=== PATIENT | female | born 1970 | race Hispanic/Latino ===

== ENCOUNTER 2022-03-25 01:16 | Day surgery (SDC) | payer OTHER, SELFPAY ==
[2022-03-09 13:04] VITALS: BMI 24.2
[2022-03-25 10:15] VITALS: BP 117/61; PULSE 80; RESP 18; TEMP 36.6; O2SAT 98
[2022-03-25] MEDS: LACTATED RINGERS 1,000 ML 150 ML IV CONT (10:29)
--- NOTE | 2022-03-25 11:22 | WPDANESEPPF ---
Anes - Initial Pre Proc Eval Procedure: Operation Date: 03/25/22 11:15 Proposed Procedures p Esophagogastroduodenoscopy & Screening Colonoscopy - Magdy Cast MD Date/Time: 03/25/22 11:22 Surgeon: Magdy Cast MD Pre Op Diagnosis: gerd and bloating: neoplasm screening Patient Data Age: 51 Gender: F Height: 1.65 m Weight: 71 kg Last Vital Signs Temp 36.6 C 03/25/22 10:15 Pulse 80 03/25/22 10:15 Resp 18 03/25/22 10:15 BP 117/61 03/25/22 10:15 Pulse Ox 98 03/25/22 10:15 O2 Del Method Room Air 03/25/22 10:15 Allergies Allergy/AdvReac Type Severity Reaction Status Date / Time No Known Allergies Allergy Verified 03/25/22 10:14 Home Medications Medication Instructions Recorded Confirmed Type famotidine 40 mg tablet 40 mg PO DAILY 01/27/22 03/09/22 History omeprazole 40 mg capsule,delayed 40 mg PO DAILY 01/27/22 03/09/22 History release Patient hx anesthesia problems: none Family hx anesthesia problems: none Results Review: All pre-operative results and documents have been reviewed as part of the pre-operative evaluation. [facility] Past Medical History Medical History (Updated 01/27/22 @ 10:48 by KARRI Ghotra) Overweight (BMI 25.0-29.9) Family History Family History (Updated 01/27/22 @ 09:49 by Olivia Raza MA) Mother Acute leukemia Diabetes mellitus Hypertension Thyroid condition Social History Social History (Updated 03/25/22 @ 11:26 by Mike Mora DO) Smoking packs per day: 0.5 Smoking cigarettes per day: 10.0 Years smoked: 25 Smoking pack-years: 12.50 Smoking status: Current every day smoker Tobacco type: cigarettes Second hand tobacco smoke exposure: No Alcohol intake: current Drinks per week: 7 Alcohol use details: 1 drink/day Living arrangements: alone Spiritual care concerns: No Anes - Eval Final PreProcedure Day of Procedure 03/25/22 11:22 Results Review: All pre-operative results and documents have been reviewed as part of the pre-operative evaluation. Informed Consent: The patient's anesthetic plan and its attendant risks and benefits were discussed with the patient/family/POA. Questions were solicited and answers provided to the satisfaction of the patient/family/POA.
--- NOTE | 2022-03-25 11:30 | PM.HPGS ---
History of Present Illness History of Present Illness Consent: Risks, benefits, and alternatives have been discussed and questions answered. Patient agrees to proceed with procedure. Chief complaint: gerd and bloating: neoplasm screening Narrative: Cara Boss is a 51 year old female with epigastric pain and bloating after eating, also sensation that food is staying in stomach for too long. Had egd about 10 years ago, never had GES. Colonoscopy 2011. Using protonix for 2-3 months with some relief. She is from [place]. Review of Systems Constitutional: Constitutional: Denies headache(s) and Denies weakness Eyes: Eyes: Denies blurry vision ENT: Reports Normal hearing present, Denies headache(s) and Denies neck pain Cardiovascular: Cardiovascular: Denies chest pain and Denies dyspnea Respiratory: Respiratory: Denies dyspnea Gastrointestinal: Gastrointestinal: Reports no additional gastrointestinal complaints Genitourinary: Genitourinary: Denies dysuria Musculoskeletal: Musculoskeletal: Denies neck pain Integumentary/Breasts: Skin/Breast: Denies dry skin Neurologic: Reports Normal hearing present, Denies headache(s) and Denies weakness Psychiatric: Psychiatric: Denies anxiety Endocrine: Endocrine: Denies change in body appearance Hematologic/Lymphatic: Hematologic/Lymphatic: Denies easy bleeding Allergic/Immunologic: Allergic/Immunologic: Denies urticaria PMFSH Past Medical History Medical History (Updated 03/25/22 @ 11:31 by Magdy Cast MD) Bloating Colon cancer screening Epigastric pain Overweight (BMI 25.0-29.9) Family History Family History (Updated 01/27/22 @ 09:49 by Olivia Raza MA) Mother Acute leukemia Diabetes mellitus Hypertension Thyroid condition Social History Social History (Updated 03/25/22 @ 11:26 by Mike Mora DO) Smoking packs per day: 0.5 Smoking cigarettes per day: 10.0 Years smoked: 25 Smoking pack-years: 12.50 Smoking status: Current every day smoker Tobacco type: cigarettes Second hand tobacco smoke exposure: No Alcohol intake: current Drinks per week: 7 Alcohol use details: 1 drink/day Living arrangements: alone Spiritual care concerns: No Meds Home Medications and Allergies Home Medications Medication Instructions Recorded Confirmed Type famotidine 40 mg tablet 40 mg PO DAILY 01/27/22 03/09/22 History omeprazole 40 mg capsule,delayed 40 mg PO DAILY 01/27/22 03/09/22 History release Allergies Allergy/AdvReac Type Severity Reaction Status Date / Time No Known Allergies Allergy Verified 03/25/22 10:14 Vital Signs Vital Signs - 24 hr 03/25/22 10:15 Temperature 97.9 F Pulse Rate 80 Respiratory Rate 18 Blood Pressure 117/61 Pulse Oximetry 98 Oxygen Delivery Room Air Exam Const: General: comfortable and no acute distress HENMT: General nose exam: Normal nares present Eyes: General: appearance normal, both eyes and all related structures Neck: Neck: no JVD Resp: Auscultation: clear to auscultation bilaterally Cardio: Rate: regular rate Rhythm: regular rhythm GI: Inspection: non-distended GI Palp: Yes Soft to palpation Skin: General skin exam: normal color Neuro: General: gait normal Speech: normal speech Extrem: General: normal to inspection Psych: Mental Status: mental status grossly normal Assessment and Plan Assessment and plan (1) Bloating: Code(s): R14.0 - Abdominal distension (gaseous) Status: Acute Assessment and Plan: egd with bx, assess if pud, celiac if negative then will get gastric emptying study already on ppi (2) Epigastric pain: Code(s): R10.13 - Epigastric pain Status: Acute (3) Colon cancer screening: Code(s): Z12.11 - Encounter for screening for malignant neoplasm of colon Status: Acute Assessment and Plan: colonoscopy
[2022-03-25 11:57] VITALS: BP 111/82; PULSE 82; RESP 22; O2SAT 98
[2022-03-25 12:07] VITALS: BP 103/55; PULSE 75; RESP 13; O2SAT 98
[2022-03-25 12:17] VITALS: BP 116/71; PULSE 64; RESP 20; O2SAT 100
== END 2022-03-25 12:40 | disposition home or self-care (01) ==
PROVIDERS: PCP Physician Assistant; Visit Provider Internal Medicine Gastroenterology
PROC: 0DJ08ZZ Inspection of Upper Intestinal Tract, Via Natural or Artificial Opening Endoscopic (ICD-10-PCS; CPT 43235; principal; 2022-03-25 11:15)
DX: Z12.11 Encounter for screening for malignant neoplasm of colon (principal); K57.30 Diverticulosis of large intestine without perforation or abscess without bleeding; K29.50 Unspecified chronic gastritis without bleeding; B96.81 Helicobacter pylori [H. pylori] as the cause of diseases classified elsewhere; K21.9 Gastro-esophageal reflux disease without esophagitis; F17.210 Nicotine dependence, cigarettes, uncomplicated
CPT/HCPCS: 45378; 43239; 88305; 88342; J2001; J2704; J7120

== ENCOUNTER 2022-04-07 07:47 | Outpatient (CLI) | payer OTHER, SELFPAY ==
--- NOTE | ~2022-04-07 | NM_ITS ---
EXAM: NM gastric emptying study DATE: 04/07/2022 13:47 CDT INDICATION: Gastric fullness TECHNIQUE: A gastric emptying study was performed using the methodology of Ortiz GARCIA, et al. J Nucl Med 2007; 48:568-572. The patient was given a meal consisting of 2 scrambled eggs labeled with 1 mCi Tc-99m sulfur colloid, 2 slices of toast, two packages of jam, and approximately 120 mL of water. Si multaneous anterior and posterior 1-min images of the abdomen were obtained with the patient supine a t multiple time points over a total period of 4 hours. The geometric mean of anterior and posterior v iews was determined, and the percentage retention was calculated for each time point. COMPARISON: None. FINDINGS: Gastric retention of the radiotracer-labeled meal was 16%, 1%, and 2% at the 1-hour, 2-chito r, and 4-hour time points, respectively. With this technique, apparent rapid gastric emptying is sugg ested by <30% gastric retention at 1 hour. Delayed gastric emptying is defined by gastric retention o f >90% at 1 hour, >60% retention at 2 hours, or >10% retention at 4 hours. IMPRESSION: 1. Rapid gastric emptying. Reviewed, dictated and finalized at location A. IMPRESSION: 1. Rapid gastric emptying.
== END 2022-04-07 07:48 | disposition home or self-care (01) ==
PROVIDERS: PCP Physician Assistant; Visit Provider Internal Medicine Gastroenterology
DX: R10.13 Epigastric pain (principal); R14.0 Abdominal distension (gaseous); K31.84 Gastroparesis
CPT/HCPCS: 78264; A9541

== ENCOUNTER 2022-09-03 13:03 | Outpatient (CLI) | payer OTHER, SELFPAY ==
--- NOTE | 2022-09-03 | ECHO_ITS ---
Patient Info Name: Cara Boss Age: 52 years : 1970 Gender: Female Ht: 65 in Wt: 160 lbs BSA: 1.84 m2 HR: 78 bpm BP: 128 / 81 mmHg Heart Rhythm: Sinus Rhythm Technical Quality: Fair Exam Date: 09/03/2022 1:28 PM Exam Location: [facility] Patient Status: Outpatient Admit Date: 09/03/2022 Staff Ordering Physician: Demar, Delta SHER Worm Packer: Jennifer Williamson RDCS Attending Provider: Demar, Delta SHER Exam Type: CA echo doppler color flow Study Info Indications R07.9 - Chest pain, unspecified Complete two-dimensional, color flow and Doppler transthoracic echocardiogram is performed. Summary 1. Complete two-dimensional, color flow and Doppler transthoracic echocardiogram is performed. 2. Left ventricular systolic function is normal, estimated at 65-70%. 3. The left ventricular diastolic function is normal. 4. Right ventricular systolic function is normal. 5. No significant valvular disease. Left Ventricle Left ventricular chamber dimension is normal. Left ventricular systolic function is normal, estimated at 65-70%. There is no increased left ventricular wall thickness. The left ventricular diastolic function is normal. Right Ventricle Right ventricular chamber dimension is normal. Right ventricular systolic function is normal. Left Atria Left atrial chamber dimension is normal. Right Atria Right atrial chamber dimension is normal. Atrial Septum Intact interatrial septum visualized by color flow imaging. Aortic Valve The aortic valve is not well visualized. There is no aortic valve stenosis. There is no aortic valve regurgitation. Pulmonic Valve The pulmonic valve is not well visualized. Mitral Valve The mitral valve has normal leaflets. There is no mitral valve stenosis. There is no mitral valve regurgitation. Tricuspid Valve The tricuspid valve leaflets are normal. There is no significant tricuspid valve stenosis. There is no tricuspid valve regurgitation. Pericardium/Pleural There is no pericardial effusion. Inferior Vena Cava Normal inferior vena cava with >50% collapse upon inspiration consistent with normal right atrial pressure. Aorta The aortic root size at the sinus of Valsalva is normal. Left Ventricular Outflow Tract Name Value Normal LVOT 2D LVOT Diameter 1.9 cm LVOT Doppler LVOT Peak Gradient 5 mmHg LVOT Mean Gradient 3 mmHg LVOT VTI 24 cm LVOT VTI/AV VTI Ratio 0.9 LVOT Stroke Volume 67 ml LVOT CO 4.4 l/min LVOT CI 2.4 l/min/m2 Pulmonic Valve Name Value Normal RVOT Doppler RVOT Peak Gradient 2 mmHg PV Doppler ---------
== END 2022-09-03 13:04 | disposition home or self-care (01) ==
LOC: ANHCARD 13:04
PROVIDERS: PCP Physician Assistant; Visit Provider Nurse Practitioner Family
DX: R07.9 Chest pain, unspecified (principal)
CPT/HCPCS: 93306

== ENCOUNTER → 2022-11-04 11:56 | Outpatient (CLI) | payer OTHER, SELFPAY ==
--- NOTE | ~2022-11-04 | MR_ITS ---
EXAMINATION: MR lumbar spine wo con DATE: 11/04/2022 12:09 INDICATION: Lumbar spondylosis without myelopathy or radiculopathy. Low back pain. TECHNIQUE: Magnetic resonance imaging (MRI) of the lumbar spine was performed without intravenous con trast. Sequences included sagittal T2-weighted FSE, sagittal T2-weighted FS FSE, sagittal T1-weighted FSE, and axial T2-weighted FSE. COMPARISON: None FINDINGS: Bone alignment is normal. There are Schmorl's nodes from T11-T12 through L3-L4. Interverteb ral disc heights are normal. The distal spinal cord signal intensity is normal. The conus medullaris is at L1. The following disc levels are specifically discussed: L1-L2: The disc does not extend beyond the endplate margin. There is mild bilateral facet joint osteo arthritis. There is no neural foraminal stenosis. There is no central canal stenosis. L2-L3: The disc does not extend beyond the endplate margin. There is mild bilateral facet joint osteo arthritis. There is no neural foraminal stenosis. There is no central canal stenosis. L3-L4: The disc does not extend beyond the endplate margin. There is mild bilateral facet joint osteo arthritis. There is no neural foraminal stenosis. There is no central canal stenosis. L4-L5: The disc does not extend beyond the endplate margin. There is mild right and moderate left fac et joint osteoarthritis. There is no neural foraminal stenosis. There is no central canal stenosis. L5-S1: The disc does not extend beyond the endplate margin. There is severe bilateral facet joint ost eoarthritis. There is mild left neural foraminal stenosis. There is no central canal stenosis. IMPRESSION: 1. Mild lumbar spondylosis. Reviewed, dictated and finalized at location A. TH OFFICER IMPRESSION: 1. Mild lumbar spondylosis.
== END ==
PROVIDERS: PCP Nurse Practitioner Adult Health; Visit Provider Nurse Practitioner Adult Health
DX: M47.816 Spondylosis without myelopathy or radiculopathy, lumbar region (principal)
CPT/HCPCS: 72148

== ENCOUNTER 2023-02-15 11:21 | Emergency (ER) | payer OTHER, SELFPAY ==
[2023-02-15 11:31] VITALS: BP 126/75; PULSE 88; RESP 16; TEMP 36.7; O2SAT 97
--- NOTE | 2023-02-15 11:31 | ECG_ITS ---
Measurements Intervals [place] Rate: 85 P: 48 CO: 124 QRS: 79 QRSD: 81 T: 69 QT: 362 QTc: 431 Interpretive Statements SINUS RHYTHM NORMAL ECG COMPARED TO ECG 02/15/2023 11:37:14 NO SIGNIFICANT CHANGES Electronically Signed On 02-15-2023 13:20:48 CDT by Gael Almanzar D.O.
--- NOTE | 2023-02-15 11:33 | ED.GENADULT ---
HPI - General Adult General Chief complaint: Headache Stated complaint: headaches; numbness in left face/arm;vision change Time Seen by Provider: 02/15/23 11:42 Source: patient Mode of arrival: ambulatory Limitations: no limitations History of Present Illness HPI narrative: 52-year-old female presents with concern for posterior headache 05/13, dizziness, intermittent chest pain, blurry vision, numbness in her left face and left arm. She reports symptoms started on Wednesday and have progressively worsened. She denies any syncope, near syncope. She denies weakness in any extremity. She denies difficulty speaking, swallowing. She reports she has been taking ibuprofen without relief. She denies any recent illness. She reports history of a neck injury 4 years ago that she has been being treated for. MD complaint: Headache Related Data Home Medications Medication Instructions Recorded Confirmed No Home Medications 12/11/22 02/15/23 Allergies Allergy/AdvReac Type Severity Reaction Status Date / Time No Known Allergies Allergy Verified 02/15/23 11:25 Review of Systems Review of Systems: CONSTITUTIONAL: Denies malaise, chills, or fever. Reports sweats EYES: Reports blurry vision, watery eyes ENT: Denies rhinorrhea, congestion, sinus pain, otalgia or sore throat. CARDIOVASCULAR: Reports chest pain. Denies palpitations or edema. RESPIRATORY: Denies cough or dyspnea. GASTROINTESTINAL: Denies abdominal pain, vomiting, diarrhea. Reports nausea. GENITOURINARY: Denies dysuria or hematuria. SKIN: Denies rash or itching. MUSCULOSKELETAL: Denies back pain, joint pain, or myalgia. NEUROLOGIC: Denies numbness, weakness. Reports dizziness and headache. All systems reviewed & are unremarkable except as noted in HPI and below PMFSH Past Medical History Medical History (Updated 02/15/23 @ 12:02 by Alicia Thompson NP) Bloating Cervical spondylosis Chronic pain Colon cancer screening Epigastric pain Lumbar spondylosis Overweight (BMI 25.0-29.9) Family History Family History Mother Acute leukemia Diabetes mellitus Hypertension Thyroid condition Social History Social History Smoking packs per day: 0.5 Smoking cigarettes per day: 10.0 Years smoked: 25 Smoking pack-years: 12.50 Smoking status: Current every day smoker Tobacco type: cigarettes Second hand tobacco smoke exposure: No Alcohol intake: current Drinks per week: 7 Alcohol use details: 1 drink/day Living arrangements: alone Spiritual care concerns: No Comments At time of signature, agree with nursing past medical, surgical, social and family history. There is no relevant family history pertinent to the presenting complaint Exam Narrative: GENERAL: Well-appearing, well-nourished, and in no acute distress. HEAD: Normocephalic, atraumatic. EYES: PERRLA, sclera clear, and EOMI. No nystagmus. ENT: Nares clear, turbinates pink, no rhinorrhea or epistaxis. Mucous membranes moist. NECK: Supple. No lymphadenopathy. CHEST: No respiratory distress. Clear to auscultation. No bony deformities, no asymmetry. Speaks in full sentences. HEART: Regular rate and rhythm. No murmur heard. Normal peripheral pulses. EXTREMITIES: Grossly normal range of motion. No edema. Grossly normal strength and sensation. SKIN: Warm, dry, no visible rash. NEURO: Alert and oriented x3. No focal deficits. Cranial nerves II through XII grossly intact PSYCH: Normal mood and affect Course Course Emergency Course: Patient is aware of, understands and agrees to be transferred to the emergency room. Patient agrees to proceed directly to the emergency department. Portions of this record may have been created with voice recognition software Level of Care: Express Care Visit Vital Signs Vital signs: Vital Signs Temperature 98.1 F 05/1
== END 2023-02-15 11:53 | disposition short-term general hospital (02) ==
PROVIDERS: Emergency Provider Nurse Practitioner; PCP Family Medicine
DX: R42 Dizziness and giddiness (principal); F17.210 Nicotine dependence, cigarettes, uncomplicated
CPT/HCPCS: 93005; 99213; G0463

== ENCOUNTER 2023-02-15 12:37 | Observation (INO) | payer OTHER, SELFPAY ==
[2023-02-15] VITALS (13 sets, daily range): BP systolic 130–167; BP diastolic 55–102; PULSE 68–94; RESP 11–22; TEMP 35.7–36.3; O2SAT 95–100
--- NOTE | ~2023-02-15 | XR_ITS ---
EXAMINATION: XR chest 2V 02/15/2023 13:13 INDICATION: Chest pain and dizziness PROCEDURE: 2 view chest COMPARISON: 05/08/2016 FINDINGS: The lungs are clear. The cardiomediastinal silhouette is within normal limits. There are no pleural effusions. There is no pneumothorax suspected. IMPRESSION: 1: NO ACUTE CARDIOPULMONARY DISEASE. 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
--- NOTE | ~2023-02-15 | CT_ITS ---
EXAMINATION: CTA BRAIN/CAROTID DATE: 02/15/2023 15:17 INDICATION: Dizziness, headache and left facial and arm numbness. TECHNIQUE: Computed tomographic angiography (CTA) of the head and neck was performed with 100 mL Omni paque-350 intravenous contrast. Multiplanar reconstructions and maximum intensity projection 3D-recon structions of the carotid arteries and of the intracranial arteries were created by the technologist on a separate workstation. Precontrast CT of the head was also obtained. Automated exposure control and iterative reconstruction technique were employed.The dose-length product was 1620.43 mGy-cm. Imme diately following contrast administration the patient experienced a contrast reaction with prominent of shortness of breath. I went to see the patient who appeared anxious and mildly tachypneic. No evid ent hives, apparent angioedema in the oropharynx or wheezing on auscultation. The patient was placed on the nonrebreather oxygen mask and was saturating 100%. Patient denied itching but when asked dated described a sensation of some throat tightness. The ED physician was notified and the patient was re turned to the emergency department where under the care of Dr. Chavez she was administered 50 mg Be nadryl, 1 mg epinephrine and 125 mg Solu-Medrol IV. COMPARISON: None. FINDINGS: Carotid arteries: Thoracic aorta is normal in caliber with no dissection. There is 0% stenosis of the right carotid bul b relative to normal distal artery lumen diameter (NASCET criteria). There is 0% stenosis of the left carotid bulb relative to normal distal artery lumen diameter. Multinodular goiter with dominant 4 cm mixed solid and cystic right thyroid mass with some associated coarse partial rim calcification. Lik bal developmental anterior fusion at C5-C6 along with fusion across the right-sided C5-C6 facet joint s. The left side of the C5 facet joints remains unfused with the right side fused to the C6 spinous p rocess. Visualized upper lungs are clear. Calcified mediastinal lymph nodes consistent with old granu lomatous disease. Head: No acute intracranial hemorrhage, acute infarction or abnormal extra axial fluid collection. Ventricl es are normal and symmetric. No mass/mass effect. No abnormally enhancing brain lesions. The orbits, paranasal sinuses and mastoid air cells are normal. Intracranial arteries There is no hemodynamically significant stenosis in the vertebral, basilar and internal carotid arter ies. Vertebral arteries are codominant. There are no aneurysms identified. Both A1 and P1 segments a re patent. There is a patent anterior communicating artery. Cerebral arterial arborization appears sy mmetric. IMPRESSION: 1. 0% stenosis of the right and left carotid bulbs relative to normal distal artery lumen diameter (N ASCET criteria). 2. Normal cerebral CT angiogram with no aneurysm, thrombosis or hemodynamically significant stenosis. 3. Normal brain. No acute intracranial process or abnormally enhancing brain lesions. 4. Multinodular goiter with 4 cm right thyroid mass. Recommend thyroid ultrasound for risk stratifica tion. 5. Moderate severity contrast allergy which was treated with Benadryl, epinephrine and Solu-Medrol IV . Patient should be advised to avoid intravenous iodine contrast administration as there is a signifi cant risk for a recurrent severe contrast allergy even following premedication. Reviewed, dictated and finalized at location A. IMPRESSION: 1. 0% stenosis of the right and left carotid bulbs relative to normal distal ar shabnam lumen diameter (NASCET criteria). 2. Normal cerebral CT angiogram with no aneurysm, thrombosis or hemodynamically significant stenosis. 3. Normal brain. No acute intracranial process or abnormally enhancing brain le sions. 4. Multinod
--- NOTE | ~2023-02-15 | MR_ITS ---
EXAMINATION: MR brain/brain stem wo/w con DATE: 02/16/2023 08:44 INDICATION: Left hemiparesis. TECHNIQUE: Magnetic resonance imaging (MRI) of the brain and brainstem was performed without and with 14 mL MultiHance intravenous contrast. COMPARISON: Head CT 02/15/2023 FINDINGS: There are scattered areas of nonspecific increased T2-weighted signal intensity in the cere bral white matter, which is within normal limits for the patient's age. There is no intracranial hemo rrhage, acute infarction, or abnormal intracranial mass lesion. The ventricles are normal in size. Th ere is mild mucosal thickening in the ethmoid sinuses. The mastoid air cells are normal. The orbits a re normal. IMPRESSION: 1. Normal aging brain. Reviewed, dictated and finalized at location A. IMPRESSION: 1. Normal aging brain.
--- NOTE | ~2023-02-15 | US_ITS ---
EXAMINATION: US thyroid DATE: 02/16/2023 09:03 INDICATION: Right thyroid nodule. TECHNIQUE: Multiple ultrasound images of the thyroid were obtained. COMPARISON: Neck CTA 02/15/2023, chest CT 06/01/2015 FINDINGS: The right thyroid lobe measures 7.8 x 2.7 x 2.4 cm. The left thyroid lobe measures 3.0 x 1.2 x 0.9 c m. In the right thyroid lobe, there is a 4.1 cm predominantly solid, hypoechoic, wider than tall nod ule with lobulated margin and peripheral calcifications (TI-RADS TR5). IMPRESSION: 1. Right thyroid nodule. Ultrasound-guided fine-needle aspiration is recommended. Reviewed, dictated and finalized at location A. IMPRESSION: 1. Right thyroid nodule. Ultrasound-guided fine-needle aspiration is recommende d.
--- NOTE | 2023-02-15 12:39 | ECG_ITS ---
Measurements Intervals [place] Rate: 79 P: 60 [place]: 139 QRS: 79 QRSD: 80 T: 68 QT: 361 QTc: 416 Interpretive Statements SINUS RHYTHM WITH SINUS ARRHYTHMIA BASELINE ARTIFACT- I, III, AVR, AVL NORMAL ECG NO PREVIOUS ECG AVAILABLE FOR COMPARISON Electronically Signed On 02-15-2023 12:48:50 CDT by Gael Almanzar D.O.
[2023-02-15 13:07] LABS: Basophils Absolute Auto 0.1 K/mm3 (0.0-0.1); Eosinophils Absolute Auto 0.2 K/mm3 (0-0.3); Eosinophils Percent Auto 2.3 % (0-4.4); Hematocrit 47.5 % (37.0-47.0); Hemoglobin 15.9 g/dL (12.0-15.0); Immature Granulocyte Absolute 0.04 K/mm3 (0.00-0.031); Immature Granulocyte Percent A 0.4 % (0-0.5); Lymphocytes Absolute Auto 3.49 K/mm3 (0.9-3.2); Mean Corpuscular HGB Conc 33.5 g/dl (32-36); Mean Corpuscular Hemoglobin 31.9 pg (26-34); Mean Corpuscular Volume 95.2 fl (80-100); Mean Platelet Volume 9.1 fl (7.4-10.4); Monocytes Absolute Auto 0.6 K/mm3 (0.1-0.6); Monocytes Percent Auto 7.2 % (2.6-8.5); Neutrophils Absolute Auto 4.5 K/mm3 (1.3-6.7); Neutrophils Percent Auto 50.1 % (45.5-73.1); Platelet Count Result 317 k/mm3 (150-375); Red Blood Count 4.99 M/mm3 (4.2-5.4); Red Cell Distribution Width 12.9 % (11.5-14.5); White Blood Count 8.9 K/mm3 (4.5-10.0)
[2023-02-15 13:14] LABS: Alanine Aminotransferase 49 U/L (6-35); Albumin Level 4.7 g/dL (3.5-5.1); Alkaline Phosphatase 92 U/L (38-126); Anion Gap 6 mmol/L (8-16); Aspartate Amino Transferase 40 U/L (14-36); Bilirubin,Total 0.6 mg/dL (0.2-1.3); Blood Urea Nitrogen 9 mg/dL (7-17); Carbon Dioxide 26 mmol/L (22-30); Chloride 106 mmol/L (98-107); Estimated CRCL calculation 75 ml/min; Estimated Glomerular Filt Rate > 60; Glucose 95 mg/dL (65-110); Lipase 81 U/L (23-300); Potassium 3.8 mmol/L (3.4-5.0); Sodium 138 mmol/L (137-145)
[2023-02-15 13:19] LABS: INR 0.9; Prothrombin Time 12.9 Seconds (11.1-14.7)
[2023-02-15 13:21] LABS: Partial Thromboplastin Time 29.8 SECONDS (22.3-36.8)
[2023-02-15 13:26] LABS: Troponin I < 0.012 ng/mL (0.000-0.034)
[2023-02-15] MEDS: ASPIRIN 81 MG CHEWABLE TABLET 324 MG PO (14:21)
--- NOTE | 2023-02-15 14:22 | ED.GENADULT ---
HPI - General Adult General Chief complaint: Chest Pain Stated complaint: dizziness/chest pain, left arm numbness Time Seen by Provider: 02/15/23 13:49 History of Present Illness HPI narrative: 52-year-old female presented to the emergency department for evaluation of left facial left arm and left leg numbness and weakness. Patient states symptoms started approximately 1 week ago. Patient denies any prior history of [place] or CVA. Patient states she has no underlying past medical issues. Patient denies any associated chest pain or shortness of breath. Patient reports that the symptoms have been persistent for approximately 1 week. Patient denies any acute worsening of the symptoms over the course of the week. Related Data Home Medications Medication Instructions Recorded Confirmed No Home Medications 12/11/22 02/15/23 Allergies Allergy/AdvReac Type Severity Reaction Status Date / Time iohexol Allergy Dyspnea / Verified 02/15/23 16:29 [From contrast - CT, X-RAY] SOB Review of Systems Review of Systems: All systems reviewed & are unremarkable except as noted in HPI and below PMFSH Past Medical History Medical History (Updated 02/15/23 @ 19:08 by Thien Chavez MD) Bloating Cervical spondylosis Chronic pain Colon cancer screening Epigastric pain Lumbar spondylosis Overweight (BMI 25.0-29.9) Family History Family History Mother Acute leukemia Diabetes mellitus Hypertension Thyroid condition Social History Social History Smoking packs per day: 0.5 Smoking cigarettes per day: 10.0 Years smoked: 25 Smoking pack-years: 12.50 Smoking status: Current every day smoker Tobacco type: cigarettes Second hand tobacco smoke exposure: No Alcohol intake: current Drinks per week: 4 Alcohol use details: 1 drink/day Substance use: current Substance use type: marijuana Lack of Transportation: No Lack of Food: Never True Current Housing: I Have Housing Concerned About Future Housing: No Difficulty Paying Gas/Electric Bills: No Difficulty Paying for Meds: No Currently Unemployed: No Education: High School Diploma/GED Difficulty w/ Childcare or Family Care: No Living arrangements: alone Spiritual care concerns: No Exam Narrative: APPEARANCE: Well appearing, no pain, no distress, well-nourished. HEAD: normocephalic, atraumatic. EYES: PERRLA/EOMI, conjunctivae clear. NOSE: Normal no drainage EARS:TMS clear with good light reflex. THROAT: Pharynx clear, no exudate. NECK: Supple. No adenopathy, no masses. RESPIRATORY: Airway patent, respirations nonlabored. Clear to auscultation bilaterally, no rales, rhonchi, wheezing. CARDIOVASCULAR: Regular rate and rhythm without murmurs rubs or gallops. ABDOMINAL: Soft, nontender, nondistended, normal bowel sounds MUSCULOSKELETAL: Moves all extremities. Strength/ROM intact, No edema, No calf tenderness. NEURO: Alert. Cranial nerves II through XII intact. No ataxia or discoordination, mild weakness of the left upper and left lower extremity with strength 4 out of 5. SKIN: Warm, dry. Normal Color Course Course Emergency Course: 52-year-old female presented the ED for evaluation of left facial numbness, left arm and left leg weakness. Head CT and CTA were negative for acute findings. Due to patient having some weakness Case was discussed with neurology and patient will be admitted for an MRI for further work-up. Patient and family were updated on the results of the imaging and plan for admission and further work-up. All questions and concerns were addressed and patient was stable at time of admission. Vital Signs Vital signs: Vital Signs Temperature 97.4 F L 02/15/23 12:42 Pulse Rate 91 02/15/23 12:42 Respiratory Rate 20 02/15/23 12:42 Blood Pressure 140/70 02/15/23 12:42 Pulse Oximetry 98 05
--- NOTE | 2023-02-15 15:15 | PC.NURSE ---
While pt was in CT, pt had a reaction to the IV contrast. a rapid response was called. RR team states the pt got short of breath after receiving contrast. Pt was brought back to ED room and Dr. Chavez assessed pt. Pt states her face feels itching and she feels SOB. Pt was given 125mg of solumedrol and 50 mg of benadryl. No edema in throat noted and no difficulty swallowing.
[2023-02-15] MEDS: diphenhydrAMINE HCl INJ 50 MG/ML VIAL (15:19)
[2023-02-15] MEDS: methylPREDNISolone SOD SUCC 125 MG VIAL (15:19)
[2023-02-15 16:26] LABS: Troponin I < 0.012 ng/mL (0.000-0.034)
[2023-02-15 19:09] LABS: Troponin I < 0.012 ng/mL (0.000-0.034)
[2023-02-16] VITALS: PULSE 73
--- NOTE | 2023-02-16 | ECHO_ITS ---
Patient Info Name: Cara Boss Age: 52 years : 1970 Gender: Female Ht: 65 in Wt: 155 lbs BSA: 1.81 m2 HR: 78 bpm BP: 106 / 57 mmHg Heart Rhythm: Sinus Rhythm Technical Quality: Good Exam Date: 02/16/2023 2:34 PM Exam Location: [facility] Card Pulmonary Patient Status: Inpatient Admit Date: 02/15/2023 Staff Ordering Physician: [facility] Insurance Coordinator: Jennifer Williamson RDCS Attending Provider: Romel Garsia MD Referring Physician: Jn JONES; Exam Type: CA echo limited w bubble study Study Info Indications - NEURO CHANGES Limited two-dimensional transthoracic echocardiogram is performed with agitated saline. Contrast/Agitated Saline Contrast/Ag. Saline: Agitated Saline Amount: 20.00 ml Existing IV Access: Yes IV Access Condition: patent with no signs of infiltration Summary 1. Intact interatrial septum visualized by color flow and agitated saline imaging. Left Ventricle Left ventricular systolic function is normal, estimated at 65-70%. Left ventricular septal wall motion is grossly normal, however endocardial definition is limited. Right Ventricle Right ventricular chamber dimension is normal. Right ventricular systolic function is normal. Left Atria Left atrial chamber dimension is normal. Right Atria Right atrial chamber dimension is normal. Atrial Septum Intact interatrial septum visualized by color flow and agitated saline imaging. Report Signatures
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
[2023-02-16 03:14] LABS: Hematocrit 47.8 % (37.0-47.0); Mean Corpuscular HGB Conc 33.5 g/dl (32-36); Mean Corpuscular Hemoglobin 31.9 pg (26-34); Mean Corpuscular Volume 95.2 fl (80-100); Mean Platelet Volume 9.3 fl (7.4-10.4); Platelet Count Result 316 k/mm3 (150-375); Red Blood Count 5.02 M/mm3 (4.2-5.4); Red Cell Distribution Width 12.7 % (11.5-14.5); White Blood Count 9.8 K/mm3 (4.5-10.0)
[2023-02-16 03:30] LABS: Cholesterol 209 mg/dL (0-200); HDL Direct 49 mg/dL; Triglycerides 89 mg/dL (<150)
[2023-02-16 03:31] LABS: Alanine Aminotransferase 44 U/L (6-35); Albumin Level 4.2 g/dL (3.5-5.1); Alkaline Phosphatase 71 U/L (38-126); Anion Gap 10 mmol/L (8-16); Aspartate Amino Transferase 35 U/L (14-36); Bilirubin,Total 0.6 mg/dL (0.2-1.3); Blood Urea Nitrogen 12 mg/dL (7-17); Calcium 9.2 mg/dL (8.4-10.2); Carbon Dioxide 21 mmol/L (22-30); Chloride 104 mmol/L (98-107); Estimated CRCL calculation 86 ml/min; Estimated Glomerular Filt Rate > 60; Glucose 187 mg/dL (65-110); Potassium 3.8 mmol/L (3.4-5.0); Sodium 135 mmol/L (137-145)
[2023-02-16 03:40] LABS: LDL Cholesterol Direct 153 mg/dL
[2023-02-16 04:00] VITALS: PULSE 74
[2023-02-16 04:38] LABS: Folic Acid 8.1 ng/mL (2.76->20)
[2023-02-16 05:28] LABS: Thyroid Stimulating Hormone Reflex 0.856 uIU/mL (0.465-4.68)
[2023-02-16 05:56] VITALS: BP 106/57; PULSE 69; RESP 18; TEMP 35.8; O2SAT 96
[2023-02-16] MEDS: THIAMINE HCL 200 MG/2 ML VIAL 100 MG IV PUSH (05:59)
[2023-02-16 08:00] VITALS: PULSE 69; RESP 18; O2SAT 96
[2023-02-16] MEDS: ATORVASTATIN 40 MG TABLET PO (09:50)
[2023-02-16] MEDS: ASPIRIN 81 MG CHEWABLE TABLET PO (09:50)
[2023-02-16] MEDS: THIAMINE HCL 100 MG TABLET PO (09:50)
[2023-02-16] MEDS: NICOTINE (*PBKC) 14 MG PATCH 1 PATCH TRANSDERM (09:51)
--- NOTE | 2023-02-16 11:17 | WPDNEURCNPN ---
Assessment and Plan Assessment and plan (1) TIA (transient ischemic attack): Code(s): G45.9 - Transient cerebral ischemic attack, unspecified Status: Acute Plan 1. TIA by history with negative CT scan CTA and negative MRI of the brain 2. Continue the aspirin 81 mg daily with all the pros and cons for the other diagnosis as such. Consult date: 02/16/23 HPI: Cara Boss is a 52 year old female admitted to the hospital through the emergency room for the complaints of dizziness along with the left upper extremity numbness and left lower extremity numbness. Patient reported the symptoms started about 1 week ago she gave no history of recent or remote trauma or stroke and also give no history of any underlying medications intake. Patient has not been taking any home medications and her past history consists of cervical spondylosis and lumbar spondylosis along with the chronic pain including the epigastric pain. She has a history of currently everyday smoking with smoking pack years 12.5 and at least taking 4 drinks per week of alcohol. Initial exam in the emergency room was grossly nonfocal with normal vital signs, normal CBC, normal BMP and normal troponins. Chest x-ray was negative CTA of the brain revealed no stenosis or aneurysm but incidental finding of multinodular goiter with 4cm right thyroid mass she was also documented to have the moderate contrast allergy. She had the MRI of the brain on 02/16 which is normal as mentioned before CTA was negative. As per the review of the medical record she has had an echocardiogram in September of last year with ejection fraction of 65 to 70% Review of Systems Review of Systems: All systems reviewed & are unremarkable except as noted in HPI and below PMFSH Past Medical History Medical History (Updated 02/16/23 @ 11:28 by Lan Botello MD) Cervical spondylosis Chronic pain Heavy alcohol use Helicobacter pylori gastritis (03/2022) Lumbar spondylosis Overweight (BMI 25.0-29.9) Tobacco use disorder, continuous Surgical History Surgical History (Updated 02/16/23 @ 08:00 by Arpita Romero DO) H/O hysterectomy for benign disease (~2007) Uterine fibroids History of esophagogastroduodenoscopy (EGD) (03/2022) Biopsies demonstrating chronic gastritis with H pylori Normal colonoscopy (03/2022) Family History Family History Mother Acute leukemia Diabetes mellitus Hypertension Thyroid condition Social History Social History (Updated 02/16/23 @ 01:45 by Arpita Romero DO) Social History: She lives at home with her of 33 years and there 19 year old. They have a total of 4 children with you oldest being 28 years old. She drinks 4 beers a day and has done so for many years. She smokes half a pack of cigarettes per day and started smoking at 14 years old. She uses marijuana gummies to help with her chronic back pain. Code status: Full code Surrogate decision maker: Smoking packs per day: 0.5 Smoking cigarettes per day: 10.0 Years smoked: 38 Smoking pack-years: 19.00 Smoking status: Current every day smoker Tobacco type: cigarettes Second hand tobacco smoke exposure: No Alcohol intake: current Drinks per week: 4 Alcohol use details: 1 drink/day Substance use: current Substance use type: marijuana Lack of Transportation: No Lack of Food: Never True Current Housing: I Have Housing Concerned About Future Housing: No Difficulty Paying Gas/Electric Bills: No Difficulty Paying for Meds: No Currently Unemployed: No Education: High School Diploma/GED Difficulty w/ Childcare or Family Care: No Living arrangements: alone Spiritual care concerns: No Meds Home Medications and Allergies Home Medications Medication Instructions Recorded Confirmed Type No Home Medications 12/11/22 02/15/23 History Allergies Allergy/AdvReac Type Se
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
[2023-02-16] MEDS: ACETAMINOPHEN 325 MG TABLET 650 MG PO (12:11)
[2023-02-16 14:00] VITALS: BP 108/51; PULSE 89; RESP 16; TEMP 36.1; O2SAT 98
[2023-02-16] MEDS: KETOROLAC 30 MG/ML VIAL (*BKC) IV PUSH (17:00)
== END 2023-02-16 17:47 | disposition home or self-care (01) ==
LOC: ANHED 15:10 → ANH3MEDSUR 19:08
PROVIDERS: Admitting Provider Internal Medicine; Emergency Provider Emergency Medicine; PCP Family Medicine; Visit Provider Family Medicine
DX: I63.9 Cerebral infarction, unspecified (principal); G81.94 Hemiplegia, unspecified affecting left nondominant side; R29.703 NIHSS score 3; R20.0 Anesthesia of skin; R53.1 Weakness; M47.812 Spondylosis without myelopathy or radiculopathy, cervical region; G89.29 Other chronic pain; M47.816 Spondylosis without myelopathy or radiculopathy, lumbar region; R51.9 Headache, unspecified; E66.3 Overweight; D75.1 Secondary polycythemia; E04.2 Nontoxic multinodular goiter; R74.01 Elevation of levels of liver transaminase levels; T50.8X5A Adverse effect of diagnostic agents, initial encounter; Z68.25 Body mass index [BMI] 25.0-25.9, adult; F17.210 Nicotine dependence, cigarettes, uncomplicated; F10.90 Alcohol use, unspecified, uncomplicated; F12.90 Cannabis use, unspecified, uncomplicated
CPT/HCPCS: 36415; 70496; 70498; 70553; 71046; 76536; 80053; 80061; 82607; 82746; 83690; 84443; 84484; 85025; 85027; 85610; 85730; 93005; 93308; 96374; 96375; 99213; 99285; A9270; A9577; G0378; G0463; J0171; J1200; J1885; J2930; J3411; Q9967

== ENCOUNTER → 2023-05-14 12:41 | Outpatient (CLI) | payer OTHER, SELFPAY ==
--- NOTE | ~2023-05-14 | MR_ITS ---
EXAMINATION: MR cervical spine wo con DATE: 05/14/2023 13:13 INDICATION: Cervical radiculopathy. TECHNIQUE: Magnetic resonance imaging (MRI) of the cervical spine was performed without intravenous c ontrast. COMPARISON: None FINDINGS: Bone alignment is normal. Vertebral body heights are normal. There is mildly decreased disc height at C6-C7. There is a developmental interbody fusion at C5-C6. The spinal cord signal intensit y is normal. The following disc levels are specifically discussed: C2-C3: The disc does not extend beyond the endplate margin. There is no uncovertebral joint osteoarth ritis. There is no facet joint osteoarthritis. There is no neural foraminal stenosis. There is no jose luis tral canal stenosis. C3-C4: There is a central protrusion. There is mild right uncovertebral joint osteoarthritis. There i s mild left facet joint osteoarthritis. There is mild right neural foraminal stenosis. There is mild central canal stenosis. C4-C5: The disc is bulging. There is mild bilateral uncovertebral joint osteoarthritis. There is mild left facet joint osteoarthritis. There is mild right neural foraminal stenosis. There is mild centra l canal stenosis. C5-C6: The disc does not extend beyond the endplate margin. There is no uncovertebral joint hypertrop hy. There is no facet joint hypertrophy. There is no neural foraminal stenosis. There is no central c anal stenosis. C6-C7: The disc is bulging. There is mild bilateral uncovertebral joint osteoarthritis. There is mild bilateral facet joint osteoarthritis. There is no neural foraminal stenosis. There is mild central c anal stenosis. C7-T1: The disc does not extend beyond the endplate margin. There is no uncovertebral joint osteoarth ritis. There is severe bilateral facet joint osteoarthritis. There is mild bilateral neural foraminal stenosis. There is no central canal stenosis. IMPRESSION: 1. Mild cervical spondylosis. Reviewed, dictated and finalized at location A.
== END ==
PROVIDERS: PCP Nurse Practitioner Family; Visit Provider Pain Medicine Pain Medicine
DX: M54.12 Radiculopathy, cervical region (principal); M43.02 Spondylolysis, cervical region
CPT/HCPCS: 72141

== ENCOUNTER 2023-06-08 12:33 | Outpatient (CLI) | payer OTHER, SELFPAY ==
--- NOTE | ~2023-06-08 | US_ITS ---
EXAMINATION: US FNA w image guidance DATE: 06/08/2023 13:37 INDICATION: Right thyroid mass TECHNIQUE: A time-out was performed to verify the patient's name, date of , and procedure to be performed . The procedure and its benefits and risks were discussed with the patient. Risks specifically discus sed included bleeding and infection. The patient understood the risks and agreed to proceed. The neck was prepped and draped in the usual sterile manner. 3 mL 1% lidocaine was used for local anesthesia . 6 passes were made with a 25G needle into the lesion. Appropriate needle location was documented with continuous sonographic guidance. A sterile bandage was applied. There were no immediate compli cations. FINDINGS: Grayscale ultrasound images demonstrate biopsy needles advanced into a 2.7 cm heterogeneous mass in t he right thyroid with partial rim calcification. IMPRESSION: 1. Successful ultrasound-guided fine needle aspiration of a 2.7 cm right thyroid mass. Reviewed, dictated and finalized at location A. IMPRESSION: 1. Successful ultrasound-guided fine needle aspiration of a 2.7 cm right thyro id mass.
== END 2023-06-08 12:34 | disposition home or self-care (01) ==
PROVIDERS: PCP Nurse Practitioner Family; Visit Provider Nurse Practitioner Family
DX: E04.2 Nontoxic multinodular goiter (principal)
CPT/HCPCS: 10005; 88173; 88305

== ENCOUNTER 2023-06-17 17:56 | Emergency (ER) | payer OTHER, SELFPAY ==
--- NOTE | ~2023-06-17 | XR_ITS ---
EXAMINATION: XR chest 2V DATE: 06/17/2023 18:25 INDICATION: Cough and shortness of breath TECHNIQUE: PA and lateral views of the chest are obtained. COMPARISON: 02/15/2023 FINDINGS: The lungs are free of acute opacities. No pleural effusion or pneumothorax. The cardiomedia stinal silhouette is normal. There is moderate thoracic spondylosis. IMPRESSION: 1. No acute cardiopulmonary abnormality. Reviewed, dictated and finalized at location F.
[2023-06-17 17:58] VITALS: BP 131/96; PULSE 87; RESP 20; TEMP 36.6; O2SAT 98
[2023-06-17 22:23] VITALS: BP 137/74; PULSE 95; RESP 18; O2SAT 95
[2023-06-17 22:39] VITALS: BP 144/80; PULSE 73; RESP 23; TEMP 36.5; O2SAT 96
[2023-06-17] MEDS: BENZONATATE 100 MG CAPSULE 200 MG PO (23:04)
[2023-06-17] MEDS: IPRATROPIUM BR 0.02% INH SOLN 0.5 MG/2.5 ML VIAL INHALATION (23:07)
[2023-06-17] MEDS: ALBUTEROL SULFATE NEB 2.5 MG/3 ML INH INHALATION (23:07)
--- NOTE | 2023-06-17 23:08 | PC.NURSE ---
pt care and report given to JF Knight. all questions answered.
[2023-06-17 23:11] VITALS: PULSE 57; RESP 18
--- NOTE | 2023-06-17 23:13 | ED.GENADULT ---
HPI - General Adult General Chief complaint: Shortness of Breath/Dyspnea Stated complaint: diff breathing Time Seen by Provider: 06/17/23 22:51 History of Present Illness HPI narrative: Patient is a 52-year-old female who presents the emergency department with chief complaint of bronchitis. Patient reports she was seen in the clinic over the weekend and diagnosed with bronchitis given a prescription for Phenergan Medrol Dosepak and a course of azithromycin. The patient reports she is continue to have a cough and reports her symptoms have not improved. Patient states that she has a sharp type discomfort in her chest whenever she coughs or takes a deep breath patient states that there is no heaviness or tightness in her chest patient reports that she has had no fever. Related Data Allergies Allergy/AdvReac Type Severity Reaction Status Date / Time Iodinated Contrast Media Allergy Dyspnea / Verified 06/17/23 23:06 SOB iohexol Allergy Dyspnea / Verified 02/15/23 16:29 [From contrast - CT, X-RAY] SOB Review of Systems Review of Systems: A 10 system review of systems was completed on the patient and is negative except for what is stated in the HPI. Nursing and ancillary documentation was reviewed. [facility], [facility] Past Medical History Medical History Cervical spondylosis Chronic pain Heavy alcohol use Helicobacter pylori gastritis (03/2022) Lumbar spondylosis Overweight (BMI 25.0-29.9) Tobacco use disorder, continuous Surgical History Surgical History H/O hysterectomy for benign disease (~2007) Uterine fibroids History of esophagogastroduodenoscopy (EGD) (03/2022) Biopsies demonstrating chronic gastritis with H pylori Normal colonoscopy (03/2022) Family History Family History Mother Acute leukemia Diabetes mellitus Hypertension Thyroid condition Social History Social History Social History: She lives at home with her of 33 years and there 19 year old. They have a total of 4 children with you oldest being 28 years old. She drinks 4 beers a day and has done so for many years. She smokes half a pack of cigarettes per day and started smoking at 14 years old. She uses marijuana gummies to help with her chronic back pain. Code status: Full code Surrogate decision maker: Smoking packs per day: 0.5 Smoking cigarettes per day: 10.0 Years smoked: 38 Smoking pack-years: 19.00 Smoking status: Current every day smoker Tobacco type: cigarettes Second hand tobacco smoke exposure: No Alcohol intake: current Drinks per week: 4 Alcohol use details: 1 drink/day Substance use: current Substance use type: marijuana Lack of Transportation: No Lack of Food: Never True Current Housing: I Have Housing Concerned About Future Housing: No Difficulty Paying Gas/Electric Bills: No Difficulty Paying for Meds: No Currently Unemployed: No Education: High School Diploma/GED Difficulty w/ Childcare or Family Care: No Living arrangements: alone Spiritual care concerns: No Exam Narrative: GENERAL: Well-appearing, well-nourished, and in no acute distress. HEAD: Normocephalic, atraumatic. EYES: PERRLA and EOMI. ENT: Nares clear, no rhinorrhea or epistaxis. Mucous membranes moist. NECK: Supple. CHEST: Clear to auscultation. No respiratory distress. HEART: Regular rate and rhythm. No murmur heard. Normal peripheral pulses. ABDOMEN: Soft, nontender, nondistended, normal active bowel sounds. EXTREMITIES: Normal range of motion. No edema. SKIN: Warm, dry, no rash. NEURO: No focal deficits. Alert and oriented x3. PSYCH: Normal mood and affect. Course Vital Signs Vital signs: Vital Signs Temperature 36
[2023-06-17 23:18] VITALS: PULSE 69; RESP 18
[2023-06-17 23:29] LABS: Influenza A QL RT-PCR Negative (Negative); Influenza B QL RT-PCR Negative (Negative); SARS-CoV-2 RNA PCR Negative (Negative)
[2023-06-18 00:21] VITALS: BP 120/77; PULSE 78; RESP 18; O2SAT 94
== END 2023-06-18 00:22 | disposition home or self-care (01) ==
PROVIDERS: Physician Assistant; Emergency Provider Emergency Medicine; PCP Nurse Practitioner Family
DX: J20.8 Acute bronchitis due to other specified organisms (principal); Z20.822 Contact with and (suspected) exposure to COVID-19; E66.3 Overweight; Z68.23 Body mass index [BMI] 23.0-23.9, adult; F17.210 Nicotine dependence, cigarettes, uncomplicated; Z90.710 Acquired absence of both cervix and uterus; Z79.82 Long term (current) use of aspirin
CPT/HCPCS: 71046; 87636; 94640; 99283; A9270

== ENCOUNTER 2023-09-03 14:02 | Outpatient (CLI) | payer OTHER, SELFPAY ==
--- NOTE | ~2023-09-03 | XR_ITS ---
XR knee LT min 4V 09/03/2023 14:46 Indication: Knee pain Procedure: 4 views left knee Comparison: No prior studies for comparison. Findings: There is anatomic alignment. No fracture or traumatic malalignment. No significant joint ef fusion. No foreign bodies. Impression: 1: No significant bone or joint abnormality. 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
--- NOTE | ~2023-09-03 | XR_ITS ---
XR knee RT min 4V 09/03/2023 14:46 Indication: Right knee pain Procedure: 4 views right knee Comparison: 02/26/2014 Findings: No fracture, subluxation or dislocation. No significant joint effusion. No foreign bodies. There is anatomic alignment. Impression: 1: No significant bone or joint abnormality. 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
== END 2023-09-03 14:03 | disposition home or self-care (01) ==
PROVIDERS: PCP Nurse Practitioner Family; Visit Provider Nurse Practitioner Family
DX: M25.561 Pain in right knee (principal)
CPT/HCPCS: 73564

== ENCOUNTER 2024-02-04 10:21 | Emergency (ER) | payer SELFPAY ==
[2024-02-04 10:31] VITALS: BP 117/64; PULSE 102; RESP 16; TEMP 37.4; O2SAT 99
--- NOTE | 2024-02-04 10:40 | ED.URI ---
HPI - URI/Sore Throat General Chief Complaint: Upper Respiratory Infection Stated Complaint: cough,throat hurts,right ear pain Time Seen by Provider: 02/04/24 10:33 Source: patient and RN notes reviewed Mode of arrival: ambulatory Limitations: no limitations History of Present Illness HPI Narrative: Patient presents today with a 4 day history of cough, sore throat, right ear pain, with fever up to 100.3. She also reports some mild shortness of breath. Currently rates her pain 10/10 and has tried Robitussin, TheraFlu, and ibuprofen with some mild relief. History of asthma Related Data Home Medications Medication Instructions Recorded Confirmed No Home Medications 02/04/24 02/04/24 Allergies Allergy/AdvReac Type Severity Reaction Status Date / Time Iodinated Contrast Media Allergy Dyspnea / Verified 02/04/24 10:33 SOB iohexol Allergy Dyspnea / Verified 02/04/24 10:33 [From contrast - CT, X-RAY] SOB Review of Systems Review of Systems: CONSTITUTIONAL: Denies body aches, chills, or sweats.+ fever EYES: Denies visual changes, redness, or discharge. ENT: Denies rhinorrhea, congestion. + sore throat, right ear pain CARDIOVASCULAR: Denies chest pain, palpitations, or edema. RESPIRATORY: + cough, shortness of breath GASTROINTESTINAL: Denies abdominal pain, nausea, vomiting, or diarrhea. GENITOURINARY: Denies dysuria or hematuria. SKIN: Denies rash, itching, or wounds. MUSCULOSKELETAL: Denies back pain, joint pain, or myalgia. NEUROLOGIC: Denies headache, numbness, tingling, or weakness. PSYCH: Denies depression or anxiety. [facility] Past Medical History Medical History Cervical spondylosis Chronic pain Heavy alcohol use Helicobacter pylori gastritis (03/2022) Lumbar spondylosis Overweight (BMI 25.0-29.9) Tobacco use disorder, continuous Surgical History Surgical History H/O hysterectomy for benign disease (~2007) Uterine fibroids History of esophagogastroduodenoscopy (EGD) (03/2022) Biopsies demonstrating chronic gastritis with H pylori Normal colonoscopy (03/2022) Family History Family History Mother Acute leukemia Diabetes mellitus Hypertension Thyroid condition Social History Social History Social History: She lives at home with her of 33 years and there 19 year old. They have a total of 4 children with you oldest being 28 years old. She drinks 4 beers a day and has done so for many years. She smokes half a pack of cigarettes per day and started smoking at 14 years old. She uses marijuana gummies to help with her chronic back pain. Code status: Full code Surrogate decision maker: Smoking packs per day: 0.5 Smoking cigarettes per day: 10.0 Years smoked: 38 Smoking pack-years: 19.00 Smoking status: Current every day smoker Tobacco type: cigarettes Second hand tobacco smoke exposure: No Alcohol intake: current Drinks per week: 4 Alcohol use details: 1 drink/day Substance use: current Substance use type: marijuana Lack of Transportation: No Lack of Food: Never True Current Housing: I Have Housing Concerned About Future Housing: No Difficulty Paying Gas/Electric Bills: No Difficulty Paying for Meds: No Currently Unemployed: No Education: High School Diploma/GED Difficulty w/ Childcare or Family Care: No Living arrangements: alone Spiritual care concerns: No Comments At time of signature, I have reviewed and agree with nursing past medical, surgical, social and family history unless otherwise noted. Please see nursing chart for further information. There is no relevant family history pertinent to the presenting complaint Exam Narrative: GENERAL: Well-appearing, w
== END 2024-02-04 11:27 | disposition home or self-care (01) ==
PROVIDERS: Emergency Provider Nurse Practitioner
DX: J06.9 Acute upper respiratory infection, unspecified (principal); Z20.822 Contact with and (suspected) exposure to COVID-19; F17.210 Nicotine dependence, cigarettes, uncomplicated; F12.90 Cannabis use, unspecified, uncomplicated
CPT/HCPCS: 87081; 87426; 87804; 87880; 99213; G0463

== ENCOUNTER 2024-11-01 14:29 | Outpatient (CLI) | payer OTHER, SELFPAY ==
--- NOTE | ~2024-11-01 | MM_ITS ---
EXAMINATION: MM screening toby BI w merline HISTORY: Screening TECHNIQUE: Craniocaudal and mediolateral oblique 3-D tomosynthesis images were obtained and synthetic 2-D images were generated. CAD analysis was submitted and interpreted. COMPARISON: 03/05/2009 BREAST PARENCHYMAL COMPOSITION: There are scattered areas of fibroglandular density. FINDINGS: There is no evidence of suspicious mass, calcification, or architectural distortion to sugg est malignancy in either breast. There has been no suspicious interval change. IMPRESSION: 1. No mammographic evidence of malignancy. 2. Recommend routine screening mammography in one year. BI-RADS Category 1: Negative Reviewed, dictated and finalized at location A. R ACCOUNT MANAGER
--- NOTE | ~2024-11-01 | US_ITS ---
EXAM: ABDOMEN ULTRASOUND HISTORY: RUQ pain COMPARISON: None FINDINGS: LIVER: The liver is increased in echogenicity suggesting fatty infiltration. The contour of the liver is smooth GALLBLADDER: A single 3 mm focus of increased echogenicity is identified along the dependent wall of the gallbladder. No vascularity evaluation was interrogated on the submitted images. No gallbladder wall thickening or pericholecystic fluid. BILE DUCTS: Common bile duct measures 4.7mm. PANCREAS: Limited evaluation of the pancreas secondary to overlying bowel gas IMPRESSION: Single 3 mm focus of increased echogenicity along the dependent wall of the gallbladder without vascu larity evaluation on the submitted images. This may represent a single stone versus a gallbladder nando yp. Short-term follow-up is recommended. Reviewed, dictated and finalized at location A. IALTY FINISHING UTILITY PERSON IMPRESSION: Single 3 mm focus of increased echogenicity along the dependent wall of the gal lbladder without vascularity evaluation on the submitted images. This may repre sent a single stone versus a gallbladder polyp. Short-term follow-up is recommended.
--- OUTSIDE RECORDS SUMMARY | 2024-11-01 15:19 | XMS_ITS | Data Portability ---
Author Organization [place] [facility], Main Office Address [address] [place] [address] Assessment No assessment recorded. Plan of Treatment Reminders Order Date Submit Date Provider Last Modified By Organization Details Last Modified Time Details Appointments New Patient 2024 03:15P Shaun Ashton MD Not available Not available Not available Any 15 2024 03:30P NAHUM Pitt Not available Not available Not available Lab TSH, serum or plasma 2024 025 [facility], [address] , [place], [address], 10/11/2024 21:57:39 HbA1c (hemoglob in A1c), blood 2024 025 [facility], [address] , [place], [address], 10/11/2024 21:57:40 CMP, serum or plasma 2024 025 [facility], [address], [place], [address], 10/11/2024 21:57:37 lipid panel, serum 2024 025 [facility], [address] , [place], [address], 10/11/2024 21:57:36 CBC w/ auto diff 2024 025 [facility], [address] , [place], [address], 10/11/2024 21:57:38 Referral otolaryng ologist referral - FNA inconclus el. 4.1 cm TIRADS 5 nodule on right thyroid lobe. Please call patient to schedule an appointme nt. Thank you. 2024 025 [email or web address] Nolan Ashton MD, [address] [facility] [address], [place], [address], 10/31/2024 08:31:57 Procedures None recorded. Surgeries None recorded. Imaging XR, knee 2022 023 [facility], [address] [place] [address] [place] [address], [address], 09/03/2023 16:51:19 MAMMO, screening , digital, bilateral - Please call pt to schedule 2024 025 [facility], [facility] [address] [facility], [place], [address], 10/16/2024 12:45:24 [place], hank er - Please call pt to schedule 2024 025 [facility], [address] [place] [address], [address], 10/16/2024 12:45:24 Medication Orders nicotine 21 mg/24 hr daily transderm al patch [address] [facility], [facility] [place], [address], 10/06/2024 15:51:21 bupropion HCl 150 mg tablet,12 hr sustained -release( smoking deterrent ) [address] [facility], [facility] [place], [address], 10/06/2024 15:50:44 benzonata te 200 mg capsule [address] [facility], [facility] [place], [address], 10/06/2024 15:50:39 bupropion HCl 150 mg tablet,12 hr sustained -release( smoking deterrent ) [address], [address] [place] [address], [address], 10/06/2024 15:50:44 ibuprofen 800 mg tablet 2022 023 [facility] [address], [address] [place] [address], [address], 08/20/2023 17:23:26 prednison e 20 mg tablet [address], [address] [place] [address], [address], 10/06/2024 15:51:55 Medrol (Zak) 4 mg tablets in a dose pack [address], [address] [place] [address], [address], 10/17/2024 16:26:23 azithromy madeline 250 mg tablet [address], [address] [place] [address], [address], 10/17/2024 16:26:19 Airsupra 90 mcg-80 mcg/actua tion HFA aerosol inhaler 2024 025 [facility] [address], [address] [place] [address], [address], 10/06/2024 16:17:26 omeprazol e 40 mg capsule,d elayed release 2024 025 [facility] [address], [address] [place] [address], [address], 10/06/2024 16:17:27 metformin ER 500 mg tablet,ex tended release 24 hr 2024 025 [facility], [address] [facility], [place], [address], 10/17/2024 16:40:33 Patient TargetsNo targets recorded. Patient Instructions Encounter Date Encounter Id Patient Instructions Last Modified By Organization Details Last Modified Time 10/17/2024 [id number] type 2 diabetes: care instructions suhailmaria r Not available 10/17/2024 16:40:26 Reason for Referral [employer] Referral fo r Mass of thyroid gland FNA inconclusive. 4.1 cm TIRADS 5 nodule on right thyroid lobe. Please call patient to schedule an appointment. Thank you. Referring Physician: Sunni Mgcinnis, Family Medicine, Encounter Date: 10/06/2024 Results Created Date Observation Date Name Description Value Unit Range Abnormal Flag Note LastModifiedBy Organization Detail LastModifiedTime 10/11/1910/11/2024 LIPID PANEL , STAND ANN MARIE cholesterol, total 210 mg/dL <200 high Not Available [facility] [place] [address] [address] [place], [address], 10/11/2024 21:57:36 10/11/19 25 10/11/2024 LIPID PANEL , STAND ANN MARIE HDL cholesterol 63 mg/dL > or = 50 normal Not Available [facility] [address] [address] [place], [address], 10/11/2024 21:57:36 10/11/19 25 10/11/2024 LIPID PANEL , STAND ANN MARIE triglyceride s 116 mg/dL <150 normal Not Available [facility] [address] [address] [place], [address], 10/11/2024 21:57:36 10/11/19 25 10/11/2024 LIPID PANEL , STAND ANN MARIE LDL-choleste rol 125 mg/dL _(yannick c) high Refer ence range : <100 Yvonne able range <100 mg/dL for prima ry preve ntion ; <70 mg/dL for patie nts with CHD or diabe tic patie nts with > or = 2 CHD risk facto rs. LDL-C is now calcu lated using the Bridget n-Hop kins calcu juanopal n, which is a valid ated novel fritz hou than the Fried sona equat ion in the estim ation of LDL-C . Bridget reid SS et al. VIOLETA. 2013; 310(1 9): 2061- 2068 (http ://ed ucati on.Qu estNortal AS. com/f aq/FA Q164) Not Available [address], [address], 10/11/2024 21:57:36 10/11/19 25 10/11/2024 LIPID PANEL , STAND ANN MARIE chol/HDLC ratio 3.3 (calc ) <5.0 normal Not Available [address], [address], 10/11/2024 21:57:36 10/11/19 25 10/11/2024 LIPID PANEL , STAND ANN MARIE non HDL cholesterol 147 mg/dL _(yannick c) <130 high For patie nts with diabe isaías plus 1 major ASCVD risk facto r, treat ing to a non-H DL-C goal of <100 mg/dL (LDL- C of <70 mg/dL ) is consi aly colon optio n. Not Available [address], [address], 10/11/2024 21:57:36 10/11/19 25 10/11/2024 COMPR EHENS EL METAB OLIC PANEL glucose 91 mg/dL 65-139 normal Non-f astin g refer ence inter gilda Not Available [address], [address], 10/11/2024 21:57:37 10/11/19 25 10/11/2024 COMPR EHENS EL METAB OLIC PANEL urea nitrogen (BUN) 19 mg/dL 7-25 normal Not Available [facility] [address], [address], 10/11/2024 21:57:37 10/11/19 25 10/11/2024 COMPR EHENS EL METAB OLIC PANEL creatinine 0.85 mg/dL 0.50-1 .03 normal Not Available [place] [address] [address] [place], [address], 10/11/2024 21:57:37 10/11/19 25 10/11/2024 COMPR EHENS EL METAB OLIC PANEL eGFR 82 mL/mi n/1.7 3m2 > or = 60 normal Not Available [address], [address], 10/11/2024 21:57:37 10/11/19 25 10/11/2024 COMPR EHENS EL METAB OLIC PANEL BUN/creatini ne ratio SEE NOTE: (calc ) 6-22 Not Repor amador: BUN and Creat inine are withi n refer ence range . Not Available [address], [address], 10/11/2024 21:57:37 10/11/19 25 10/11/2024 COMPR EHENS EL METAB OLIC PANEL sodium 141 mmol/ L 135-14 6 normal Not Available [address], [address], 10/11/2024 21:57:37 10/11/19 25 10/11/2024 COMPR EHENS EL METAB OLIC PANEL potassium 4.3 mmol/ L 3.5-5. 3 normal Not Available [address], [address], 10/11/2024 21:57:37 10/11/19 25 10/11/2024 COMPR EHENS EL METAB OLIC PANEL chloride 102 mmol/ L 98-110 normal Not Available [address], [address], 10/11/2024 21:57:37 10/11/19 25 10/11/2024 COMPR EHENS EL METAB OLIC PANEL carbon dioxide 31 mmol/ L 20-32 normal Not Available [address], [address], 10/11/2024 21:57:37 10/11/19 25 10/11/2024 COMPR EHENS EL METAB OLIC PANEL calcium 9.7 mg/dL 8.6-10 .4 normal Not Available [address], [address], 10/11/2024 21:57:37 10/11/19 25 10/11/2024 COMPR EHENS EL METAB OLIC PANEL protein, total 6.9 g/dL 6.1-8. 1 normal Not Available [address], [address], 10/11/2024 21:57:37 10/11/19 25 10/11/2024 COMPR EHENS EL METAB OLIC PANEL albumin 4.4 g/dL 3.6-5. 1 normal Not Available [address], [address], 10/11/2024 21:57:37 10/11/19 25 10/11/2024 COMPR EHENS EL METAB OLIC PANEL globulin 2.5 g/dL_ (calc ) 1.9-3. 7 normal Not Available [address], [address], 10/11/2024 21:57:37 10/11/19 25 10/11/2024 COMPR EHENS EL METAB OLIC PANEL albumin/glob ulin ratio 1.8 (calc ) 1.0-2. 5 normal Not Available [address], [address], 10/11/2024 21:57:37 10/11/19 25 10/11/2024 COMPR EHENS EL METAB OLIC PANEL bilirubin, total 0.4 mg/dL 0.2-1. 2 normal Not Available [address], [address], 10/11/2024 21:57:37 10/11/19 25 10/11/2024 COMPR EHENS EL METAB OLIC PANEL alkaline phosphatase 64 U/L 37-153 normal Not Available [facility] N[facility]ini [address], [address], 10/11/2024 21:57:37 10/11/19 25 10/11/2024 COMPR EHENS EL METAB OLIC PANEL AST 13 U/L 10-35 normal Not Available [address], [address], 10/11/2024 21:57:37 10/11/19 25 10/11/2024 COMPR EHENS EL METAB OLIC PANEL ALT 17 U/L 6-29 normal Not Available [address], [address], 10/11/2024 21:57:37 10/11/19 25 10/11/2024 CBC (INCL UDES DIFF/ PLT) white blood cell count 17.8 thous and/u L 3.8-10 .8 high Not Available [facility] [address], [address], 10/11/2024 21:57:38 10/11/19 25 10/11/2024 CBC (INCL UDES DIFF/ PLT) red blood cell count 5.02 orlin on/uL 3.80-5 .10 normal Not Available [address], [address], 10/11/2024 21:57:38 10/11/19 25 10/11/2024 CBC (INCL UDES DIFF/ PLT) hemoglobin 15.9 g/dL 11.7-1 5.5 high Not Available [facility] [address], [address], 10/11/2024 21:57:38 10/11/19 25 10/11/2024 CBC (INCL UDES DIFF/ PLT) hematocrit 48.6 % 35.0-4 5.0 high Not Available [address], [address], 10/11/2024 21:57:38 10/11/19 25 10/11/2024 CBC (INCL UDES DIFF/ PLT) MCV 96.8 fL 80.0-1 00.0 normal Not Available [facility] [address], [address], 10/11/2024 21:57:38 10/11/19 25 10/11/2024 CBC (INCL UDES DIFF/ PLT) MCH 31.7 pg 27.0-3 3.0 normal Not Available [facility] [address], [address], 10/11/2024 21:57:38 10/11/19 25 10/11/2024 CBC (INCL UDES DIFF/ PLT) MCHC 32.7 g/dL 32.0-3 6.0 normal For adult s, a sligh t decre ase in the calcu lated MCHC value (in the range of 30 to 32 g/dL) is most likel y not clini glenys signi fican t; teresa er, it shoul d be inter prete d with cauti on in [facility] n with other red cell pauline eters and the patie nt's clini yannick condi tion. Not Available [facility] [address], [address], 10/11/2024 21:57:38 10/11/19 25 10/11/2024 CBC (INCL UDES DIFF/ PLT) RDW 12.8 % 11.0-1 5.0 normal Not Available [facility] [address], [address], 10/11/2024 21:57:38 10/11/19 25 10/11/2024 CBC (INCL UDES DIFF/ PLT) platelet count 397 thous and/u L 140-40 0 normal Not Available [address], [address], 10/11/2024 21:57:38 10/11/19 25 10/11/2024 CBC (INCL UDES DIFF/ PLT) MPV 9.6 fL 7.5-12 .5 normal Not Available [address], [address], 10/11/2024 21:57:38 10/11/19 25 10/11/2024 CBC (INCL UDES DIFF/ PLT) absolute neutrophils 222[address] cells /uL 1500-7 800 high Not Available [address], [address], 10/11/2024 21:57:38 10/11/19 25 10/11/2024 CBC (INCL UDES DIFF/ PLT) absolute lymphocytes 3026 cells /uL 850-39 00 normal Not Available [address], [address], 10/11/2024 21:57:38 10/11/19 25 10/11/2024 CBC (INCL UDES DIFF/ PLT) absolute monocytes 1068 cells /uL 200-95 0 high Not Available [facility] [address], [address], 10/11/2024 21:57:38 10/11/19 25 10/11/2024 CBC (INCL UDES DIFF/ PLT) absolute eosinophils 0 cells /uL 15-500 low Not Available [facility] [address], [address], 10/11/2024 21:57:38 10/11/19 25 10/11/2024 CBC (INCL UDES DIFF/ PLT) absolute basophils 0 cells /uL 0-200 normal Not Available [facility] [address], [address], 10/11/2024 21:57:38 10/11/19 25 10/11/2024 CBC (INCL UDES DIFF/ PLT) neutrophils 77 % normal Not Available [address], [address], 10/11/2024 21:57:38 10/11/19 25 10/11/2024 CBC (INCL UDES DIFF/ PLT) lymphocytes 17 % normal Not Available [facility] [address], [address], 10/11/2024 21:57:38 10/11/19 25 10/11/2024 CBC (INCL UDES DIFF/ PLT) monocytes 6 % normal Not Available [address], [address], 10/11/2024 21:57:38 10/11/19 25 10/11/2024 CBC (INCL UDES DIFF/ PLT) eosinophils 0 % normal Not Available [facility] [address], [address], 10/11/2024 21:57:38 10/11/19 25 10/11/2024 CBC (INCL UDES DIFF/ PLT) basophils 0 % normal Not Available [address], [address], 10/11/2024 21:57:38 10/11/19 25 10/11/2024 CBC (INCL UDES DIFF/ PLT) comment(s) The smear has been manua lly revie wed and the manua l diffe renti al has been repor amador. Revie w of the perip heral smear revea ls adequ ate numbe rs of plate lets. Not Available [address], [address], 10/11/2024 21:57:38 10/11/19 25 10/11/2024 TSH W/REF HARSHAD TO FT4 TSH w/reflex to FT4 1.13 mIU/L normal Refer ence Range > or = 20 Years 0.40- 4.50 Pregn monie Range s First trime ster 0.26- 2.66 Secon d trime ster 0.55- 2.73 Third trime ster 0.43- 2.91 Not Available [facility] [address] [place], [address], 10/11/2024 21:57:39 10/11/19 25 10/11/2024 HEMOG LOBIN A1C hemoglobin A1C 6.5 %_of_ total _HGB <5.7 high For someo ne witho ut known diabe isaías, a hemog lobin A1c value of 6.5% or great er indic ates that they may have diabe isaías and this shoul d be confi rmed with a follo w-up test. For someo ne with known diabe isaías, a value <7% indic ates that their diabe isaías is well contr olled and a value great er than or equal to 7% indic ates subop timal contr ol. A1c targe ts shoul d be indiv idual ized based on durat ion of diabe isaías, age, comor bid condi tions , and other consi derat ions. Curre ntly, no conse nsus exist s yun patton use of hemog lobin A1c for diagn osis of diabe isaías for child selene. Not Available [facility] [address] [address], [place], [address], 10/11/2024 21:57:40 05/14/20 23 05/14/2023 MRI, cervi yannick spine , w/o contr ast No observ ation record ed. [email or web address] [facility] [address], [place], [address], 05/17/2023 11:19:17 06/09/20 23 06/08/2023 fine needl e aspir ation , ultra sound guide d, thyro id (PROC ) No observ ation record ed. [facility] [address], [place], [address], 10/06/2024 16:17:01 06/17/20 23 06/17/2023 XR, chest No observ ation record ed. [email or web address] [address], [place], [address], 06/18/2023 10:25:44 09/03/20 23 09/03/2023 XR, knee No observ ation record ed. [place] [id number] [facility] [address], [place], [address], 09/15/2023 15:23:23 09/03/20 23 09/03/2023 XR, knee No observ ation record ed. [email or web address] [address], [place], [address], 09/15/2023 15:23:24 Result Notes None recorded. Problems Name Problem SNOMED Code Status Onset Date Resolution Date Notes Provider Name and Address Organization Details Recorded Time Osteoarth ritis of knee 344124893 Active Not Available [facility] 3 09:18:16 Current tear of medial cartilage AND/OR meniscus of knee Active NAHUM Cabrera [address], [place], [address] , [facility] 5 16:07:56 Pain in limb 85909782 Completed 10/06/2024 NAHUM Cabrera [address], [address], [place], [address] , [facility] 5 16:08:25 Cigarette smoker 19298968 Active 2022 NAHUM Burk [address], [place], [address] , [facility] 3 08:36:06 Transient cerebral ischemia 063323419 Active 2022 NAHUM Burk [address], [place], [address] , [facility] 3 08:39:57 Mass of thyroid gland 675445193 Active 2022 NAHUM Burk [address], [place], [address] , [facility] 3 08:44:58 Thyroid nodule 902667917 Active 2022 NAHUM Burk [address], [place], [address] , [facility] 3 08:45:29 Bronchiti s 62808399 Active 2022 NAHUM Mackey-C [address], [place], [address] , [facility] 3 14:41:15 Nicotine dependenc e 70628471 Active 2022 NAHUM Mackey-C [address], [place], [address] , [facility] 3 14:42:30 Pain of bilateral knee joints 33524526065 4104 Completed 202210/06/2024 NAHUM Cabrera [address], [place], [address] , [facility] 5 16:08:29 Right upper quadrant pain 382607776 Active [address], [place], [address] , [facility] 5 16:12:04 Asthma 928507431 Active [address], [place], [address] , [facility] 5 16:12:53 Morbid obesity 401251025 Active [address], [place], [address] , [facility] 5 16:16:27 Overweigh t 454973271 Active 2024 Sunni Mcginnis, NAHUM [address], [place], [address] , [facility] [employer] [facility] 16:16:32 Type 2 diabetes mellitus 51162599 Active 2024 Sunni IzzyPAIGE velascoP [address], [place], [address] , [employer] [facility] 16:31:52 Notes:Some problems listed i n Document: #[id number] could not be added to this patient's chart. Please review this document and add these problems to the patient's chart manually as needed. Problem Notes None recorded. Procedures Surgical History None recorded. Imaging Results Imaging Date Name Status LastModified by Organiz ation Details LastModified Time 05/14/2023 MRI, cervical spine, w/o contrast completed [address], [place], [address], 05/17/2023 11:19:17 06/08/2023 fine needle aspiration, ultrasound guided, thyroid (PROC) [email or web address] [address], [address], 10/06/2024 16:17:01 06/17/2023 XR, chest completed [address], [address], 06/18/2023 10:25:44 09/03/2023 XR, knee completed [address] [place] [address], [address], 09/15/2023 15:23:23 09/03/2023 XR, knee completed [address] [place] [address], [address], 09/15/2023 15:23:24 Procedure Notes None recorded. Medical Equipment None Reported. Allergies Allergen ID Allergen Name Allergen Category Reaction Reaction Severity Criticality Documentation Date Start Date Code Code System Note Provider Name and Address Organization Details Recorded Time 22834 iohexol medicatio n Not available Not available Not available 02/26/2023 5956 RxNorm Caroline Martinez RN [facility], [place] - [facility] [email or web address] [facility] 15:49:44 Medications Name Sig Start Date Stop Date Status Note LastModified by Organization Details LastModified Time atorvastati n 40 mg tablet Take 1 tablet every day by oral route for 90 days. 10/06 completed Not Available Not Available Not Available prednisone 10 mg tablet TAKE 4 TABLETS BY MOUT IN THE MORNING ON DAYS 1 THRU 3, THEN TAKE 3 TABLETS IN THE MORNING ON DAYS 4 AND 5, THEN TAKE 2 TABLETS IN THE MORNING ON DAY 6, THEN TAKE 1 TABLET IN THE MORNING ON DAY 7 (DO NOT TAKE WITH N-SAID) 10/06 completed Not Available Not Available Not Available nicotine 14 mg/24 hr daily transdermal patch APPLY 1 PATCH TOPICALLY ONCE DAILY 10/06 completed Not Available Not Available Not Available albuterol sulfate 2.5 mg/3 mL (0.083 %) solution for nebulizatio n active Not Available Not Available Not Available azithromyci n 250 mg tablet TAKE 2 TABLETS (500 MG) BY ORAL ROUTE ONCE DAILY FOR 1 DAY THEN 1 TABLET (250 MG) BY ORAL ROUTE ONCE DAILY FOR 4 DAYS 10/17 completed Not Available Not Available Not Available miconazole nitrate 2 % topical cream APPLY TO THE AFFECTED AREA(S) BY TOPICAL ROUTE 2 TIMES PER DAY IN THEMORNIN G AND EVENING 10/06 completed Not Available Not Available Not Available ibuprofen 800 mg tablet TAKE 1 TABLET BY MOUTH THREE TIMES DAILY NEEDED active Not Available Not Available No t Available fluconazole 150 mg tablet Take 1 tablet by oral route for 1 day. 02/26 completed Not Available Not Available Not Available benzonatate 200 mg capsule TAKE 1 CAPSULE BY MOUTH THREE TIMES DAILY NEEDED 10/06 completed Not Available Not Available Not Available hydrocodone 5 mg-acetamin ophen 325 mg tablet TK 1 TO 2 TS PO Q 6 H PRN 11/14 completed Not Available Not Available Not Available famotidine 40 mg tablet Take 1 tablet every day by oral route in the evening. 10/06 completed Not Available Not Available Not Available prednisone 20 mg tablet TAKE 1 TABLET BY MOUTH ONCE DAILY FOR 10 DAYS 10/06 completed Not Available Not Available Not Available simethicone 125 mg capsule Take 1-2 capsules daily as needed for bloating 10/06 completed Not Available Not Available Not Available omeprazole 40 mg capsule,del ayed release Take 1 capsule every day by oral route in the morning for 30 days. active Not Available Not Available No t Available aspirin 81 mg tablet,loan yed release TAKE 1 TABLET BY MOUTH ONCE DAILY 10/06 completed Not Available Not Available Not Available tramadol 50 mg tablet TK 1-2 TS PO Q 6 H PRN FOR PAIN 11/14 completed Not Available Not Available Not Available prednisolon e acetate 1 % eye drops,suspe nsion 10/06 completed Not Available Not Available Not Available pantoprazol e 40 mg tablet,loan yed release TAKE 1 TABLET BY MOUTH ONCE DAILY FOR 90 DAYS 10/06 completed Not Available Not Available Not Available oseltamivir 75 mg capsule TAKE 1 CAPSULE BY MOUTH TWICE DAILY 10/06 completed Not Available Not Available Not Available neomycin-po lymyxin-dex ameth 3.5 mg/mL-10,00 0 unit/mL-0.1 % eye drops active Not Available Not Available Not Available nicotine 21 mg/24 hr daily transdermal patch APPLY 1 PATCH TOPICALLY ONCE DAILY 10/06 completed Not Available Not Available Not Available diclofenac sodium 75 mg tablet,loan yed release TK 1 T PO BID WF. 10/06 completed Not Available Not Available Not Available methylpredn isolone 4 mg tablets in a dose pack Take as directed 10/17 completed Not Available Not Available Not Available albuterol sulfate HFA 90 mcg/actuati on aerosol inhaler INHALE 2 PUFFS BY MOUTH EVERY 4 HOURS 10/06 completed Not Available Not Available Not Available metformin ER 500 mg tablet,exte nded release 24 hr TAKE 1 TABLET BY MOUTH ONCE DAILY DIRECTED FOR 30 DAYS active Not Available Not Available No t Available sodium fluoride 1.1 % dental gel APPLY TO TEETH AFTER REGULAR BRUSHING, THEN SPIT 10/06 completed Not Available Not Available Not Available escitalopra m 10 mg tablet Take 1 tablet every day by oral route for 30 days. 10/06 completed Not Available Not Available Not Available moxifloxaci n 0.5 % eye drops active Not Available Not Available Not Available nitrofurant oin monohydrate /macrocryst als 100 mg capsule TAKE 1 CAPSULE BY MOUTH EVERY 12 HOURS FOR 10 DAYS 11/14 completed Not Available Not Available Not Available Pylera 140 mg-125 mg-125 mg capsule TAKE 3 CAPSULES BY MOUTH 4 TIMES DAILY DIRECTED FOR 14 DAYS 10/06 completed Not Available Not Available Not Available estradiol-n orethindron e acet 0.5 mg-0.1 mg tablet TAKE 1 TABLET BY MOUTH ONCE DAILY 10/06 completed Not Available Not Available Not Available bupropion HCl 150 mg tablet,12 hr sustained-r elease(smok ing deterrent) TAKE 1 TABLET BY MOUTH TWICE DAILY 10/06 completed Not Available Not Available Not Available ID NOW COVID-19 Test Kit TEST DIRECTED TODAY 10/06 completed Not Available Not Available Not Available Airsupra 90 mcg-80 mcg/actuati on HFA aerosol inhaler Inhale 2 inhalatio ns twice a day by inhalatio n route as needed for 30 days. active Not Available Not Available No t Available Vitals Date Recorded Body height Body mass index (BMI) Body weight Body temperature Heart rate Oxygen saturation Oxygen saturation in Arterial blood by Pulse oximetry Systolic blood pressure Diastolic blood pressure Provider Name and Address Organization Details Last Updated DateTime 3 165.1 cm 26.3 kg/m2 39941.5 9 g 98.1 [degF] 86 /min 96 % 96 % 140 mm[Hg] 85 mm[Hg] Simi Pratt MA [facility] [employer] 3 14:29:43 Date Recorded Body height Body mass index (BMI) Body weight Body temperature Heart rate Oxygen saturation Oxygen saturation in Arterial blood by Pulse oximetry Systolic blood pressure Diastolic blood pressure Provider Name and Address Organization Details Last Updated DateTime 3 165.1 cm 26.1 kg/m2 80093 g 97.4 [degF] 99 /min 96 % 96 % 114 mm[Hg] 70 mm[Hg] Zoë Weber CMA [employer] [facility] [employer] 3 14:36:49 Date Recorded Body height Body mass index (BMI) Body weight Body temperature Heart rate Oxygen saturation Oxygen saturation in Arterial blood by Pulse oximetry Systolic blood pressure Diastolic blood pressure Provider Name and Address Organization Details Last Updated DateTime 3 165.1 cm 25.8 kg/m2 55517.8 2 g 97.7 [degF] 88 /min 96 % 96 % 114 mm[Hg] 72 mm[Hg] Tracy velarde CMA [facility] [employer] [facility] 3 17:02:42 Date Recorded Body weight Body mass index (BMI) Body height Body temperature Heart rate Respiratory rate Oxygen saturation Oxygen saturation in Arterial blood by Pulse oximetry Systolic blood pressure Diastolic blood pressure Provider Name and Address Organization Details Last Updated DateTime 5 37292.2 9 g 26.5 kg/m2 165.1 cm 97.2 [degF] 85 /min 20 /min 98 % 98 % 134 mm[Hg] 70 mm[Hg] Caroline Martinez RN [facility] [email or web address] [facility] 5 15:55:10 Date Recorded Body height Body mass index (BMI) Body weight Body temperature Heart rate Respiratory rate Oxygen saturation Oxygen saturation in Arterial blood by Pulse oximetry Systolic blood pressure Diastolic blood pressure Provider Name and Address Organization Details Last Updated DateTime 5 165.1 cm 26.8 kg/m2 27302.1 2 g 97.3 [degF] 82 /min 20 /min 97 % 97 % 140 mm[Hg] 82 mm[Hg] Caroline Martinez RN [facility] [email or web address] [facility] 5 16:26:09 Social History Question Answer Notes LastModified by Organizat ion Details LastModified Time Tobacco Smoking Status Current Every Day Smoker Not Available [employer] 12/02/2022 09:13:19 Do You Have An Advance Directive? No Information not available 10/06/2024 What Is Your Level Of Alcohol Consumption? Occasional [id number] Information not available 12/02/2022 If You Are , What Was Your Level Of Alcohol Consumption Prior To ? None [id number] Information not available 12/02/2022 What Is Your Level Of Caffeine Consumption? Occasional [id number] Information not available 12/02/2022 In The 14 Days Before Symptom Onset, Have You Had Close Contact With A Laboratory-confi rmed COVID-19 While That Case Was Ill? No [id number] Information not available 12/02/2022 In The 14 Days Before Symptom Onset, Have You Had Close Contact With A Person Who Is Under Investigation For COVID-19 While That Person Was Ill? No MIGRATION.[id number] Information not available 12/02/2022 Are You Currently Employed? Yes Information not available 10/06/2024 What Type Of Diet Are You Following? REGULAR MIGRATION.11262 90739 Information not available 12/02/2022 What Is Your Occupation? [employer] Information not available 10/06/2024 Have There Been Any Changes To Your Family Or Social Situation? No Information not available 10/06/2024 Do You Use Insect Repellent Routinely? No Information not available 10/06/2024 [facility] Information not available 10/06/2024 Do You Have A Medical Power Of Learning Disabilities Resource Teacher? No Information not available 10/06/2024 How Many Children Do You Have? 4 Information not available 10/06/2024 What Is Your Current Pack Years? 10-19packyears MIGRATION.[id number] Information not available 12/02/2022 Have You Ever Been Counseled For Unhealthy Alcohol Use? No MIGRATION.25518 34667 Information not available 12/02/2022 Do You Have Any Pets? Yes Information not available 10/06/2024 What Is Your Relationship Status? Single Information not available 10/06/2024 Do You Use Your Seat Belt Or Car Seat Routinely? Yes Information not available 10/06/2024 Do You Have Smoke And Carbon Monoxide Detectors In Your Home? Yes Information not available 10/06/2024 At What Age Did You Start Smoking Tobacco? 12 Information not available 10/06/2024 Are You Passively Exposed To Smoke? Yes Information not available 10/06/2024 Are There Any Smokers In Your House? Yes Information not available 10/06/2024 How Much Tobacco Do You Smoke? 0.5 PPD Information not available 10/06/2024 Do You Participate In Social Media? No Information not available 10/06/2024 Do You Feel Stressed (tense, Restless, Nervous, Or Anxious, Or Unable To Sleep At Night)? [id number] Information not available 02/26/2023 Do You Use Any Illicit Or Recreational Drugs? No MIGRATION.35652 [id number] Information not available 12/02/2022 Do You Use Sunscreen Routinely? No Information not available 10/06/2024 Has Tobacco Cessation Counseling Been Provided? No MIGRATION.05989 97904 Information not available 12/02/2022 How Many Years Have You Smoked Tobacco? 42 Information not available 10/06/2024 Have You Recently Traveled Abroad? No MIGRATION.38793 09300 Information not available 12/02/2022 Do You Have Any Dietary Restrictions? No MIGRATION.42705 01779 Information not available 12/02/2022 Do You Or Have You Ever Used Any Other Forms Of Tobacco Or Nicotine? No MIGRATION.78082 24268 Information not available 12/02/2022 Sex: Unknown Functional Status Question Answer Note LastModified by [employer] ion Details LastModified Time What is your exercise level? Moderate [id number] Information not available 12/02/2022 Mental Status None recorded. Family History Relationship Description Onset Age of this Age Resolved Age Notes LastModified by Organization Details LastModified Time Mother Leukemia [id number] Not available 12/02/2022 09:13:53 Mother Diabetes mellitus [id number] Not available 12/02/2022 09:13:53 Son Neoplasm of brain [id number] Not available 12/02/2022 09:13:53 Medical History Condition Response HEARTBURN / REFLUX Y Gynecological History Statement/Question Response Abnormal Pap N Date of Last Colonoscopy Most Recent Bone Density Dislike of Light during Menstrual Headac he N Menses Monthly N Date of Last Pap Smear Current Control Method Hysterectom y Most Recent Mammogram Breast Problems no Obstetrics History GPAL:G 0 P 0 0 0 0 Immunizations Vaccine Type Date Status Note Provider Meet shannon and Address Organization Details Recorded Time Influenza, split virus, quadrivalent, PF 08/20/2023 completed NAHUM Mackey-Natalie [address] [facility], [facility] [address], [place], [address], [facility] 08/20/2023 18:02:23 Tdap 09/18/2022 completed Not Available [facility] 12/02/2022 09:26:20 Influenza, split virus, quadrivalent, PF 09/18/2022 completed Not Available [facility] 09:26:20 Past Encounters Encounter ID Performer Location Encounter Start Date Encounter Closed Date Diagnosis/Indication Diagnosis SNOMED-CT Code Diagnosis ICD10 Code Diagnosis Note [id number] [facility] [place] [address] [place] [address] 11/14/2021 00:00:00 11/14/2021 15:43:37 [id number] [facility] [place] [address] [facility] [address] [place] [address] 12/19/2021 00:00:00 12/19/2021 16:49:56 [id number] [facility] [place] [address] [facility] [address] [place] [address] 02/26/2022 00:00:00 02/26/2022 16:13:41 [id number] [facility] [place] [address] [employer] [address] [employer] [address] [place] [address] 08/07/2022 00:00:00 08/07/2022 17:58:55 [id number] [facility] [place] [address] [facility] [address] [place] [address] 09/18/2022 00:00:00 09/18/2022 18:17:18 [id number] NAHUM Burk [facility] [place] [address] [facility] [address] [place] [address] 02/26/2023 08:10:15 02/26/2023 09:13:56 Cigarette smoker 11014391 F17.210 Encouraged smoking cessation. Smoking cessation counseling and techniques reviewed at length with pt. Literature reviewed. Avoid triggers, support groups. Discussed cessation options (counselin g, medication s, e-cigarett es, patches, alternativ e therapies) . New rx for nicotine 14mg patch daily. Transient cerebral ischemia 768739845 G45.[address] scan/MRI (02/16/23)- No visible drooping or weakness of left side on examinatio n today.Enco uraged pt to actively work on smoking cessation d/t increased riskContin ue daily ASA 81mg and Atorvastat in 40mg daily Thyroid nodule 009696636 E04.1 New finding on inpatient imagingRec ommendatio n is for FNA. Order generated [id number] NAHUM Burk [facility] [address] [place] [address] 03/26/2023 14:19:23 03/26/2023 16:23:18 Transient cerebral ischemia 956231623 G45.9 No recurrence of sx since last visit.Inpa tient CT scan/MRI (02/16/23)- indicates normal aging brainNo visible drooping or weakness of left side on examinatio n today.Enco uraged pt to actively work on smoking cessation d/t increased riskContin ue daily ASA 81mg and Atorvastat in 40mg dailyWill continue to monitor closely Cigarette smoker 7498903 7 F17.210 No improvemen t with 14mg nicotine patchesEnc ouraged smoking cessation. Smoking cessation counseling and techniques reviewed at length with pt. Literature reviewed. Avoid triggers, support groups. Discussed cessation options (counselin g, medication s, e-cigarett es, patches, alternativ e therapies) . New rx for nicotine 14mg patch daily. Thyroid nodule 074638957 E04.1 New finding on inpatient thyroid u/s (02/16/23)R ecommendat ion is for FNA. Order generated last visit. Pt did not receive call to schedule, will have staff f/u and resubmit. [id number] ELVIRA Mackey [facility] [address] [place] [address] 06/25/2023 14:32:10 06/25/2023 14:54:12 Bronchitis 91073144 J40 Was in [facility] for this issues-giv en benzonatat e and inhaler and was d/ccurrent ly a smoker-edu cated and given new medication will refill benzonatat eStill has plenty of the inhaler at home, Nicotine dependence 5629 4008 F17.200 currently smoke 1/2ppdhas tried using the patches without resolution continues use of fake cigarette as distractor Would like to try another optionwill start buproprion [id number] ELVIRA Mackey [facility] Primary Care [facility] [address] [facility] [address] [place] [address] 08/20/2023 16:55:38 08/23/2023 14:44:09 Nicotine dependence 78591011 F17.200 -currenlty smoking 4 cigs/day-c ontinues use of fake cigarette as needed-carmen l give 3 months of refills Pain of bi lateral knee joints 7199897325 46275 M25.561 -pt notes pain to luis armando knees, worse on the right knee, rated at 10/10 currently- notes hx of injury to right knee, none to left knee-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-RO M and strength are affected, no numbness/t ingling-di scussed use of supportive brace prn, ice therapy for swelling-w ill get xray of luis armando knees-disc ussed use of injection in the future-scr ipt ibuprofen and prednisone given-f/u in 1 month Administra tion of influenza vaccine 71092740 Z23 [id number] NAHUM Cabrera [address] [address] 10/06/2024 15:39:54 10/06/2024 16:47:43 Adult health examination 306740290 Z00.00 Health maintenanc e reviewedDi scussed diet and exercisePa tient questions answered Mass of thyroid gland 23 1627625 E04.9 Right uppe r quadrant pain 546407487 R10.11 Bronchitis 42840437 J40 Asthma 818660184 J45.90 9 Screening mammography 24 095450 Z12.31 Overweight 729072427 E66 .3 [id number] NAHUM Cabrera [address] [address] 10/17/2024 16:12:57 10/18/2024 10:40:14 Type 2 diabetes mellitus 45216827 E11.9 Newly diagnosed, A1C 6.5 10/11/24In terested in [id number] recheck in 3 month Mass of thyroid gland 23 8598931 E04.9 Patient advised to FU with ENT Health Concerns Section Related Observation LastModified by Organization Detai ls LastModified Time None Recorded Concern Status LastModified by Organization Details LastModified Time None Recorded Advance Directives Directive N: Payers Encounter Date Sequence Insurance Name Policy Number Policy Street Covered Member ID Street Member ID Guarantor Name 03/26/2023 1 [facility] [id number] Cara M Boss [id number] Cara M Boss 06/25/2023 1 [facility] [id number] Cara M Boss [id number] Cara M Boss 08/20/2023 1 [facility] [id number] Cara M Boss [id number] Cara M Boss 10/06/2024 1 [facility] [id number] Cara M Boss [id number] Cara M Boss 10/17/2024 1 [facility] [id number] Cara M Boss [id number] Cara M Boss Notes Date Note Type Note Provider Name and Address Organization Details Recorded Time 03/26/2023 text/html 03/26/23: 1. Pt i n office for 4 week f/u appt. Pt states she is still only smoking about 10 cigarettes/day. Feels like the patches didn't work well at all.2. Pt states she never got a call to schedule the thyroid biopsy.3. Pt states she still occasionally gets a numb feeling on the left side of her face, but nothing in her hand. No dizziness. 02/26/23: 1. Pt in office for hospital f/u appt. Pt states she went to ER about a week and a half ago with dizziness, weakness/numbness of left side. Pt states she was having the sx for about a week before she went to hospital. Pt states they did a CT scan and MRI and told her nothing was wrong, but maybe sx were d/t previous accident/neck injury. Pt states she is still having some numbness/tingling on the left side of her face.2. Pt states she is smoking around 10 cigarettes/day, sometimes more, sometimes less. Pt states she has been trying to quit on her own, but hasn't been able to. Would like patches to work on cessation. Delta Benz, NAHUM [address], [place], [address], [employer] [facility] [facility] 03/26/2023 14:49:17 06/25/2023 text/html Pt is here to f/ u on bronchitis Rocky Martínez IMPROVEMENT RN-C [address], [place], [address], [employer] 06/25/2023 15:17:28 08/20/2023 text/html Pt is here for 2 week f/u Rocky Martínez NAHUM-C [address], [place], [address], [employer] [facility] [employer] 08/20/2023 18:02:28 10/06/2024 text/html Cara Boss is a 54 year old female patient here today to establish care, annual wellness, and some concerns. He has concerns today with a cough x 3 weeks, she is having some pleuritic pain. She has been taking robitussin, Mucinex DM, and albuterol with minimal relief.She has been feeling dizzy for the last 2 weeks, believes associated with cough and SOB. She has concerns RUQ pain and bloating after eating, and esophageal reflux. This has been going on x3 months. It is getting worse. She has a 4.1 cm TIRAD 5 nodule on the right thyroid lobe, had a FNA on She has bilateral meniscus tear, does not want interventions Flu shot: 4COVID vaccines: declinesTdap: 09/2022,Mammogram: orderedWWE: managed by Dr. Endy Coyle, olonoscopy: 2022, okay per pt NAHUM Cabrera [address], [place], [address], [employer] [facility] [employer] 10/06/2024 16:45:59 10/17/2024 text/html Cara Boss is a 54 year old female patient here today to FU on labs. A1C was 6.5, would like to manage with diet and exercise at this time WBC elevated, was sick at the time of lab She has concerns RUQ pain and bloating after eating, and esophageal reflux. This has been going on x3 months. It is getting worse. She has an US scheduled for 11/01/24 She has a 4.1 cm TIRAD 5 nodule on the right thyroid lobe, had a FNA on She has bilateral meniscus tear, does not want interventions Flu shot: 4COVID vaccines: declinesTdap: 09/2022,Mammogram: orderedWWE: managed by Dr. Endy Coyle, olonoscopy: 2022, okay per pt Sunni Mcginnis, IMPROVEMENT RN [address] [facility], [place], [address], [facility] 10/17/2024 16:40:50 OBGyn Episode No OBEpisode recorded.
--- OUTSIDE RECORDS SUMMARY | 2024-11-01 15:19 | XMS_ITS | Clinical Summary ---
Author Organization [facility] Address [address] [place] [address]. [place], [place] [address] [place] [address] Care Team Providers Care Pressure Testing Technician Name Role Phone Unavailable Primary Care Provider Unavailabl e Social History Tobacco Use Types Packs/Day Years Used Date Smoking Tobacco: Never Assessed Comments Unknown Sex and Gender Information Value Date Recorded Sex Assigned at Not on file Legal Sex Female 4:13 PM CDT Gender Identity Not on file Sexual Orientation Not on file Last Filed Vital Signs Vital Sign Reading Time Taken Comments Blood Pressure - - Pulse - - Temperature - - Respiratory Rate - - Oxygen Saturation - - Inhaled Oxygen Concentration - - Weight 61.2 kg (135 lb) 08/07/2016 7:55 AM CDT Height 165.1 cm (5' 5 ) 08/07/2016 7:55 AM CDT Body Mass Index 22.47 08/07/2016 7:55 AM CDT Plan of Treatment Health Maintenance Due Date Last Done Comments Cervical Cancer Screening Pa p Smear (Age 30 to 64) Every 3 Years 1972 Colorectal Cancer Screening Colonoscopy (10 Years) 1972 Annual Physical 1975 Hepatitis C 1990 DTaP, Tdap and Td Vaccines ( 1 - Tdap) 1991 Hepatitis B Vaccines (1 of 3 - 19+ 3-dose series) 1991 Cervical Cancer Screening Pa p with HPV Testing (Age 30 to 64) Every 5 Years 2002 Cervical Cancer Screening with HPV 2002 Mammogram Screening 2012 Zoster Vaccines (1 of 2) 2022 COVID-19 Vaccine (2023-2 5 season) 2024 Influenza Adult (#1) 2024 Meningococcal B Vaccine Aged Out No l onger eligible based on patient's age to complete this topic Meningococcal Vaccine Aged Out No mame zoltan eligible based on patient's age to complete this topic Pneumococcal Vaccine: Pediat rics (0 to 5 Years) and At-Risk Patients (6 to 64 Years) Aged Out No longer eligible b ased on patient's age to complete this topic RSV Immunizations Under 20 Months Aged Out No longer eligible based on patient's age to complete this topic
--- OUTSIDE RECORDS SUMMARY | 2024-11-01 15:19 | XMS_ITS | Data Portability ---
Author Organization FUNMI JOSEMalu Ritchie Address [address] [place] [address] Care Team Providers Care Vocational Director Name Role Phone MASON COLON Business Applications Manager Assessment Encounter Date Assessment Date Assessment LastModified by Organization Details LastModified Time 12/18/2019 12/18/2019 JUSTIN Joyce Not available 12/18/2019 16:17:53 Plan of Treatment Reminders Order Date Submit Date Provider Last Modified By Organization Details Last Modified Time Details Appointments None recorded. Lab None recorded. Referral None recorded. Procedures None recorded. Surgeries None recorded. Imaging XR, chest 2018 019 [facility] ([facility] Call Scheduling), [address] [facility], [place], [address], 9 23:50:57 US, abdomen, complete 2020 021 [email or web address] Not available 2 15:07:57 Medication Orders amoxicilli n 875 mg tablet 2018 019 [email or web address] [facility], [address] [place], [address], 9 14:22:06 Ventolin HFA 90 mcg/actuat ion aerosol inhaler 2018 019 [email or web address] [facility], [address] [place], [address], 0 15:14:22 amoxicilli n 500 mg-potassi um clavulanat e 125 mg tablet 2018 019 [facility], [address] [place], [address], 0 15:14:07 albuterol sulfate 2.5 mg/3 mL (0.083 %) solution for nebulizati on 2018 019 [facility], [address] [place] [address], [address], 9 14:40:16 promethazi ne 6.25 mg-codeine 10 mg/5 mL syrup 2018 [facility], [facility] [place] [place], [address], 0 15:14:18 albuterol sulfate 2.5 mg/3 mL (0.083 %) solution for nebulizati on 2018 [facility] [address], [address] [place] [address], [id number], 9 14:46:27 Ventolin HFA 90 mcg/actuat ion aerosol inhaler 2018 019 [facility] 361, [address] [place] [address], [address], 0 15:14:22 permethrin 5 % topical cream 2019 [facility], [address] [place] [address], [id number], 0 16:13:14 triamcinol one acetonide 0.1 % topical cream 2019 [facility], [address] [place] [address], [id number], 0 15:43:54 nystatin 100,000 unit/gram topical cream 2019 [facility], [address] [place] [address], [id number], 0 15:43:53 Chantix Starting Month Box 0.5 mg (11)-1 mg (42) tablets in dose pack 2020 [facility], [address] [place], [address], 1 17:49:57 albuterol sulfate 2.5 mg/3 mL (0.083 %) solution for nebulizati on 2020 [facility], [address] [place], [address], 1 17:50:01 albuterol sulfate HFA 90 mcg/actuat ion aerosol inhaler 2020 [facility], [address] [place], [address], 1 17:49:51 Patient TargetsNo targets recorded. Patient Instructions Encounter Date Encounter Id Patient Instructions Last Modified By Organization Details Last Modified Time 08/18/2019 [id number] Dejar el tabaco: Instrucciones de cuidado - [Quitting Tobacco: Care Instructions] [facility] Not available 08/18/2019 14:40:16 12/18/2019 [id number] scabies: care instructions Not available 12/18/2019 16:12:43 04/23/2021 [id number] Quitting Tobacco : Care Instructions [facility] Not available 04/23/2021 17:49:43 aprenda sobre la epoc y c? ? ?MO prevenir infecciones pulmonares - [learning about COPD and how to prevent lung infections] [facility] Not available 04/23/2021 17:49:43 enfermedad pulmonar obstructiva cr? ? ?osiris (epoc): instrucciones de cuidado - [chronic obstructive pulmonary disease (COPD): care instructions] [facility] Not available 04/23/2021 17:49:43 Reason for Referral None Reported. Results Created Date Observation Date Name Description Value Unit Range Abnormal Flag Note LastModifiedBy Organization Detail LastModifiedTime 11/11/19 19 11/11/2018 XR, chest No observ ation record ed. [email or web address] [address] [place], [address], 02/09/2019 10:53:22 08/19/20 19 08/19/2019 XR, chest , 2 view No observ ation record ed. [email or web address] (Imaging) [address] [place], [address], 08/21/2019 16:09:52 08/19/20 19 08/19/2019 CT, abdom en + pelvi s, w/ contr ast No observ ation record ed. [address] (Imaging) [address] [place], [address], 08/21/2019 16:10:10 Result Notes None recorded. Problems Name Problem SNOMED Code Status Onset Date Resolution Date Notes Provider Name and Address Organization Details Recorded Time Gastroesophag eal reflux disease 544999515 Active 2017 Gerri Fernandez PA-C Attn: Accounting ,[address] [place], [address] , [facility] 8 15:10:04 Allergic disposition 384728132 Active 2017 Gerri Fernandez PA-C Attn: Accounting ,[address] [place], [address] , [facility] 8 09:48:53 Vitamin D deficiency 56421048 Active 2017 Gerri Fernandez PA-C Attn: Accounting ,[address] [place], [address] , [facility] 8 09:49:18 Influenza 2567605 Active Gerri Fernandez PA-C Attn: Accounting ,[address] [place], [address] , [facility] - [facility] 6 16:22:00 Upper respiratory infection 12771381 Active Gerri Fernandez PA-C Attn: Accounting ,[address] [facility], [place], [place], [address] [place] [address] , [place] - [facility] 6 16:22:00 Eruption 163796960 Active Gerri Fernandez PA-C Attn: Accounting ,[address] [facility], [place], [place], [address] [place] [address] , [place] [facility] 6 16:22:00 Tobacco dependence syndrome 65686984 Active Gerri Fernandez PA-C Attn: Accounting ,[address] [facility], [place], [place], [address] [place] [address] , [place] [facility] 6 17:48:06 Knee pain Active Gerri Fernandez PA-C Attn: Accounting ,[address] [facility], [place], [place], [address] [place] [address] , [facility] 6 17:48:06 Fatigue 27942563 Active Gerri Fernandez PA-C Attn: Accounting ,[address] [facility], [place], [place], [address] [place] [address] , [facility] 6 17:48:06 Insomnia 342957125 Active Gerri Fernandez PA-C Attn: Accounting ,[address] [facility], [place], [place], [address] [place] [address] , [place] [facility] 6 17:48:06 Raynaud's phenomenon 660000303 Active Gerri Fernandez PA-C Attn: Accounting ,[address] [facility], [place], [place], [address] [place] [address] , [place] [facility] 17:48:06 Problem Notes None recorded. Procedures Surgical History Date Name Laterality Status Provider Name and Address Organization Details Recorded Time 2 Hysterectomy completed Krystin King [place] - [place] 09/24/2014 16:09:14 Imaging Results Imaging Date Name Status LastModified by Armand hearn Details LastModified Time 11/11/2018 XR, chest completed [facility] (Imaging) [address] [place], [address], 02/09/2019 10:53:22 08/19/2019 XR, chest, [address] (Imaging) [address] [place], [address], 08/21/2019 16:09:52 08/19/2019 CT, abdomen + pelvis, w/ contrast completed [address] (Imaging) [address] [place], [address], 08/21/2019 16:10:10 Procedure Notes None recorded. Medical Equipment None Reported. Allergies No known drug allergies Medications Name Sig Start Date Stop Date Status Note LastModified by Organization Details LastModified Time carisoprodo l 350 mg tablet TAKE 1 TABLET BY MOUTH THREE TIMES DAILY NEEDED active Not Available Not Available No t Available albuterol sulfate 2.5 mg/3 mL (0.083 %) solution for nebulizatio n USE 1 VIAL IN NEBULIZER TWICE DAILY DIRECTED active Not Available Not Available No t Available cetirizine 10 mg tablet Take 1 tablet every day by oral route. 08/18 completed Not Available Not Available Not Available permethrin 5 % topical cream APPLY (THOROUGH LY MASSAGE INTO SKIN FROM HEAD TO SOLES OF FEET) BY TOPICAL ROUTE ONCE LEAVE ON FOR 8-14 HR, THEN REMOVE BY THOROUGH WASHING 2019 active Not Available Not Available Not Avai lable promethazin e 6.25 mg-codeine 10 mg/5 mL syrup Take 5 mL every 6 hours by oral route as needed for 5 days. 12/17 completed Not Available Not Available Not Available Tamiflu 75 mg capsule Take 1 capsule every 12 hours by oral route as directed. 07/06 completed Not Available Not Available Not Available omeprazole 40 mg capsule,del ayed release Take 1 capsule every day by oral route. 12/17 completed Not Available Not Available Not Available triamcinolo ne acetonide 0.1 % topical cream APPLY A THIN LAYER TO THE AFFECTED AREA(S) BY TOPICAL ROUTE 2 TIMES PER DAY 2019 active Not Available Not Available Not Avai lable amoxicillin 875 mg tablet Take 1 tablet every 12 hours by oral route for 7 days. 08/18 completed Not Available Not Available Not Available nystatin 100,000 unit/gram topical cream APPLY TO THE AFFECTED AREA(S) BY TOPICAL ROUTE 2 TIMES PER DAY 2019 active Not Available Not Available Not Michael labmonica ranitidine 150 mg tablet Take 1 tablet twice a day by oral route. 10/21 completed Not Available Not Available Not Available ibuprofen 400 mg tablet Take 1 tablet every 4 hours by oral route. 07/06 completed Not Available Not Available Not Available diclofenac sodium 75 mg tablet,loan yed release 07/06 completed Not Available Not Available Not Available ergocalcife rol (vitamin D2) 1,250 mcg (50,000 unit) capsule Take 1 capsule every week by oral route. 08/18 completed Not Available Not Available Not Available selenium sulfide 2.5 % shampoo APPLY TO THE AFFECTED AREA(S) BY TOPICAL ROUTE TWICE WEEKLY 07/06 completed Not Available Not Available Not Available albuterol sulfate HFA 90 mcg/actuati on aerosol inhaler INHALE 2 PUFFS BY MOUTH EVERY 4 HOURS NEEDED active Not Available Not Available No t Available amoxicillin 500 mg-potassiu m clavulanate 125 mg tablet Take 1 tablet every 12 hours by oral route after meals for 7 days. 12/17 completed Not Available Not Available Not Available Chantix Starting Month Box 0.5 mg (11)-1 mg (42) tablets in dose pack Take 1 startr pk every day by oral route as directed for 30 days. 2020 active Not Available Not Available Not Michael labmonica ID NOW COVID-19 Test Kit TEST DIRECTED active Not Available Not Available No t Available Vitals Date Recorded Body height Provider Name an d Address Organization Details Last Updated DateTime 11/11/2018 165.1 cm Ericka Garsia [place] [facility] 11/11/19 19 16:57:00 Date Recorded Body mass index (BMI) Body weight Provider Name and Address Organization Details Last Updated DateTime 11/11/2018 23.6 kg/m2 87697.55 g Ericka Garsia [place] [facility] 11/11/2018 17:02:27 Date Recorded Oxygen saturation Oxygen saturation in Arterial blood by Pulse oximetry Provider Name and Address Organization Details Last Updated DateTime 11/11/2018 97 % 97 % Ericka AdyEFE [facility] 11/11/2018 17:02:34 Date Recorded Heart rate Provider Name an d Address Organization Details Last Updated DateTime 11/11/2018 70 /min Ericka Garsia [facility] 11/11/19 17:02:38 Date Recorded Body temperature Provider Name a nd Address Organization Details Last Updated DateTime 11/11/2018 98.4 [degF] Ericka Garsia [facility] 019 17:02:45 Date Recorded Body height Provider Name an d Address Organization Details Last Updated DateTime 08/18/2019 165.1 cm Nolan Holley [facility] 2018 14:14:06 Date Recorded Body mass index (BMI) Body weight Provider Name and Address Organization Details Last Updated DateTime 08/18/2019 24.3 kg/m2 65115.77 g Nolan Holley [facility] 08/18/2019 14:23:59 Date Recorded Body temperature Provider Name a nd Address Organization Details Last Updated DateTime 08/18/2019 97.4 [degF] Nolan Holley [facility] 08/18/2019 14:26:52 Date Recorded Oxygen saturation Oxygen saturation in Arterial blood by Pulse oximetry Provider Name and Address Organization Details Last Updated DateTime 08/18/2019 94 % 94 % Nolan Holley [facility] 08/18/2019 14:27:13 Date Recorded Heart rate Provider Name an d Address Organization Details Last Updated DateTime 08/18/2019 92 /min Nolan Holley [facility] 2018 14:27:15 Date Recorded Body height Provider Name an d Address Organization Details Last Updated DateTime 12/18/2019 165.1 cm Norma Sanchez [facility] 2019 15:32:50 Date Recorded Body mass index (BMI) Body weight Provider Name and Address Organization Details Last Updated DateTime 12/18/2019 25.1 kg/m2 91530.45 g Norma Sanchez [facility] 12/18/2019 15:32:57 Date Recorded Heart rate Provider Name an d Address Organization Details Last Updated DateTime 12/18/2019 95 /min Norma Sanchez EFE [facility] 2019 15:33:16 Date Recorded Body temperature Provider Name a nd Address Organization Details Last Updated DateTime 12/18/2019 98.1 [degF] Norma Sanchez [facility] 12/18/2019 15:33:23 Date Recorded Oxygen saturation Oxygen saturation in Arterial blood by Pulse oximetry Provider Name and Address Organization Details Last Updated DateTime 12/18/2019 98 % 98 % Norma Sanchez [facility] 12/18/2019 15:33:30 Date Recorded Body height Provider Name an d Address Organization Details Last Updated DateTime 04/23/2021 160.02 cm Nolan Holley [facility] 2020 17:25:18 Date Recorded Body mass index (BMI) Body weight Provider Name and Address Organization Details Last Updated DateTime 04/23/2021 26.2 kg/m2 62085.95 g Nolan Holley [facility] 04/23/2021 17:25:24 Date Recorded Body temperature Provider Name a nd Address Organization Details Last Updated DateTime 04/23/2021 98.2 [degF] Nolan Holley [facility] 04/23/2021 17:27:11 Date Recorded Oxygen saturation Oxygen saturation in Arterial blood by Pulse oximetry Provider Name and Address Organization Details Last Updated DateTime 04/23/2021 98 % 98 % Nolan Holley [facility] 04/23/2021 17:27:24 Date Recorded Heart rate Provider Name an d Address Organization Details Last Updated DateTime 04/23/2021 66 /min Nolan Holley [facility] 2020 17:27:26 Date Recorded Systolic blood pressure Diastolic blood pressure Provider Name and Address Organization Details Last Updated DateTime 11/11/2018 116 mm[Hg] 60 mm[Hg] Ericka Garsia [facility] 11/11/2018 17:02:21 Date Recorded Systolic blood pressure Diastolic blood pressure Provider Name and Address Organization Details Last Updated DateTime 08/18/2019 112 mm[Hg] 70 mm[Hg] Nolan Holley [facility] 08/18/2019 14:29:06 Date Recorded Systolic blood pressure Diastolic blood pressure Provider Name and Address Organization Details Last Updated DateTime 12/18/2019 102 mm[Hg] 70 mm[Hg] Norma Sanchez [place] - [facility] 12/18/2019 15:33:09 Date Recorded Systolic blood pressure Diastolic blood pressure Provider Name and Address Organization Details Last Updated DateTime 04/23/2021 114 mm[Hg] 70 mm[Hg] Nolan EFE Holley [facility] 04/23/2021 17:29:27 Social History Question Answer Notes LastModified by Organizat ion Details LastModified Time Tobacco Smoking Status Current Every Day [facility]oker Not [facility] 08/06/2020 03:39:31 Do You Have An Advance Directive? No [id number] Information not available 08/06/2020 What Is Your Level Of Alcohol Consumption? Occasional [id number] Information not available 08/06/2020 What Is Your Level Of Caffeine Consumption? Moderate [id number] Information not available 08/06/2020 How Much Tobacco Do You Chew? None [id number] Information not available 08/06/2020 Are You Currently Employed? Yes [id number] Information not available 08/06/2020 What Type Of Diet Are You Following? 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 No [id number] Information not available 08/06/2020 Hard Of Hearing Or Deaf In One Or Both Ears? No [email or web address] Information not available 09/24/2014 Legally Blind In One Or Both Eyes? No [email or web address] Information not available 09/24/2014 Live Alone Or With Others? With Others Children eewig Information not available 07/06/2016 Marital Status Single Informati on not available 09/24/2014 What Was The Date Of Your Most Recent Tobacco Screening? 11/11/2018 [id number] Information not available 08/06/2020 How Many Children Do You Have? 4 [id number] Information not available 08/06/2020 Performs Monthly Self-breast Exam? Yes [email or web address] Information not available 09/24/2014 Seat Belts Used Routinely Yes [email or web address] Information not available 09/24/2014 Smoke Alarm In Home Yes [email or web address] Information not available 09/24/2014 At What Age Did You Start Smoking Tobacco? 21 [id number] Information not available 08/06/2020 How Much Tobacco Do You Smoke? 2 PPW [id number] Information not available 08/06/2020 General Stress Level Medium Information not available 09/24/2014 Do You Use Sunscreen Routinely? No [id number] Information not available 08/06/2020 Sex: Unknown Functional Status Question Answer Note LastModified by Organization D etails LastModified Time What is your exercise level? Moderate [id number] Information not available 08/06/2020 Mental Status None recorded. Family History Relationship Description Onset Age of this Age Resolved Age Notes LastModified by Organization Details LastModified Time Mother Leukemia 70 [email or web address] Not available 1 15:07:17 Son Neoplasm of brain 15 chemo and radiat ion - curren tly cancer free eewig Not available 07/06/2016 15:07:17 Medical History No medical history recorded. Gynecological History Statement/Question Response Menses Monthly N Current Control Method Hysterectom y Age at First Child 24 Obstetrics History GPAL:G 0 P 0 0 0 0 Immunizations Vaccine Type Date Status Note Provider Nam e and Address Organization Details Recorded Time COVID-19 vaccine, vector-nr, rS-Ad26, PF, 0.5 mL 1 completed [place], [place] - [facility] 03/27/2021 12:47:20 Influenza, split virus, quadrivalent, preservative 6 completed Not Available [facility] 10/21/2019 02:42:00 Influenza, split virus, quadrivalent, preservative 7 completed Not Available [facility] 10/21/2019 02:34:51 Past Encounters Encounter ID Performer Location Encounter Start Date Encounter Closed Date Diagnosis/Indication Diagnosis SNOMED-CT Code Diagnosis ICD10 Code Diagnosis Note [id number] Krystin Malik [facility] [address] [place] [address] 09/24/2014 15:55:35 09/28/2014 12:33:02 Influenza 5775906 Upper resp iratory infection 62295413 Eruption [id number] THALIA Cervantes (Adult Med) [address] [place] [id number] 07/06/2016 14:28:41 07/06/2016 17:48:43 Adult health examination 720775557 Z00.01 45YO females here to establish care. Patient's only complaints are bilateral knee pain Active or passive immunization 107310429 Z23 Tobacco de pendence syndrome 18839933 F17.290 Advised to quit smoking Smoking 1/2ppd x 27 years Knee pain 91230079 M25.5 69 bilateral knee pain - will begin with xrays and then refer to ortho - patient requesting knee injections Fatigue 14254116 R53.83 Advised to drink plenty of water good sleep hygiene Insomnia 357548620 G47.0 0 Discussed good sleep hygiene of going to bed and waking up at the same time Advised no screen time within 2 hours of going to bed Advised to try melatonin OTC Raynaud's phenomenon 266 252408 I73.00 Has pictures on her phone - picture shown is whitened finger tips of digits 1-3 on right hand from PIP to finger tips [id number] THALIA Cervantes (Adult Med) [address] [place] [phone] 09/29/2017 14:49:51 09/29/2017 17:37:40 Gastroesophageal reflux disease without esophagitis 544356427 K21.9 Advised to stay away from spicy and greasy foodsAdvis ed to stay away from fatty foodsDo not eat within 2 hours of going to bedStay sitting up after mealsNo smoking Tobacco de pendence syndrome 82139592 F17.290 Advised to quit smoking Smoking 1/2ppd x 27 years Depressive disorder 6268 9007 F32.9 Active or passive immunization 216411894 Z23 Acute lety rgic reaction 621890163 T78.40XA Right after patient was given flu vaccine in left deltoid, she developed a localized swelling around injection point; no erythema, slight warmthPati ent denies SOB/CP We had patient sit in room for a 10 minutes to ensure no further sx's - swelling seemed to go downPatien t is going to purchase benadryl OTC Advised if she develops SOB/CP to go directly to the ER States that she has never had a reaction to any injections in the past [id number] THALIA Cervantes (Adult Med) [address] [place] [id number] 10/21/2017 13:52:13 10/21/2017 15:33:26 Tobacco dependence syndrome 89630837 F17.290 Advised to quit smoking Smoking 1/2ppd x 27 years Gastroesop hageal reflux disease 188524552 K21.9 Advised to stay away from spicy and greasy foodsAdvis ed to stay away from fatty foodsDo not eat within 2 hours of going to bedStay sitting up after mealsNo smokingPat ient to complete [facility] applicatio n today Adult heal th examination 084620057 Z00.01 45YO females here to establish care. Patient's only complaints are bilateral knee pain Fatigue 66460348 R53.83 Advised to drink plenty of water good sleep hygiene Screening for disorder 909648560 Z13.9 [id number] THALIA Cervantes (Adult Med) [address] [place] [address] 01/12/2018 08:48:05 01/12/2018 10:26:34 Has a sore throat 836551470 J02.9 Strep negative Allergic disposition 609 293950 Z91.09 Due to the patient having a sore throat x 2mo, sinus congestion , and with no associated symptoms related to GERD. Her GERD is well controlled at this time with omeprazole . It is suspected the patient is suffering from allergies and irritation of her throat during work because she is around dry ice and chemicals and she feels like the air is very dry there. Will start cetirizine 10mg PO QD, instructed to use humidifier s in her home when sleeping. She is encouraged to return to the clinic if symptoms worsen. Advised to quit smoking Tobacco de pendence syndrome 96321326 F17.290 Advised to quit smoking Smoking 1/4ppd down from 1/2ppd Vitamin D deficiency 347 77676 E55.9 Never picked up medication - will send to [facility] at this time to initiate weekly Gastroesop hageal reflux disease 914003628 K21.9 Advised to stay away from spicy and greasy foodsAdvis ed to stay away from fatty foodsDo not eat within 2 hours of going to bedStay sitting up after mealsNo smoking Has a GI apponitmen t in 2 months in March but doesn't know if she'll go because the omeprazole is working well [id number] JULIA Peoples NP [facility] (Adult Med) [address] [place] [id number] 11/11/2018 16:12:29 11/14/2018 09:02:14 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 She can breathe better, less wheezing by auscultati on after nebulizer treatment at this office. Nicotine dependence 5629 4008 F17.200 Advised patient to quit smoking for the good health and financial reasons. Chemical-i nduced asthma 25802451 J68.3 [id number] SERA CASILLAS [facility] (Adult Med) [address] [place] [phone] 12/18/2019 15:12:26 12/19/2019 08:51:53 Pruritic rash 94431580 L28.2 Itchy, painful rash with vesicles x 3 months.Pt has tried OTC antifungal without relief. Has worked as a [employer] r for 1 month.Husb and has same rash.- Unsure etiology at this time, suspect scabies.- Will treat as scabies; provided pt with permethrin 5% topical cream for pt and to use at home, directions discussed. - Also discussed care instructio ns for scabies, including cleaning all linens and surfaces. Pt advised to put anything that cannot be cleaned in a trash bag for 72 hours before using again.- If no improvemen t with this tx, pt to call office. [id number] Karina Flores MD [facility] (Adult Med) [address] [place] [phone] 02/05/2020 15:35:22 02/07/2020 11:00:06 Pruritic disorder [id number] L29.9 [id number] Karina Flores MD [facility] (Adult Med) [address] [place] [phone] 04/23/2021 17:05:21 04/28/2021 13:21:59 Chronic obstructive pulmonary disease [id number] J44.9 Smoker [id number] F17.200 Advised her to quit smoking, also wants to try chantix. Bloating symptom [id number] R14.0 Will do US at [facility]. Acute exac erbation of chronic obstructive pulmonary disease [id number] J44.1 Discussed with patient , she understood and agreed. She can breathe better, less wheezing by auscultati on after nebulizer treatment at this office. Health Concerns Section Related Observation LastModified by Organization Detai ls LastModified Time None Recorded Concern Status LastModified by Organization Details LastModified Time None Recorded Advance Directives Directive N: Payers Encounter Date Sequence Insurance Name Policy Number Policy Street Covered Member ID Street Member ID Guarantor Name 08/18/2019 1 *SELF PAY* No ra Boss 08/18/2019 1 [facility] [id number] Cara M Boss [id number] Cara Boss 12/18/2019 1 [facility] [id number] Cara M Boss [id number] Cara Boss 02/05/2020 1 [facility] [id number] Cara M Boss [id number] Cara Boss 04/23/2021 1 *SELF PAY* No ra Boss Notes Date Note Type Note Provider Name and Address Organization Details Recorded Time 11/11/2018 text/html Patient presente d today for cough, chest tightness, pain in back when she cough . 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 patient was seen in january of last year 2017 for the same symptoms JULIA Peoples NP Attn: [address] [place], [address], [place] [facility] 11/11/2018 17:18:13 08/18/2019 text/html Chest congestion and cough foe about one week, a cigarettes smoker, NKDA. Karina Flores MD Attn: [address] [place], [address], [facility] 08/18/2019 14:51:49 12/18/2019 text/html 49 y/o female presents for an itchy, painful rash which has persisted for 3 months. She describes it as red bumps, some fluid-filled. Pt reports it started on her feet and has moved up her legs to her groin and arms. Her has the same rash. 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 She has tried an OTC antifungal cream without relief. Denies fever, chills, nausea, vomiting, headaches, chest pain, SOB, abdominal pain, diarrhea, constipation, or dysuria. SERA CASILLAS Attn: [address] [place], [address], [facility] 12/18/2019 17:13:54 02/05/2020 text/html Skin rashes , permethrin not working, NKDA, will try antifungal cream and steroid cream as well, she agreed. Karina Flores MD Attn: [address] [place], [address], [facility] 02/05/2020 17:05:25 04/23/2021 text/html Office visit, right knee is much better after operation, wants refill inhalers, and chantix to help her to quit smoking. NKDA. also stomach bloated from time to time, no diarrhea or constipation no fever, no weight loss, no N/V. no health insurance. Karina Flores MD Attn: [address] [place], [address], [facility] 04/23/2021 17:49:48 OBGyn Episode No OBEpisode recorded.
== END 2024-11-01 14:30 | disposition home or self-care (01) ==
LOC: CHSIMG 14:30
DX: R10.11 Right upper quadrant pain (principal); Z12.31 Encounter for screening mammogram for malignant neoplasm of breast
CPT/HCPCS: 76705; 77063; 77067

== ENCOUNTER 2024-11-13 10:25 | Outpatient (CLI) | payer OTHER, SELFPAY ==
--- NOTE | ~2024-11-13 | US_ITS ---
EXAMINATION: US thyroid DATE: 11/13/2024 11:27 INDICATION: Thyroid nodule. TECHNIQUE: Multiple ultrasound images of the thyroid were obtained. COMPARISON: Ultrasound 02/16/2023 FINDINGS: The right thyroid lobe measures 6.1 x 2.4 x 1.8 cm. The left thyroid lobe measures 3.5 x 1.3 x 0.9 c m. In the left thyroid lobe, there is a 1.1 cm cystic nodule (TI-RADS TR1). In the left thyroid lobe , there is a 0.8 cm solid, hypoechoic, wider than tall nodule with smooth margin without echogenic fo ci (TR4). In the left thyroid lobe, there is an 18 mm solid, hypoechoic, wider than tall nodule with ill-defined margin and macrocalcifications (TR4). In the right thyroid lobe, there is a 4.1 cm solid, hypoechoic, wider than tall nodule with peripheral calcifications (TR4), stable from 02/16/23. Biopsy on 06/08/23 was nondiagnostic. IMPRESSION: 1. Multinodular goiter. Ultrasound-guided fine-needle aspiration of 2 nodules is recommended. Reviewed, dictated and finalized at location A. ICAL ENGINEERING TECHNICIAN IMPRESSION: 1. Multinodular goiter. Ultrasound-guided fine-needle aspiration of 2 nodules i s recommended.
--- OUTSIDE RECORDS SUMMARY | 2024-11-13 11:18 | XMS_ITS | Clinical Summary ---
Author Organization [facility] Address [address] [place] [id number] Care Team Providers Care Rn Discharge Name Role Phone Unavailable Primary Care Provider [...] Vaccines (1 of 2) 2022 COVID-19 Vaccine ( - 2023-2 5 season) 2024 Influenza Adult (#1) 2024 [...]
--- OUTSIDE RECORDS SUMMARY | 2024-11-13 11:19 | XMS_ITS | Data Portability ---
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 Lab None recorded. Referral None recorded. Procedures None recorded. Surgeries None recorded. Imaging XR, chest 2018 019 [facility] (One Call Scheduling), [address] [facility], [place], [address], 9 23:50:57 US, abdomen, complete 2020 021 [email or web address] Not available 2 15:07:57 Medication Orders amoxicilli n 875 mg tablet 2018 019 [email or web address] [facility], [address] [place], [address], 9 14:22:06 Ventolin HFA 90 mcg/actuat ion aerosol inhaler 2018 019 [email or web address] [facility], [address] [place], [address], 0 15:14:22 amoxicilli n 500 mg-potassi um clavulanat e 125 mg tablet 2018 019 [facility], [address] [place], [address], 0 15:14:07 albuterol sulfate 2.5 mg/3 mL (0.083 %) solution for nebulizati on 2018 019 [facility], [address] [place] [address], [address], 9 14:40:16 promethazi ne 6.25 mg-codeine 10 mg/5 mL syrup 2018 [facility], [facility] [place] [place], [address], 0 15:14:18 albuterol sulfate 2.5 mg/3 mL (0.083 %) solution for nebulizati on 2018 [facility] [address], [address] [place] [address], [address], 9 14:46:27 Ventolin HFA 90 mcg/actuat ion aerosol inhaler 2018 019 [facility] [address], [address] [place] [address], [address], 0 15:14:22 permethrin 5 % topical cream 2019 [facility], [address] [place] [address], [id number], 0 16:13:14 triamcinol one acetonide 0.1 % topical cream 2019 [facility], [address] [place] [address], [id number], 0 15:43:54 nystatin 100,000 unit/gram topical cream 2019 [facility], [address] [place] [address], [id number], 0 15:43:53 Chantix Starting Month Box 0.5 mg (11)-1 mg (42) tablets in dose pack 2020 [facility], [address] [place], [address], 1 17:49:57 albuterol sulfate 2.5 mg/3 mL (0.083 %) solution for nebulizati on 2020 [facility], [address] [place], [address], 1 17:50:01 albuterol sulfate HFA 90 mcg/actuat ion aerosol inhaler 2020 [facility], [address] [place], [address], 1 17:49:51 Patient TargetsNo targets recorded. Patient Instructions Encounter Date Encounter Id Patient Instructions Last Modified By Organization Details Last Modified Time 08/18/2019 [id number] Dejar el tabaco: Instrucciones de cuidado - [Quitting Tobacco: Care Instructions] [facility] Not available 08/18/2019 14:40:16 12/18/2019 [id number] scabies: care instructions Not available 12/18/2019 16:12:43 04/23/2021 [id number] Quitting Tobacco : Care Instructions [facility] Not available 04/23/2021 17:49:43 aprenda sobre la epoc y c [place] prevenir infecciones pulmonares - [learning about COPD and how to prevent lung infections] [facility] Not available 04/23/2021 17:49:43 enfermedad pulmonar obstructiva cr osiris (epoc): instrucciones de cuidado - [chronic obstructive pulmonary disease (COPD): care instructions] [facility] Not available 04/23/2021 17:49:43 Reason for Referral None Reported. Results Created Date Observation Date Name Description Value Unit Range Abnormal Flag Note LastModifiedBy Organization Detail LastModifiedTime 11/11/19 19 11/11/2018 XR, chest No observ ation record ed. [facility] (Imaging) [address] [place], [address], 02/09/2019 10:53:22 08/19/20 19 08/19/2019 XR, chest , 2 view No observ ation record ed. [address] (Imaging) [address] [place], [address], 08/21/2019 16:09:52 08/19/20 19 08/19/2019 CT, abdom en + pelvi s, w/ contr ast No observ ation record ed. [address] (Imaging) [address] [place], [address], 08/21/2019 16:10:10 Result Notes None recorded. Problems Name Problem SNOMED Code Status Onset Date Resolution Date Notes Provider Name and Address Organization Details Recorded Time Gastroesophag eal reflux disease 273441977 Active 2017 Gerri Fernandez PA-C Attn: Accounting ,[address] [place], [address] , [facility] 8 15:10:04 Allergic disposition 415817539 Active 2017 Gerri Fernandez PA-C Attn: Accounting ,[address] [place], [address] , [place] [facility] 8 09:48:53 Vitamin D deficiency 84708568 Active 2017 Gerri Fernandez PA-C Attn: Accounting ,[address] [place], [address] , [place] [facility] 8 09:49:18 Influenza 9119461 Active Gerri Fernandez PA-C Attn: Accounting ,[address] [place], [address] , [place] [facility] 6 16:22:00 Upper respiratory infection 42433743 Active Gerri Fernandez PA-C Attn: Accounting ,[address] [facility], [place], [place], [address] [place] [address] , [facility] 6 16:22:00 Eruption 303142617 Active Gerri Fernandez PA-C Attn: Accounting ,[address] [facility], [place], [place], [address] [place] [address] , [place] [facility] 6 16:22:00 Tobacco dependence syndrome 16829582 Active Gerri Fernandez PA-C Attn: Accounting ,[address] [facility], [place], [address] [place] [address] , [facility] 6 17:48:06 Knee pain Active Gerri Fernandez PA-C Attn: Accounting ,[address] [facility], [place], [address] [place] [address] , [facility] 6 17:48:06 Fatigue 79688223 Active Gerri Fernandez PA-C Attn: Accounting ,[address] [facility], [place], [address] [place] [address] , [facility] 6 17:48:06 Insomnia 825453333 Active Gerri Fernandez PA-C Attn: Accounting ,[address] [facility], [place], [address] [place] [address] , [facility] 6 17:48:06 Raynaud's phenomenon 589730435 Active Gerri Fernandez PA-C Attn: Accounting ,[address] [facility], [place], [address] [place] [address] , [facility] 6 17:48:06 Problem Notes None recorded. Procedures Surgical History Date Name Laterality Status Provider Name and Address Organization Details Recorded Time 2 Hysterectomy completed Krystin Malik [place] [facility] 09/24/2014 16:09:14 Imaging Results Imaging Date Name Status LastModified by Organiz [facility] Details LastModified Time 11/11/2018 XR, chest completed [facility] (Imaging) [address] [place], [address], 02/09/2019 10:53:22 08/19/2019 XR, chest, [address] (Imaging) [address] [place], [address], 08/21/2019 16:09:52 08/19/2019 CT, abdomen + pelvis, w/ contrast completed [address] (Imaging) [address] [place], [address], 08/21/2019 16:10:10 Procedure Notes None recorded. Medical [...] Not Available Not Available Not Avai lable ranitidine 150 mg tablet Take 1 tablet [...] active Not Available Not Available Not Michael briceno ID NOW COVID-19 Test Kit TEST DIRECTED active Not Available Not Available No t Available Vitals Date Recorded Body height Body mass index (BMI) Body weight Oxygen saturation Oxygen saturation in Arterial blood by Pulse oximetry Heart rate Body temperature Systolic blood pressure Diastolic blood pressure Provider Name and Address Organization Details Last Updated DateTime 9 165.1 cm 23.6 kg/m2 49313.5 5 g 97 % 97 % 70 /min 98.4 [degF] 116 mm[Hg] 60 mm[Hg] Ericka Garsia [place] [facility] 9 17:02:21 Date Recorded Body height Body mass index (BMI) Body weight Body temperature Oxygen saturation Oxygen saturation in Arterial blood by Pulse oximetry Heart rate Systolic blood pressure Diastolic blood pressure Provider Name and Address Organization Details Last Updated DateTime 9 165.1 cm 24.3 kg/m2 29192.7 7 g 97.4 [degF] 94 % 94 % 92 /min 112 mm[Hg] 70 mm[Hg] Nolan Holley [place] [facility] 9 14:29:06 Date Recorded Body height Body mass index (BMI) Body weight Heart rate Body temperature Oxygen saturation Oxygen saturation in Arterial blood by Pulse oximetry Systolic blood pressure Diastolic blood pressure Provider Name and Address Organization Details Last Updated DateTime 0 165.1 cm 25.1 kg/m2 12975.4 5 g 95 /min 98.1 [degF] 98 % 98 % 102 mm[Hg] 70 mm[Hg] Norma Sanchez [place] [facility] 0 15:33:09 Date Recorded Body height Body mass index (BMI) Body weight Body temperature Oxygen saturation Oxygen saturation in Arterial blood by Pulse oximetry Heart rate Systolic blood pressure Diastolic blood pressure Provider Name and Address Organization Details Last Updated DateTime 1 160.02 cm 26.2 kg/m2 38262.9 5 g 98.2 [degF] 98 % 98 % 66 /min 114 mm[Hg] 70 mm[Hg] Nolan Holley [place] [facility] 1 17:29:27 Social History Question Answer Notes LastModified by Organizat ion Details LastModified Time Tobacco Smoking Status Current Every Day Smoker Not Available [facility] 08/06/2020 03:39:31 Do You Have An Advance Directive? No [id number] Information not available 08/06/2020 What Is Your Level Of Alcohol Consumption? Occasional [id number] Information not available 08/06/2020 What Is Your Level Of Caffeine Consumption? Moderate [id number] Information not available 08/06/2020 How Much Tobacco Do You Chew? None [id number] Information not available 08/06/2020 Are You Currently Employed? Yes [id number] Information not available 08/06/2020 What Type Of Diet Are You Following? REGULAR [id number] Information not available 08/06/2020 Education Less Than 8th Grade Information not available 09/24/2014 What Is Your Occupation? [employer] [id number] Information not available 08/06/2020 Are There Any Guns Present In Your Home? No [id number] Information not available 08/06/2020 Hard Of Hearing Or Deaf In One Or Both Ears? No [email or web address] Information not available 09/24/2014 Legally Blind In One Or Both Eyes? No [email or web address] Information not available 09/24/2014 Live Alone Or With Others? With Others Children eewig Information not available 07/06/2016 Marital Status Single [email or web address] Informati on not available 09/24/2014 What Was The Date Of Your Most Recent Tobacco Screening? 11/11/2018 [id number] Information not available 08/06/2020 How Many Children Do You Have? 4 [id number] Information not available 08/06/2020 Performs Monthly Self-breast Exam? Yes [email or web address] Information not available 09/24/2014 Seat Belts Used Routinely Yes [email or web address] Information not available 09/24/2014 Smoke Alarm In Home Yes [email or web address] Information not available 09/24/2014 At What Age Did You Start Smoking Tobacco? 21 [id number] Information not available 08/06/2020 How Much Tobacco Do You Smoke? 2 PPW [id number] Information not available 08/06/2020 General Stress Level Medium [email or web address] Information not available 09/24/2014 Do You Use Sunscreen Routinely? No [id number] Information not available 08/06/2020 Sex: Unknown Functional Status Question Answer Note LastModified by Organization D etails LastModified Time What is your exercise level? Moderate [id number] Information not available 08/06/2020 Mental Status None [...] vector-nr, rS-Ad26, PF, 0.5 mL 1 completed [facility] 03/27/2021 12:47:20 Influenza, split virus, quadrivalent, preservative 6 completed Not Available [facility] 10/21/2019 02:42:00 Influenza, split virus, quadrivalent, preservative 7 completed Not Available [facility] 10/21/2019 02:34:51 Past Encounters Encounter ID Performer Location Encounter Start Date Encounter Closed Date Diagnosis/Indication Diagnosis SNOMED-CT Code Diagnosis ICD10 Code Diagnosis Note [id number] [facility] [address] [place] [address] 09/24/2014 15:55:35 09/28/2014 12:33:02 Influenza 8952848 Upper resp iratory infection 16295387 Eruption [id number] THALIA Cervantes (Adult Med) [address] [place] [address] 07/06/2016 14:28:41 07/06/2016 17:48:43 Adult health examination 979464001 Z00.01 45YO females here to establish care. Patient's only complaints are bilateral knee pain Active or passive immunization 479228773 Z23 Tobacco de pendence syndrome 20344675 F17.290 Advised to quit smoking Smoking 1/2ppd x 27 years Knee pain 26241082 M25.5 69 bilateral knee pain - will begin with xrays and then refer to ortho - patient requesting knee injections Fatigue 73459486 R53.83 Advised to drink plenty of water good sleep hygiene Insomnia 309548835 G47.0 0 Discussed good sleep hygiene of going to bed and waking up at the same time Advised no screen time within 2 hours of going to bed Advised to try melatonin OTC Raynaud's phenomenon 266 463380 I73.00 Has pictures on her phone - picture shown is whitened finger tips of digits 1-3 on right hand from PIP to finger tips [id number] THALIA Cervantes (Adult Med) [address] [place] [address] 09/29/2017 14:49:51 09/29/2017 17:37:40 Gastroesophageal reflux disease without esophagitis 915741435 K21.9 Advised to stay away from spicy and greasy foodsAdvis ed to stay away from fatty foodsDo not eat within 2 hours of going to bedStay sitting up after mealsNo smoking Tobacco de pendence syndrome 38519887 F17.290 Advised to quit smoking Smoking 1/2ppd x 27 years Depressive disorder 3548 9007 F32.9 Active or passive immunization 868381080 Z23 Acute lety rgic reaction 302707003 T78.40XA Right after patient was given flu [...] reaction to any injections in the past [id number] THALIA Cervantes (Adult Med) [address] [place] [address] 10/21/2017 13:52:13 10/21/2017 15:33:26 Tobacco dependence syndrome 98935572 F17.290 Advised to quit smoking Smoking 1/2ppd x 27 years Gastroesop hageal reflux disease 197675882 K21.9 Advised to stay away from spicy and greasy foodsAdvis ed to stay away from fatty foodsDo not eat within 2 hours of going to bedStay sitting up after mealsNo smokingPat ient to complete [facility] care applicatio n today Adult heal th examination 339878217 Z00.01 45YO females here to establish care. Patient's only complaints are bilateral knee pain Fatigue 67903183 R53.83 Advised to drink plenty of water good sleep hygiene Screening for disorder 731040433 Z13.9 [id number] THALIA Cervantes (Adult Med) [address] [place] [address] 01/12/2018 08:48:05 01/12/2018 10:26:34 Has a sore throat 039836175 J02.9 Strep negative Allergic disposition 609 990987 Z91.09 Due to the patient having a [...] to quit smoking Tobacco de pendence syndrome 99349117 F17.290 Advised to quit smoking Smoking 1/4ppd down from 1/2ppd Vitamin D deficiency 347 72674 E55.9 Never picked up medication - will send to [facility] at this time to initiate weekly Gastroesop hageal reflux disease 166609531 K21.9 Advised to stay away from spicy and greasy foodsAdvis ed to stay away from fatty foodsDo not eat within 2 hours of going to bedStay sitting up after mealsNo smoking Has a GI apponitmen t in 2 months in March but doesn't know if she'll go because the omeprazole is working well [id number] CHRISTOS Peoples (Adult Med) [address] [place] [phone] 11/11/2018 16:12:29 11/14/2018 09:02:14 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 She can breathe better, less wheezing by auscultati on after nebulizer treatment at this office. Nicotine dependence 5629 4008 F17.200 Advised patient to quit smoking for the good health and financial reasons. Chemical-i nduced asthma 46043638 J68.3 [id number] [facility] (Adult Med) [address] [place] [phone] 12/18/2019 15:12:26 12/19/2019 08:51:53 Pruritic rash 46182778 L28.2 Itchy, painful rash with vesicles x 3 months.Pt has tried OTC antifungal without relief. 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 [id number] Karina Flores MD [facility] (Adult Med) [address] [place] [phone] 02/05/2020 15:35:22 02/07/2020 11:00:06 Pruritic disorder 437377401 L29.9 [id number] Karina Flores MD [facility] (Adult Med) [address] [place] [id number] 04/23/2021 17:05:21 04/28/2021 13:21:59 Chronic obstructive pulmonary disease 92509193 J44.9 Smoker 77003085 F17.200 Advised her to quit smoking, also wants to try chantix. Bloating symptom 5664627 00 R14.0 Will do US at the [facility]. Acute exac erbation of chronic obstructive pulmonary disease 092742585 J44.1 Discussed with patient , she understood and agreed. She can breathe better, less wheezing by auscultati on after nebulizer treatment at this office. Health Concerns Section Related Observation LastModified by Organization Stephonai talon LastModified Time None Recorded Concern Status LastModified by Organization Details LastModified Time None Recorded Advance Directives Directive N: Payers Encounter Date Sequence Insurance Name Policy Number Policy Street Covered Member ID Street Member ID Guarantor Name 08/18/2019 1 *SELF PAY* Jovanna Boss 08/18/2019 1 [facility] [id number] Cara Remyla [id number] Cara Boss 12/18/2019 1 [facility] [id number] Cara Dunn Boss [id number] Cara Boss 02/05/2020 1 [facility] [id number] Cara Dunn Boss [id number] Cara Boss 04/23/2021 1 *SELF PAY* No [...] symptoms JULIA Peoples NP Attn: Accounting[address] [place], [address], [facility] 11/11/2018 17:18:13 08/18/2019 text/html Chest congestion and cough foe about one week, a cigarettes smoker, NKDA. Karina Flores MD Attn: Accounting[address] [place], [address], [facility] 08/18/2019 14:51:49 12/18/2019 text/html 49 [...] or dysuria. SERA CASILLAS Attn: Accounting[address] [place], [address], [facility] 12/18/2019 17:13:54 02/05/2020 text/html Skin rashes , permethrin not working, NKDA, will try antifungal cream and steroid cream as well, she agreed. Karina Flores MD Attn: Accounting[address] [facility], [place], [address], [facility] 02/05/2020 17:05:25 04/23/2021 text/html Office visit, right knee is much better after operation, wants refill inhalers, and chantix to help her to quit smoking. NKDA. also stomach bloated from time to time, no diarrhea or constipation no fever, no weight loss, no N/V. no health insurance. Karina Flores MD Attn: Accounting[address] [facility], [place], [address], [facility] 04/23/2021 17:49:48 OBGyn Episode No OBEpisode recorded.
--- OUTSIDE RECORDS SUMMARY | 2024-11-13 11:19 | XMS_ITS | Data Portability ---
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 Plan of Treatment Reminders Order Date Submit Date Provider Last Modified By Organization Details Last Modified Time Details Appointments Any 15 2024 03:30P NAHUM Pitt Not available Not available Not available Lab TSH, serum or plasma 2024 025 [facility], [address] , [place], [address], 10/11/2024 21:57:39 HbA1c (hemoglob in A1c), blood 2024 025 [facility], [address], [place], [address], 10/11/2024 21:57:40 CMP, serum or plasma 2024 025 [facility], [address], [place], [address], 10/11/2024 21:57:37 lipid panel, serum 2024 025 [facility], [address] , [place], [address], 10/11/2024 21:57:36 CBC w/ auto diff 2024 025 [facility], [address] , [place], [address], 10/11/2024 21:57:38 Referral otolaryng ologist referral - FNA inconclus el. 4.1 cm TIRADS 5 nodule on right thyroid lobe. Please call patient to schedule an appointme nt. Thank you. 2024 025 [email or web address] Nolan Ashton MD, [address] [address], [place], [address], 11/07/2024 08:38:18 Procedures None recorded. Surgeries None recorded. Imaging XR, knee 2022 023 [facility], [address] [place] [address] [place] [address], [address], 09/03/2023 16:51:19 MAMMO, screening , digital, bilateral - Please call pt to schedule 2024 025 [facility], [address] [place] [address] Route [facility], [place], [address], 11/02/2024 09:40:07 US, gallbladd er - Please call pt to schedule 2024 025 [facility], [address] [place] [address] Route [facility], [place], [address], 11/02/2024 09:07:07 US, neck, soft tissue 2024 025 [facility], [address] [place] [address] Route [facility], [place], [address], 11/10/2024 04:16:28 Medication Orders bupropion HCl 150 mg tablet,12 hr sustained -release( smoking deterrent ) [address] [facility], [address] [place], [address], 10/06/2024 15:50:44 benzonata te 200 mg capsule [address] [facility], [address] [place], [address], 10/06/2024 15:50:39 bupropion HCl 150 mg tablet,12 hr sustained -release( smoking deterrent ) 2022 023 [place] [address], [address] [place] [address], [address], 10/06/2024 15:50:44 ibuprofen 800 mg tablet 2022 023 [place] [address], [address] [place] [address], [address], 08/20/2023 17:23:26 prednison e 20 mg tablet 2022 023 [place] [address], [address] [place] [address], [address], 10/06/2024 15:51:55 Medrol (Zak) 4 mg tablets in a dose pack 2024 025 [place] [address], [address] [place] [address], [address], 10/17/2024 16:26:23 azithromy madeline 250 mg tablet 2024 025 [place] [address], [address] [place] [address], [address], 10/17/2024 16:26:19 Airsupra 90 mcg-80 mcg/actua tion HFA aerosol inhaler 2024 025 [place] [address], [address] [place] [address], [address], 10/06/2024 16:17:26 omeprazol e 40 mg capsule,d elayed release 2024 025 [place] [address], [address] [place] [address], [address], 10/06/2024 16:17:27 metformin ER 500 mg tablet,ex tended release 24 hr 2024 025 [facility], [address] [facility], [place], [address], 10/17/2024 16:40:33 Patient TargetsNo targets recorded. Patient Instructions Encounter Date Encounter Id Patient Instructions Last Modified By Organization Details Last Modified Time 10/17/2024 [id number] type 2 diabetes: care instructions [email or web address] Not available 10/17/2024 16:40:26 11/02/2024 [id number] so we will start from scratch and get an ultrasound for needle aspiration. 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 4.1 cm TIRADS 5 nodule on right thyroid lobe. Please call patient to schedule an appointment. Thank you. Referring Physician: Trace Bell, Family Medicine, Encounter Date: 10/06/2024 Results Created Date Observation Date Name Description Value Unit Range Abnormal Flag Note LastModifiedBy Organization Detail LastModifiedTime 10/11/1910/11/2024 LIPID PANEL , STAND ANN MARIE cholesterol, total 210 mg/dL <200 high Not Available [facility] [place] [address] [place], [address], 10/11/2024 21:57:36 10/11/1910/11/2024 LIPID PANEL , STAND ANN MARIE HDL cholesterol 63 mg/dL > or = 50 normal Not Available [facility] [address] [place], [address], 10/11/2024 21:57:36 10/11/1910/11/2024 LIPID PANEL , STAND ANN MARIE triglyceride s 116 mg/dL <150 normal Not Available [facility] [address] [place], [address], 10/11/2024 21:57:36 10/11/1910/11/2024 LIPID PANEL , STAND ANN MARIE LDL-choleste rol 125 mg/dL _(yannick c) high Refer ence range : <100 Yvonne able range <100 mg/dL for prima ry preve ntion ; <70 mg/dL for patie nts with CHD or diabe tic patie nts with > or = 2 CHD risk facto rs. LDL-C is now calcu lated using the Bridget -[facility] kins vamshi pimentel n, which is a valid ated novel metho d provi ding gilles r accur acy than the Fried sona equat ion in the estim ation of LDL-C . Bridget reid SS et al. VIOLETA. 2013; 310(1 9): 2061- 2068 (http ://ed ucati on.Qu estDi Advice Wallet. com/f aq/FA Q164) Not Available [employer] [place] [address] [place], [address], 10/11/2024 21:57:36 10/11/19 25 10/11/2024 LIPID PANEL , STAND ANN MARIE chol/HDLC ratio 3.3 (calc ) <5.0 normal Not Available [place] [address] [facility] [place], [address], 10/11/2024 21:57:36 10/11/19 25 10/11/2024 LIPID PANEL , STAND ANN MARIE non HDL cholesterol 147 mg/dL _(yannick c) <130 high For patie nts with diabe isaías plus 1 major ASCVD risk facto r, treat ing to a non-H DL-C goal of <100 mg/dL (LDL- C of <70 mg/dL ) is consi shukrid a ayana ez colon optio n. Not Available [employer] [facility] [place] [address] [place], [address], 10/11/2024 21:57:36 10/11/19 25 10/11/2024 COMPR EHENS EL METAB OLIC PANEL glucose 91 mg/dL 65-139 normal Non-f astin g refer ence inter gilda Not Available [facility] [place] [address] [place], [address], 10/11/2024 21:57:37 10/11/19 25 10/11/2024 COMPR EHENS EL METAB OLIC PANEL urea nitrogen (BUN) 19 mg/dL 7-25 normal Not Available [address], [address], 10/11/2024 21:57:37 10/11/19 25 10/11/2024 COMPR EHENS EL METAB OLIC PANEL creatinine 0.85 mg/dL 0.50-1 .03 normal Not Available [address], [address], 10/11/2024 21:57:37 10/11/19 25 10/11/2024 COMPR EHENS EL METAB OLIC PANEL eGFR 82 mL/mi n/1.7 3m2 > or = 60 normal Not Available [address], [address], 10/11/2024 21:57:37 10/11/19 25 10/11/2024 COMPR EHENS EL METAB OLIC PANEL BUN/creatini ne ratio SEE NOTE: (calc ) 6-22 Not Repor amador: BUN and Creat inine are withi n refer ence range . Not Available [address], [address], 10/11/2024 21:57:37 10/11/19 25 10/11/2024 COMPR EHENS EL METAB OLIC PANEL sodium 141 mmol/ L 135-14 6 normal Not Available [address], [address], 10/11/2024 21:57:37 10/11/19 25 10/11/2024 COMPR EHENS EL METAB OLIC PANEL potassium 4.3 mmol/ L 3.5-5. 3 normal Not Available [address], [address], 10/11/2024 21:57:37 10/11/19 25 10/11/2024 COMPR EHENS EL METAB OLIC PANEL chloride 102 mmol/ L 98-110 normal Not Available [address] [place], [address], 10/11/2024 21:57:37 10/11/19 25 10/11/2024 COMPR EHENS EL METAB OLIC PANEL carbon dioxide 31 mmol/ L 20-32 normal Not Available [address], [address], 10/11/2024 21:57:37 10/11/19 25 10/11/2024 COMPR EHENS EL METAB OLIC PANEL calcium 9.7 mg/dL 8.6-10 .4 normal Not Available [address], [address], 10/11/2024 21:57:37 10/11/19 25 10/11/2024 COMPR EHENS EL METAB OLIC PANEL protein, total 6.9 g/dL 6.1-8. 1 normal Not Available [address], [address], 10/11/2024 21:57:37 10/11/19 25 10/11/2024 COMPR EHENS EL METAB OLIC PANEL albumin 4.4 g/dL 3.6-5. 1 normal Not Available [address], [address], 10/11/2024 21:57:37 10/11/19 25 10/11/2024 COMPR EHENS EL METAB OLIC PANEL globulin 2.5 g/dL_ (calc ) 1.9-3. 7 normal Not Available [address], [address], 10/11/2024 21:57:37 10/11/19 25 10/11/2024 COMPR EHENS EL METAB OLIC PANEL albumin/glob ulin ratio 1.8 (calc ) 1.0-2. 5 normal Not Available [address], [address], 10/11/2024 21:57:37 10/11/19 25 10/11/2024 COMPR EHENS EL METAB OLIC PANEL bilirubin, total 0.4 mg/dL 0.2-1. 2 normal Not Available [address], [address], 10/11/2024 21:57:37 10/11/19 25 10/11/2024 COMPR EHENS EL METAB OLIC PANEL alkaline phosphatase 64 U/L 37-153 normal Not Available [facility] [employer] [address], [address], 10/11/2024 21:57:37 10/11/19 25 10/11/2024 COMPR EHENS EL METAB OLIC PANEL AST 13 U/L 10-35 normal Not Available [address], [address], 10/11/2024 21:57:37 10/11/19 25 10/11/2024 COMPR EHENS EL METAB OLIC PANEL ALT 17 U/L 6-29 normal Not Available [address], [address], 10/11/2024 21:57:37 10/11/19 25 10/11/2024 CBC (INCL UDES DIFF/ PLT) white blood cell count 17.8 thous and/u L 3.8-10 .8 high Not Available [address], [address], 10/11/2024 21:57:38 10/11/19 25 10/11/2024 CBC (INCL UDES DIFF/ PLT) red blood cell count 5.02 orlin on/uL 3.80-5 .10 normal Not Available [address], [address], 10/11/2024 21:57:38 10/11/19 25 10/11/2024 CBC (INCL UDES DIFF/ PLT) hemoglobin 15.9 g/dL 11.7-1 5.5 high Not Available [address], [address], 10/11/2024 21:57:38 10/11/19 25 10/11/2024 CBC (INCL UDES DIFF/ PLT) hematocrit 48.6 % 35.0-4 5.0 high Not Available [address], [address], 10/11/2024 21:57:38 10/11/19 25 10/11/2024 CBC (INCL UDES DIFF/ PLT) MCV 96.8 fL 80.0-1 00.0 normal Not Available [address], [address], 10/11/2024 21:57:38 10/11/19 25 10/11/2024 CBC (INCL UDES DIFF/ PLT) MCH 31.7 pg 27.0-3 3.0 normal Not Available [address], [address], 10/11/2024 21:57:38 10/11/19 25 10/11/2024 CBC (INCL UDES DIFF/ PLT) MCHC 32.7 g/dL 32.0-3 6.0 normal For adult s, a sligh t decre ase in the calcu lated MCHC value (in the range of 30 to 32 g/dL) is most likel y not clini glenys signi aadrsh t; teresa er, it shoul d be inter prete d with cauti on in corre latio n with other red cell pauline eters and the patie nt's clini yannick condi tion. Not Available [employer] [address], [address], 10/11/2024 21:57:38 10/11/19 25 10/11/2024 CBC (INCL UDES DIFF/ PLT) RDW 12.8 % 11.0-1 5.0 normal Not Available [facility] [employer] [address], [address], 10/11/2024 21:57:38 10/11/19 25 10/11/2024 CBC (INCL UDES DIFF/ PLT) platelet count 397 thous and/u L 140-40 0 normal Not Available [address], [address], 10/11/2024 21:57:38 10/11/19 25 10/11/2024 CBC (INCL UDES DIFF/ PLT) MPV 9.6 fL 7.5-12 .5 normal Not Available [facility] [address], [address], 10/11/2024 21:57:38 10/11/19 25 10/11/2024 CBC (INCL UDES DIFF/ PLT) absolute neutrophils 37551 cells /uL 1500-7 800 high Not Available [address], [address], 10/11/2024 21:57:38 10/11/19 25 10/11/2024 CBC (INCL UDES DIFF/ PLT) absolute lymphocytes 3026 cells /uL 850-39 00 normal Not Available [address], [address], 10/11/2024 21:57:38 10/11/19 25 10/11/2024 CBC (INCL UDES DIFF/ PLT) absolute monocytes 1068 cells /uL 200-95 0 high Not Available [address], [address], 10/11/2024 21:57:38 10/11/19 25 10/11/2024 CBC (INCL UDES DIFF/ PLT) absolute eosinophils 0 cells /uL 15-500 low Not Available [address], [address], 10/11/2024 21:57:38 10/11/19 25 10/11/2024 CBC (INCL UDES DIFF/ PLT) absolute basophils 0 cells /uL 0-200 normal Not Available [address], [address], 10/11/2024 21:57:38 10/11/19 25 10/11/2024 CBC (INCL UDES DIFF/ PLT) neutrophils 77 % normal Not Available [address], [address], 10/11/2024 21:57:38 10/11/19 25 10/11/2024 CBC (INCL UDES DIFF/ PLT) lymphocytes 17 % normal Not Available [address], [address], 10/11/2024 21:57:38 10/11/19 25 10/11/2024 CBC (INCL UDES DIFF/ PLT) monocytes 6 % normal Not Available [address], [address], 10/11/2024 21:57:38 10/11/19 25 10/11/2024 CBC (INCL UDES DIFF/ PLT) eosinophils 0 % normal Not Available [address], [address], 10/11/2024 21:57:38 10/11/19 25 10/11/2024 CBC (INCL UDES DIFF/ PLT) basophils 0 % normal Not Available [address], [address], 10/11/2024 21:57:38 10/11/19 25 10/11/2024 CBC (INCL UDES DIFF/ PLT) comment(s) The smear has been manutima smith wed and the manua l diffe francesca al has been repor amador. Revluis w of the perip heral smear revea ls adequ ate numbe rs of plate lets. Not Available [address], [address], 10/11/2024 21:57:38 10/11/19 25 10/11/2024 TSH W/REF HARSHAD TO FT4 TSH w/reflex to FT4 1.13 mIU/L normal Refer ence Range > or = 20 Years 0.40- 4.50 Pregn monie Range s First trime ster 0.26- 2.66 Secon d trime ster 0.55- 2.73 Third trime ster 0.43- 2.91 Not Available [facility] [address] [place], [address], 10/11/2024 21:57:39 10/11/19 25 10/11/2024 HEMOG LOBIN [...] diabe isaías for child selene. Not Available [facility] [address] [address] , [place], [address], 10/11/2024 21:57:40 06/09/20 23 06/08/2023 fine needl e aspir ation , ultra sound guide d, thyro id (PROC ) No observ ation record ed. [facility] [address] [place] [address], [address], 10/06/2024 16:17:01 06/17/20 23 06/17/2023 XR, chest No observ ation record ed. [facility] [address] [facility] [address] [address], [place], [address], 06/18/2023 10:25:44 09/03/20 23 09/03/2023 XR, knee No observ ation record ed. [email or web address] [facility] [address] [facility] [address], [place], [address], 09/15/2023 15:23:23 09/03/20 23 09/03/2023 XR, knee No observ ation record ed. [email or web address] [facility] [address] [facility] [address] [address], [place], [address], 09/15/2023 15:23:24 11/02/19 25 11/01/2024 MAMMO , scree ed, digit al, bilat eral No observ ation record ed. [address] [place], [address], 11/03/2024 09:23:11 11/02/19 25 11/01/2024 , escobar gilliland No observ ation record ed. [address] [place], [address], 11/03/2024 09:23:12 Result Notes None recorded. Problems Name Problem SNOMED Code Status Onset Date Resolution Date Notes Provider Name and Address Organization Details Recorded Time Osteoarth ritis of knee 587852317 Active Not Available [facility] 3 09:18:16 Current tear of medial cartilage AND/OR meniscus of knee Active NAHUM Cabrera [address], [place], [address] , [place] [employer] 5 16:07:56 Pain in limb 95558369 Completed 10/06/2024 NAHUM Cabrera [address], [place], [address] , [employer] 5 16:08:25 Cigarette smoker 95003564 Active 2022 NAHUM Burk [address], [place], [address] , [place] - [employer] [facility] 3 08:36:06 Transient cerebral ischemia 448822552 Active 2022 NAHUM Burk [address], [place], [address] , [place] [facility] 3 08:39:57 Mass of thyroid gland 297362065 Active 2022 NAHUM Burk [address], [place], [address] , [employer] [place] [employer] [facility] [employer] 3 08:44:58 Thyroid nodule 052175273 Active 2022 NAHUM Burk [address], [place], [address] , [employer] [place] [employer] [facility] 3 08:45:29 Bronchiti s 19479166 Active 2022 ELVIRA Mackey [address], [place], [address] , [employer] [facility] 3 14:41:15 Nicotine dependenc e 40548124 Active 2022 ELVIRA Mackey [address], [place], [address] , [employer] [place] [employer] [facility] 3 14:42:30 Pain of bilateral knee joints 14588774229 4104 Completed 202210/06/2024 NAHUM Cabrera [address], [place], [address] , [employer] [facility] 5 16:08:29 Right upper quadrant pain 505313012 Active 2024 NAHUM Cabrera [address], [place], [address] , [place] [facility] 5 16:12:04 Asthma 460533585 Active 2024 NAHUM Cabrera [address], [place], [address] , [place] [facility] 16:12:53 Morbid obesity 214681760 Active 2024 NAHUM Cabrera [address], [place], [address] , [place] [facility] 16:16:27 Overweigh t 326841152 Active 2024 NAHUM Cabrera [address], [place], [address] , [place] [facility] 16:16:32 Type 2 diabetes mellitus 27461616 Active 2024 NAHUM Cabrera [address], [place], [address] , [place] [facility] 16:31:52 Cholelith iasis without obstructi on 84513073 Active 2024 NAHUM Cabrera [address], [place], [address] , [place] [facility] 09:20:57 Notes:Some problems listed i n Document: #[id number] could not be added to this patient's chart. Please review this document and add these problems to the patient's chart manually as needed. Problem Notes None recorded. Procedures Surgical History None recorded. Imaging Results Imaging Date Name Status LastModified by [facility] Details LastModified Time 06/08/2023 fine needle aspiration, ultrasound guided, thyroid (PROC) completed [address] [place] [address], [address], 10/06/2024 16:17:01 06/17/2023 XR, chest completed [address], [address], 06/18/2023 10:25:44 09/03/2023 XR, knee completed [email or web address] [address] [place], [address], 09/15/2023 15:23:23 09/03/2023 XR, knee completed [email or web address] [place] [address] [facility] [address], [place], [address], 09/15/2023 15:23:24 11/01/2024 MAMMO, screening, digital, bilateral completed [facility] [address] [place], [address], 11/03/2024 09:23:11 11/01/2024 US, gallbladder completed [facility] [address] [place], [address], 11/03/2024 09:23:12 Procedure Notes None recorded. Medical Equipment None Reported. Allergies Allergen ID Allergen Name Allergen Category Reaction Reaction Severity Criticality Documentation Date Start Date Code Code System Note Provider Name and Address Organization Details Recorded Time 74823 iohexol medicatio n Not available Not available Not available 02/26/2023 5956 RxNorm Caroline Martinez RN [facility], [place] - [facility] [employer] 15:49:44 Medications Name Sig Start Date Stop [...] MOUTH ONCE DAILY DIRECTED FOR 30 DAYS 2024 active Not Available Not Available Not Avai lable sodium fluoride 1.1 % dental gel APPLY [...] Updated DateTime 3 165.1 cm 26.1 kg/m2 50416 g 97.4 [degF] 99 /min 96 % 96 % 114 mm[Hg] 70 mm[Hg] Zoë Weber [facility] 3 14:36:49 Date Recorded Body height Body mass index (BMI) Body weight Body temperature Heart rate Oxygen saturation Oxygen saturation in Arterial blood by Pulse oximetry Systolic blood pressure Diastolic blood pressure Provider Name and Address Organization Details Last Updated DateTime 3 165.1 cm 25.8 kg/m2 61716.8 2 g 97.7 [degF] 88 /min 96 % 96 % 114 mm[Hg] 72 mm[Hg] Tracy velarde [facility] 3 17:02:42 Date Recorded Body weight Body mass index (BMI) Body height Body temperature Heart rate Respiratory rate Oxygen saturation Oxygen saturation in Arterial blood by Pulse oximetry Pain severity - 0-10 verbal numeric rating [Score] - Reported Systolic blood pressure Diastolic blood pressure Provider Name and Address Organization Details Last Updated DateTime 5 82508.2 9 g 26.5 kg/m2 165.1 cm 97.2 [degF] 85 /min 20 /min 98 % 98 % 8 134 mm[Hg] 70 mm[Hg] Caroline Martinez RN [facility] 5 15:55:10 Date Recorded Body height Body mass index (BMI) Body weight Body temperature Heart rate Respiratory rate Oxygen saturation Oxygen saturation in Arterial blood by Pulse oximetry Pain severity - 0-10 verbal numeric rating [Score] - Reported Systolic blood pressure Diastolic blood pressure Provider Name and Address Organization Details Last Updated DateTime 5 165.1 cm 26.8 kg/m2 28607.1 2 g 97.3 [degF] 82 /min 20 /min 97 % 97 % 0 140 mm[Hg] 82 mm[Hg] Caroline Martinez RN [facility] 5 16:26:09 Date Recorded Body height Body mass index (BMI) Body weight Body temperature Provider Name and Address Organization Details Last Updated DateTime 11/02/2024 165.1 cm 26.9 kg/m2 48839.25 g 98.1 [degF] Gracie Goodrich RN [place] [facility] [employer] [facility] 11/02/2024 16:24:15 Social History Question Answer Notes LastModified by Organizat ion Details LastModified Time Tobacco Smoking Status Current Every Day Smoker Not Available [facility] 12/02/2022 09:13:19 Do You Have An Advance Directive? No Information not available 10/06/2024 What Is Your Level Of Alcohol Consumption? Occasional [id number] Information not available 12/02/2022 If You Are , What Was Your Level Of Alcohol Consumption Prior To ? None [id number] Information not available 12/02/2022 What Is Your Level Of Caffeine Consumption? Occasional [id number] [id number] Information not available 12/02/2022 In The 14 Days Before Symptom Onset, Have You Had Close Contact With A Laboratory-confi rmed COVID-19 While That Case Was Ill? No [id number].[id number] Information not available 12/02/2022 In The 14 Days Before Symptom Onset, Have You Had Close Contact With A Person Who Is Under Investigation For COVID-19 While That Person Was Ill? No [id number] Information not available 12/02/2022 Are You Currently Employed? Yes Information not available 10/06/2024 What Type Of Diet Are You Following? REGULAR MIGRATION.[id number] [id number] Information not available 12/02/2022 What Is Your Occupation? [employer] Information not available 10/06/2024 Have There Been Any Changes To Your Family Or Social Situation? No Information not available 10/06/2024 Do You Use Insect Repellent Routinely? No Information not available 10/06/2024 Where Do You Live? SingleLevelHouse Information not available 10/06/2024 Do You Have A Medical Power Of Line Supply? No Information not available 10/06/2024 How Many Children Do You Have? 4 Information not available 10/06/2024 What Is Your Current Pack Years? 10-19packyears [id number].[id number] Information not available 12/02/2022 Have You Ever Been Counseled For Unhealthy Alcohol Use? No MIGRATION.[id number] Information not available 12/02/2022 Do You Have [...] available 10/06/2024 Do You Participate In Social Informed Trades? No Information not available 10/06/2024 Do You Feel Stressed (tense, Restless, Nervous, Or Anxious, Or Unable To Sleep At Night)? [id number] Information not available 02/26/2023 Do You Use Any Illicit Or Recreational Drugs? No MIGRATION.50206 [id number] Information not available 12/02/2022 Do You Use Sunscreen Routinely? No Information not available 10/06/2024 Has Tobacco Cessation Counseling Been Provided? No MIGRATION.22426 [id number] Information not available 12/02/2022 How Many Years Have You Smoked Tobacco? 42 Information not available 10/06/2024 Have You Recently Traveled Abroad? No [id number] Information not available 12/02/2022 Do You Have Any Dietary Restrictions? No [id number] Information not available 12/02/2022 Do You Or Have You Ever Used Any Other Forms Of Tobacco Or Nicotine? No [id number] Information not available 12/02/2022 Sex: Unknown Functional Status Question Answer Note LastModified by Organizat ion Details LastModified Time What is your exercise level? Moderate [id number] Information not available 12/02/2022 Mental Status None recorded. Family History Relationship Description Onset Age of this Age Resolved Age Notes LastModified by Organization Details LastModified Time Mother Leukemia [id number] Not availa ble 11/02/2024 16:16:12 Mother Diabetes mellitus [id number] Not available 12/02/2022 09:13:53 Son Neoplasm of brain [email or web address] Not available 10/06 16:16:12 Notes:THYROID PROBLEM: MOTHE R Medical History Condition Response DIABETES, TYPE Y HEARTBURN / REFLUX Y Gynecological History Statement/Question [...] e and Address Organization Details Recorded Time Influenza, split virus, quadrivalent, PF 08/20/2023 completed NAHUM Mackey-Natalie [address] [facility] [address], [place], [address], [facility] [employer] 08/20/2023 18:02:23 Tdap 09/18/2022 completed Not Available [facility] 12/02/2022 09:26:20 Influenza, split virus, quadrivalent, PF 09/18/2022 completed Not Available [facility] 09:26:20 Past Encounters Encounter ID Performer Location Encounter Start Date Encounter Closed Date Diagnosis/Indication Diagnosis SNOMED-CT Code Diagnosis ICD10 Code Diagnosis Note [id number] [facility] [address] [place] [address] 11/14/2021 00:00:00 11/14/2021 15:43:37 [id number] [facility] [address] [place] [address] 12/19/2021 00:00:00 12/19/2021 16:49:56 [id number] [facility] [address] [facility] [address] [place] [address] 02/26/2022 00:00:00 02/26/2022 16:13:41 [id number] [facility] leah [address] [facility] [address] [place] [address] 08/07/2022 00:00:00 08/07/2022 17:58:55 [id number] [facility] Nerissa coles [address] [facility] [address] [place] [address] 09/18/2022 00:00:00 09/18/2022 18:17:18 [id number] NAHUM [facility] sharyn [address] [facility] [address] [place] [address] 02/26/2023 08:10:15 02/26/2023 09:13:56 Cigarette smoker 01143066 F17.210 Encouraged smoking cessation. Smoking cessation counseling and techniques reviewed at length with pt. Literature reviewed. Avoid triggers, support groups. Discussed cessation options (counselin g, medication s, e-cigarett es, patches, alternativ e therapies) . New rx for nicotine 14mg patch daily. Transient cerebral ischemia 372961299 G45.[address] scan/MRI (02/16/23)- No visible drooping or weakness of left side on examinatio n today.Enco uraged pt to actively work on smoking cessation d/t increased riskContin ue daily ASA 81mg and Atorvastat in 40mg daily Thyroid nodule 312003811 E04.1 New finding on inpatient imagingRec ommendatio n is for FNA. Order generated [id number] NAHUM [facility] [place] [facility] [address] [facility] [address] [place] [address] 03/26/2023 14:19:23 03/26/2023 16:23:18 Transient cerebral ischemia 008095304 G45.9 No recurrence of sx since last visit.Inpa tient CT scan/MRI (02/16/23)- indicates normal aging brainNo visible drooping or weakness of left side on examinatio n today.Enco uraged pt to actively work on smoking cessation d/t increased riskContin ue daily ASA 81mg and Atorvastat in 40mg dailyWill continue to monitor closely Cigarette smoker 5074963 7 F17.210 No improvemen t with 14mg nicotine patchesEnc ouraged smoking cessation. Smoking cessation counseling and techniques reviewed at length with pt. Literature reviewed. Avoid triggers, support groups. Discussed cessation options (counselin g, medication s, e-cigarett es, patches, alternativ e therapies) . New rx for nicotine 14mg patch daily. Thyroid nodule 632102673 E04.1 New finding on inpatient thyroid u/s (02/16/23)R ecommendat ion is for FNA. Order generated last visit. Pt did not receive call to schedule, will have staff f/u and resubmit. [id number] ELVIRA Mackey [facility] [address] [place] [address] 06/25/2023 14:32:10 06/25/2023 14:54:12 Bronchitis 75626750 J40 Was in [place] ER for this issues-giv en benzonatat e and inhaler and was d/ccurrent ly a smoker-edu cated and given new medication will refill benzonatat eStill has plenty of the inhaler at home, Nicotine dependence 5629 4008 F17.200 currently smoke 1/2ppdhas tried using the patches without resolution continues use of fake cigarette as distractor Would like to try another optionwill start buproprion [id number] ELVIRA Mackey [facility] [address] [place] [address] 08/20/2023 16:55:38 08/23/2023 14:44:09 Nicotine dependence 39390095 F17.200 -currenlty smoking 4 cigs/day-c ontinues use of fake cigarette as needed-carmen l give 3 months of refills Pain of bi lateral knee joints 6050582793 67956 M25.561 -pt notes pain to luis armando [...] 1 month Administra tion of influenza vaccine 22746783 Z23 [id number] NAHUM Cabrera [address] [address] 10/06/2024 15:39:54 10/06/2024 16:47:43 Adult health examination 903112981 Z00.00 Health maintenanc e reviewedDi scussed diet and exercisePa tient questions answered Mass of thyroid gland 23 0009008 E04.9 Right uppe r quadrant pain 571980481 R10.11 Bronchitis 21665089 J40 Asthma 993727501 J45.90 9 Screening mammography 24 961486 Z12.31 Overweight 039692508 E66 .3 [id number] NAHUM Cabrera [address] [address] 10/17/2024 16:12:57 10/18/2024 10:40:14 Type 2 diabetes mellitus 83291855 E11.9 Newly diagnosed, A1C 6.5 10/11/24In terested in [id number] recheck in 3 month Mass of thyroid gland 23 4181866 E04.9 Patient advised to FU with ENT [id number] Nolan Ashton MD [facility] ENT Benjie Card [address] [place] [address] 11/02/2024 16:15:59 11/03/2024 07:33:16 Thyroid nodule 029394235 E04.1 Health Concerns Section Related Observation LastModified by Organization Detai ls LastModified Time None Recorded Concern Status LastModified by Organization Details LastModified Time None Recorded Advance Directives Directive N: Payers Encounter Date Sequence Insurance Name Policy Number Policy Street Covered Member ID Street Member ID Guarantor Name 06/25/2023 1 [facility] [id number] Cara Boss [id number] Cara Boss 08/20/2023 1 [facility] [id number] Cara Boss [id number] Cara Boss 10/06/2024 1 [facility] [id number] Cara Boss [id number] Cara Boss 10/17/2024 1 [facility] [id number] Cara Boss [id number] Cara Boss 11/02/2024 1 [facility] [id number] Cara Boss [id number] Cara Boss Notes Date Note Type Note Provider Name and Address Organization Details Recorded Time 06/25/2023 text/html Pt is here to f/ u on bronchitis Rocky NAHUM Martínez-Natalie [address], [place], [address], [employer] 06/25/2023 15:17:28 08/20/2023 text/html Pt is here for 2 week f/u PAIGE MackeyP-C [address], [place], [address], [employer] 08/20/2023 18:02:28 10/06/2024 text/html Cara Boss is [...] 2022, okay per pt NAHUM Cabrera [address], [place], [address], [employer] 10/06/2024 16:45:59 10/17/2024 text/html Cara Boss is [...] tear, does not want interventions Flu shot: OVID vaccines: declinesTdap: 09/2022,Mammogram: orderedWWE: managed by Dr. Endy Coyle, olonoscopy: 2022, okay per pt Trace Bell, NAHUM [address], [place], [address], [employer] 10/17/2024 16:40:50 11/02/2024 text/html This patient had a needle biopsy in 2022 which was insufficient for diagnosis. She had a a new ultrasound in February of 2023 and this revealed a 4.1 cm TI-RADS 5 nodule.. Evidently this has never been adequately settled. Nolan Ashton MD [address], [place], [address], [employer] 11/02/2024 16:34:26 OBGyn Episode No OBEpisode recorded.
--- NOTE | 2024-11-13 11:21 | ECG_ITS ---
Test Date: 2024-11-13 11:33:32 Measurements Intervals [place] Rate: 87 P: 69 AR: 138 QRS: 74 QRSD: 79 T: 69 QT: 358 QTc: 432 Interpretive Statements SINUS RHYTHM BASELINE ARTIFACT- V4-V6 NORMAL ECG No previous ECG available for comparison Electronically Signed On 11-13-2024 12:01:10 MALARIOLOGIST by Gael Almanzar D.O.
[2024-11-13 12:04] LABS: Alanine Aminotransferase 29 U/L (6-35); Albumin Level 4.3 g/dL (3.5-5.1); Alkaline Phosphatase 85 U/L (38-126); Amylase 67 U/L (30-110); Aspartate Amino Transferase 26 U/L (14-36); Bilirubin,Total 0.5 mg/dL (0.2-1.3); Lipase 94 U/L (23-300)
[2024-11-13 12:15] LABS: Anion Gap 9 mmol/L (4-12); Blood Urea Nitrogen 15 mg/dL (7-17); Calcium 9.5 mg/dL (8.4-10.2); Carbon Dioxide 26 mmol/L (22-30); Chloride 105 mmol/L (98-107); Estimated Glomerular Filt Rate > 60; Glucose 118 mg/dL (65-110); Sodium 140 mmol/L (137-145)
== END 2024-11-13 10:26 | disposition home or self-care (01) ==
PROVIDERS: Anesthesiology; Surgery; Visit Provider Otolaryngology
DX: K80.20 Calculus of gallbladder without cholecystitis without obstruction (principal); E04.2 Nontoxic multinodular goiter; E11.9 Type 2 diabetes mellitus without complications; F17.210 Nicotine dependence, cigarettes, uncomplicated; Z01.818 Encounter for other preprocedural examination
CPT/HCPCS: 36415; 76536; 80048; 80076; 82150; 83690; 93005

== ENCOUNTER 2024-11-20 00:19 | Day surgery (SDC) | payer OTHER, SELFPAY ==
[2024-11-10 15:51] VITALS: BMI 27.0
--- NOTE | 2024-11-10 15:53 | PC.NURSE ---
Report to the Outpatient Waiting Room, entrance under the green pavilion located off [facility], at time _1000_ on date _[id number]_. Planned Procedure Time: _1200_.? Time changes happen often and if your time is changed the preop area will call you the afternoon before. - You and your visitor will be asked to self-screen and do not enter if you have any COVID symptoms. Please call surgeon if you need to reschedule. - A mask is optional within the hospital at this time. Patients may have clear liquids (water, carbonated beverages, clear teas, apple juice) until 3 hours prior to surgery with a maximum of 20 ounces. - No food from midnight until time of surgery and no smoking, or chewing tobacco (or any form of nicotine). No chewing gum, candy or mints. Take only the following medications with a SIP of water on the morning of surgery: __None DO NOT STOP ANY OF YOUR OTHER PRESCRIPTION MEDICATIONS PRIOR TO SURGERY EXCEPT THE FOLLOWING Hold all vitamins and supplements for 3 days per anesthesiologist. Medications to discontinue per physician ____None____ Please no make-up, nail cambodian, hairspray, perfume, deodorant, or body powder the day of surgery.? No jewelry (including any body piercings) or valuables the day of surgery, leave them at home.? Please take a shower or bath the night before, or the morning of, surgery with an antibacterial soap.? Wear comfortable, loose fitting clothing.? - Jewelry must be removed prior to entering the operating room.? Rings and piercings that are not removed may be cut off. - The hospital will not accept responsibility for valuables.? - Please leave all valuables, including medications, at home the day of surgery. If you are going home after surgery, a licensed wheelchair van driver must drive you home.? - NO public transportation without another adult if you receive anesthesia. - We recommend that an adult stay with you for 24 hours following discharge. - We also recommend that you do not drive, make important decision, drink alcoholic beverages, or take any drugs that were not prescribed by your health care provider for at least 24 hours after your discharge time. Follow any additional instructions given to you from your surgeon. Telephone instructions given to __Nora__and asked if any additional questions and then verbalized understanding. Patient advised to call surgeon office or pre surgery nurse liaison [phone] if any additional questions
[2024-11-20] VITALS (9 sets, daily range): BP systolic 92–135; BP diastolic 46–87; PULSE 62–83; RESP 12–16; TEMP 36.4–37; O2SAT 91–99
--- OUTSIDE RECORDS SUMMARY | 2024-11-20 00:22 | XMS_ITS | Clinical Summary ---
Author Organization [facility] Address [address] [place] [address] Care Team Providers Care Automotive Sales Professional Name Role Phone Unavailable Primary Care Provider [...]
--- OUTSIDE RECORDS SUMMARY | 2024-11-20 00:22 | XMS_ITS | Data Portability ---
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 Plan of Treatment Reminders Order Date Submit Date Provider Last Modified By Organization Details Last Modified Time Details Appointments Any 15 2024 03:30P NAHUM Pitt Not available Not available Not available Lab TSH, serum or plasma 2024 025 [facility], [address] , [place], [address], 10/11/2024 21:57:39 HbA1c (hemoglob in A1c), blood 2024 025 [facility], [address], [place], [address], 10/11/2024 21:57:40 CMP, serum or plasma 2024 025 [facility], [address], [place], [address], 10/11/2024 21:57:37 lipid panel, serum 2024 025 [facility], [address] , [place], [address], 10/11/2024 21:57:36 CBC w/ auto diff 2024 025 [facility], [address] , [place], [address], 10/11/2024 21:57:38 Referral otolaryng ologist referral - FNA inconclus el. 4.1 cm TIRADS 5 nodule on right thyroid lobe. Please call patient to schedule an appointme nt. Thank you. 2024 025 [email or web address] Nolan Ashton MD, [address] [facility] [address], [place], [address], 11/07/2024 08:38:18 Procedures None recorded. Surgeries None recorded. Imaging US, neck, soft tissue 2024 025 [facility], [address] [place] [address], [address], 11/10/2024 04:16:28 MAMMO, screening , digital, bilateral - Please call pt to schedule 2024 025 [facility], [address] [place] [address], [address], 11/02/2024 09:40:07 US, gallbladd er - Please call pt to schedule 2024 025 [facility], [address] [place] [address], [address], 11/02/2024 09:07:07 XR, knee 2022 023 [facility], [address] [place] [address], [address], 09/03/2023 16:51:19 Medication Orders metformin ER 500 mg tablet,ex tended release 24 hr 2024 025 [facility], [address] [place], [address], 10/17/2024 16:40:33 Medrol (Zak) 4 mg tablets in a dose pack 2024 025 [facility], [address] [facility], [place], [address], 10/17/2024 16:26:23 azithromy madeline 250 mg tablet [address], [address] [place] [address], [address], 10/17/2024 16:26:19 Airsupra 90 mcg-80 mcg/actua tion HFA aerosol inhaler 2024 025 [facility] 361, [address] [place] [address], [address], 10/06/2024 16:17:26 omeprazol e 40 mg capsule,d elayed release 2024 025 [facility] [address], [address] [place] [address], [address], 10/06/2024 16:17:27 bupropion HCl 150 mg tablet,12 hr sustained -release( smoking deterrent ) 2022 023 [place] [address], [address] [place] [address], [address], 10/06/2024 15:50:44 ibuprofen 800 mg tablet 2022 023 [facility] [address], [address] [place] [address], [address], 08/20/2023 17:23:26 prednison e 20 mg tablet [address], [address] [place] [address], [address], 10/06/2024 15:51:55 bupropion HCl 150 mg tablet,12 hr sustained -release( smoking deterrent ) 2022 023 [place] [address], [address] [place] [address], [address], 10/06/2024 15:50:44 benzonata te 200 mg capsule 2022 023 [place] [address] [facility] 015, [address] [facility], [place], [address], 10/06/2024 15:50:39 Patient TargetsNo targets recorded. Patient Instructions Encounter Date Encounter Id Patient Instructions Last Modified By Organization Details Last Modified Time 10/17/2024 [id number] type 2 diabetes: care instructions [email or web address] Not available 10/17/2024 16:40:26 11/02/2024 [id number] so we will start from scratch and get an ultrasound for needle aspiration. [email or web address] Not available 11/02/2024 16:33:55 Reason for Referral Soaker Meat Referral fo r Mass of thyroid gland [...] total 210 mg/dL <200 high Not Available [facility] [place] [address] [place], [address], 10/11/2024 21:57:36 10/11/1910/11/2024 LIPID PANEL , STAND ANN MARIE HDL cholesterol 63 mg/dL > or = 50 normal Not Available [facility] [address] [place], [address], 10/11/2024 21:57:36 10/11/1910/11/2024 LIPID PANEL , STAND ANN MARIE triglyceride s 116 mg/dL <150 normal Not Available [facility] [address] [place], [address], 10/11/2024 21:57:36 10/11/1910/11/2024 LIPID PANEL , STAND ANN MARIE LDL-choleste rol 125 mg/dL _(yannick c) high Refer ence range : <100 Yvonne able range <100 mg/dL for prima ry preve ntion ; <70 mg/dL for patie nts with CHD or diabe tic patie nts with > or = 2 CHD risk facto rs. LDL-C is now calcu lated using the [facility] kins vamshi pimentel n, which is a valid ated novel metho d provi ding gilles r accur acy than the Fried sona equat ion in the estim ation of LDL-C . Bridget reid SS et al. VIOLETA. 2013; 310(1 9): 2061- 2068 (http ://ed ucati on.Qu estDi ApnaPaisa. com/f aq/FA Q164) Not Available [facility] [place] [address] [place], [address], 10/11/2024 21:57:36 10/11/19 25 10/11/2024 LIPID PANEL , STAND ANN MARIE chol/HDLC ratio 3.3 (calc ) <5.0 normal Not Available [place] [address] [facility] [place], [address], 10/11/2024 21:57:36 10/11/19 25 10/11/2024 LIPID PANEL , STAND ANN MARIE non HDL cholesterol 147 mg/dL _(yannick c) <130 high For patie nts with diabe isaías plus 1 major ASCVD risk facto r, treat ing to a non-H DL-C goal of <100 mg/dL (LDL- C of <70 mg/dL ) is consi shukrid a ayana ez colon optio n. Not Available [facility] [place] [address] [place], [address], 10/11/2024 21:57:36 10/11/19 25 10/11/2024 COMPR EHENS EL METAB OLIC PANEL glucose 91 mg/dL 65-139 normal Non-f astin g refer ence inter gilda Not Available [facility] [place] [address] [place], [address], 10/11/2024 21:57:37 10/11/19 25 10/11/2024 COMPR EHENS EL METAB OLIC PANEL urea nitrogen (BUN) 19 mg/dL 7-25 normal Not Available [address], [address], 10/11/2024 21:57:37 10/11/19 25 10/11/2024 COMPR EHENS EL METAB OLIC PANEL creatinine 0.85 mg/dL 0.50-1 .03 normal Not Available [address], [address], 10/11/2024 21:57:37 10/11/19 25 10/11/2024 COMPR EHENS EL METAB OLIC PANEL eGFR 82 mL/mi n/1.7 3m2 > or = 60 normal Not Available [address], [address], 10/11/2024 21:57:37 10/11/19 25 10/11/2024 COMPR EHENS EL METAB OLIC PANEL BUN/creatini ne ratio SEE NOTE: (calc ) 6-22 Not Repor amador: BUN and Creat inine are withi n refer ence range . Not Available [address], [address], 10/11/2024 21:57:37 10/11/19 25 10/11/2024 COMPR EHENS EL METAB OLIC PANEL sodium 141 mmol/ L 135-14 6 normal Not Available [address], [address], 10/11/2024 21:57:37 10/11/19 25 10/11/2024 COMPR EHENS EL METAB OLIC PANEL potassium 4.3 mmol/ L 3.5-5. 3 normal Not Available [address], [address], 10/11/2024 21:57:37 10/11/19 25 10/11/2024 COMPR EHENS EL METAB OLIC PANEL chloride 102 mmol/ L 98-110 normal Not Available [address] [place], [address], 10/11/2024 21:57:37 10/11/19 25 10/11/2024 COMPR EHENS EL METAB OLIC PANEL carbon dioxide 31 mmol/ L 20-32 normal Not Available [address], [address], 10/11/2024 21:57:37 10/11/19 25 10/11/2024 COMPR EHENS EL METAB OLIC PANEL calcium 9.7 mg/dL 8.6-10 .4 normal Not Available [address], [address], 10/11/2024 21:57:37 10/11/19 25 10/11/2024 COMPR EHENS EL METAB OLIC PANEL protein, total 6.9 g/dL 6.1-8. 1 normal Not Available [address], [address], 10/11/2024 21:57:37 10/11/19 25 10/11/2024 COMPR EHENS EL METAB OLIC PANEL albumin 4.4 g/dL 3.6-5. 1 normal Not Available [address], [address], 10/11/2024 21:57:37 10/11/19 25 10/11/2024 COMPR EHENS EL METAB OLIC PANEL globulin 2.5 g/dL_ (calc ) 1.9-3. 7 normal Not Available [address], [address], 10/11/2024 21:57:37 10/11/19 25 10/11/2024 COMPR EHENS EL METAB OLIC PANEL albumin/glob ulin ratio 1.8 (calc ) 1.0-2. 5 normal Not Available [address], [address], 10/11/2024 21:57:37 10/11/19 25 10/11/2024 COMPR EHENS EL METAB OLIC PANEL bilirubin, total 0.4 mg/dL 0.2-1. 2 normal Not Available [address], [address], 10/11/2024 21:57:37 10/11/19 25 10/11/2024 COMPR EHENS EL METAB OLIC PANEL alkaline phosphatase 64 U/L 37-153 normal Not Available [facility] [place] [employer] [address], [address], 10/11/2024 21:57:37 10/11/19 25 10/11/2024 COMPR EHENS EL METAB OLIC PANEL AST 13 U/L 10-35 normal Not Available [address], [address], 10/11/2024 21:57:37 10/11/19 25 10/11/2024 COMPR EHENS EL METAB OLIC PANEL ALT 17 U/L 6-29 normal Not Available [address], [address], 10/11/2024 21:57:37 10/11/19 25 10/11/2024 CBC (INCL UDES DIFF/ PLT) white blood cell count 17.8 thous and/u L 3.8-10 .8 high Not Available [address], [address], 10/11/2024 21:57:38 10/11/19 25 10/11/2024 CBC (INCL UDES DIFF/ PLT) red blood cell count 5.02 orlin on/uL 3.80-5 .10 normal Not Available [address], [address], 10/11/2024 21:57:38 10/11/19 25 10/11/2024 CBC (INCL UDES DIFF/ PLT) hemoglobin 15.9 g/dL 11.7-1 5.5 high Not Available [address], [address], 10/11/2024 21:57:38 10/11/19 25 10/11/2024 CBC (INCL UDES DIFF/ PLT) hematocrit 48.6 % 35.0-4 5.0 high Not Available [address], [address], 10/11/2024 21:57:38 10/11/19 25 10/11/2024 CBC (INCL UDES DIFF/ PLT) MCV 96.8 fL 80.0-1 00.0 normal Not Available [address], [address], 10/11/2024 21:57:38 10/11/19 25 10/11/2024 CBC (INCL UDES DIFF/ PLT) MCH 31.7 pg 27.0-3 3.0 normal Not Available [address], [address], 10/11/2024 21:57:38 10/11/19 25 10/11/2024 CBC (INCL UDES DIFF/ PLT) MCHC 32.7 g/dL 32.0-3 6.0 normal For adult s, a sligh t decre ase in the calcu lated MCHC value (in the range of 30 to 32 g/dL) is most likel y not clini glenys signi adarsh t; teresa er, it shoul d be inter prete d with cauti on in corre latio n with other red cell pauline eters and the patie nt's clini yannick condi tion. Not Available [facility] [address], [address], 10/11/2024 21:57:38 10/11/19 25 10/11/2024 CBC (INCL UDES DIFF/ PLT) RDW 12.8 % 11.0-1 5.0 normal Not Available [facility] [address], [address], 10/11/2024 21:57:38 10/11/19 25 10/11/2024 CBC (INCL UDES DIFF/ PLT) platelet count 397 thous and/u L 140-40 0 normal Not Available [address], [address], 10/11/2024 21:57:38 10/11/19 25 10/11/2024 CBC (INCL UDES DIFF/ PLT) MPV 9.6 fL 7.5-12 .5 normal Not Available [facility] [address], [address], 10/11/2024 21:57:38 10/11/19 25 10/11/2024 CBC (INCL UDES DIFF/ PLT) absolute neutrophils 46899 cells /uL 1500-7 800 high Not Available [address], [address], 10/11/2024 21:57:38 10/11/19 25 10/11/2024 CBC (INCL UDES DIFF/ PLT) absolute lymphocytes 3026 cells /uL 850-39 00 normal Not Available [address], [address], 10/11/2024 21:57:38 10/11/19 25 10/11/2024 CBC (INCL UDES DIFF/ PLT) absolute monocytes 1068 cells /uL 200-95 0 high Not Available [address], [address], 10/11/2024 21:57:38 10/11/19 25 10/11/2024 CBC (INCL UDES DIFF/ PLT) absolute eosinophils 0 cells /uL 15-500 low Not Available [address], [address], 10/11/2024 21:57:38 10/11/19 25 10/11/2024 CBC (INCL UDES DIFF/ PLT) absolute basophils 0 cells /uL 0-200 normal Not Available [address], [address], 10/11/2024 21:57:38 10/11/19 25 10/11/2024 CBC (INCL UDES DIFF/ PLT) neutrophils 77 % normal Not Available [address], [address], 10/11/2024 21:57:38 10/11/19 25 10/11/2024 CBC (INCL UDES DIFF/ PLT) lymphocytes 17 % normal Not Available [address], [address], 10/11/2024 21:57:38 10/11/19 25 10/11/2024 CBC (INCL UDES DIFF/ PLT) monocytes 6 % normal Not Available [address], [address], 10/11/2024 21:57:38 10/11/19 25 10/11/2024 CBC (INCL UDES DIFF/ PLT) eosinophils 0 % normal Not Available [address], [address], 10/11/2024 21:57:38 10/11/19 25 10/11/2024 CBC (INCL UDES DIFF/ PLT) basophils 0 % normal Not Available [address], [address], 10/11/2024 21:57:38 10/11/19 25 10/11/2024 CBC (INCL UDES DIFF/ PLT) comment(s) The smear has been manutima smith wed and the manua l diffe francesca al has been repor amador. Revluis w of the perip heral smear revea ls adequ ate numbe rs of plate lets. Not Available [address], [address], 10/11/2024 21:57:38 10/11/19 25 10/11/2024 TSH W/REF HARSHAD TO FT4 TSH w/reflex to FT4 1.13 mIU/L normal Refer ence Range > or = 20 Years 0.40- 4.50 Pregn monie Range s First trime ster 0.26- 2.66 Secon d trime ster 0.55- 2.73 Third trime ster 0.43- 2.91 Not Available [facility] [address] [place], [address], 10/11/2024 21:57:39 10/11/19 25 10/11/2024 HEMOG LOBIN [...] diabe isaías for child selene. Not Available [facility] [address] [address] , [place], [address], 10/11/2024 21:57:40 06/09/20 23 06/08/2023 fine needl e aspir ation , ultra sound guide d, thyro id (PROC ) No observ ation record ed. [facility] [address] [place] [address], [address], 10/06/2024 16:17:01 06/17/20 23 06/17/2023 XR, chest No observ ation record ed. [address], [place], [address], 06/18/2023 10:25:44 09/03/20 23 09/03/2023 XR, knee No observ ation record ed. [email or web address] [address], [place], [address], 09/15/2023 15:23:23 09/03/20 23 09/03/2023 XR, knee No observ ation record ed. [email or web address] [address], [place], [address], 09/15/2023 15:23:24 11/02/19 25 11/01/2024 MAMMO , scree ed, digit al, bilat eral No observ ation record ed. [address] [place], [address], 11/03/2024 09:23:11 11/02/19 25 11/01/2024 US, gallb ladde r No observ ation record ed. [address] [place], [address], 11/03/2024 09:23:12 11/13/19 25 11/13/2024 US, thyro id No observ ation record ed. [email or web address] [place] [address], [place], [address], 11/13/2024 14:10:05 Result Notes None recorded. Problems Name Problem SNOMED Code Status Onset Date Resolution Date Notes Provider Name and Address Organization Details Recorded Time Osteoarth ritis of knee 910517560 Active Not Available [employer] 3 09:18:16 Current tear of medial cartilage AND/OR meniscus of knee Active NAHUM Cabrera [address] [facility], [facility] [address], [place], [address] , [place] [facility] [employer] 5 16:07:56 Pain in limb 68858357 Completed 10/06/2024 NAHUM Cabrera [address], [place], [address] , [place] [facility] 5 16:08:25 Cigarette smoker 52826523 Active 2022 NAHUM Burk [address], [place], [address] , [place] [facility] 3 08:36:06 Transient cerebral ischemia 471177766 Active 2022 NAHUM Burk [address], [place], [address] , [place] [facility] 3 08:39:57 Mass of thyroid gland 658530184 Active 2022 NAHUM Bukr [address], [place], [address] , [place] [facility] 3 08:44:58 Thyroid nodule 115804472 Active 2022 NAHUM Burk [address], [place], [address] , [place] [facility] 3 08:45:29 Bronchiti s 11615204 Active 2022 ELVIRA Mackey [address], [place], [address] , [place] [facility] 3 14:41:15 Nicotine dependenc e 30437945 Active 2022 ELVIRA Mackey [address], [place], [address] , [place] [facility] 3 14:42:30 Pain of bilateral knee joints 48616057514 4104 Completed 202210/06/2024 NAHUM Cabrera [address], [place], [address] , [place] [facility] 5 16:08:29 Right upper quadrant pain 162109591 Active 2024 NAHUM Cabrera [address], [place], [address] , [facility] [employer] [facility] 16:12:04 Asthma 252639600 Active 2024 NAHUM Cabrera [address], [place], [address] , [facility] [place] [employer] [facility] 16:12:53 Morbid obesity 958159018 Active 2024 NAHUM Cabrera [address], [place], [address] , [employer] [facility] 16:16:27 Overweigh t 656209173 Active 2024 NAHUM Cabrera [address], [place], [address] , [employer] [facility] 16:16:32 Type 2 diabetes mellitus 92950969 Active 2024 NAHUM Cabrera [address], [place], [address] , [employer] [facility] [employer] [facility] 16:31:52 Cholelith iasis without obstructi on 32340178 Active 2024 NAHUM Cabrera [address], [place], [address] , [employer] [facility] [employer] [facility] 09:20:57 Notes:Some problems listed i n Document: #[id number] could not be added to this patient's chart. Please review this document and add these problems to the patient's chart manually as needed. Problem Notes None recorded. Procedures Surgical History None recorded. Imaging Results Imaging Date Name Status LastModified by Organiz ation Details LastModified Time 06/08/2023 fine needle aspiration, ultrasound guided, thyroid (PROC) completed [address] [place] [address], [address], 10/06/2024 16:17:01 06/17/2023 XR, chest completed [address], [address], 06/18/2023 10:25:44 09/03/2023 XR, knee completed [address], [address], 09/15/2023 15:23:23 09/03/2023 XR, knee completed [address] [address], [place], [address], 09/15/2023 15:23:24 11/01/2024 MAMMO, screening, digital, bilateral completed [address], [address], 11/03/2024 09:23:11 11/01/2024 US, gallbladder completed [address], [address], 11/03/2024 09:23:12 11/13/2024 US, thyroid completed [address], [address], 11/13/2024 14:10:05 Procedure Notes None recorded. Medical Equipment None Reported. Allergies Allergen ID Allergen Name Allergen Category Reaction Reaction Severity Criticality Documentation Date Start Date Code Code System Note Provider Name and Address Organization Details Recorded Time 91055 iohexol medicatio n Not available Not available Not available 02/26/2023 5956 RxNorm Caroline Martinez RN [facility], [place] - [facility] [employer] [facility] 15:49:44 Medications Name Sig Start Date Stop [...] completed Not Available Not Available Not Available Trulicity 0.75 mg/0.5 mL subcutaneou s pen injector INJECT 1 SYRINGE SUBCUTANE OUSLY ONCE A WEEK active Not Available Not Available No t Available bupropion HCl 150 mg tablet,12 hr [...] Updated DateTime 3 165.1 cm 26.1 kg/m2 01609 g 97.4 [degF] 99 /min 96 % 96 % 114 mm[Hg] 70 mm[Hg] Zoë Weber [facility] [employer] [facility] [employer] [facility] 3 14:36:49 Date Recorded Body height Body mass index (BMI) Body weight Body temperature Heart rate Oxygen saturation Oxygen saturation in Arterial blood by Pulse oximetry Systolic blood pressure Diastolic blood pressure Provider Name and Address Organization Details Last Updated DateTime 3 165.1 cm 25.8 kg/m2 46914.8 2 g 97.7 [degF] 88 /min 96 % 96 % 114 mm[Hg] 72 mm[Hg] Tracy velarde [facility] [employer] [facility] [employer] [facility] 3 17:02:42 Date Recorded Body weight Body mass index (BMI) Body height Body temperature Heart rate Respiratory rate Oxygen saturation Oxygen saturation in Arterial blood by Pulse oximetry Pain severity - 0-10 verbal numeric rating [Score] - Reported Systolic blood pressure Diastolic blood pressure Provider Name and Address Organization Details Last Updated DateTime 5 14716.2 9 g 26.5 kg/m2 165.1 cm 97.2 [degF] 85 /min 20 /min 98 % 98 % 8 134 mm[Hg] 70 mm[Hg] Caroline Martinez RN [facility] [employer] [facility] 5 15:55:10 Date Recorded Body height Body mass index (BMI) Body weight Body temperature Heart rate Respiratory rate Oxygen saturation Oxygen saturation in Arterial blood by Pulse oximetry Pain severity - 0-10 verbal numeric rating [Score] - Reported Systolic blood pressure Diastolic blood pressure Provider Name and Address Organization Details Last Updated DateTime 165.1 cm 26.8 kg/m2 90275.1 2 g 97.3 [degF] 82 /min 20 /min 97 % 97 % 0 140 mm[Hg] 82 mm[Hg] Caroline Martinez RN [facility] [employer] 16:26:09 Date Recorded Body height Body mass index (BMI) Body weight Body temperature Provider Name and Address Organization Details Last Updated DateTime 11/02/2024 165.1 cm 26.9 kg/m2 80175.25 g 98.1 [degF] Gracie Goodrich RN [facility] [employer] 11/02/2024 16:24:15 Social History Question Answer Notes LastModified by Organizat ion Details LastModified Time Tobacco Smoking Status Current Every Day Smoker Not Available [facility] 12/02/2022 09:13:19 Do You Have An Advance Directive? No Information not available 10/06/2024 What Is Your Level Of Alcohol Consumption? Occasional [id number] Information not available 12/02/2022 If You Are , What Was Your Level Of Alcohol Consumption Prior To ? None [id number] Information not available 12/02/2022 What Is Your Level Of Caffeine Consumption? Occasional [id number].[id number] Information not available 12/02/2022 In The 14 Days Before Symptom Onset, Have You Had Close Contact With A Laboratory-confi rmed COVID-19 While That Case Was Ill? No [id number] Information not available 12/02/2022 In The 14 Days Before Symptom Onset, Have You Had Close Contact With A Person Who Is Under Investigation For COVID-19 While That Person Was Ill? No MIGRATION.54132 [id number] Information not available 12/02/2022 Are You Currently Employed? Yes Information not available 10/06/2024 What Type Of Diet Are You Following? REGULAR [id number].68915 [id number] Information not available 12/02/2022 What Is Your Occupation? [employer] Information not available 10/06/2024 Have There Been Any Changes To Your Family Or Social Situation? No Information not available 10/06/2024 Do You Use Insect Repellent Routinely? No Information not available 10/06/2024 Where Do You Live? SingleLevelHouse Information not available 10/06/2024 Do You Have A Medical Power Of Accreditation Manager? No Information not available 10/06/2024 How Many Children Do You Have? 4 Information not available 10/06/2024 What Is Your Current Pack Years? 10-19packyears MIGRATION.50077 [id number] Information not available 12/02/2022 Have You Ever Been Counseled For Unhealthy Alcohol Use? No MIGRATION.34632 [id number] Information not available 12/02/2022 Do You Have [...] Anxious, Or Unable To Sleep At Night)? [id number] Information not available 02/26/2023 Do You Use Any Illicit Or Recreational Drugs? No MIGRATION.11072 [id number] Information not available 12/02/2022 Do You Use Sunscreen Routinely? No Information not available 10/06/2024 Has Tobacco Cessation Counseling Been Provided? No MIGRATION.13934 11491 Information not available 12/02/2022 How Many Years Have You Smoked Tobacco? 42 Information not available 10/06/2024 Have You Recently Traveled Abroad? No MIGRATION.51774 52320 Information not available 12/02/2022 Do You Have Any Dietary Restrictions? No MIGRATION.88805 [id number] Information not available 12/02/2022 Do You Or Have You Ever Used Any Other Forms Of Tobacco Or Nicotine? No MIGRATION.31918 [id number] Information not available 12/02/2022 Sex: Unknown Functional Status Question Answer Note LastModified by Organizat ion Details LastModified Time What is your exercise level? Moderate [id number] Information not available 12/02/2022 Mental Status None recorded. Family History Relationship Description Onset Age of this Age Resolved Age Notes LastModified by Organization Details LastModified Time Mother Leukemia [email or web address] Not availa ble 11/02/2024 16:16:12 Mother Diabetes mellitus [id number] Not available 12/02/2022 09:13:53 Son Neoplasm of brain Not available 10/06 16:16:12 Notes:THYROID PROBLEM: MOTHE [...] Influenza, split virus, quadrivalent, PF 08/20/2023 completed ELVIRA Mackey [address] [facility] [address], [place], [address], [facility] [employer] 08/20/2023 18:02:23 Tdap 09/18/2022 completed Not Available [facility] 12/02/2022 09:26:20 Influenza, split virus, quadrivalent, PF 09/18/2022 completed Not Available [facility] 09:26:20 Past Encounters Encounter ID Performer Location Encounter Start Date Encounter Closed Date Diagnosis/Indication Diagnosis SNOMED-CT Code Diagnosis ICD10 Code Diagnosis Note [id number] [facility] Primary Care [address] [place] [address] 11/14/2021 00:00:00 11/14/2021 15:43:37 [id number] [facility] Primary [facility] Nerissa colese [address] [facility] [address] [place] [address] 12/19/2021 00:00:00 12/19/2021 16:49:56 [id number] [facility] Collinsvi sharyne [address] [facility] [address] [place] [address] 02/26/2022 00:00:00 02/26/2022 16:13:41 [id number] [facility] Primary [facility] Aydenvi sharyne [address] [facility] [address] [place], [place] [address] 08/07/2022 00:00:00 08/07/2022 17:58:55 [id number] [facility] Primary Care Nerissa colese [address] [place] [address] [address] [place] [address] 09/18/2022 00:00:00 09/18/2022 18:17:18 [id number] NAHUM Burk [facility] Primary Care [place] [address] [facility] [address] [place] [address] 02/26/2023 08:10:15 02/26/2023 09:13:56 Cigarette smoker 63970592 F17.210 Encouraged smoking cessation. Smoking cessation counseling and techniques reviewed at length with pt. Literature reviewed. Avoid triggers, support groups. Discussed cessation options (counselin g, medication s, e-cigarett es, patches, alternativ e therapies) . New rx for nicotine 14mg patch daily. Transient cerebral ischemia 521403940 G45.[address] scan/MRI (02/16/23)- No visible drooping or weakness of left side on examinatio n today.Enco uraged pt to actively work on smoking cessation d/t increased riskContin ue daily ASA 81mg and Atorvastat in 40mg daily Thyroid nodule 184008960 E04.1 New finding on inpatient imagingRec ommendatio n is for FNA. Order generated [id number] NAHUM Burk [facility] Primary Care [address] [place] [address] 03/26/2023 14:19:23 03/26/2023 16:23:18 Transient cerebral ischemia 597567148 G45.9 No recurrence of sx since last visit.Inpa tient CT scan/MRI (02/16/23)- indicates normal aging brainNo visible drooping or weakness of left side on examinatio n today.Enco uraged pt to actively work on smoking cessation d/t increased riskContin ue daily ASA 81mg and Atorvastat in 40mg dailyWill continue to monitor closely Cigarette smoker 7890037 7 F17.210 No improvemen t with 14mg nicotine patchesEnc ouraged smoking cessation. Smoking cessation counseling and techniques reviewed at length with pt. Literature reviewed. Avoid triggers, support groups. Discussed cessation options (counselin g, medication s, e-cigarett es, patches, alternativ e therapies) . New rx for nicotine 14mg patch daily. Thyroid nodule 159792366 E04.1 New finding on inpatient thyroid u/s (02/16/23)R ecommendat ion is for FNA. Order generated last visit. Pt did not receive call to schedule, will have staff f/u and resubmit. [id number] ELVIRA Mackey [facility] Primary Care [address] [place] [address] 06/25/2023 14:32:10 06/25/2023 14:54:12 Bronchitis 03836810 J40 Was in [place] [facility] for this issues-giv en benzonatat e and inhaler and was d/ccurrent ly a smoker-edu cated and given new medication will refill benzonatat eStill has plenty of the inhaler at home, Nicotine dependence 5629 4008 F17.200 currently smoke 1/2ppdhas tried using the patches without resolution continues use of fake cigarette as distractor Would like to try another optionwill start buproprion [id number] ELVIRA Mackey [facility] Primary Care [address] [place] [address] 08/20/2023 16:55:38 08/23/2023 14:44:09 Nicotine dependence 62558557 F17.200 -currenlty smoking 4 cigs/day-c ontinues use of fake cigarette as needed-carmen l give 3 months of refills Pain of bi lateral knee joints [id number] 08460 M25.561 -pt notes pain to luis armando [...] 1 month Administra tion of influenza vaccine 19310044 Z23 [id number] NAHUM Cabrera [address] [address] 10/06/2024 15:39:54 10/06/2024 16:47:43 Adult health examination 582809302 Z00.00 Health maintenanc e reviewedDi scussed diet and exercisePa tient questions answered Mass of thyroid gland 23 6622959 E04.9 Right uppe r quadrant pain 804062947 R10.11 Bronchitis 34276991 J40 Asthma 545489215 J45.90 9 Screening mammography 24 997563 Z12.31 Overweight 877837818 E66 .3 [id number] NAHUM Cabrera [address] [address] 10/17/2024 16:12:57 10/18/2024 10:40:14 Type 2 diabetes mellitus 01684098 E11.9 Newly diagnosed, A1C 6.5 10/11/24In terested in [id number] recheck in 3 month Mass of thyroid gland 23 9371764 E04.9 Patient advised to FU with ENT [id number] Nolan Ashton MD [facility] Makenna Card [address] [place] [address] 11/02/2024 16:15:59 11/03/2024 07:33:16 Thyroid nodule 561376772 E04.1 Health Concerns Section Related Observation LastModified by Organization Detai ls LastModified Time None Recorded Concern Status LastModified by Organization Details LastModified Time None Recorded Advance Directives Directive N: Payers Encounter Date Sequence Insurance Name Policy Number Policy Street Covered Member ID Street Member ID Guarantor Name 06/25/2023 1 [facility] [id number] Cara M Boss [id number] Cara M Boss 08/20/2023 1 [facility] [id number] Cara M Boss [id number] Cara M Boss 10/06/2024 1 [facility] [id number] Cara M Boss [id number] Cara M Boss 10/17/2024 1 [facility] [id number] Cara M Boss [id number] Cara M Boss 11/02/2024 1 [facility] [id number] Cara M Boss [id number] Cara M Boss Notes Date Note Type Note Provider Name and Address Organization Details Recorded Time 06/25/2023 text/html Pt is here to f/ u on bronchitis Rocky Cobmsmichel [employer] [address] [facility] [place] [address], [place], [address], Pay with a Tweet 06/25/2023 15:17:28 08/20/2023 text/html Pt is here for 2 week f/u Rocky Combsmichel [employer] [address] [facility] [place] [address], [place], [address], Pay with a Tweet 08/20/2023 18:02:28 10/06/2024 text/html Cara Boss is [...] 2022, okay per pt NAHUM Cabrera [address], [place], [address], evly 10/06/2024 16:45:59 10/17/2024 text/html Cara Boss is [...] 2022, okay per pt NAHUM Cabrera [address], [place], [address], Pay with a Tweet 10/17/2024 16:40:50 11/02/2024 text/html This patient had a needle biopsy in 2022 which was insufficient for diagnosis. She had a a new ultrasound in February of 2023 and this revealed a 4.1 cm TI-RADS 5 nodule.. Evidently this has never been adequately settled. Nolan Ashton MD [address], [place], [address], evly 11/02/2024 16:34:26 OBGyn Episode No OBEpisode recorded.
--- OUTSIDE RECORDS SUMMARY | 2024-11-20 00:23 | XMS_ITS | Continuity of Care Document ---
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 Therapeutic Activities Neuromuscular Re-Ed Therapeutic Exercise Manual Therapy Theratube/band Therapeutic Activities Neuromuscular Re-Ed Therapeutic Exercise Manual Therapy Therapeutic Activities Neuromuscular Re-Ed Therapeutic Exercise Manual Therapy Therapeutic Activities Neuromuscular Re-Ed Manual Therapy Therapeutic Exercise Therapeutic Activities Neuromuscular Re-Ed Therapeutic Exercise Manual Therapy PT Evaluation Moderate Complexity Therapeutic Activities Neuromuscular Re-Ed Therapeutic Exercise Manual Therapy 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 Therapeutic Activities Therapeutic Exercise Neuromuscular Re-Ed Manual Therapy Therapeutic Exercise Therapeutic Activities Neuromuscular Re-Ed Manual Therapy Hot or Cold Pack Therapeutic Exercise Therapeutic Activities Neuromuscular Re-Ed Manual Therapy Hot or Cold Pack Therapeutic Exercise Therapeutic Activities Neuromuscular Re-Ed Manual Therapy Therapeutic Exercise Therapeutic Activities Neuromuscular Re-Ed Manual Therapy Therapeutic Exercise Therapeutic Activities Neuromuscular Re-Ed Manual Therapy Hot or Cold Pack 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 Therapeutic Exercise Therapeutic Activities Manual Therapy Neuromuscular Re-Ed Hot or Cold Pack Therapeutic Exercise Neuromuscular Re-Ed Hot or Cold Pack Manual Therapy Therapeutic Exercise Therapeutic Activities Neuromuscular Re-Ed Manual Therapy Hot or Cold Pack Therapeutic Exercise Therapeutic Activities Neuromuscular Re-Ed Manual Therapy Progress Note Therapeutic Exercise Therapeutic Activities Neuromuscular Re-Ed Manual Therapy Hot or Cold Pack Therapeutic Exercise Therapeutic Activities Neuromuscular Re-Ed Manual Therapy Hot or Cold Pack Therapeutic Exercise Therapeutic Activities Neuromuscular Re-Ed Manual Therapy Hot or Cold Pack Therapeutic Exercise Therapeutic Activities Neuromuscular Re-Ed Manual Therapy Hot or Cold Pack PT Evaluation Low Complexity Therapeutic Exercise Therapeutic Activities Neuromuscular Re-Ed Manual Therapy Hot or Cold Pack Advance Directives Directive Yes / No Effective Date File Name No Information Encounters Encounter Description Practice Location Reason(s) For Visit Diagnoses Date Provider Providers Copied on Encounter [facility], [address] [facility] [address], [place], [place], [id number], [place] tel:[phone] [facility] No Information 9 June Gracie. . Referring Provider: [address], [place], [address]. tel:[phone] [facility], [address] [place] [address] [address], [place], [place], [address], [place] tel:[phone] [facility] No Information 9 June Gracie. . Referring Provider: [address], [place], [address]. tel:[phone], [place], [place], [address], [place] tel:[phone] [facility] No Information 9 June Gracie. . Referring Provider: [address], [place], [address]. tel:[phone] [facility] [address], [place], [place], [address], [place] tel:[phone] [facility] No Information 9 June Gracie. . Referring Provider: [address], [place], [address]. tel:[phone] [facility] [address], [place], [place], [address], [place] tel:[phone] [facility] No Information 9 June Gracie. . Referring Provider: [address], [place], [address]. tel:[phone] [facility], [place], [place], [address], [place] tel:[phone] [facility] No Information 9 June Gracie. . Referring Provider: [address]ith[address], [place], [address]. tel:[phone] [facility] [address], [place], [place], [address], [place] tel:[phone] [facility] No Information 9 Martin Tristan. . Referring Provider: Vik Waller, [address] [facility] [address], [place], [address]. tel:[phone] [facility] [address], [place], [place], [address], [place] tel:[phone] [facility] No Information 9 Martin Tristan. . Referring Provider: Vik Waller, [address] [facility] [address], [place], [address]. tel:[phone] [facility] [address] [facility] [address], [place], [place], [address], [place] tel:[phone] [facility] No Information 9 Martin Tristan. . Referring Provider: Vik Waller [address] [facility] [address], [place], [address]. tel:[phone] [facility], [place], [place], [address], [place] tel:[phone] [facility] No Information 9 Martin Tristan. . Referring Provider: Vik Waller [address] [facility] [address], [place], [address]. tel:[phone] [facility] [address], [place], [place], [address], [place] tel:[phone] [facility] No Information 9 Slade Bowman. . Referring Provider: Vik Waller [address] [facility] [address], [place], [address]. tel:[phone] [facility], [place], [place], [address], [place] tel:[phone] [facility] [place] No Information 9 Martin Hudson. . Referring Provider: Vik Waller [address] [facility] [address], [place], [address]. tel:[phone] [facility] [address], [place], [place], [address], tel:[phone] [facility] No Information 9 Martin Hudson. . Referring Provider: Vik Waller [address] [facility] [address], [place], [address]. tel:[phone] [facility] [address] [address], [place], [place], [address], tel:[phone] [facility] [facility] [place] No Information 9 Slade Bowman. . Referring Provider: Eunice [address] [facility] [address], [place], [address]. tel:[phone] [facility] [address] [facility] [address], [place], [place], [address], [place] tel:[phone] [facility] Radiculopathy, lumbar regionStrain of muscle, fascia and tendon at neck level, initStrain of muscle, fascia and tendon of lower back, initParesthesia of skinCivilian activity done for income or pay 9 Slade Bowman. . Referring Provider: Vik Waller [address] [facility] [address], [place], [address]. tel:[phone] [facility] [facility] [address], [place], [place], [address], [place] tel:[phone] [facility] [place] Radiculopathy, lumbar regionStrain of muscle, fascia and tendon at neck level, initStrain of muscle, fascia and tendon of lower back, initParesthesia of skinCivilian activity done for income or pay 9 Iman Blevins. . Referring Provider: Eunice [address] [facility] [address], [place], [address]. tel:[phone] [facility] [address], [place], [place], [address], [place] tel:[phone] [facility] Radiculopathy, lumbar regionStrain of muscle, fascia and tendon at neck level, initStrain of muscle, fascia and tendon of lower back, initParesthesia of skinCivilian activity done for income or pay 0 3 9 Martin Hudson. . Referring Provider: Vik Waller, [address] [facility] [address], [place], [address]. tel:[phone] [facility] [address] [address], [place], [place], [address], [place] tel:[phone] [facility] Radiculopathy, lumbar regionStrain of muscle, fascia and tendon at neck level, initStrain of muscle, fascia and tendon of lower back, initParesthesia of skinCivilian activity done for income or pay 0 2 9 Martin Hudson. . Referring Provider: Vik Waller, [address] [facility] [address], [place], [address]. tel:[phone] [facility] [address], [place], [place], [address], [place] tel:[phone] [facility] Radiculopathy, lumbar regionStrain of muscle, fascia and tendon at neck level, initStrain of muscle, fascia and tendon of lower back, initParesthesia of skinCivilian activity done for income or pay 9 Martin Hudson. . Referring Provider: Vik Waller, [address] [facility] [address], [place], [address]. tel:[phone] [facility] [facility] [address], [place], [place], [address], [place] tel:[phone] [facility] Radiculopathy, lumbar regionStrain of muscle, fascia and tendon at neck level, initStrain of muscle, fascia and tendon of lower back, initParesthesia of skinCivilian activity done for income or pay 9 Martin Hudson. . Referring Provider: Vik Waller [address] [facility] [address], [place], [address]. tel:[phone] [facility], [address] [facility] [address], [place], [place], [address], [place] tel:[phone] [facility] Radiculopathy, lumbar regionStrain of muscle, fascia and tendon at neck level, initStrain of muscle, fascia and tendon of lower back, initParesthesia of skinCivilian activity done for income or pay 9 Martin Cano . Referring Provider: Vik Waller [address] [facility] [address], [place], [address]. tel:[phone] Family History Family Member Type Diagnosis Age At Onset No Information Payers Payer name Insurance type Covered democrat ID Authoriza tion(s) No Information Social History Type Description Quantity Date Captured Comments Sex Female Smoking Status No Information Chief Complaint And Reason For Visit No Information Reason For Referral Reason For Referral No Information Plan Of Treatment Date Type Action Status Referral Ordered: PCP timeframe: 1 week. (related to Overweight) ordered History Of Present Illness Encounter Date Complaint History Of Prese nt Illness No Information Functional Status Date Functional Assessmen t No Information Instructions Date Instruction Additional Infor mation No Information Assessments Type Assessment Date No Information Patient Care Teams Name Effective Dates (start - stop) Status Members No Information
--- OUTSIDE RECORDS SUMMARY | 2024-11-20 00:23 | XMS_ITS | Data Portability ---
Author Organization FUN[facility] JOSEMalu Ritchie Address [address] [place] [address] Care Team Providers Care Cut Off Machine Operator Name Role Phone MASON COLON Occupational Therapy Instructor Assessment Encounter Date Assessment Date Assessment LastModified by Organization Details LastModified Time 12/18/2019 12/18/2019 JUSTIN Joyce Not available 12/18/2019 16:17:53 Plan of Treatment Reminders Order Date Submit Date Provider Last Modified By Organization Details Last Modified Time Details Appointments None recorded. Lab None recorded. Referral None recorded. Procedures None recorded. Surgeries None recorded. Imaging US, abdomen, complete 2020 021 [email or web address] Not available 15:07:57 XR, chest 2018 019 [facility] ([facility]), [address] [place], [address], 9 23:50:57 Medication Orders Chantix Starting Month Box 0.5 mg (11)-1 mg (42) tablets in dose pack 2020 021 [facility], [address] [place], [address], 1 17:49:57 albuterol sulfate 2.5 mg/3 mL (0.083 %) solution for nebulizati on 2020 021 [facility], [address] [place], [address], 1 17:50:01 albuterol sulfate HFA 90 mcg/actuat ion aerosol inhaler 2020 021 [facility], [address] [place] [address], [address], 1 17:49:51 triamcinol one acetonide 0.1 % topical cream 2019 020 [facility], [address] [place] [address], [id number], 0 15:43:54 nystatin 100,000 unit/gram topical cream 2019 020 [facility], [address] [place] [address], [id number], 0 15:43:53 permethrin 5 % topical cream 2019 020 [facility], [address] [place] [address], [id number], 0 16:13:14 amoxicilli n 500 mg-potassi um clavulanat e 125 mg tablet 2018 019 [facility], [address] [place] [address], [id number], 0 15:14:07 albuterol sulfate 2.5 mg/3 mL (0.083 %) solution for nebulizati on 2018 019 [facility], [address] [place] [address], [id number], 9 14:40:16 promethazi ne 6.25 mg-codeine 10 mg/5 mL syrup 2018 019 [facility], [address] [place] [address], [address], 0 15:14:18 albuterol sulfate 2.5 mg/3 mL (0.083 %) solution for nebulizati on 2018 019 [facility], [address] [place], [address], 9 14:46:27 Ventolin HFA 90 mcg/actuat ion aerosol inhaler 2018 019 [facility], [address] [place], [address], 0 15:14:22 amoxicilli n 875 mg tablet 2018 019 [email or web address], [address] [place], [address], 9 14:22:06 Ventolin HFA 90 mcg/actuat ion aerosol inhaler 2018 019 [facility], [address] [place], [address], 0 15:14:22 Patient TargetsNo targets recorded. Patient Instructions Encounter Date Encounter Id Patient Instructions Last Modified By Organization Details Last Modified Time 08/18/2019 [id number] Dejar el tabaco: Instrucciones de cuidado - [Quitting Tobacco: Care Instructions] [facility] Not available 08/18/2019 14:40:16 12/18/2019 [id number] scabies: care instructions Not available 12/18/2019 16:12:43 04/23/2021 [id number] Quitting Tobacco : Care Instructions [facility] Not available 04/23/2021 17:49:43 aprenda sobre la epoc y c MO prevenir infecciones pulmonares - [learning about COPD and how to prevent lung infections] [facility] Not available 04/23/2021 17:49:43 enfermedad pulmonar obstructiva cr osiris (epoc): instrucciones de cuidado - [chronic obstructive pulmonary disease (COPD): care instructions] [facility] Not available 04/23/2021 17:49:43 Reason for Referral None Reported. Results Created Date Observation Date Name Description Value Unit Range Abnormal Flag Note LastModifiedBy Organization Detail LastModifiedTime 11/11/19 19 11/11/2018 XR, chest No observ ation record ed. [facility] (Imaging) [address] [place], [address], 02/09/2019 10:53:22 08/19/20 19 08/19/2019 XR, chest , 2 view No observ ation record ed. [address] (Imaging) [address] [place], [address], 08/21/2019 16:09:52 08/19/20 19 08/19/2019 CT, abdom en + pelvi s, w/ contr ast No observ ation record ed. [address] (Imaging) [address] [place], [address], 08/21/2019 16:10:10 Result Notes None recorded. Problems Name Problem SNOMED Code Status Onset Date Resolution Date Notes Provider Name and Address Organization Details Recorded Time Gastroesophag eal reflux disease 181141795 Active 2017 Gerri Fernandez PA-C Attn: Accounting ,[address] [place], [address] , [facility] 8 15:10:04 Allergic disposition 147120260 Active 2017 Gerri Fernandez PA-C Attn: Accounting ,[address] [place], [address] , [place] [facility] 8 09:48:53 Vitamin D deficiency 45089916 Active 2017 Gerri Fernandez PA-C Attn: Accounting ,[address] [place], [address] , [place] [facility] 8 09:49:18 Influenza 5996635 Active Gerri Fernandez PA-C Attn: Accounting ,[address] [place], [address] , [place] - [facility] 6 16:22:00 Upper respiratory infection 93008336 Active Gerri Fernandez PA-C Attn: Accounting ,[address] [facility], [employer], [place], [address] [place] [address] , [facility] 6 16:22:00 Eruption 132035555 Active Gerri Fernandez PA-C Attn: Accounting ,[address] [facility], [employer], [place], [address] [place] [address] , [place] - [facility] 6 16:22:00 Tobacco dependence syndrome 25885884 Active Gerri Fernandez PA-C Attn: Accounting ,[address] [facility], [employer], [place], [address] [place] [address] , [facility] 6 17:48:06 Knee pain Active Gerri Fernandez PA-C Attn: Accounting ,[address] [facility], [employer], [place], [address] [place] [address] , [facility] 6 17:48:06 Fatigue 26695908 Active Gerri Fernandez PA-C Attn: Accounting ,[address] [facility], [employer], [place], [address] [place] [address] , [facility] 6 17:48:06 Insomnia 476200343 Active Gerri Fernandez PA-C Attn: Accounting ,[address] [facility], [employer], [place], [address] [place] [address] , [facility] - [facility] 6 17:48:06 Raynaud's phenomenon 263826408 Active Gerri Fernandez PA-C Attn: Accounting ,[address] [facility], [employer], [place], [address] [place] [address] , [facility] 6 17:48:06 Problem Notes None recorded. Procedures Surgical History Date Name Laterality Status Provider Name and Address Organization Details Recorded Time 2 Hysterectomy completed Krystin Malik ND - [facility] 09/24/2014 16:09:14 Imaging Results Imaging Date Name Status LastModified by Organiz [facility] Details LastModified Time 11/11/2018 XR, chest completed [facility] (Imaging) [address] [place], [address], 02/09/2019 10:53:22 08/19/2019 XR, chest, [address] (Imaging) [address] [place], [address], 08/21/2019 16:09:52 08/19/2019 CT, abdomen + pelvis, w/ contrast completed [address] (Imaging) [address] [place], [address], 08/21/2019 16:10:10 Procedure Notes None recorded. Medical [...] Updated DateTime 9 165.1 cm 23.6 kg/m2 81646.5 5 g 97 % 97 % 70 [...] Updated DateTime 9 165.1 cm 24.3 kg/m2 64714.7 7 g 97.4 [degF] 94 % 94 % 92 /min 112 mm[Hg] 70 mm[Hg] Nolan Holley MA [place] - [facility] 9 14:29:06 Date Recorded Body height Body mass index (BMI) Body weight Heart rate Body temperature Oxygen saturation Oxygen saturation in Arterial blood by Pulse oximetry Systolic blood pressure Diastolic blood pressure Provider Name and Address Organization Details Last Updated DateTime 0 165.1 cm 25.1 kg/m2 18764.4 5 g 95 /min 98.1 [degF] 98 % 98 % 102 mm[Hg] 70 mm[Hg] Norma Sanchez MA [place] - [facility] 0 15:33:09 Date Recorded Body height Body mass index (BMI) Body weight Body temperature Oxygen saturation Oxygen saturation in Arterial blood by Pulse oximetry Heart rate Systolic blood pressure Diastolic blood pressure Provider Name and Address Organization Details Last Updated DateTime 1 160.02 cm 26.2 kg/m2 74691.9 5 g 98.2 [degF] 98 % 98 % 66 /min 114 mm[Hg] 70 mm[Hg] Nolan Holley MA [place] - [facility] 1 17:29:27 Social History Question Answer Notes LastModified by Organizat ion Details LastModified Time Tobacco Smoking Status Current Every Day Smoker Not Available [facility] 08/06/2020 03:39:31 Do You Have An Advance Directive? No [id number] Information not available 08/06/2020 What Is Your Level Of Alcohol Consumption? Occasional [id number] Information not available 08/06/2020 What Is Your Level Of Caffeine Consumption? Moderate [id number] Information not available 08/06/2020 How Much Tobacco Do You Chew? None [id number] Information not available 08/06/2020 Are You Currently Employed? Yes [id number] Information not available 08/06/2020 What Type Of Diet Are You Following? REGULAR [id number] Information not available 08/06/2020 Education Less Than 8th Grade Information not available 09/24/2014 What Is Your Occupation? [employer] [id number] Information not available 08/06/2020 Are There Any Guns Present In Your Home? No [id number] Information not available 08/06/2020 Hard Of Hearing Or Deaf In One Or Both Ears? No [email or web address] Information not available 09/24/2014 Legally Blind In One Or Both Eyes? No [email or web address] Information not available 09/24/2014 Live Alone Or With Others? With Others Children eewig Information not available 07/06/2016 Marital Status Single [email or web address] Informati on not available 09/24/2014 What Was The Date Of Your Most Recent Tobacco Screening? 11/11/2018 [id number] Information not available 08/06/2020 How Many Children Do You Have? 4 [id number] Information not available 08/06/2020 Performs Monthly Self-breast Exam? Yes [email or web address] Information not available 09/24/2014 Seat Belts Used Routinely Yes [email or web address] Information not available 09/24/2014 Smoke Alarm In Home Yes [email or web address] Information not available 09/24/2014 At What Age Did You Start Smoking Tobacco? 21 [id number] Information not available 08/06/2020 How Much Tobacco Do You Smoke? 2 PPW [id number] Information not available 08/06/2020 General Stress Level Medium [email or web address] Information not available 09/24/2014 Do You Use Sunscreen Routinely? No [id number] Information not available 08/06/2020 Sex: Unknown Functional Status Question Answer Note LastModified by Organization D etails LastModified Time What is your exercise level? Moderate [id number] Information not available 08/06/2020 Mental Status None [...] vector-nr, rS-Ad26, PF, 0.5 mL 1 completed [facility] 03/27/2021 12:47:20 Influenza, split virus, quadrivalent, preservative 6 completed Not Available [facility] 10/21/2019 02:42:00 Influenza, split virus, quadrivalent, preservative 7 completed Not Available [facility] 10/21/2019 02:34:51 Past Encounters Encounter ID Performer Location Encounter Start Date Encounter Closed Date Diagnosis/Indication Diagnosis SNOMED-CT Code Diagnosis ICD10 Code Diagnosis Note [id number] [facility] [address] [place] [address] 09/24/2014 15:55:35 09/28/2014 12:33:02 Influenza 0265260 Upper resp iratory infection 40426187 Eruption [id number] THALIA Cervantes (Adult Med) [address] [place] [id number] 07/06/2016 14:28:41 07/06/2016 17:48:43 Adult health examination 038718175 Z00.01 45YO females here to establish care. Patient's only complaints are bilateral knee pain Active or passive immunization 152458164 Z23 Tobacco de pendence syndrome 94467050 F17.290 Advised to quit smoking Smoking 1/2ppd x 27 years Knee pain 43389975 M25.5 69 bilateral knee pain - will begin with xrays and then refer to ortho - patient requesting knee injections Fatigue 25741778 R53.83 Advised to drink plenty of water good sleep hygiene Insomnia 191675400 G47.0 0 Discussed good sleep hygiene of going to bed and waking up at the same time Advised no screen time within 2 hours of going to bed Advised to try melatonin OTC Raynaud's phenomenon 266 895579 I73.00 Has pictures on her phone - picture shown is whitened finger tips of digits 1-3 on right hand from PIP to finger tips [id number] THALIA Cervantes (Adult Med) [address] [place] [id number] 09/29/2017 14:49:51 09/29/2017 17:37:40 Gastroesophageal reflux disease without esophagitis 595642117 K21.9 Advised to stay away from spicy and greasy foodsAdvis ed to stay away from fatty foodsDo not eat within 2 hours of going to bedStay sitting up after mealsNo smoking Tobacco de pendence syndrome 52385167 F17.290 Advised to quit smoking Smoking 1/2ppd x 27 years Depressive disorder 3548 9007 F32.9 Active or passive immunization 053649618 Z23 Acute lety rgic reaction 395253038 T78.40XA Right after patient was given flu [...] reaction to any injections in the past [id number] THALIA Cervantes (Adult Med) [address] [place] [address] 10/21/2017 13:52:13 10/21/2017 15:33:26 Tobacco dependence syndrome 69035322 F17.290 Advised to quit smoking Smoking 1/2ppd x 27 years Gastroesop hageal reflux disease 557327017 K21.9 Advised to stay away from spicy and greasy foodsAdvis ed to stay away from fatty foodsDo not eat within 2 hours of going to bedStay sitting up after mealsNo smokingPat ient to complete [facility] care applicatio n today Adult heal th examination 936808950 Z00.01 45YO females here to establish care. Patient's only complaints are bilateral knee pain Fatigue 93466954 R53.83 Advised to drink plenty of water good sleep hygiene Screening for disorder 096795943 Z13.9 [id number] THALIA Cervantes (Adult Med) [address] [place] [address] 01/12/2018 08:48:05 01/12/2018 10:26:34 Has a sore throat 569582449 J02.9 Strep negative Allergic disposition 609 119130 Z91.09 Due to the patient having a [...] to quit smoking Tobacco de pendence syndrome 37966088 F17.290 Advised to quit smoking Smoking 1/4ppd down from 1/2ppd Vitamin D deficiency 347 69699 E55.9 Never picked up medication - will send to [facility] at this time to initiate weekly Gastroesop hageal reflux disease 404180360 K21.9 Advised to stay away from spicy and greasy foodsAdvis ed to stay away from fatty foodsDo not eat within 2 hours of going to bedStay sitting up after mealsNo smoking Has a GI apponitmen t in 2 months in March but doesn't know if she'll go because the omeprazole is working well [id number] CHRISTOS Peoples (Adult Med) [address] [place] [address] 11/11/2018 16:12:29 11/14/2018 09:02:14 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 She can breathe better, less wheezing by auscultati on after nebulizer treatment at this office. Nicotine dependence 5629 4008 F17.200 Advised patient to quit smoking for the good health and financial reasons. Chemical-i nduced asthma 71405589 J68.3 [id number] [facility] (Adult Med) [address] [place] [phone] 12/18/2019 15:12:26 12/19/2019 08:51:53 Pruritic rash 76403658 L28.2 Itchy, painful rash with vesicles x 3 months.Pt has tried OTC antifungal without relief. Has worked as a [employer] r for 1 month.Husb and has same [...] with this tx, pt to call office. [id number] Karina Flores MD [facility] (Adult Med) [address] [place] [phone] 02/05/2020 15:35:22 02/07/2020 11:00:06 Pruritic disorder 400424352 L29.9 [id number] Karina Flores MD [facility] (Adult Med) [address] [place] [phone] 04/23/2021 17:05:21 04/28/2021 13:21:59 Chronic obstructive pulmonary disease 39204161 J44.9 Smoker 96466510 F17.200 Advised her to quit smoking, also wants to try chantix. Bloating symptom 5066251 00 R14.0 Will do US at [facility]. Acute exac erbation of chronic obstructive pulmonary disease 245816723 J44.1 Discussed with patient , she understood [...] 1 *SELF PAY* Jovanna Boss 08/18/2019 1 [facility] [id number] Cara Remyla [id number] Cara Boss 12/18/2019 1 [facility] [id number] Cara Dunn Boss [id number] Cara Boss 02/05/2020 1 [facility] [id number] Cara Dunn Boss [id number] Cara Boss 04/23/2021 1 *SELF PAY* No [...] symptoms JULIA Peoples NP Attn: Accounting,[address] [place], [address], [facility] 11/11/2018 17:18:13 08/18/2019 text/html Chest congestion and cough foe about one week, a cigarettes smoker, NKDA. Karina Flores MD Attn: Accounting[address] [place], [address], [facility] 08/18/2019 14:51:49 [...] or dysuria. SERA CASILLAS Attn: Accounting,[address] [place], [address], [facility] 12/18/2019 17:13:54 02/05/2020 text/html Skin rashes , permethrin not working, NKDA, will try antifungal cream and steroid cream as well, she agreed. Karina Flores MD Attn: Accounting[address] [facility], [place], [address], [facility] 02/05/2020 17:05:25 04/23/2021 text/html Office visit, right knee is much better after operation, wants refill inhalers, and chantix to help her to quit smoking. NKDA. also stomach bloated from time to time, no diarrhea or constipation no fever, no weight loss, no N/V. no health insurance. Karina Flores MD Attn: Accounting,[address] [facility], [place], [address], [facility] 04/23/2021 17:49:48 OBGyn Episode No OBEpisode recorded.
[2024-11-20 10:35] LABS: Glucose Point of Care 103 mg/dl (65-105)
[2024-11-20] MEDS: KETOROLAC 15 MG/ML VIAL (*BKC) IV PUSH (10:50)
[2024-11-20] MEDS: ACETAMINOPHEN 500 MG TABLET 1000 MG PO (10:50)
--- NOTE | 2024-11-20 11:13 | P.PNAN_ITS ---
Anes - Initial Pre Proc Eval Procedure: Operation Date: 11/20/24 12:00 Proposed Procedures p Laparoscopic Cholecystectomy, Possible Open - Kilo Yo MD Date/Time: 11/20/24 11:13 Surgeon: Kilo Yo MD Pre Op Diagnosis: Biliary Colic Secondary to Gallstones Patient Data Age: 54 Gender: F Height: 1.65 m Weight: 73.1 kg Last Vital Signs Temp 36.4 C 11/20/24 10:00 Pulse 80 11/20/24 10:00 Resp 16 11/20/24 10:00 BP 135/68 11/20/24 10:00 Pulse Ox 99 11/20/24 10:00 O2 Del Method Room Air 11/20/24 10:00 Allergies Allergy/AdvReac Type Severity Reaction Status Date / Time Iodinated Contrast Media Allergy Dyspnea / Verified 11/20/24 10:05 SOB iohexol (From contrast - CT, Allergy Dyspnea / Verified 11/20/24 10:05 X-RAY) SOB Home Medications ?Medication ?Instructions ?Recorded ?Confirmed ?Type aspirin 81 mg tablet,delayed 81 mg PO DAILY 11/10/24 11/20/24 History release (Adult Low Dose Aspirin) metformin 500 mg tablet,extended 500 mg PO DAILY 11/10/24 11/20/24 History release 24 hr omeprazole 40 mg capsule,delayed 40 mg PO DAILY 11/10/24 11/20/24 History release Laboratory Tests 11/20/24 10:22 POC Capillary Glucose 103 mg/dl (65-105) Patient hx anesthesia problems: none Family hx anesthesia problems: none Results Review: All pre-operative results and documents have been reviewed as part of the pre- operative evaluation. [facility] Past Medical History Medical History (Updated 11/09/24 @ 16:31 by Gerri Drake) Asthma Anxiety Helicobacter pylori gastritis (03/2022) Heavy alcohol use Tobacco use disorder, continuous Chronic pain Lumbar spondylosis Cervical spondylosis Overweight (BMI 25.0-29.9) Surgical History Surgical History (Updated 11/09/24 @ 15:16 by Gerri Drake) History of esophagogastroduodenoscopy (EGD) (03/2022) Biopsies demonstrating chronic gastritis with H pylori Normal colonoscopy (03/2022) H/O hysterectomy for benign disease (~2007) laparoscopic with vaginal partial hysterectomy for uterine fibroids Family History Family History Mother Acute leukemia Diabetes mellitus Hypertension Thyroid condition Social History Social History (Updated 11/09/24 @ 14:41 by Damon Mitchell MA) Social History: She lives at home with her of 33 years and there 19 year old. They have a total of 4 children with you oldest being 28 years old. She drinks 4 beers a day and has done so for many years. She smokes half a pack of cigarettes per day and started smoking at 14 years old. She uses marijuana gummies to help with her chronic back pain. Code status: Full code Surrogate decision maker: Smoking packs per day: 0.5 Smoking cigarettes per day: 10.0 Years smoked: 38 Smoking pack-years: 19.00 Smoking status: Current every day smoker Tobacco type: cigarettes Second hand tobacco smoke exposure: No Alcohol intake: current Drinks per week: 4 Alcohol use details: 1 drink/day Substance use: current Substance use type: marijuana Do You Feel Safe in your Home?: Yes Lack of Transportation: No Lack of Food: Never True Current Housing: I Have Housing Concerned About Future Housing: No Difficulty Paying Gas/Electric Bills: No Difficulty Paying for Meds: No Currently Unemployed: No Education: High School Diploma/GED Difficulty w/ Childcare or Family Care: No Living arrangements: alone Spiritual care concerns: No Anes - Eval Final PreProcedure Day of Procedure 11/20/24 11:13 Patient weight: overweight Heart: regular rate and rhythm Lungs: clear to auscultation Airway: Mallampati scale class II Neurological: alert and oriented Last oral intake: >/= 8 hours ASA classification: III Emergent: no Anesthetic plan: proceed Anesthesia type and monitoring: general GIVS and standard monitoring Results Review: All pre-operative results and documents have been reviewed as part of the pre- operative evaluation. Informed Consent: The patient's anesthetic plan and its attendant risks and benefits were discussed with the patient/family/POA. Questions were solicited and answers provided to the satisfaction of the patient/family/POA.
[2024-11-20] MEDS: LACTATED RINGERS 1,000 ML 30 ML IV CONT ×2 (11:19→13:31)
--- NOTE | 2024-11-20 11:52 | WPDHPUPDATE1 ---
History and Physical Update Update Date/Time: 11/20/24 11:52 History and Physical has been reviewed, including an updated exam of the patient. There are NO changes in the patient's condition. Risks, benefits, and alternatives have been discussed and questions answered. Patient agrees to proceed with procedure.
[2024-11-20] MEDS: ceFAZolin 2 GM/D5W 50 ML 2 GM/50 ML BAG IVPB (12:03)
[2024-11-20] MEDS: BUPivacaine HCL 0.5% 10 ML AMP 30 ML INFILTRATE (12:21)
[2024-11-20] MEDS: LIDO 1%/EPINEPHRINE 1:100,000 20 ML VIAL 30 ML INFILTRATE (12:22)
--- NOTE | 2024-11-20 13:36 | P.OP_ITS ---
Procedure Note - Detailed Date of Procedure 11/20/24 Pre-op Diagnosis Biliary Colic Secondary to Gallstones/Polyp Post-op Diagnosis Same Procedure Performed Laparoscopic cholecystectomy Surgeon Kilo Yo MD Customer Service Representative Teacher JAN Germain Anesthesia General Indications Patient is a 54-year-old female who presented to the emergency room with complaints of right upper quadrant epigastric abdominal pain which radiated to her back. Pain was associated with eating. She was discharged from emergency room after workup with abdominal ultrasound which showed possible small gallstone versus small polyp. She has continued to have symptoms mainly based upon what she is eating. She presents now for elective laparoscopic cholecystectomy Findings The gallbladder was mildly dilated. There was no inflammation either chronically or acutely to the gallbladder. No adhesions of the omentum, duodenum, stomach to the gallbladder. Description of Procedure After informed consent was obtained patient brought to the operating room she was placed supine position and general endotracheal anesthesia was administered. The abdomen is then prepped draped usual sterile fashion. Time-out was then performed correctly identifying the patient as well as procedure to be performed. She was given perioperative IV antibiotics. I entered the abdomen left upper quadrant utilizing a 5mm Optiview port. Once inside the abdomen insufflated to adequate pneumoperitoneum of 15mmHg of CO2. There were no adhesions around the umbilicus so then I placed a 5mm trocar port in the periumbilical position. The laparoscopic then switched to the periumbilical trocar port looking to the upper portions of the abdomen the gallbladder was visualized. The gallbladder was relatively normal in appearance without evidence of acute or chronic inflammation. There were no adhesions of the duodenum, omentum, or stomach to the gallbladder. Additional laparoscopic trocar ports to include a 10mm epigastric trocar port and 2 right lateral subcostal 5mm trocar ports were then placed under direct visualization. The gallbladder was held at the dome with a grasper and lifted over the right half liver towards the right shoulder. A 2nd grasper used to hold the gallbladder at the infundibulum. I then stripped down the visceral peritoneum off of the infundibular gallbladder to identify the cystic duct. Cystic duct was then dissected out circumferentially. Cystic artery was identified and dissected out circumferentially as well. Posterior wall the gallbladder at the infundibulum dissected free liver into the critical view was obtained. At this point I then placed 2 clips proximally the cystic duct and 2 clips distally high on infundibular gallbladder. Cystic duct was then divided with Endo Chari. In a similar fashion cystic artery was clipped and divided as well. Gallbladder was then resected off the liver utilized electrocautery. No gall bladder stones or bile was spilled. The gallbladder was then placed into an Endo-Catch bag and brought out through the epigastric port site. Gallbladder and contents were sent to pathology for examination. I then irrigated out the right upper q uadrant abdomen gallbladder fossa with sterile saline solution. Hemostasis was good. There is no evidence of bile leak. I then aspirated the fluid from the right upper quadrant the abdomen from the pelvis. I then removed all the trocar ports under direct visualization all port sites appeared hemostatic. Then allowed the abdomen decompress. The 10mm epigastric trocar port fascial defect was then closed utilizing 0 Vicryl suture at the fascial level. The skin edges in all the port sites were then approximated utilizing a running subcuticular 4 Monocryl suture. The incisions were then cleaned the skin glue was applied. The patient tolerated the procedure well no complications. All sponges, needles, and instrument counts were correct at the end procedure. EBL was _25__cc. The patient was awakened and taken to recovery in stable and satisfactory condition. Implants None Estimated Blood Loss 25 Drains No Packing No Pathology Yes (Gallbladder and contents to pathology) Complications No immediate complications Condition Stable Disposition PACU [facility] Billing Surgery - Charge Forward: Surgery Billing
[2024-11-20 13:46] LABS: Glucose Point of Care 162 mg/dl (65-105)
[2024-11-20] MEDS: fentaNYL CITRATE INJ (*CRX) 100 MCG/2 ML VIAL 25 MCG IV PUSH ×8 (13:48→14:19)
[2024-11-20] MEDS: oxyCODONE HCL (*CRX) 5 MG TAB IR PO (15:06)
== END 2024-11-20 15:48 | disposition home or self-care (01) ==
PROVIDERS: Visit Provider Surgery
PROC: 0FT44ZZ Resection of Gallbladder, Percutaneous Endoscopic Approach (ICD-10-PCS; CPT 47562; principal; 2024-11-20 12:00)
DX: K80.50 Calculus of bile duct without cholangitis or cholecystitis without obstruction (principal); J45.909 Unspecified asthma, uncomplicated; F41.9 Anxiety disorder, unspecified; G89.29 Other chronic pain; M43.06 Spondylolysis, lumbar region; M43.02 Spondylolysis, cervical region; F17.210 Nicotine dependence, cigarettes, uncomplicated; F12.90 Cannabis use, unspecified, uncomplicated; Z79.82 Long term (current) use of aspirin; Z79.84 Long term (current) use of oral hypoglycemic drugs; Z98.890 Other specified postprocedural states; Z80.6 Family history of leukemia
CPT/HCPCS: 47562; 82948; 88304; A9270; J0690; J1100; J1885; J2003; J2004; J2250; J2405; J2704; J3010; J7030; J7120

== ENCOUNTER 2024-11-22 13:43 | Inpatient (IN) | payer OTHER, SELFPAY ==
--- NOTE | ~2024-11-22 | CT_ITS ---
EXAMINATION: CT abdomen pelvis wo con DATE: 11/22/2024 15:53 INDICATION: Abdominal pain. TECHNIQUE: Computed tomography (CT) of the abdomen and pelvis was performed without intravenous contr ast. Automated exposure control and iterative reconstruction technique were employed. The dose-length product was 738.42 mGy-cm. COMPARISON: CT abdomen and pelvis 02/20/2013 FINDINGS: The visualized portions of the lung bases demonstrate minimal atelectasis. No pleural effus ion. The heart size is normal. No pericardial effusion. The liver is normal. There are changes of cho lecystectomy. There is gas in the peritoneum and body wall, consistent with recent surgery. The splee n, pancreas, adrenal glands, and kidneys are normal. There is a small volume of ascites. There is div erticulosis of the colon without evidence of diverticulitis. There are no dilated loops of bowel. The appendix is normal. There are no pathologically enlarged lymph nodes. There is mild thoracic and lum bar spondylosis. IMPRESSION: 1. Small volume of ascites. Reviewed, dictated and finalized at location A. TRONICS TECHNOLOGY INSTRUCTOR IMPRESSION: 1. Small volume of ascites.
--- NOTE | ~2024-11-22 | NM_ITS ---
EXAMINATION: NM hepatobiliary wo pharm DATE: 11/23/2024 10:43 INDICATION: Elevated liver enzymes postoperative scopic cholecystectomy COMPARISON: None. TECHNIQUE: 4.6 mCi Tc-99m mebrofenin (Choletec) was administered intravenously. Scintigraphic images of the abdomen were obtained for one hour. At the 1 hour time point, the patient drank 8 oz Ensure, and imaging was continued for 60 minutes. Gallbladder ejection fraction was calculated by the technol ogist. FINDINGS: There is normal clearance of radiotracer from the blood pool. There is homogeneous tracer u ptake by the liver. Activity progresses to common bile duct by 15 minutes with activity seen within the small bowel by 20 minutes. No evident bile leak. IMPRESSION: 1. Normal postcholecystectomy hepatobiliary scan with no biliary obstruction or bile leak. Reviewed, dictated and finalized at location A. SITTER IMPRESSION: 1. Normal postcholecystectomy hepatobiliary scan with no biliary obstruction o r bile leak.
--- OUTSIDE RECORDS SUMMARY | 2024-11-22 13:45 | XMS_ITS | Clinical Summary ---
Author Organization [facility] Address [address] [place] [address] Care Team Providers Care Kapok Machine Operator Name Role Phone Unavailable Primary Care Provider [...]
--- OUTSIDE RECORDS SUMMARY | 2024-11-22 13:46 | XMS_ITS | Data Portability ---
Author Organization [facility] Address [address] [place] [address] Care Team Providers Care Technical Service Rep Name Role Phone MASON COLON [employer] Worker [phone] Assessment Encounter Date Assessment Date Assessment LastModified [...] Not available 15:07:57 XR, chest 2018 019 [facility] ([facility] Scheduling), [address] [place], [address], 9 23:50:57 Medication Orders Chantix Starting Month Box 0.5 mg (11)-1 mg (42) tablets in dose pack 2020 021 [facility], [address] [place], [address], 1 17:49:57 albuterol sulfate 2.5 mg/3 mL (0.083 %) solution for nebulizati on 2020 021 [facility], [address] [place], [address], 1 17:50:01 albuterol sulfate HFA 90 mcg/actuat ion aerosol inhaler 2020 021 [facility], [address] [place] [address], [id number], 1 17:49:51 triamcinol one acetonide 0.1 % topical cream 2019 020 [facility], [address] [place] [address], [id number], 0 15:43:54 nystatin 100,000 unit/gram topical cream 2019 020 [facility], [address] [place] [address], [id number], 0 15:43:53 permethrin 5 % topical cream 2019 020 [facility], [address] [place] [address], [id number], 0 16:13:14 amoxicilli n 500 mg-potassi um clavulanat e 125 mg tablet 2018 019 [facility], [address] [place] [address], [address], 0 15:14:07 albuterol sulfate 2.5 mg/3 mL (0.083 %) solution for nebulizati on 2018 019 [facility], [address] [place] [address], [address], 9 14:40:16 promethazi ne 6.25 mg-codeine 10 mg/5 mL syrup 2018 019 [facility], [address] [place] [address], [address], 0 15:14:18 albuterol sulfate 2.5 mg/3 mL (0.083 %) solution for nebulizati on 2018 019 [facility], [address] [place], [address], 9 14:46:27 Ventolin HFA 90 mcg/actuat ion aerosol inhaler 2018 019 [facility], [address] [place], [address], 0 15:14:22 amoxicilli n 875 mg tablet 2018 019 [email or web address], [address] [place], [address], 9 14:22:06 Ventolin HFA 90 mcg/actuat ion aerosol inhaler 2018 019 [facility], [address] [place], [address], 0 15:14:22 Patient TargetsNo targets recorded. Patient Instructions Encounter Date Encounter Id Patient Instructions Last Modified By Organization Details Last Modified Time 08/18/2019 [id number] Dejar el tabaco: Instrucciones de cuidado - [Quitting Tobacco: Care Instructions] [facility] [place] Not available 08/18/2019 14:40:16 12/18/2019 [id number] scabies: care instructions Not available 12/18/2019 16:12:43 04/23/2021 [id number] Quitting Tobacco : Care Instructions [facility] [place] Not available 04/23/2021 17:49:43 aprenda sobre la epoc y c MO prevenir infecciones pulmonares - [learning about COPD and how to prevent lung infections] [facility] [place] Not available 04/23/2021 17:49:43 enfermedad pulmonar obstructiva cr osiris (epoc): instrucciones de cuidado - [chronic obstructive pulmonary disease (COPD): care instructions] [facility] Not available 04/23/2021 17:49:43 Reason for Referral None Reported. Results Created Date Observation Date Name Description Value Unit Range Abnormal Flag Note LastModifiedBy Organization Detail LastModifiedTime 11/11/19 19 11/11/2018 XR, chest No observ ation record ed. [facility] (Imaging) [address] [place], [address], 02/09/2019 10:53:22 08/19/20 19 08/19/2019 XR, chest , 2 view No observ ation record ed. [address] (Imaging) [address] [place], [address], 08/21/2019 16:09:52 08/19/20 19 08/19/2019 CT, abdom en + pelvi s, w/ contr ast No observ ation record ed. [address] (Imaging) [address] [place], [address], 08/21/2019 16:10:10 Result Notes None recorded. Problems Name Problem SNOMED Code Status Onset Date Resolution Date Notes Provider Name and Address Organization Details Recorded Time Gastroesophag eal reflux disease 019135365 Active 2017 Gerri Fernandez PA-C Attn: Accounting ,[address] [place], [address] , [facility] 8 15:10:04 Allergic disposition 137362341 Active 2017 Gerri Fernandez PA-C Attn: Accounting ,[address] [place], [address] , [place] [facility] 8 09:48:53 Vitamin D deficiency 32813344 Active 2017 Gerri Fernandez PA-C Attn: Accounting ,[address] [place], [address] , [place] [facility] 8 09:49:18 Influenza 4149711 Active Gerri Fernandez PA-C Attn: Accounting ,[address] [place], [address] , [place] [facility] 6 16:22:00 Upper respiratory infection 71385031 Active Gerri Fernandez PA-C Attn: Accounting ,[address] [facility], [place], [place], [address] [place] [address] , [facility] 6 16:22:00 Eruption 781195218 Active Gerri Fernandez PA-C Attn: Accounting ,[address] [facility], [place], [place], [address] [place] [address] , [place] [facility] 6 16:22:00 Tobacco dependence syndrome 50508092 Active Gerri Fernandez PA-C Attn: Accounting ,[address] [facility], [place], [place], [address] [place] [address] , [facility] 6 17:48:06 Knee pain Active Gerri Fernandez PA-C Attn: Accounting ,[address] [facility], [place], [place], [address] [place] [address] , [facility] 6 17:48:06 Fatigue 34755326 Active Gerri Fernandez PA-C Attn: Accounting ,[address] [facility], [place], [place], [address] [place] [address] , [facility] 6 17:48:06 Insomnia 956908414 Active Gerri Fernandez PA-C Attn: Accounting ,[address] [facility], [place], [place], [address] [place] [address] , [facility] 6 17:48:06 Raynaud's phenomenon 331002256 Active Gerri Fernandez PA-C Attn: Accounting ,[address] [facility], [place], [place], [address] [place] [address] , [facility] 6 17:48:06 Problem Notes None recorded. Procedures Surgical History Date Name Laterality Status Provider Name and Address Organization Details Recorded Time 2 Hysterectomy completed Krystin Malik [place] - [facility] 09/24/2014 16:09:14 Imaging Results Imaging Date Name Status LastModified by Organiz [facility] Details LastModified Time 11/11/2018 XR, chest completed [facility] (Imaging) [address] [place], [address], 02/09/2019 10:53:22 08/19/2019 XR, chest, [address] (Imaging) [address] [place], [address], 08/21/2019 16:09:52 08/19/2019 CT, abdomen + pelvis, w/ contrast completed [address] (Imaging) [address] [place], [address], 08/21/2019 16:10:10 Procedure Notes None recorded. Medical [...] Updated DateTime 9 165.1 cm 23.6 kg/m2 35139.5 5 g 97 % 97 % 70 [...] Updated DateTime 9 165.1 cm 24.3 kg/m2 90104.7 7 g 97.4 [degF] 94 % 94 % 92 /min 112 mm[Hg] 70 mm[Hg] Nolan Holley [place] - [facility] 9 14:29:06 Date Recorded Body height Body mass index (BMI) Body weight Heart rate Body temperature Oxygen saturation Oxygen saturation in Arterial blood by Pulse oximetry Systolic blood pressure Diastolic blood pressure Provider Name and Address Organization Details Last Updated DateTime 0 165.1 cm 25.1 kg/m2 83317.4 5 g 95 /min 98.1 [degF] 98 % 98 % 102 mm[Hg] 70 mm[Hg] Norma Sanchez [place] - [facility] 0 15:33:09 Date Recorded Body height Body mass index (BMI) Body weight Body temperature Oxygen saturation Oxygen saturation in Arterial blood by Pulse oximetry Heart rate Systolic blood pressure Diastolic blood pressure Provider Name and Address Organization Details Last Updated DateTime 1 160.02 cm 26.2 kg/m2 31470.9 5 g 98.2 [degF] 98 % 98 % 66 /min 114 mm[Hg] 70 mm[Hg] Nolan Holley [place] - [facility] 1 17:29:27 Social History Question Answer Notes LastModified by Organizat ion Details LastModified Time Tobacco Smoking Status Current Every Day Smoker Not Available [facility] 08/06/2020 03:39:31 Do You Have An Advance Directive? No [id number] Information not available 08/06/2020 What Is Your Level Of Alcohol Consumption? Occasional [id number] Information not available 08/06/2020 What Is Your Level Of Caffeine Consumption? Moderate [id number] Information not available 08/06/2020 How Much Tobacco Do You Chew? None [id number] Information not available 08/06/2020 Are You Currently Employed? Yes [id number] Information not available 08/06/2020 What Type Of Diet Are You Following? REGULAR [id number] Information not available 08/06/2020 Education Less Than 8th Grade [email or web address] Information not available 09/24/2014 What Is Your Occupation? [employer] [id number] Information not available 08/06/2020 Are There Any Guns Present In Your Home? No [id number] Information not available 08/06/2020 Hard Of Hearing Or Deaf In One Or Both Ears? No [email or web address] Information not available 09/24/2014 Legally Blind In One Or Both Eyes? No [email or web address] Information not available 09/24/2014 Live Alone Or With Others? With Others Children eewig Information not available 07/06/2016 Marital Status Single [email or web address] Informati on not available 09/24/2014 What Was The Date Of Your Most Recent Tobacco Screening? 11/11/2018 [id number] Information not available 08/06/2020 How Many Children Do You Have? 4 [id number] Information not available 08/06/2020 Performs Monthly Self-breast Exam? Yes [email or web address] Information not available 09/24/2014 Seat Belts Used Routinely Yes [email or web address] Information not available 09/24/2014 Smoke Alarm In Home Yes [email or web address] Information not available 09/24/2014 At What Age Did You Start Smoking Tobacco? 21 [id number] Information not available 08/06/2020 How Much Tobacco Do You Smoke? 2 PPW [id number] Information not available 08/06/2020 General Stress Level Medium [email or web address] Information not available 09/24/2014 Do You Use Sunscreen Routinely? No [id number] Information not available 08/06/2020 Sex: Unknown Functional Status Question Answer Note LastModified by Organization D etails LastModified Time What is your exercise level? Moderate [id number] Information not available 08/06/2020 Mental Status None [...] vector-nr, rS-Ad26, PF, 0.5 mL 1 completed [facility] 03/27/2021 12:47:20 Influenza, split virus, quadrivalent, preservative 6 completed Not Available [facility] 10/21/2019 02:42:00 Influenza, split virus, quadrivalent, preservative 7 completed Not Available Count includes the [facility] 10/21/2019 02:34:51 Past Encounters Encounter ID Performer Location Encounter Start Date Encounter Closed Date Diagnosis/Indication Diagnosis SNOMED-CT Code Diagnosis ICD10 Code Diagnosis Note [id number] [facility] [address] [place] [address] 09/24/2014 15:55:35 09/28/2014 12:33:02 Influenza 4056808 Upper resp iratory infection 03698818 Eruption [id number] THALIA Cervantes (Adult Med) [address] [place] [address] 07/06/2016 14:28:41 07/06/2016 17:48:43 Adult health examination 609572715 Z00.01 45YO females here to establish care. Patient's only complaints are bilateral knee pain Active or passive immunization 058792167 Z23 Tobacco de pendence syndrome 58162793 F17.290 Advised to quit smoking Smoking 1/2ppd x 27 years Knee pain 42415147 M25.5 69 bilateral knee pain - will begin with xrays and then refer to ortho - patient requesting knee injections Fatigue 46988373 R53.83 Advised to drink plenty of water good sleep hygiene Insomnia 205061067 G47.0 0 Discussed good sleep hygiene of going to bed and waking up at the same time Advised no screen time within 2 hours of going to bed Advised to try melatonin OTC Raynaud's phenomenon 266 507023 I73.00 Has pictures on her phone - picture shown is whitened finger tips of digits 1-3 on right hand from PIP to finger tips [id number] THALIA Cervantes (Adult Med) [address] [place] [address] 09/29/2017 14:49:51 09/29/2017 17:37:40 Gastroesophageal reflux disease without esophagitis 283620376 K21.9 Advised to stay away from spicy and greasy foodsAdvis ed to stay away from fatty foodsDo not eat within 2 hours of going to bedStay sitting up after mealsNo smoking Tobacco de pendence syndrome 77559862 F17.290 Advised to quit smoking Smoking 1/2ppd x 27 years Depressive disorder 3548 9007 F32.9 Active or passive immunization 386635255 Z23 Acute lety rgic reaction 866430237 T78.40XA Right after patient was given flu [...] reaction to any injections in the past [id number] THALIA Cervantes (Adult Med) [address] [place] [address] 10/21/2017 13:52:13 10/21/2017 15:33:26 Tobacco dependence syndrome 57651371 F17.290 Advised to quit smoking Smoking 1/2ppd x 27 years Gastroesop hageal reflux disease 823089259 K21.9 Advised to stay away from spicy and greasy foodsAdvis ed to stay away from fatty foodsDo not eat within 2 hours of going to bedStay sitting up after mealsNo smokingPat ient to complete [facility] applicatio n today Adult heal th examination 625785944 Z00.01 45YO females here to establish care. Patient's only complaints are bilateral knee pain Fatigue 08547895 R53.83 Advised to drink plenty of water good sleep hygiene Screening for disorder 723221277 Z13.9 [id number] THALIA Cervantes (Adult Med) [address] [place] [address] 01/12/2018 08:48:05 01/12/2018 10:26:34 Has a sore throat 971139253 J02.9 Strep negative Allergic disposition 609 701206 Z91.09 Due to the patient having a [...] to quit smoking Tobacco de pendence syndrome 97128649 F17.290 Advised to quit smoking Smoking 1/4ppd down from 1/2ppd Vitamin D deficiency 347 86041 E55.9 Never picked up medication - will send to [facility] at this time to initiate weekly Gastroesop hageal reflux disease 373145336 K21.9 Advised to stay away from spicy and greasy foodsAdvis ed to stay away from fatty foodsDo not eat within 2 hours of going to bedStay sitting up after mealsNo smoking Has a GI apponitmen t in 2 months in March but doesn't know if she'll go because the omeprazole is working well [id number] CHRISTOS Peoples (Adult Med) [address] [place] [address] 11/11/2018 16:12:29 11/14/2018 09:02:14 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 She can breathe better, less wheezing by auscultati on after nebulizer treatment at this office. Nicotine dependence 5629 4008 F17.200 Advised patient to quit smoking for the good health and financial reasons. Chemical-i nduced asthma 21517657 J68.3 [id number] [facility] (Adult Med) [address] [place] [address] 12/18/2019 15:12:26 12/19/2019 08:51:53 Pruritic rash 26187192 L28.2 Itchy, painful rash with vesicles x 3 months.Pt has tried OTC antifungal without relief. 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 [id number] Karina Flores MD [facility] (Adult Med) [address] [place] [phone] 02/05/2020 15:35:22 02/07/2020 11:00:06 Pruritic disorder 999832964 L29.9 [id number] Karina Flores MD [facility] (Adult Med) [address] [place] [address] 04/23/2021 17:05:21 04/28/2021 13:21:59 Chronic obstructive pulmonary disease 56256020 J44.9 Smoker 83315742 F17.200 Advised her to quit smoking, also wants to try chantix. Bloating symptom 8649847 00 R14.0 Will do US at [facility] [place], operated by [facility]. Acute exac erbation of chronic obstructive pulmonary disease 013154134 J44.1 Discussed with patient , she understood [...] 1 *SELF PAY* Jovanna Boss 08/18/2019 1 [facility] [id number] Cara Remyla [id number] Cara Boss 12/18/2019 1 [facility] [id number] Cara Dunn Boss [id number] Cara Boss 02/05/2020 1 [facility] [id number] Cara Dunn Boss [id number] Cara Boss 04/23/2021 1 *SELF PAY* No [...] symptoms JULIA Peoples NP Attn: Accounting,[address] [place], [address], [facility] 11/11/2018 17:18:13 08/18/2019 text/html Chest congestion and cough foe about one week, a cigarettes smoker, NKDA. Karina Flores MD Attn: Accounting,[address] [place], [address], [facility] 08/18/2019 14:51:49 12/18/2019 [...] or dysuria. SERA CASILLAS Attn: Accounting,[address] [place], [address], [facility] 12/18/2019 17:13:54 02/05/2020 text/html Skin rashes , permethrin not working, NKDA, will try antifungal cream and steroid cream as well, she agreed. Karina Flores MD Attn: Accounting,[address] [facility], [place], [address], [facility] 02/05/2020 17:05:25 04/23/2021 text/html Office visit, right knee is much better after operation, wants refill inhalers, and chantix to help her to quit smoking. NKDA. also stomach bloated from time to time, no diarrhea or constipation no fever, no weight loss, no N/V. no health insurance. Karina Flores MD Attn: Accounting,[address] [facility], [place], [address], [facility] 04/23/2021 17:49:48 OBGyn Episode No OBEpisode recorded.
--- OUTSIDE RECORDS SUMMARY | 2024-11-22 13:46 | XMS_ITS | Data Portability ---
Author Organization [facility], Main Office Address [address] [place] [address] Care Team Providers Care Retail Support Manager Name Role Phone TRACE BELL Primary Care Provider [phone] Assessment No assessment recorded. Plan of Treatment Reminders Order Date Submit Date Provider Last Modified By Organization Details Last Modified Time Details Appointments Any 15 2024 03:30P NAHUM Pitt Not available Not available Not available Lab TSH, serum or plasma 2024 025 [facility], [address] , [place], [address], 10/11/2024 21:57:39 HbA1c (hemoglob in A1c), blood 2024 025 [facility], [address], [place], [address], 10/11/2024 21:57:40 CMP, serum or plasma 2024 025 [email or web address], [address], [place], [address], 10/11/2024 21:57:37 lipid panel, serum 2024 025 [facility], [address] , [place], [address], 10/11/2024 21:57:36 CBC w/ auto diff 2024 025 [facility], [address] , [place], [address], 10/11/2024 21:57:38 Referral otolaryng ologist referral - FNA inconclus el. 4.1 cm TIRADS 5 nodule on right thyroid lobe. Please call patient to schedule an appointme nt. Thank you. 2024 025 [email or web address] Nolan Ashton MD, [address] [facility] [address], [place], [address], 11/07/2024 08:38:18 Procedures None recorded. Surgeries None recorded. Imaging US, neck, soft tissue 2024 025 [facility], [address] [place] [address], [address], 11/10/2024 04:16:28 MAMMO, screening , digital, bilateral - Please call pt to schedule 2024 025 [facility], [address] [place] [address], [address], 11/02/2024 09:40:07 US, gallbladd er - Please call pt to schedule 2024 025 [facility], [address] [place] [address], [address], 11/02/2024 09:07:07 XR, knee 2022 023 [facility], [address] [place] [address], [address], 09/03/2023 16:51:19 Medication Orders metformin ER 500 mg tablet,ex tended release 24 hr 2024 025 [facility], [address] [place], [address], 10/17/2024 16:40:33 Medrol (Zak) 4 mg tablets in a dose pack 2024 025 [facility], [address] [facility], [place], [address], 10/17/2024 16:26:23 azithromy madeline 250 mg tablet [address], [address] [place] [address], [address], 10/17/2024 16:26:19 Airsupra 90 mcg-80 mcg/actua tion HFA aerosol inhaler 2024 025 [facility] [address], [address] [place] [address], [address], 10/06/2024 16:17:26 omeprazol e 40 mg capsule,d elayed release 2024 025 [facility] [address], [address] [place] [address], [address], 10/06/2024 16:17:27 bupropion HCl 150 mg tablet,12 hr sustained -release( smoking deterrent ) 2022 023 [place] [address], [address] [place] [address], [address], 10/06/2024 15:50:44 ibuprofen 800 mg tablet 2022 023 [facility] [address], [address] [place] [address], [address], 08/20/2023 17:23:26 prednison e 20 mg tablet [address], [address] [place] [address], [address], 10/06/2024 15:51:55 bupropion HCl 150 mg tablet,12 hr sustained -release( smoking deterrent ) 2022 023 [place] [address], [address] [place] [address], [address], 10/06/2024 15:50:44 benzonata te 200 mg capsule 2022 023 [place] [address] [facility], [address] [facility], [place], [address], 10/06/2024 15:50:39 Patient TargetsNo targets recorded. Patient Instructions Encounter Date Encounter Id Patient Instructions Last Modified By Organization Details Last Modified Time 10/17/2024 [id number] type 2 diabetes: care instructions [email or web address] Not available 10/17/2024 16:40:26 11/02/2024 [id number] so we will start from scratch and get an ultrasound for needle aspiration. [email or web address] Not available 11/02/2024 16:33:55 Reason for Referral Allergist Immunologist Referral fo r Mass of thyroid gland [...] total 210 mg/dL <200 high Not Available katena [place] [address] [place], [address], 10/11/2024 21:57:36 10/11/1910/11/2024 LIPID PANEL , STAND ANN MARIE HDL cholesterol 63 mg/dL > or = 50 normal Not Available katena [facility] [address] [place], [address], 10/11/2024 21:57:36 10/11/1910/11/2024 LIPID PANEL , STAND ANN MARIE triglyceride s 116 mg/dL <150 normal Not Available katena [facility] [address] [place], [address], 10/11/2024 21:57:36 10/11/1910/11/2024 LIPID PANEL , STAND ANN MARIE LDL-choleste rol 125 mg/dL _(yannick c) high Refer ence range : <100 Yvonne able range <100 mg/dL for prima ry preve ntion ; <70 mg/dL for patie nts with CHD or diabe tic patie nts with > or = 2 CHD risk facto rs. LDL-C is now calcu lated using the [facility] kins vamshi pimentel n, which is a valid ated novel metho d provi ding gilles r accur acy than the Fried sona equat ion in the estim ation of LDL-C . Bridget reid SS et al. VIOLETA. 2013; 310(1 9): 2061- 2068 (http ://ed ucati on.Qu estDi Rue89. com/f aq/FA Q164) Not Available [facility] [place] [address] [place], [address], 10/11/2024 21:57:36 10/11/19 25 10/11/2024 LIPID PANEL , STAND ANN MARIE chol/HDLC ratio 3.3 (calc ) <5.0 normal Not Available [place] [address] [place], [address], 10/11/2024 21:57:36 10/11/19 25 10/11/2024 LIPID PANEL , STAND ANN MARIE non HDL cholesterol 147 mg/dL _(yannick c) <130 high For patie nts with diabe isaías plus 1 major ASCVD risk facto r, treat ing to a non-H DL-C goal of <100 mg/dL (LDL- C of <70 mg/dL ) is consi shukrid a ayana ez colon optio n. Not Available [facility] [place] [address] [place], [address], 10/11/2024 21:57:36 10/11/19 25 10/11/2024 COMPR EHENS EL METAB OLIC PANEL glucose 91 mg/dL 65-139 normal Non-f astin g refer ence inter gilda Not Available katena [place] [address] [place], [address], 10/11/2024 21:57:37 10/11/19 25 10/11/2024 COMPR EHENS EL METAB OLIC PANEL urea nitrogen (BUN) 19 mg/dL 7-25 normal Not Available [address], [address], 10/11/2024 21:57:37 10/11/19 25 10/11/2024 COMPR EHENS EL METAB OLIC PANEL creatinine 0.85 mg/dL 0.50-1 .03 normal Not Available [address], [address], 10/11/2024 21:57:37 10/11/19 25 10/11/2024 COMPR EHENS EL METAB OLIC PANEL eGFR 82 mL/mi n/1.7 3m2 > or = 60 normal Not Available [address], [address], 10/11/2024 21:57:37 10/11/19 25 10/11/2024 COMPR EHENS EL METAB OLIC PANEL BUN/creatini ne ratio SEE NOTE: (calc ) 6-22 Not Repor amador: BUN and Creat inine are withi n refer ence range . Not Available [address], [address], 10/11/2024 21:57:37 10/11/19 25 10/11/2024 COMPR EHENS EL METAB OLIC PANEL sodium 141 mmol/ L 135-14 6 normal Not Available [address], [address], 10/11/2024 21:57:37 10/11/19 25 10/11/2024 COMPR EHENS EL METAB OLIC PANEL potassium 4.3 mmol/ L 3.5-5. 3 normal Not Available [address], [address], 10/11/2024 21:57:37 10/11/19 25 10/11/2024 COMPR EHENS EL METAB OLIC PANEL chloride 102 mmol/ L 98-110 normal Not Available [address] [place], [address], 10/11/2024 21:57:37 10/11/19 25 10/11/2024 COMPR EHENS EL METAB OLIC PANEL carbon dioxide 31 mmol/ L 20-32 normal Not Available [address], [address], 10/11/2024 21:57:37 10/11/19 25 10/11/2024 COMPR EHENS EL METAB OLIC PANEL calcium 9.7 mg/dL 8.6-10 .4 normal Not Available [address], [address], 10/11/2024 21:57:37 10/11/19 25 10/11/2024 COMPR EHENS EL METAB OLIC PANEL protein, total 6.9 g/dL 6.1-8. 1 normal Not Available [address], [address], 10/11/2024 21:57:37 10/11/19 25 10/11/2024 COMPR EHENS EL METAB OLIC PANEL albumin 4.4 g/dL 3.6-5. 1 normal Not Available [address], [address], 10/11/2024 21:57:37 10/11/19 25 10/11/2024 COMPR EHENS EL METAB OLIC PANEL globulin 2.5 g/dL_ (calc ) 1.9-3. 7 normal Not Available [address], [address], 10/11/2024 21:57:37 10/11/19 25 10/11/2024 COMPR EHENS EL METAB OLIC PANEL albumin/glob ulin ratio 1.8 (calc ) 1.0-2. 5 normal Not Available [address], [address], 10/11/2024 21:57:37 10/11/19 25 10/11/2024 COMPR EHENS EL METAB OLIC PANEL bilirubin, total 0.4 mg/dL 0.2-1. 2 normal Not Available [address], [address], 10/11/2024 21:57:37 10/11/19 25 10/11/2024 COMPR EHENS EL METAB OLIC PANEL alkaline phosphatase 64 U/L 37-153 normal Not Available [facility] [address], [address], 10/11/2024 21:57:37 10/11/19 25 10/11/2024 COMPR EHENS EL METAB OLIC PANEL AST 13 U/L 10-35 normal Not Available [address], [address], 10/11/2024 21:57:37 10/11/19 25 10/11/2024 COMPR EHENS EL METAB OLIC PANEL ALT 17 U/L 6-29 normal Not Available [address], [address], 10/11/2024 21:57:37 10/11/19 25 10/11/2024 CBC (INCL UDES DIFF/ PLT) white blood cell count 17.8 thous and/u L 3.8-10 .8 high Not Available [address], [address], 10/11/2024 21:57:38 10/11/19 25 10/11/2024 CBC (INCL UDES DIFF/ PLT) red blood cell count 5.02 orlin on/uL 3.80-5 .10 normal Not Available [address], [address], 10/11/2024 21:57:38 10/11/19 25 10/11/2024 CBC (INCL UDES DIFF/ PLT) hemoglobin 15.9 g/dL 11.7-1 5.5 high Not Available [address], [address], 10/11/2024 21:57:38 10/11/19 25 10/11/2024 CBC (INCL UDES DIFF/ PLT) hematocrit 48.6 % 35.0-4 5.0 high Not Available [address], [address], 10/11/2024 21:57:38 10/11/19 25 10/11/2024 CBC (INCL UDES DIFF/ PLT) MCV 96.8 fL 80.0-1 00.0 normal Not Available [address], [address], 10/11/2024 21:57:38 10/11/19 25 10/11/2024 CBC (INCL UDES DIFF/ PLT) MCH 31.7 pg 27.0-3 3.0 normal Not Available [address], [address], 10/11/2024 21:57:38 10/11/19 25 10/11/2024 CBC (INCL [...] nt's clini yannick condi tion. Not Available [facility] [address], [address], 10/11/2024 21:57:38 10/11/19 25 10/11/2024 CBC (INCL UDES DIFF/ PLT) RDW 12.8 % 11.0-1 5.0 normal Not Available [facility] [address], [address], 10/11/2024 21:57:38 10/11/19 25 10/11/2024 CBC (INCL UDES DIFF/ PLT) platelet count 397 thous and/u L 140-40 0 normal Not Available [address], [address], 10/11/2024 21:57:38 10/11/19 25 10/11/2024 CBC (INCL UDES DIFF/ PLT) MPV 9.6 fL 7.5-12 .5 normal Not Available [facility] [address], [address], 10/11/2024 21:57:38 10/11/19 25 10/11/2024 CBC (INCL UDES DIFF/ PLT) absolute neutrophils 80688 cells /uL 1500-7 800 high Not Available [address], [address], 10/11/2024 21:57:38 10/11/19 25 10/11/2024 CBC (INCL UDES DIFF/ PLT) absolute lymphocytes 3026 cells /uL 850-39 00 normal Not Available [address], [address], 10/11/2024 21:57:38 10/11/19 25 10/11/2024 CBC (INCL UDES DIFF/ PLT) absolute monocytes 1068 cells /uL 200-95 0 high Not Available [address], [address], 10/11/2024 21:57:38 10/11/19 25 10/11/2024 CBC (INCL UDES DIFF/ PLT) absolute eosinophils 0 cells /uL 15-500 low Not Available [address], [address], 10/11/2024 21:57:38 10/11/19 25 10/11/2024 CBC (INCL UDES DIFF/ PLT) absolute basophils 0 cells /uL 0-200 normal Not Available [address], [address], 10/11/2024 21:57:38 10/11/19 25 10/11/2024 CBC (INCL UDES DIFF/ PLT) neutrophils 77 % normal Not Available [address], [address], 10/11/2024 21:57:38 10/11/19 25 10/11/2024 CBC (INCL UDES DIFF/ PLT) lymphocytes 17 % normal Not Available [address], [address], 10/11/2024 21:57:38 10/11/19 25 10/11/2024 CBC (INCL UDES DIFF/ PLT) monocytes 6 % normal Not Available [address], [address], 10/11/2024 21:57:38 10/11/19 25 10/11/2024 CBC (INCL UDES DIFF/ PLT) eosinophils 0 % normal Not Available [address], [address], 10/11/2024 21:57:38 10/11/19 25 10/11/2024 CBC (INCL UDES DIFF/ PLT) basophils 0 % normal Not Available [address], [address], 10/11/2024 21:57:38 10/11/19 25 10/11/2024 CBC (INCL UDES DIFF/ PLT) comment(s) The smear has been manutima smith wed and the manua l diffe francesca al has been repor amador. Revluis w of the perip heral smear revea ls adequ ate numbe rs of plate lets. Not Available [address], [address], 10/11/2024 21:57:38 10/11/19 25 10/11/2024 TSH W/REF HARSHAD TO FT4 TSH w/reflex to FT4 1.13 mIU/L normal Refer ence Range > or = 20 Years 0.40- 4.50 Pregn monie Range s First trime ster 0.26- 2.66 Secon d trime ster 0.55- 2.73 Third trime ster 0.43- 2.91 Not Available katena [facility] [address] [place], [address], 10/11/2024 21:57:39 10/11/19 25 10/11/2024 HEMOG LOBIN [...] diabe isaías for child selene. Not Available katena [facility] [address] [address] , [place], [address], 10/11/2024 21:57:40 06/09/20 23 06/08/2023 fine needl e aspir ation , ultra sound guide d, thyro id (PROC ) No observ ation record ed. [facility] [address] [place] [address], [address], 10/06/2024 16:17:01 06/17/20 23 06/17/2023 XR, chest No observ ation record ed. [email or web address] [place] [id number] [facility] [address], [place], [address], 06/18/2023 10:25:44 09/03/20 23 09/03/2023 XR, knee No observ ation record ed. [email or web address] [address], [place], [address], 09/15/2023 15:23:23 09/03/20 23 09/03/2023 XR, knee No observ ation record ed. [address], [place], [address], 09/15/2023 15:23:24 11/02/19 25 11/01/2024 MAMMO , scree ed, digit al, bilat eral No observ ation record ed. [address] [place], [address], 11/03/2024 09:23:11 11/02/19 25 11/01/2024 US, gallb ladde r No observ ation record ed. [address] [place], [address], 11/03/2024 09:23:12 11/13/19 25 11/13/2024 US, thyro id No observ ation record ed. [email or web address] [address], [place], [address], 11/13/2024 14:10:05 11/20/19 25 11/20/2024 US, thyro id No observ ation record ed. [facility] [address], [place], [address], 11/20/2024 14:13:06 Result Notes None recorded. Problems Name Problem SNOMED Code Status Onset Date Resolution Date Notes Provider Name and Address Organization Details Recorded Time Osteoarth ritis of knee 796912041 Active Not Available [employer] 09:18:16 Current tear of medial cartilage AND/OR meniscus of knee Active NAHUM Cabrera [address], [place], [address] , [employer] [facility] 5 16:07:56 Pain in limb 84528010 Completed 10/06/2024 NAHUM Cabrera [address], [address], [place], [address] , [employer] [facility] 5 16:08:25 Cigarette smoker 04545608 Active 2022 NAHUM Burk [address], [place], [address] , [employer] [facility] 3 08:36:06 Transient cerebral ischemia 286650770 Active 2022 NAHUM Burk [address], [place], [address] , [employer] [facility] 3 08:39:57 Mass of thyroid gland 682550739 Active 2022 NAHUM Burk [address], [place], [address] , [employer] [facility] 3 08:44:58 Thyroid nodule 222747853 Active 2022 NAHUM Burk [address], [place], [address] , [employer] [facility] 3 08:45:29 Bronchiti s 27516884 Active 2022 ELVIRA Mackey [address], [place], [address] , [employer] [facility] 3 14:41:15 Nicotine dependenc e 36708855 Active 2022 KELLY MackeyC [address], [place], [address] , [employer] [facility] 3 14:42:30 Pain of bilateral knee joints 12232626594 4104 Completed 202210/06/2024 NAHUM Cabrera [address], [place], [address] , [employer] 16:08:29 Right upper quadrant pain 639443988 Active 2024 NAHUM Cabrera [address], [place], [address] , [employer] 16:12:04 Asthma 679436033 Active 2024 NAHUM Cabrera [address], [place], [address] , [employer] 16:12:53 Morbid obesity 760796415 Active 2024 NAHUM Cabrera [address], [place], [address] , [employer] 16:16:27 Overweigh t 197446621 Active 2024 NAHUM Cabrera [address], [place], [address] , [employer] 16:16:32 Type 2 diabetes mellitus 04017449 Active 2024 NAHUM Cabrera [address], [place], [address] , [employer] 16:31:52 Cholelith iasis without obstructi on 75428572 Active 2024 NAHUM Cabrera [address], [place], [address] , [employer] 09:20:57 Notes:Some problems listed i n Document: #[id number] could not be added to this patient's chart. Please review this document and add these problems to the patient's chart manually as needed. Problem Notes None recorded. Procedures Surgical History None recorded. Imaging Results Imaging Date Name Status LastModified by Organ ation Details LastModified Time 06/08/2023 fine needle aspiration, ultrasound guided, thyroid (PROC) completed [address], [address], 10/06/2024 16:17:01 06/17/2023 XR, chest completed [address], [address], 06/18/2023 10:25:44 09/03/2023 XR, knee completed [address], [address], 09/15/2023 15:23:23 09/03/2023 XR, knee completed [address], [address], 09/15/2023 15:23:24 11/01/2024 MAMMO, screening, digital, bilateral completed [address] [place], [address], 11/03/2024 09:23:11 11/01/2024 US, gallbladder completed [address] [place], [address], 11/03/2024 09:23:12 11/13/2024 US, thyroid completed [address], [address], 11/13/2024 14:10:05 11/20/2024 US, thyroid completed [facility] [address], [place], [address], 11/20/2024 14:13:06 Procedure Notes None recorded. Medical Equipment None Reported. Allergies Allergen ID Allergen Name Allergen Category Reaction Reaction Severity Criticality Documentation Date Start Date Code Code System Note Provider Name and Address Organization Details Recorded Time 80449 iohexol medicatio n Not available Not available Not available 02/26/2023 5956 RxNorm Caroline Martinez RN null, [place] [facility] [place] [employer] 15:49:44 Medications Name Sig Start Date Stop [...] Updated DateTime 3 165.1 cm 26.1 kg/m2 67310 g 97.4 [degF] 99 /min 96 % 96 % 114 mm[Hg] 70 mm[Hg] Zoë Weber [facility] [employer] 3 14:36:49 Date Recorded Body height Body mass index (BMI) Body weight Body temperature Heart rate Oxygen saturation Oxygen saturation in Arterial blood by Pulse oximetry Systolic blood pressure Diastolic blood pressure Provider Name and Address Organization Details Last Updated DateTime 3 165.1 cm 25.8 kg/m2 00305.8 2 g 97.7 [degF] 88 /min 96 % 96 % 114 mm[Hg] 72 mm[Hg] Tracy velarde [facility] [employer] 3 17:02:42 Date Recorded Body weight Body mass index (BMI) Body height Body temperature Heart rate Respiratory rate Oxygen saturation Oxygen saturation in Arterial blood by Pulse oximetry Pain severity - 0-10 verbal numeric rating [Score] - Reported Systolic blood pressure Diastolic blood pressure Provider Name and Address Organization Details Last Updated DateTime 5 08437.2 9 g 26.5 kg/m2 165.1 cm 97.2 [degF] 85 /min 20 /min 98 % 98 % 8 134 mm[Hg] 70 mm[Hg] Caroline Martinez RN [facility] [employer] [facility] 15:55:10 Date Recorded Body height Body mass index (BMI) Body weight Body temperature Heart rate Respiratory rate Oxygen saturation Oxygen saturation in Arterial blood by Pulse oximetry Pain severity - 0-10 verbal numeric rating [Score] - Reported Systolic blood pressure Diastolic blood pressure Provider Name and Address Organization Details Last Updated DateTime 165.1 cm 26.8 kg/m2 99709.1 2 g 97.3 [degF] 82 /min 20 /min 97 % 97 % 0 140 mm[Hg] 82 mm[Hg] Caroline Martinez RN [facility] [employer] [facility] 16:26:09 Date Recorded Body height Body mass index (BMI) Body weight Body temperature Provider Name and Address Organization Details Last Updated DateTime 11/02/2024 165.1 cm 26.9 kg/m2 18165.25 g 98.1 [degF] Gracie Goodrich RN [facility] [employer] [facility] 11/02/2024 16:24:15 Social History Question Answer Notes LastModified by Organizat ion Details LastModified Time Tobacco Smoking Status Current Every Day Smoker Not Available [employer] 12/02/2022 09:13:19 Do You Have An Advance Directive? No Information not available 10/06/2024 What Is Your Level Of Alcohol Consumption? Occasional [id number] Information not available 12/02/2022 If You Are , What Was Your Level Of Alcohol Consumption Prior To ? None [id number].[id number] Information not available 12/02/2022 What Is Your Level Of Caffeine Consumption? Occasional MIGRATION.52456 [id number] Information not available 12/02/2022 In The 14 Days Before Symptom Onset, Have You Had Close Contact With A Laboratory-confi rmed COVID-19 While That Case Was Ill? No [id number] Information not available 12/02/2022 In The 14 Days Before Symptom Onset, Have You Had Close Contact With A Person Who Is Under Investigation For COVID-19 While That Person Was Ill? No MIGRATION.[id number] Information not available 12/02/2022 Are You Currently Employed? Yes Information not available 10/06/2024 What Type Of Diet Are You Following? REGULAR MIGRATION.02590 [id number] Information not available 12/02/2022 What Is Your Occupation? [employer] Information not available 10/06/2024 Have There Been Any Changes To Your Family Or Social Situation? No Information not available 10/06/2024 Do You Use Insect Repellent Routinely? No Information not available 10/06/2024 Where Do You Live? SingleLevelHouse Information not available 10/06/2024 Do You Have A Medical Power Of [place] Helper? No Information not available 10/06/2024 How Many Children Do You Have? 4 Information not available 10/06/2024 What Is Your Current Pack Years? 10-19packyears MIGRATION.88579 [id number] Information not available 12/02/2022 Have You Ever Been Counseled For Unhealthy Alcohol Use? No MIGRATION.96448 [id number] Information not available 12/02/2022 Do You Have [...] Anxious, Or Unable To Sleep At Night)? [id number] Information not available 02/26/2023 Do You Use Any Illicit Or Recreational Drugs? No MIGRATION.67914 23982 Information not available 12/02/2022 Do You Use Sunscreen Routinely? No Information not available 10/06/2024 Has Tobacco Cessation Counseling Been Provided? No MIGRATION.96893 [id number] Information not available 12/02/2022 How Many Years Have You Smoked Tobacco? 42 Information not available 10/06/2024 Have You Recently Traveled Abroad? No MIGRATION.73629 12810 Information not available 12/02/2022 Do You Have Any Dietary Restrictions? No MIGRATION.23560 99807 Information not available 12/02/2022 Do You Or Have You Ever Used Any Other Forms Of Tobacco Or Nicotine? No MIGRATION.00360 90361 Information not available 12/02/2022 Sex: Unknown Functional Status Question Answer Note LastModified by [employer] ion Details LastModified Time What is your exercise level? Moderate [id number] Information not available 12/02/2022 Mental Status None recorded. Family History Relationship Description Onset Age of this Age Resolved Age Notes LastModified by Organization Details LastModified Time Mother Leukemia [email or web address] Not availa ble 11/02/2024 16:16:12 Mother Diabetes mellitus [id number] Not available 12/02/2022 09:13:53 Son Neoplasm of brain [email or web address] Not available 10/06 16:16:12 Notes:THYROID PROBLEM: MOTHE [...] quadrivalent, PF 08/20/2023 completed ELVIRA Mackey [address] [facility] [facility] [address], [place], [address], [place] [facility] 08/20/2023 18:02:23 Tdap 09/18/2022 completed Not Available [facility] 12/02/2022 09:26:20 Influenza, split virus, quadrivalent, PF 09/18/2022 completed Not Available [facility] 09:26:20 Past Encounters Encounter ID Performer Location Encounter Start Date Encounter Closed Date Diagnosis/Indication Diagnosis SNOMED-CT Code Diagnosis ICD10 Code Diagnosis Note [id number] [facility] [address] [place] [address] [address] [place] [address] 11/14/2021 00:00:00 11/14/2021 15:43:37 [id number] [facility] [address] [place] [address] [address] [place] [address] 12/19/2021 00:00:00 12/19/2021 16:49:56 [id number] [facility] [address] [place] [address] [address] [place] [address] 02/26/2022 00:00:00 02/26/2022 16:13:41 [id number] [facility] [address] [place] [address] [address] [place] [address] 08/07/2022 00:00:00 08/07/2022 17:58:55 [id number] [facility] [address] [place] [address] [address] [place] [address] 09/18/2022 00:00:00 09/18/2022 18:17:18 [id number] NAHUM Burk [facility] [address] [place] [address] [address] [place] [address] 02/26/2023 08:10:15 02/26/2023 09:13:56 Cigarette smoker [id number] F17.210 Encouraged smoking cessation. Smoking cessation counseling and techniques reviewed at length with pt. Literature reviewed. Avoid triggers, support groups. Discussed cessation options (counselin g, medication s, e-cigarett es, patches, alternativ e therapies) . New rx for nicotine 14mg patch daily. Transient cerebral ischemia [id number] G45.[address] scan/MRI (02/16/23)- No visible drooping or weakness of left side on examinatio n today.Enco uraged pt to actively work on smoking cessation d/t increased riskContin ue daily ASA 81mg and Atorvastat in 40mg daily Thyroid nodule [id number] E04.1 New finding on inpatient imagingRec ommendatio n is for FNA. Order generated [id number] NAHUM Burk [facility] Primary Care [facility] [address] [place] [address] 03/26/2023 14:19:23 03/26/2023 16:23:18 Transient cerebral ischemia 363030791 G45.9 No recurrence of sx since last visit.Inpa tient CT scan/MRI (02/16/23)- indicates normal aging brainNo visible drooping or weakness of left side on examinatio n today.Enco uraged pt to actively work on smoking cessation d/t increased riskContin ue daily ASA 81mg and Atorvastat in 40mg dailyWill continue to monitor closely Cigarette smoker [id number] F17.210 No improvemen t with 14mg nicotine patchesEnc ouraged smoking cessation. Smoking cessation counseling and techniques reviewed at length with pt. Literature reviewed. Avoid triggers, support groups. Discussed cessation options (counselin g, medication s, e-cigarett es, patches, alternativ e therapies) . New rx for nicotine 14mg patch daily. Thyroid nodule 284182867 E04.1 New finding on inpatient thyroid u/s (02/16/23)R ecommendat ion is for FNA. Order generated last visit. Pt did not receive call to schedule, will have staff f/u and resubmit. [id number] ELVIRA Mackey [facility] Primary Care [address] [place] [address] 06/25/2023 14:32:10 06/25/2023 14:54:12 Bronchitis 77952341 J40 Was in [place] [facility] for this issues-giv en benzonatat e and inhaler and was d/ccurrent ly a smoker-edu cated and given new medication will refill benzonatat eStill has plenty of the inhaler at home, Nicotine dependence 5629 4008 F17.200 currently smoke 1/2ppdhas tried using the patches without resolution continues use of fake cigarette as distractor Would like to try another optionwill start buproprion [id number] NAHUM Mackey-Natalie [facility] Primary Care [facility] [address] [place] [address] 08/20/2023 16:55:38 08/23/2023 14:44:09 Nicotine dependence 62854246 F17.200 -currenlty smoking 4 cigs/day-c ontinues use of fake cigarette as needed-carmen l give 3 months of refills Pain of bi lateral knee joints [id number] 29762 M25.561 -pt notes pain to luis armando [...] 1 month Administra tion of influenza vaccine 78983929 Z23 [id number] NAHUM Cabrera [address] [address] 10/06/2024 15:39:54 10/06/2024 16:47:43 Adult health examination 879331888 Z00.00 Health maintenanc e reviewedDi scussed diet and exercisePa tient questions answered Mass of thyroid gland 23 5799342 E04.9 Right uppe r quadrant pain 138392429 R10.11 Bronchitis 07448059 J40 Asthma 235394666 J45.90 9 Screening mammography 24 240992 Z12.31 Overweight 845142865 E66 .3 [id number] NAHUM Cabrera [address] [address] 10/17/2024 16:12:57 10/18/2024 10:40:14 Type 2 diabetes mellitus 28948540 E11.9 Newly diagnosed, A1C 6.5 10/11/24In terested in [facility] recheck in 3 month Mass of thyroid gland 23 0123474 E04.9 Patient advised to FU with ENT [id number] Nolan Ashton MD [facility] [address] [place] [address] 11/02/2024 16:15:59 11/03/2024 07:33:16 Thyroid nodule 440779096 E04.1 Health Concerns Section Related Observation LastModified by Organization Detai ls LastModified Time None Recorded Concern Status LastModified by Organization Details LastModified Time None Recorded Advance Directives Directive N: Payers Encounter Date Sequence Insurance Name Policy Number Policy Street Covered Member ID Street Member ID Guarantor Name 06/25/[address] [facility] [id number] Cara M Boss [id number] Cara M Boss 08/20/2023 1 [facility] [id number] Cara M Boss [id number] Cara M Boss 10/06/2024 1 [employer] [id number] Cara M Boss [id number] Cara M Boss 10/17/2024 1 [employer] [id number] Cara M Boss [id number] Cara M Boss 11/02/2024 1 [facility] [id number] Cara M Boss [id number] Cara M Boss Notes Date Note Type Note Provider Name and Address Organization Details Recorded Time 06/25/2023 text/html Pt is here to f/ u on bronchitis ELVIRA Mackey [address] [facility] [place] [address], [place], [address], [employer] 06/25/2023 15:17:28 08/20/2023 text/html Pt is here for 2 week f/u NAHUM Mackey-Natalie [address] [facility] [address] [facility] [facility] [address], [place], [address], [employer] 08/20/2023 18:02:28 10/06/2024 text/html Cara Boss is [...] okay per pt Trace Bell, NAHUM [address] [facility], [place], [address], [employer] 10/06/2024 16:45:59 10/17/2024 text/html Cara Boss is [...] olonoscopy: 2022, okay per pt Trace Bell, [employer] [address], [place], [address], [employer] 10/17/2024 16:40:50 11/02/2024 text/html This patient had a needle biopsy in 2022 which was insufficient for diagnosis. She had a a new ultrasound in February of 2023 and this revealed a 4.1 cm TI-RADS 5 nodule.. Evidently this has never been adequately settled. Nolan Ashton MD [address] [facility], [place], [address], [facility] [place] [facility] 11/02/2024 16:34:26 OBGyn Episode No OBEpisode recorded.
[2024-11-22 13:51] VITALS: BP 147/71; PULSE 73; RESP 16; TEMP 36.6; O2SAT 96
[2024-11-22 14:26] LABS: BEDSIDEPREGUCG Negative (Negative)
--- OUTSIDE RECORDS SUMMARY | 2024-11-22 14:33 | XMS_ITS | Clinical Summary ---
Author Organization [facility] Address [address] [place] [id number] Care Team Providers Care Cold Strip Roller Name Role Phone Unavailable Primary Care Provider [...]
[2024-11-22 14:34] LABS: Hematocrit 46.4 % (37.0-47.0); Hemoglobin 15.6 g/dL (12.0-15.0); Mean Corpuscular HGB Conc 33.6 g/dl (32-36); Mean Corpuscular Hemoglobin 31.7 pg (26-34); Mean Corpuscular Volume 94.3 fl (80-100); Platelet Count Result 344 k/mm3 (150-375); Red Blood Count 4.92 M/mm3 (4.2-5.4); Red Cell Distribution Width 13.2 % (11.5-14.5)
[2024-11-22 14:43] LABS: Add Urine Microscopic? YES; Appearance Urine Cloudy (Clear); Bacteria Urine None Seen /hpf; Bilirubin Urine Negative (Negative); Blood Urine Negative (Negative); Color Urine Yellow (Yellow); Glucose Urine UA Negative (Negative); Ketones Urine Negative (Negative); Leukocyte Esterase Ur Negative LEU/UL (Negative); Nitrate Urine Negative (Negative); Non Pathogenic Casts 0-2; Protein Urine Negative (Negative); RBC Urine 0-2 /hpf (0-2); Specific Grav Ur 1.015 (1.001-1.035); Squamous Epithelial Cell Urine None Seen /hpf (Few); WBC Urine 0-5 /hpf (0-3)
[2024-11-22 14:47] LABS: Alanine Aminotransferase 157 U/L (6-35); Albumin Level 4.3 g/dL (3.5-5.1); Alkaline Phosphatase 80 U/L (38-126); Anion Gap 7 mmol/L (4-12); Aspartate Amino Transferase 126 U/L (14-36); Bilirubin,Total 1.4 mg/dL (0.2-1.3); Blood Urea Nitrogen 13 mg/dL (7-17); Calcium 9.7 mg/dL (8.4-10.2); Carbon Dioxide 29 mmol/L (22-30); Chloride 101 mmol/L (98-107); Estimated CRCL calculation 68 ml/min; Estimated Glomerular Filt Rate > 60; Glucose 111 mg/dL (65-110); Lipase 27 U/L (23-300); Potassium 3.8 mmol/L (3.4-5.0); Sodium 137 mmol/L (137-145)
[2024-11-22 15:05] LABS: Band Neutrophils Percent 1 % (0-6); Eosinophils Absolute Manual 0.21 K/mm3 (0.02-0.50); Eosinophils Percent Manual 1 % (0-4); Lymphocytes Absolute Manual 2.94 K/mm3 (1.1-4.5); Monocytes Absolute Manual 0.84 K/mm3 (0.1-0.90); Monocytes Percent Manual 4 % (3-9); Neutrophils Absolute Manual 17.01 K/mm3 (1.7-7.2); Neutrophils Percent Manual 80 % (46-73); Total Cells Counted 100
[2024-11-22 15:06] LABS: Platelet Estimate Adequate (Adequate); Schistocytes None Seen
[2024-11-22 15:07] LABS: Platelet Clumps Present
[2024-11-22] MEDS: ONDANSETRON INJ 4 MG/2 ML VIAL IV PUSH (15:16)
[2024-11-22] MEDS: MORPHINE SULFATE (*CRX) 4 MG/ML INJ IV PUSH ×4 (15:16→23:06)
[2024-11-22] MEDS: PANTOPRAZOLE SODIUM IV 40 MG VIAL IV PUSH (15:16)
--- NOTE | 2024-11-22 15:25 | ECG_ITS ---
Test Date: 2024-11-22 15:30:57 Measurements Intervals [place] Rate: 89 P: 52 [place]: 111 QRS: 70 QRSD: 93 T: 64 QT: 359 QTc: 439 Interpretive Statements SINUS RHYTHM WITH SHORT AZ INTERVAL BASELINE ARTIFACT- I, II, III, AVR, AVL, V1 BORDERLINE ECG Compared to ECG 11/13/2024 11:33:32 Short [place] interval now present Electronically Signed On 11-22-2024 15:37:29 CUSTOMER OPERATIONS INTERN by Gael Almanzar D.O.
--- NOTE | 2024-11-22 16:23 | ED.GENADULT ---
HPI - General Adult General Chief complaint: Recheck/Abnormal Lab/Rx Stated complaint: post surgery pain Time Seen by Provider: 11/22/24 14:00 History of Present Illness HPI narrative: Patient is a 54-year-old female who presents ER with abdominal pain. Two days postop from a cholecystectomy. Pain is been increasing. She is passing gas. Severe pain in the right lower quadrant mildly in the right upper quadrant. Has discomfort in her right shoulder and upper neck. No fevers or chills. No alleviating factors. Related Data Home Medications ?Medication ?Instructions ?Recorded ?Confirmed ?Last Taken ?Type aspirin 81 mg tablet,delayed 81 mg PO DAILY 11/10/24 11/20/24 11/19/24 History release (Adult Low Dose Aspirin) metformin 500 mg tablet,extended 500 mg PO DAILY 11/10/24 11/20/24 11/19/24 History release 24 hr omeprazole 40 mg capsule,delayed 40 mg PO DAILY 11/10/24 11/20/24 11/19/24 History release Allergies Allergy/AdvReac Type Severity Reaction Status Date / Time Iodinated Contrast Media Allergy Dyspnea / Verified 11/22/24 14:17 SOB iohexol (From contrast - CT, Allergy Dyspnea / Verified 11/22/24 14:17 X-RAY) SOB Review of Systems Review of Systems: All systems reviewed & are unremarkable except as noted in HPI and below Constitutional: Constitutional: Reports no additional constitutional complaints Cardiovascular: Cardiovascular: Reports no additional cardiovascular complaints Respiratory: Respiratory: Reports no additional respiratory complaints Gastrointestinal: Gastrointestinal: Reports no additional gastrointestinal complaints [facility] Past Medical History Medical History (Updated 11/22/24 @ 18:10 by Rommel Cavanaugh MD) Asthma Anxiety Helicobacter pylori gastritis (03/2022) Heavy alcohol use Tobacco use disorder, continuous Chronic pain Lumbar spondylosis Cervical spondylosis Overweight (BMI 25.0-29.9) Surgical History Surgical History (Updated 11/09/24 @ 15:16 by Gerri Draek) History of esophagogastroduodenoscopy (EGD) (03/2022) Biopsies demonstrating chronic gastritis with H pylori Normal colonoscopy (03/2022) H/O hysterectomy for benign disease (~2007) laparoscopic with vaginal partial hysterectomy for uterine fibroids Family History Family History Mother Acute leukemia Diabetes mellitus Hypertension Thyroid condition Social History Social History (Updated 11/09/24 @ 14:41 by Damon Mitchell MA) Social History: She lives at home with her of 33 years and there 19 year old. They have a total of 4 children with you oldest being 28 years old. She drinks 4 beers a day and has done so for many years. She smokes half a pack of cigarettes per day and started smoking at 14 years old. She uses marijuana gummies to help with her chronic back pain. Code status: Full code Surrogate decision maker: Smoking packs per day: 0.5 Smoking cigarettes per day: 10.0 Years smoked: 38 Smoking pack-years: 19.00 Smoking status: Current every day smoker Tobacco type: cigarettes Second hand tobacco smoke exposure: No Alcohol intake: current Drinks per week: 4 Alcohol use details: 1 drink/day Substance use: current Substance use type: marijuana Do You Feel Safe in your Home?: Yes Lack of Transportation: No Lack of Food: Never True Current Housing: I Have Housing Concerned About Future Housing: No Difficulty Paying Gas/Electric Bills: No Difficulty Paying for Meds: No Currently Unemployed: No Education: High School Diploma/GED Difficulty w/ Childcare or Family Care: No Living arrangements: alone Spiritual care concerns: No Exam Narrative: GENERAL: Well-appearing, well-nourished, and in no acute distress. HEAD: Normocephalic, atraumatic. ENT: Mucous membranes moist. CHEST: Clear to auscultation. No respiratory distress. HEART: Regular rate and rhythm. Normal peripheral pulses. ABDOMEN: Soft, tender palpation with guarding most notable in the right lower quadrant but also in right upper quadrant, nondistended. EXTREMITIES: Normal range of motion. No edema. SKIN: Warm, dry, no rash. Surgical incision sites mildly red and bruised but no overt infection or dehiscence. NEURO: Alert and oriented x3. PSYCH: Normal mood and affect. Course Course Emergency Course: Discussed with General surgery. Appropriate for admission observation. Will need to evaluate for bile leak given leukocytosis and elevation in transaminases/bilirubin with fluid noted on CT. It is not recommended to give antibiotics at this time. Patient family aware of diagnosis and treatment plan. Vital Signs Vital signs: Vital Signs Temperature 97.8 F 11/22/24 13:51 Pulse Rate 73 11/22/24 13:51 Respiratory Rate 16 11/22/24 13:51 Blood Pressure 147/71 H 11/22/24 13:51 Pulse Oximetry 96 11/22/24 13:51 Oxygen Delivery Room Air 11/22/24 13:51 Temperature 97.8 F 11/22/24 13:51 Pulse Rate 91 11/22/24 17:16 Respiratory Rate 18 11/22/24 17:16 Blood Pressure 115/64 11/22/24 17:16 Pulse Oximetry 94 11/22/24 17:16 Oxygen Delivery Room Air 11/22/24 13:51 Medical Decision Making Vital Signs Vital Signs: Vital Signs Temperature 97.8 F 11/22/24 13:51 Pulse Rate 73 11/22/24 13:51 Respiratory Rate 16 11/22/24 13:51 Blood Pressure 147/71 H 11/22/24 13:51 Pulse Oximetry 96 11/22/24 13:51 Oxygen Delivery Room Air 11/22/24 13:51 Temperature 97.8 F 11/22/24 13:51 Pulse Rate 91 11/22/24 17:16 Respiratory Rate 18 11/22/24 17:16 Blood Pressure 115/64 11/22/24 17:16 Pulse Oximetry 94 11/22/24 17:16 Oxygen Delivery Room Air 11/22/24 13:51 Lab Data 11/22/24 14:25 11/22/24 14:25 Labs: Lab Results 11/22/24 11/22/24 Range/Units 14:24 14:25 WBC 21.0 H (4.5-10.0) K/mm3 RBC 4.92 (4.2-5.4) M/mm3 Hgb 15.6 H (12.0-15.0) g/dL Hct 46.4 (37.0-47.0) % MCV 94.3 (80-100) fl MCH 31.7 (26-34) pg MCHC 33.6 (32-36) g/dl RDW 13.2 (11.5-14.5) % Plt Count 344 (150-375) k/mm3 MPV 9.0 (7.4-10.4) fl Immature Gran % (Auto) Not Reportable Neut % (Auto) Not Reportable Lymph % (Auto) Not Reportable Gregory % (Auto) Not Reportable Eos % (Auto) Not Reportable Baso % (Auto) Not Reportable Lymph # (Auto) Not Reportable Gregory # (Auto) Not Reportable Eos # (Auto) Not Reportable Baso # (Auto) Not Reportable Abs Immat Gran (auto) Not Reportable Absolute Neuts (auto) Not Reportable Absolute Nucleated RBC Not Reportable Total Counted 100 Neutrophils % (Manual) 80 H (46-73) % Band Neutrophils % 1 (0-6) % Lymphocytes % (Manual) 14.0 L (18-44) % Monocytes % (Manual) 4 (3-9) % Eosinophils % (Manual) 1 (0-4) % Nucleated RBC % Not Reportable Abs Neuts (Manual) 17.01 H (1.7-7.2) K/mm3 Abs Lymphs (Manual) 2.94 (1.1-4.5) K/mm3 Abs Monocytes (Manual) 0.84 (0.1-0.90) K/mm3 Absolute Eos (Manual) 0.21 (0.02-0.50) K/mm3 Platelet Estimate Adequate (Adequate) Clumped Platelets Present Schistocytes None seen Sodium 137 (137-145) mmol/L Potassium 3.8 (3.4-5.0) mmol/L Chloride 101 (98-107) mmol/L Carbon Dioxide 29 (22-30) mmol/L Anion Gap 7 (4-12) mmol/L BUN 13 (7-17) mg/dL Creatinine 0.75 (0.7-1.0) mg/dL Estim Creat Clear Calc 68 ml/min Estimated GFR > 60 (59 - ) Glucose 111 H (65-110) mg/dL Calcium 9.7 (8.4-10.2) mg/dL Total Bilirubin 1.4 H (0.2-1.3) mg/dL AST 126 H (14-36) U/L ALT 157 H (6-35) U/L Alkaline Phosphatase 80 (38-126) U/L Total Protein 7.0 (6.3-8.2) g/dL Albumin 4.3 (3.5-5.1) g/dL Lipase 27 (23-300) U/L Urine Color Yellow (Yellow) Urine Appearance Cloudy H (Clear) Urine pH 8.0 (5.0-9.0) Ur Specific [place] 1.015 (1.001-1.035) Urine Protein Negative (Negative) mg/dL Urine Glucose (UA) Negative (Negative) mg/dL Urine Ketones Negative (Negative) mg/dL Ur Blood (Man) Negative (Negative) Urine Nitrate Negative (Negative) Urine Bilirubin Negative (Negative) Urine Urobilinogen 1.0 (<2.0) mg/dL Leukocyte Esterase Rfl Negative (Negative) DRU/UL Urine RBC 0-2 (0-2) /hpf Urine WBC 0-5 (0-3) /hpf Ur Squamous Epith Cells None seen (Few) /hpf Urine Bacteria None seen /hpf Urine Casts 0-2 POC Urine HCG, Qual Negative (Negative) Imaging Data Radiologist's impression: ITS Impressions Abdomen/Pelvis CT 11/22/24 15:54 IMPRESSION: 1. Small volume of ascites. Discharge Plan Discharge Clinical Impression: Post-operative pain, Transaminitis, Abdominal ascites Patient Disposition: Still a Patient Condition: Stable
[2024-11-22 17:16] VITALS: BP 115/64; PULSE 91; RESP 18; O2SAT 94
[2024-11-22] MEDS: SODIUM CHLORIDE 0.9% IV 1,000 ML 125 ML IV CONT (18:12)
[2024-11-22 19:36] VITALS: BP 120/71; PULSE 87; RESP 18; O2SAT 96
[2024-11-22 22:38] VITALS: BP 128/77; PULSE 91; RESP 17; O2SAT 99
[2024-11-23 00:22] VITALS: BMI 26.5
--- NOTE | 2024-11-23 00:23 | ADMGEN ---
This patient, Cara Boss, was admitted to 2 Medical Room 261-01. Patient/family oriented to hospital policies and general routines including ID bracelet, bed and alarms, visiting hours, pain management, procedures, bathroom and other care routines, personal items, smoking policy, room service/diet, and visiting hours. Information on how to activate the Rapid Response Team has been discussed. Patient/Family are encouraged to report perceived risks to care and to ask questions if they do not understand what they are told or what they should do.
[2024-11-23 00:30] VITALS: BP 150/77; PULSE 116; RESP 18; TEMP 37.2; O2SAT 97
[2024-11-23] MEDS: ONDANSETRON INJ 4 MG/2 ML VIAL IV PUSH ×3 (00:40→20:10)
[2024-11-23] MEDS: MORPHINE SULFATE (*CRX) 4 MG/ML INJ IV PUSH ×5 (00:41→20:10)
[2024-11-23 01:09] VITALS: O2SAT 97
[2024-11-23] MEDS: SODIUM CHLORIDE 0.9% IV 1,000 ML 125 ML IV CONT ×3 (02:21→22:49)
[2024-11-23 05:47] VITALS: BP 129/68; PULSE 113; RESP 16; TEMP 36.9; O2SAT 95
[2024-11-23] MEDS: ACETAMINOPHEN 325 MG TABLET 650 MG PO (07:55)
--- NOTE | 2024-11-23 08:55 | PM.IMHP ---
H&P: [facility] History of Present Illness Date/Time: 11/23/24 08:55 Chief Complaint: RUQ abdominal pain Narrative: This is a 54-year-old woman who underwent laparoscopic cholecystectomy on 11/20/[address] Yo for biliary colic secondary to cholelithiasis/polyp. She returned home that day and was initially feeling as expected. She had some soreness, but no significant pain. Around midnight that night, she had a sudden onset of right upper quadrant pain. Her pain has been constant with no alleviating factors. She has tried taking the oxycodone, Tylenol, and ibuprofen without relief. She reports associated nausea and was unable to eat much over the past few days. No vomiting or fevers. She was able to tolerate liquids. Denies any dark orange colored urine. No bowel movement since surgery, but is passing some flatus. Due to her persistent pain, she came into the ED yesterday for evaluation. In the ED, vital signs were stable and she was afebrile. Labs showed a white blood cell count of 21,000, total bilirubin 1.4, AST 126, ALT 157, alk-phos 80. Lipase normal. CT scan of the abdomen and pelvis showed changes of a cholecystectomy and small volume ascites. She was admitted for postoperative pain and to rule out postoperative bile leak. She is seen on medical floor in still complaining of right upper quadrant pain. She also reports right shoulder pain since surgery. EKG in the ED showed sinus rhythm with no ischemic changes. No alleviating factors, no shortness of breath, no other complaints. Review of Systems Review of Systems: All systems reviewed & are unremarkable except as noted in HPI and below [facility] Past Medical History Medical History (Updated 11/23/24 @ 09:13 by NAHUM Araiza) Asthma Anxiety Helicobacter pylori gastritis (03/2022) Heavy alcohol use Tobacco use disorder, continuous Chronic pain Lumbar spondylosis Cervical spondylosis Overweight (BMI 25.0-29.9) Surgical History Surgical History Status post laparoscopic cholecystectomy History of esophagogastroduodenoscopy (EGD) (03/2022) Biopsies demonstrating chronic gastritis with H pylori Normal colonoscopy (03/2022) H/O hysterectomy for benign disease (~2007) laparoscopic with vaginal partial hysterectomy for uterine fibroids Family History Family History Mother Acute leukemia Diabetes mellitus Hypertension Thyroid condition Social History Social History Social History: She lives at home with her of 33 years and there 19 year old. They have a total of 4 children with you oldest being 28 years old. She drinks 4 beers a day and has done so for many years. She smokes half a pack of cigarettes per day and started smoking at 14 years old. She uses marijuana gummies to help with her chronic back pain. Code status: Full code Surrogate decision maker: Smoking packs per day: 0.5 Smoking cigarettes per day: 10.0 Years smoked: 38 Smoking pack-years: 19.00 Smoking status: Current every day smoker Second hand tobacco smoke exposure: No Alcohol intake: current Drinks per week: 4 Alcohol use details: 1 drink/day Substance use: current Substance use type: marijuana Other substance usage details: marijuana gummies for back pain Do You Feel Safe in your Home?: Yes Lack of Transportation: No Lack of Food: Never True Current Housing: I Have Housing Concerned About Future Housing: No Difficulty Paying Gas/Electric Bills: No Difficulty Paying for Meds: No Currently Unemployed: No Education: High School Diploma/GED Difficulty w/ Childcare or Family Care: No Living arrangements: alone Spiritual care concerns: No Meds Home Medications and Allergies Home Medications ?Medication ?Instructions ?Recorded ?Confirmed ?Type aspirin 81 mg tablet,delayed 81 mg PO DAILY 11/10/24 11/23/24 History release (Adult Low Dose Aspirin) metformin 500 mg tablet,extended 500 mg PO DAILY 11/10/24 11/23/24 History release 24 hr omeprazole 40 mg capsule,delayed 40 mg PO DAILY 11/10/24 11/23/24 History release oxycodone 5 mg tablet 5 mg PO Q6H PRN pain #15 tabs 11/20/24 11/23/24 Rx Allergies Allergy/AdvReac Type Severity Reaction Status Date / Time Iodinated Contrast Media Allergy Dyspnea / Verified 11/22/24 14:17 SOB iohexol (From contrast - CT, Allergy Dyspnea / Verified 11/22/24 14:17 X-RAY) SOB Vital Signs Vital Signs - 24 hr 11/22/24 13:51 11/22/24 17:16 11/22/24 19:36 Temperature 97.8 F Pulse Rate 73 91 87 Respiratory Rate 16 18 18 Blood Pressure 147/71 H 115/64 120/71 Pulse Oximetry 96 94 96 Oxygen Delivery Room Air Oxygen Flow Rate 11/22/24 22:38 11/23/24 00:30 11/23/24 01:09 Temperature 99 F Pulse Rate 91 116 H Respiratory Rate 17 18 Blood Pressure 128/77 150/77 H Pulse Oximetry 99 97 97 Oxygen Delivery Nasal Cannula Oxygen Flow Rate 1 11/23/24 05:47 Temperature 98.4 F Pulse Rate 113 H Respiratory Rate 16 Blood Pressure 129/68 Pulse Oximetry 95 Oxygen Delivery Oxygen Flow Rate Exam Const: General: comfortable and no acute distress Nutritional Appearance: average body habitus Orientation/consciousness: patient oriented x3 HENMT: Head: normocephalic and atraumatic Ears: hearing grossly normal bilaterally Mouth: Yes moist mucous membranes Eyes: General: appearance normal, both eyes and all related structures Pupils: Equal, round and reactive pupils present Neck: Neck: normal visual inspection and full ROM Resp: Effort & Inspection: no respiratory distress Auscultation: clear to auscultation bilaterally Cardio: Rate: regular rate Rhythm: regular rhythm Peripheral pulses: Peripheral pulses 2+ throughout GI: Inspection: non-distended, incision (incisions with minimal localized ecchymosis at umbilical and epigastric inc) and other (no drainage or erythema around incisions) GI Palp: Yes Soft to palpation, Yes Tenderness to palpation present (GI) (mild tenderness diffusely but more focal tenderness in RUQ), Yes Guarding due to palpation present (GI) (RUQ), Yes No hepatosplenomegaly present and No Rebound tenderness present Auscultation: normal bowel sounds Skin: General skin exam: normal color Neuro: General: moves all extremities and no focal motor deficits Speech: normal speech Motor exam (neuro): 5/5 motor strength present throughout Extrem: General: normal to inspection, no calf tenderness and no edema Psych: Mental Status: mental status grossly normal Attitude: cooperative Insight: Good insight present (Psych) Judgement: Good judgement present (Psych) H&P: Results Labs Labs: Short CBC 11/22/24 Range/Units 14:25 WBC 21.0 H (4.5-10.0) K/mm3 Hgb 15.6 H (12.0-15.0) g/dL Hct 46.4 (37.0-47.0) % Plt Count 344 (150-375) k/mm3 BMP 11/22/24 14:25 Sodium 137 Potassium 3.8 Chloride 101 Carbon Dioxide 29 BUN 13 Creatinine 0.75 Glucose 111 H Calcium 9.7 Liver Function 11/22/24 Range/Units 14:25 Total Bilirubin 1.4 H (0.2-1.3) mg/dL AST 126 H (14-36) U/L ALT 157 H (6-35) U/L Alkaline Phosphatase 80 (38-126) U/L Albumin 4.3 (3.5-5.1) g/dL Urine 11/22/24 Range/Units 14:25 Urine Color Yellow (Yellow) Urine Appearance Cloudy H (Clear) Urine pH 8.0 (5.0-9.0) Ur Specific [place] 1.015 (1.001-1.035) Urine Protein Negative (Negative) mg/dL Urine Glucose (UA) Negative (Negative) mg/dL Imaging CT scan - abdomen: Radiologist's impression: ITS Impressions Abdomen/Pelvis CT 11/22/24 15:54 IMPRESSION: 1. Small volume of ascites. Assessment and Plan Assessment and plan (1) Leukocytosis: Code(s): D72.829 - Elevated white blood cell count, unspecified Status: Acute Assessment and Plan: The patient is postop day 3 following a laparoscopic cholecystectomy for biliary colic. She developed RUQ pain about 12 hours after surgery that has remained constant and is uncontrolled. Her workup showed a WBC count of 21,000 and mildly elevated LFTs with a total bilirubin of 1.4. CT scan showed a small volume of ascites with changes of a cholecystectomy. We have ordered a HIDA scan today to rule out possible postoperative bile leak. I will also add IV Zosyn while undergoing further workup for a bile leak in the setting of her leukocytosis. Her incisions are healing well without signs of an infection. Her only other complaint is right shoulder pain and nausea. PRN Zofran is also available as needed. Will repeat her labs today while awaiting further workup. Will keep her NPO for now with IV fluids for HIDA scan. (2) Transaminitis: Code(s): R74.01 - Elevation of levels of liver transaminase levels Status: Acute Assessment and Plan: See plan above. (3) Status post laparoscopic cholecystectomy: Code(s): Z90.49 - Acquired absence of other specified parts of digestive tract Status: Acute Assessment and Plan: 11/20/24 (4) Post-operative pain: Code(s): G89.18 - Other acute postprocedural pain Status: Acute (5) Chronic pain: Code(s): G89.29 - Other chronic pain Status: Acute Plan I have discussed the patient's case and plan of care with Dr. Yo.
[2024-11-23 11:13] LABS: Hematocrit 44.7 % (37.0-47.0); Hemoglobin 14.6 g/dL (12.0-15.0); Mean Corpuscular HGB Conc 32.7 g/dl (32-36); Mean Corpuscular Hemoglobin 32.1 pg (26-34); Mean Corpuscular Volume 98.2 fl (80-100); Mean Platelet Volume 9.1 fl (7.4-10.4); Platelet Count Result 273 k/mm3 (150-375); Red Blood Count 4.55 M/mm3 (4.2-5.4); Red Cell Distribution Width 13.6 % (11.5-14.5); White Blood Count 14.8 K/mm3 (4.5-10.0)
[2024-11-23] MEDS: PIPERACILLN/TAZ 3.375GM/NS50ML 3.375 GM/50 ML BAG IVPB ×3 (11:22→20:10)
[2024-11-23 11:26] LABS: Alanine Aminotransferase 268 U/L (6-35); Albumin Level 3.6 g/dL (3.5-5.1); Alkaline Phosphatase 113 U/L (38-126); Anion Gap 8 mmol/L (4-12); Aspartate Amino Transferase 136 U/L (14-36); Bilirubin,Total 2.2 mg/dL (0.2-1.3); Blood Urea Nitrogen 16 mg/dL (7-17); Calcium 9.3 mg/dL (8.4-10.2); Carbon Dioxide 26 mmol/L (22-30); Chloride 105 mmol/L (98-107); Estimated CRCL calculation 60 ml/min; Estimated Glomerular Filt Rate > 60; Glucose 92 mg/dL (65-110); Sodium 139 mmol/L (137-145)
[2024-11-23 14:00] VITALS: BP 116/51; PULSE 88; RESP 18; TEMP 37.3; O2SAT 93
--- NOTE | 2024-11-23 17:50 | P.CONGI_ITS ---
Assessment and Plan Assessment and plan (1) Status post laparoscopic cholecystectomy: Code(s): Z90.49 - Acquired absence of other specified parts of digestive tract Status: Acute Assessment and Plan: the patient developed intense abdominal pain 24 hours post-operatively. Her clinical course has been complicated by increasing abdominal pain and peritoneal signs, raising concern for a biliary leak despite a negative HIDA scan. Given the persistent clinical suspicion, she will be closely monitored, including serial assessment of her abdominal exam and trending of transaminase levels. If her clinical status or laboratory values do not improve, an ERCP with planned biliary stent placement will be considered GI Consult Note Consult date/time: 11/23/24 17:50 HPI: Cara Boss, a 54-year-old female, underwent a laparoscopic cholecystectomy on Wednesday. On Wednesday evening, she began experiencing progressively worsening abdominal pain, initially localized to the epigastric region, accompanied by nausea. As the pain intensified, she presented to the emergency room, where she was found to have elevated transaminase levels and hyperbilirubinemia. A HIDA scan was performed and was negative for a bile leak. This afternoon, Ms. Boss reports severe, generalized abdominal pain, exacerbated by walking. Review of Systems 2 Review of Systems: All systems reviewed & are unremarkable except as noted in HPI and below PMFSH Past Medical History Medical History (Updated 11/23/24 @ 09:13 by NAHUM Araiza) Asthma Anxiety Helicobacter pylori gastritis (03/2022) Heavy alcohol use Tobacco use disorder, continuous Chronic pain Lumbar spondylosis Cervical spondylosis Overweight (BMI 25.0-29.9) Surgical History Surgical History Status post laparoscopic cholecystectomy History of esophagogastroduodenoscopy (EGD) (03/2022) Biopsies demonstrating chronic gastritis with H pylori Normal colonoscopy (03/2022) H/O hysterectomy for benign disease (~2007) laparoscopic with vaginal partial hysterectomy for uterine fibroids Family History Family History Mother Acute leukemia Diabetes mellitus Hypertension Thyroid condition Social History Social History Social History: She lives at home with her of 33 years and there 19 year old. They have a total of 4 children with you oldest being 28 years old. She drinks 4 beers a day and has done so for many years. She smokes half a pack of cigarettes per day and started smoking at 14 years old. She uses marijuana gummies to help with her chronic back pain. Code status: Full code Surrogate decision maker: Smoking packs per day: 0.5 Smoking cigarettes per day: 10.0 Years smoked: 38 Smoking pack-years: 19.00 Smoking status: Current every day smoker Second hand tobacco smoke exposure: No Alcohol intake: current Drinks per week: 4 Alcohol use details: 1 drink/day Substance use: current Substance use type: marijuana Other substance usage details: marijuana gummies for back pain Do You Feel Safe in your Home?: Yes Lack of Transportation: No Lack of Food: Never True Current Housing: I Have Housing Concerned About Future Housing: No Difficulty Paying Gas/Electric Bills: No Difficulty Paying for Meds: No Currently Unemployed: No Education: High School Diploma/GED Difficulty w/ Childcare or Family Care: No Living arrangements: alone Spiritual care concerns: No Meds Home Medications and Allergies Home Medications ?Medication ?Instructions ?Recorded ?Confirmed ?Type aspirin 81 mg tablet,delayed 81 mg PO DAILY 11/10/24 11/23/24 History release (Adult Low Dose Aspirin) metformin 500 mg tablet,extended 500 mg PO DAILY 11/10/24 11/23/24 History release 24 hr omeprazole 40 mg capsule,delayed 40 mg PO DAILY 11/10/24 11/23/24 History release oxycodone 5 mg tablet 5 mg PO Q6H PRN pain #15 tabs 11/20/24 11/23/24 Rx Allergies Allergy/AdvReac Type Severity Reaction Status Date / Time Iodinated Contrast Media Allergy Dyspnea / Verified 11/22/24 14:17 SOB iohexol (From contrast - CT, Allergy Dyspnea / Verified 11/22/24 14:17 X-RAY) SOB Vital Signs Vital Signs - 24 hr 11/22/24 19:36 11/22/24 22:38 11/23/24 00:30 Temperature 99 F Pulse Rate 87 91 116 H Respiratory Rate 18 17 18 Blood Pressure 120/71 128/77 150/77 H Pulse Oximetry 96 99 97 Oxygen Delivery Oxygen Flow Rate 11/23/24 01:09 11/23/24 05:47 11/23/24 08:00 Temperature 98.4 F Pulse Rate 113 H Respiratory Rate 16 Blood Pressure 129/68 Pulse Oximetry 97 95 Oxygen Delivery Nasal Cannula Room Air Oxygen Flow Rate 1 Exam 2 Narrative: Pt with distress, walking around in her room. Abdomen : markedly tender to deep palpation especially in upper quadrants, (+) rebound. Rest of the examination within normal limits. Results Labs 11/23/24 11:06 11/23/24 11:06 Labs: Short CBC 11/23/24 Range/Units 11:06 WBC 14.8 H (4.5-10.0) K/mm3 Hgb 14.6 (12.0-15.0) g/dL Hct 44.7 (37.0-47.0) % Plt Count 273 (150-375) k/mm3 BMP 11/23/24 11:06 Sodium 139 Potassium 4.0 Chloride 105 Carbon Dioxide 26 BUN 16 Creatinine 0.86 Glucose 92 Calcium 9.3 Liver Function 11/23/24 Range/Units 11:06 Total Bilirubin 2.2 H (0.2-1.3) mg/dL AST 136 H (14-36) U/L ALT 268 H (6-35) U/L Alkaline Phosphatase 113 (38-126) U/L Albumin 3.6 (3.5-5.1) g/dL
[2024-11-23 20:56] VITALS: BP 106/62; PULSE 103; RESP 18; TEMP 37.1; O2SAT 91
[2024-11-23 21:11] VITALS: O2SAT 91
[2024-11-24] MEDS: ONDANSETRON INJ 4 MG/2 ML VIAL IV PUSH ×2 (02:05→06:26)
[2024-11-24] MEDS: MORPHINE SULFATE (*CRX) 4 MG/ML INJ IV PUSH ×2 (02:05→06:26)
[2024-11-24] MEDS: PIPERACILLN/TAZ 3.375GM/NS50ML 3.375 GM/50 ML BAG IVPB ×2 (03:00→08:38)
[2024-11-24 05:09] VITALS: BP 123/50; PULSE 88; RESP 18; TEMP 37.1; O2SAT 95
[2024-11-24 06:38] LABS: Hematocrit 37.9 % (37.0-47.0); Mean Corpuscular HGB Conc 31.7 g/dl (32-36); Mean Corpuscular Hemoglobin 31.6 pg (26-34); Mean Corpuscular Volume 99.7 fl (80-100); Mean Platelet Volume 9.3 fl (7.4-10.4); Platelet Count Result 254 k/mm3 (150-375); Red Cell Distribution Width 13.4 % (11.5-14.5); White Blood Count 9.7 K/mm3 (4.5-10.0)
[2024-11-24 06:42] LABS: Alanine Aminotransferase 165 U/L (6-35); Albumin Level 2.8 g/dL (3.5-5.1); Alkaline Phosphatase 110 U/L (38-126); Anion Gap 7 mmol/L (4-12); Aspartate Amino Transferase 61 U/L (14-36); Blood Urea Nitrogen 11 mg/dL (7-17); Calcium 8.6 mg/dL (8.4-10.2); Carbon Dioxide 24 mmol/L (22-30); Chloride 105 mmol/L (98-107); Estimated CRCL calculation 59 ml/min; Estimated Glomerular Filt Rate > 60; Glucose 80 mg/dL (65-110); Potassium 3.6 mmol/L (3.4-5.0); Sodium 136 mmol/L (137-145)
--- NOTE | 2024-11-24 07:17 | WPDGIPROGNO ---
Progress Note: A&P Assessment and Plan (1) Status post laparoscopic cholecystectomy: Code(s): Z90.49 - Acquired absence of other specified parts of digestive tract Status: Acute Assessment and Plan: Patient status Post-laparoscopic cholecystectomy, with a suspected biliary leak . The patient's clinical course has been stable, with a favorable trend in white blood cell count, transaminases, and bilirubin. Surgical consultation is planned for this morning. ERCP will be deferred at this time, provided the patient remains clinically stable. The current physical exam findings are suggestive of a spontaneously sealed leak with residual bile peritonitis. Time Spent With Patient Time with patient: less than 15 minutes Subjective Date/time seen: 11/24/24 07:17 Interval history: The patient still has diffuse abdominal pain, unchanged from yesterday's afternoon evaluation. No fever, nausea or vomiting. Exam Narrative: Not jaundiced. Abdomen: Bowel sounds present, soft, diffusely tender to deep palpation, rebound present in upper quadrants. Objective Data Vital Signs Vital Signs: Vital Signs - 24 hr 11/23/24 08:00 11/23/24 14:00 11/23/24 20:00 Temperature 99.2 F Pulse Rate 88 Respiratory Rate 18 Blood Pressure 116/51 L Pulse Oximetry 93 Oxygen Delivery Room Air Room Air Oxygen Flow Rate 11/23/24 20:56 11/23/24 21:11 11/24/24 05:09 Temperature 98.8 F 98.7 F Pulse Rate 103 H 88 Respiratory Rate 18 18 Blood Pressure 106/62 123/50 L Pulse Oximetry 91 91 95 Oxygen Delivery Nasal Cannula Oxygen Flow Rate 1 Intake/Output Intake/Output: Intake & Output 11/21/24 11/22/24 11/23/24 11/24/24 23:59 23:59 23:59 23:59 Intake Total 3390 650 Balance 3390 650 Meds/Results Medications: Active Medications Generic Name Dose Route Start Last Admin Trade Name Freq PRN Reason Stop Dose Admin Acetaminophen 650 mg 11/22/24 16:36 11/23/24 07:55 Acetaminophen 325 Mg Tablet PO 650 mg Q4H PRN Administration Mild Pain (1-3) or Fever Hydrocodone Bitart/Acetaminophen 1 tab 11/22/24 16:36 Hydrocodone/Acetaminophen (*Crx) 5-325 Mg Tablet PO Q4H PRN Pain Rated 4-6 Aspirin 81 mg 11/24/24 09:00 Aspirin 81 Mg Enteric Tablet PO DAILY KOJO Sodium Chloride 1,000 mls @ 125 mls/hr 11/22/24 16:40 11/23/24 22:49 Normal Saline Iv IV CONT 125 mls/hr .Q8H KOJO Administration Piperacillin/Tazobactam/Dextrose 3.375 gm in 50 mls @ 100 mls/hr 11/23/24 09:00 11/24/24 03:30 Zosyn 3.375 Gm/Ns 50 Ml IVPB Infused Q6H KOJO Infusion Morphine Sulfate 4 mg 11/22/24 16:36 11/24/24 06:26 Morphine Sulfate (*Crx) 4 Mg/Ml Inj IV PUSH 4 mg Q2H PRN Administration Pain Rated 7-10 Ondansetron HCl 4 mg 11/22/24 16:36 11/24/24 06:26 Ondansetron Inj 4 Mg/2 Ml Vial IV PUSH 4 mg Q4H PRN Administration Nausea Pantoprazole Sodium 40 mg 11/24/24 09:00 Pantoprazole Sodium Iv 40 Mg Vial IV PUSH QAM [facility] Radiology Results: ITS Impressions Abdomen/Pelvis CT 11/22/24 15:54 IMPRESSION: 1. Small volume of ascites. Hepatobiliary Scan Nuclear Medicine 11/23/24 11:24 IMPRESSION: 1. Normal postcholecystectomy hepatobiliary scan with no biliary obstruction or bile leak. Labs Labs: Laboratory Results - last 24 hr 11/23/24 11/24/24 11:06 05:43 WBC 14.8 H 9.7 RBC 4.55 3.80 L Hgb 14.6 12.0 Hct 44.7 37.9 MCV 98.2 99.7 MCH 32.1 31.6 MCHC 32.7 31.7 L RDW 13.6 13.4 Plt Count 273 254 MPV 9.1 9.3 Sodium 139 136 L Potassium 4.0 3.6 Chloride 105 105 Carbon Dioxide 26 24 Anion Gap 8 7 BUN 16 11 D Creatinine 0.86 0.88 Estim Creat Clear Calc 60 59 Estimated GFR > 60 > 60 Glucose 92 80 Calcium 9.3 8.6 Total Bilirubin 2.2 H 2.0 H Direct Bilirubin 0.0 AST 136 H 61 H ALT 268 H 165 H Alkaline Phosphatase 113 110 Total Protein 6.0 L 6.0 L Albumin 3.6 2.8 L
[2024-11-24] MEDS: SODIUM CHLORIDE 0.9% IV 1,000 ML 125 ML IV CONT ×3 (07:22→22:23)
[2024-11-24] MEDS: PANTOPRAZOLE SODIUM IV 40 MG VIAL IV PUSH (08:38)
[2024-11-24] MEDS: ASPIRIN 81 MG ENTERIC TABLET PO (08:38)
--- NOTE | 2024-11-24 09:34 | WPDPN ---
Progress Note: A&P Assessment and Plan (1) Postoperative bile leak: Code(s): K91.89 - Other postprocedural complications and disorders of digestive system; K83.8 - Other specified diseases of biliary tract Status: Acute Assessment and Plan: Patient likely had a postoperative bile leak after laparoscopic cholecystectomy earlier this week that was relatively small and there is no bile leak now on HIDA scan. It is likely stop spontaneously. Given the limited amount of ascites in the abdomen there is no need to perform drainage of the mi in the abdomen at this time. Total bilirubin is now decreasing and she is feeling better. Continue with supportive management. White blood count is now normal. Will stop IV antibiotics. Advance diet as tolerated. Likely goes home tomorrow. Subjective Date/time seen: 11/24/24 09:34 Interval history: Patient is feeling better today. Much less abdominal pain. She is up walking around the room and in the hallways. Minimal nausea. White blood count is normalized to 9000. Total bilirubin has decreased from 2.4 to 2.0. HIDA scan yesterday showed no evidence of bile leak. Exam GI: Other: Abdomen is soft and nondistended. Minimal diffuse tenderness. Port site incisions are healing well. Objective Data Vital Signs Vital Signs: Vital Signs - 24 hr 11/23/24 14:00 11/23/24 20:00 11/23/24 20:56 Temperature 37.3 C 37.1 C Pulse Rate 88 103 H Respiratory Rate 18 18 Blood Pressure 116/51 L 106/62 Pulse Oximetry 93 91 Oxygen Delivery Room Air Oxygen Flow Rate 11/23/24 21:11 11/24/24 05:09 Temperature 37.1 C Pulse Rate 88 Respiratory Rate 18 Blood Pressure 123/50 L Pulse Oximetry 91 95 Oxygen Delivery Nasal Cannula Oxygen Flow Rate 1 Intake/Output Intake/Output: Intake & Output 11/21/24 11/22/24 11/23/24 11/24/24 23:59 23:59 23:59 23:59 Intake Total 3390 1810.4 Balance 3390 1810.4 Meds/Results Medications: Active Medications Generic Name Dose Route Start Last Admin Trade Name Freq PRN Reason Stop Dose Admin Acetaminophen 650 mg 11/22/24 16:36 11/23/24 07:55 Acetaminophen 325 Mg Tablet PO 650 mg Q4H PRN Administration Mild Pain (1-3) or Fever Hydrocodone Bitart/Acetaminophen 1 tab 11/22/24 16:36 Hydrocodone/Acetaminophen (*Crx) 5-325 Mg Tablet PO Q4H PRN Pain Rated 4-6 Aspirin 81 mg 11/24/24 09:00 11/24/24 08:38 Aspirin 81 Mg Enteric Tablet PO 81 mg DAILY KOJO Administration Sodium Chloride 1,000 mls @ 125 mls/hr 11/22/24 16:40 11/24/24 08:39 Normal Saline Iv IV CONT 125 mls/hr .Q8H KOJO Administration Piperacillin/Tazobactam/Dextrose 3.375 gm in 50 mls @ 100 mls/hr 11/23/24 09:00 11/24/24 08:38 Zosyn 3.375 Gm/Ns 50 Ml IVPB 100 mls/hr Q6H KOJO Administration Morphine Sulfate 4 mg 11/22/24 16:36 11/24/24 06:26 Morphine Sulfate (*Crx) 4 Mg/Ml Inj IV PUSH 4 mg Q2H PRN Administration Pain Rated 7-10 Ondansetron HCl 4 mg 11/22/24 16:36 11/24/24 06:26 Ondansetron Inj 4 Mg/2 Ml Vial IV PUSH 4 mg Q4H PRN Administration Nausea Pantoprazole Sodium 40 mg 11/24/24 09:00 11/24/24 08:38 Pantoprazole Sodium Iv 40 Mg Vial IV PUSH 40 mg QAM KOJO Administration Radiology Results: ITS Impressions Abdomen/Pelvis CT 11/22/24 15:54 IMPRESSION: 1. Small volume of ascites. Hepatobiliary Scan Nuclear Medicine 11/23/24 11:24 IMPRESSION: 1. Normal postcholecystectomy hepatobiliary scan with no biliary obstruction or bile leak. Labs Labs: Laboratory Results - last 24 hr 11/23/24 11/24/24 11:06 05:43 WBC 14.8 H 9.7 RBC 4.55 3.80 L Hgb 14.6 12.0 Hct 44.7 37.9 MCV 98.2 99.7 MCH 32.1 31.6 MCHC 32.7 31.7 L RDW 13.6 13.4 Plt Count 273 254 MPV 9.1 9.3 Sodium 139 136 L Potassium 4.0 3.6 Chloride 105 105 Carbon Dioxide 26 24 Anion Gap 8 7 BUN 16 11 D Creatinine 0.86 0.88 Estim Creat Clear Calc 60 59 Estimated GFR > 60 > 60 Glucose 92 80 Calcium 9.3 8.6 Total Bilirubin 2.2 H 2.0 H Direct Bilirubin 0.0 AST 136 H 61 H ALT 268 H 165 H Alkaline Phosphatase 113 110 Total Protein 6.0 L 6.0 L Albumin 3.6 2.8 L
[2024-11-24] MEDS: oxyCODONE HCL (*CRX) 5 MG TAB IR PO (11:40)
[2024-11-24] MEDS: MAGNESIUM HYDROXIDE SUSP 30 ML UDC PO (13:21)
[2024-11-24] MEDS: diphenhydrAMINE HCl CAP 25 MG CAPSULE PO (13:48)
[2024-11-24 14:00] VITALS: BP 109/68; PULSE 78; RESP 20; TEMP 37.2; O2SAT 90
[2024-11-24] MEDS: traMADol HCL (*CRX) 50 MG TABLET PO (17:23)
[2024-11-24 20:00] VITALS: PULSE 72; RESP 18; O2SAT 94
[2024-11-24 21:18] VITALS: BP 125/62; PULSE 72; RESP 18; TEMP 37.1; O2SAT 94
[2024-11-25] MEDS: traMADol HCL (*CRX) 50 MG TABLET PO ×2 (02:16→08:56)
[2024-11-25 06:00] VITALS: BP 122/60; PULSE 70; RESP 18; TEMP 36.8; O2SAT 92
[2024-11-25 06:19] LABS: Hematocrit 39.5 % (37.0-47.0); Hemoglobin 12.8 g/dL (12.0-15.0); Mean Corpuscular HGB Conc 32.4 g/dl (32-36); Mean Corpuscular Hemoglobin 31.7 pg (26-34); Mean Corpuscular Volume 97.8 fl (80-100); Mean Platelet Volume 8.7 fl (7.4-10.4); Platelet Count Result 277 k/mm3 (150-375); Red Blood Count 4.04 M/mm3 (4.2-5.4); Red Cell Distribution Width 13.1 % (11.5-14.5); White Blood Count 8.3 K/mm3 (4.5-10.0)
[2024-11-25 07:43] LABS: Alanine Aminotransferase 131 U/L (6-35); Albumin Level 3.4 g/dL (3.5-5.1); Alkaline Phosphatase 107 U/L (38-126); Anion Gap 5 mmol/L (4-12); Aspartate Amino Transferase 37 U/L (14-36); Bilirubin,Total 1.2 mg/dL (0.2-1.3); Blood Urea Nitrogen 8 mg/dL (7-17); Calcium 8.9 mg/dL (8.4-10.2); Carbon Dioxide 26 mmol/L (22-30); Chloride 107 mmol/L (98-107); Estimated CRCL calculation 66 ml/min; Estimated Glomerular Filt Rate > 60; Glucose 86 mg/dL (65-110); Potassium 4.1 mmol/L (3.4-5.0); Sodium 138 mmol/L (137-145)
[2024-11-25] MEDS: PANTOPRAZOLE 40 MG TABLET PO (08:57)
[2024-11-25] MEDS: ASPIRIN 81 MG ENTERIC TABLET PO (08:58)
--- NOTE | 2024-11-25 11:00 | PM.DS ---
DS: Admitting Diagnosis Discharge Date 11/25/2024 Admitting Diagnosis postoperative bile leak DS: Discharge Diagnosis Discharge Diagnosis (1) Postoperative bile leak: Code(s): K91.89 - Other postprocedural complications and disorders of digestive system; K83.8 - Other specified diseases of biliary tract Status: Acute Assessment and Plan: small bile leak status post cholecystectomy, spontaneously sealed and resolved, home with continued routine postoperative care, prescription given for tramadol, follow-up with Dr. Yo in 2 weeks DS: Summary Hospital Course Reason for hospitalization: postoperative bile leak Hospital Course: The patient is a 54-year-old female presenting with a small postoperative bile leak status post laparoscopic cholecystectomy. Patient initially complaining of severe upper abdominal pain, labs significant for leukocytosis and transaminitis. Through her hospital stay, the patient's exam became completely benign and her labs normalized. No intervention was required as the leak likely a resolved spontaneously and sealed. The patient did have a postoperative ileus that was treated with bowel regimen. The patient will be discharged with tramadol. She has been given instructions for routine postoperative care. She will follow up with Dr. Yo in 2 weeks. Status at Discharge Functional status at discharge: independent ambulation Overall status at discharge: patient is progressing back to baseline Time Spent with Patient Time attestation: Total time spent providing and/or coordinating discharge services: Time spent: Less than 30 minutes Exam Const: General: cooperative, comfortable and no acute distress Resp: Auscultation: clear to auscultation bilaterally Cardio: Rate: regular rate Rhythm: regular rhythm GI: Inspection: normal to inspection, non-distended and incision GI Palp: Yes abdominal tenderness, Yes Soft to palpation, Yes Tenderness to palpation present (GI), No Guarding due to palpation present (GI) and No Rigid due to palpation DS: Data Data Completed and Pending Labs on day of discharge: Labs from last 24 hours 11/25/24 06:11 WBC 8.3 RBC 4.04 L Hgb 12.8 Hct 39.5 MCV 97.8 MCH 31.7 MCHC 32.4 RDW 13.1 Plt Count 277 MPV 8.7 Sodium 138 Potassium 4.1 Chloride 107 Carbon Dioxide 26 Anion Gap 5 BUN 8 Creatinine 0.78 Estim Creat Clear Calc 66 Estimated GFR > 60 Glucose 86 Calcium 8.9 Total Bilirubin 1.2 AST 37 H ALT 131 H Alkaline Phosphatase 107 Total Protein 6.0 L Albumin 3.4 L Discharge Plan Discharge Attending physician on discharge: Kilo Yo Discharging Clinician: Kilo Yo Anticipated Discharge Date/Time: 11/25/24 14:00 Patient Disposition: Home, Self-Care Activity: may shower Diet: as tolerated Wound Care Instructions: other - see discharge instructions Discharge Instructions: Continue prior post laparoscopic cholecystectomy discharge instructions. Patient Instructions: Antibiotic Form Patient Language: [place] Stand Alone Forms: General Discharge Information Follow-up/Referrals: Kilo Yo MD [Physician] - (Follow-up Dr. Yo as previously scheduled) Discharge Medications: New tramadol 50 mg tablet 50 mg PO Q6H PRN (Reason: pain) Qty: 20 0RF Continued omeprazole 40 mg capsule,delayed release(DR/EC) 40 mg PO DAILY metformin 500 mg tablet extended release 24 hr 500 mg PO DAILY aspirin [Adult Low Dose Aspirin] 81 mg tablet,delayed release (DR/EC) 81 mg PO DAILY Discontinued oxycodone 5 mg tablet 5 mg PO Q6H PRN (Reason: pain) Qty: 15 0RF Date of admission: 11/23/24 10:54 Primary Care Provider: Ras,Sunni Waters Admitting Provider: Kilo Yo Attending physician on admission: Kilo Yo Condition: Stable
[2024-11-25] MEDS: BISACODYL 10 MG SUPPOSITORY RECTAL (11:35)
[2024-11-25] MEDS: polyethylene glycoL 3350 17 GM POWD.PACK PO (11:35)
[2024-11-25] MEDS: SODIUM CHLORIDE 0.9% IV 1,000 ML 125 ML IV CONT (11:35)
[2024-11-25 14:00] VITALS: BP 103/52; PULSE 72; RESP 18; TEMP 31.1; O2SAT 90
== END 2024-11-25 15:31 | disposition home or self-care (01) | DRG 394 ==
LOC: ANHED 15:21 → ANH3MEDSUR 17:18 → ANH2MED 23:37
PROVIDERS: Nurse Practitioner Family; Physician Assistant; Admitting Provider Surgery; Emergency Provider Emergency Medicine; Visit Provider Surgery
DX: K91.89 Other postprocedural complications and disorders of digestive system (principal); K56.7 Ileus, unspecified; K83.8 Other specified diseases of biliary tract; D72.829 Elevated white blood cell count, unspecified; Z90.49 Acquired absence of other specified parts of digestive tract; F17.210 Nicotine dependence, cigarettes, uncomplicated
CPT/HCPCS: 36415; 74176; 78226; 80048; 80053; 80076; 81001; 81025; 83690; 85025; 85027; 93005; 96365; 96366; 96374; 96375; 96376; 99285; A9270; A9537; G0378; J2270; J2405; J2470; J2543; J7030

== ENCOUNTER 2025-02-28 14:16 | Outpatient (CLI) | payer OTHER, SELFPAY ==
--- NOTE | ~2025-02-28 | US_ITS ---
US thyroid INDICATION: Thyroid nodule follow-up. Bilateral thyroid masses recommended for biopsy on prior examin ation dated 11/13/2024. TECHNIQUE: Real-time sonographic images of the thyroid gland were obtained. COMPARISON: Comparison to multiple prior studies sequentially, with oldest reviewed study dated 02/16. FINDINGS: The right thyroid lobe measures 7.6 x 3.1 x 2.6 cm. There are multiple masses of the right lobe, largest measuring 2.8 x 2.5 x 2.3 cm which is almost completely solid, hypoechoic, wider than t all with internal echogenic foci, smooth margins, TR 4. In the left lobe there is a solid hypoechoic wider than tall 7 mm mass with smooth margins and no internal echogenic foci, without significant bill nge from prior examination, TR 4. The left thyroid lobe measures 3 x 1 x 1.1 cm. There is normal echo texture and echogenicity throughout the thyroid gland. No discrete nodules identified. Normal vascul ar flow is present. IMPRESSION: 1. Multinodular goiter. Ultrasound-guided fine-needle aspiration of right thyroid mass recommended. Reviewed, dictated and finalized at location A. IMPRESSION: 1. Multinodular goiter. Ultrasound-guided fine-needle aspiration of right thyr oid mass recommended.
== END 2025-02-28 14:17 | disposition home or self-care (01) ==
LOC: MICIMG 14:17
PROVIDERS: PCP Otolaryngology; Visit Provider Otolaryngology
DX: E04.1 Nontoxic single thyroid nodule (principal)
CPT/HCPCS: 76536

== ENCOUNTER 2025-04-03 13:00 | Outpatient (CLI) | payer OTHER, SELFPAY ==
--- NOTE | ~2025-04-03 | US_ITS ---
EXAMINATION: US THYROID BIOPSY DATE: 04/03/2025 17:27 CDT INDICATION: Enlarged right thyroid lobe nodule TECHNIQUE: The procedure for biopsy of the thyroid nodule and its benefits and risks were explained to the patie nt. Potential risk included were not limited to bleeding, infection, and nondiagnostic specimen. The neck was prepped and draped in the usual sterile manner. 3 cc 1% lidocaine was used for local an esthesia. Limited ultrasound of the right neck was then performed which demonstrated a 12 x 13 x 24 m m nodule within the right lobe of the thyroid gland, adjacent to the larger nodule with calcified rim . [6 passes were made with a 25G needle into the right thyroid lesion. Appropriate needle location w as documented with continuous sonographic guidance. The specimens were passed to the cytopathologist in the room, who confirmed adequacy. All needles were removed and Steri-Strips were applied over the biopsy site. The patient tolerated t he procedure without immediate complications or complaints. FINDINGS: Ultrasound images demonstrate needles advanced into the lesion for biopsy. IMPRESSION: 1. Successful ultrasound guided biopsy of right-sided thyroid nodule. Please refer to pathology rep ort for final histologic analysis. Reviewed, dictated and finalized at location A. IMPRESSION: 1. Successful ultrasound guided biopsy of right-sided thyroid nodule. Please refer to pathology report for final histologic analysis.
--- OUTSIDE RECORDS SUMMARY | 2025-04-03 13:10 | XMS_ITS | Clinical Summary ---
Author Organization [facility] Address [address] [place] [id number] Care Team Providers Care Handy Worker Name Role Phone Unavailable Primary Care Provider [...] 7:55 AM CDT Height 165.1 cm (5' 5) 08/07/2016 7:55 AM CDT Body Mass Index [...] Screening with HPV 2002 Mammogram Screening 2012 Pneumococcal Vaccine: 50+ Ye ars (1 of 1 - PCV) 2022 Zoster Vaccines (1 of 2) 2022 COVID-19 Vaccine ( - 2023-2 5 season) 2024 Meningococcal B Vaccine Aged Out No l onger eligible based on patient's age to complete this topic Meningococcal Vaccine Aged Out No mame zoltan eligible based on patient's age to complete this topic RSV Immunizations Under 20 Months Aged Out No longer eligible based on patient's age to complete this topic
--- OUTSIDE RECORDS SUMMARY | 2025-04-03 13:10 | XMS_ITS | Data Portability ---
Author Organization [place] [facility] [employer], Main Office Address [address] [place] [address] Care Team Providers Care Cell Feed Department Supervisor Name Role Phone TRACE BELL Primary Care Provider [phone] Assessment No assessment recorded. Plan of Treatment Reminders Order Date Submit Date Provider Last Modified By Organization Details Last Modified Time Details Appointments Any 15 2024 03:30P NAHUM Pitt Not available Not available Not available Lab CBC w/ auto diff 2024 025 [facility], [address], [place], [address], 01/17/2025 09:11:26 HbA1c (hemoglo bin A1c), blood 2024 025 [facility]FF[facility], [address], [place], [address], 01/17/2025 09:11:26 TSH, serum or plasma 2024 025 [employer] [facility], [address], [place], [address], 10/11/2024 21:57:39 HbA1c (hemoglo bin A1c), blood 2024 025 [employer] [facility], [address], [place], [address], 10/11/2024 21:57:40 CMP, serum or plasma 2024 025 [employer] [facility], [address], [place], [address], 10/11/2024 21:57:37 lipid panel, serum 2024 025 [employer] [facility], [address], [place], [address], 10/11/2024 21:57:36 CBC w/ auto diff 2024 025 [employer] [facility], [address], [place], [address], 10/11/2024 21:57:38 Referral otolaryn gologist referral - FNA inconclu sive. 4.1 cm TIRADS 5 nodule on right thyroid lobe. Please call patient to schedule an appointm ent. Thank you. 2024 025 [email or web address] Nolan Ashton MD, [address], [place], [address], 11/07/2024 08:38:18 Procedures None recorded . Surgeries None recorded . Imaging US, neck, soft tissue [address], [address] [place] [address], [address], 01/12/2025 14:03:16 MAMMO, screenin g, digital, bilatera l - Please call pt to schedule 2024 025 [facility], [address] [place] [address], [address], 11/02/2024 09:40:07 umu GARCIA - Please call pt to schedule 2024 025 [facility], [address] [place] [address], [address], 11/02/2024 09:07:07 Medication Orders trazodon e 50 mg tablet 2024 025 [facility], [address], [place], [address], 01/16/2025 16:36:12 Silvaden e 1 % topical cream 2024 aubrey [facility], [address] [place] [address], [address], 01/08/2025 11:11:27 metformi n ER 500 mg tablet,e xtended release 24 hr 2024 [facility] [address], [address] [place] [address], [address], 01/16/2025 16:28:42 Medrol (Zak) 4 mg tablets in a dose pack 2024 [place] [address], [address] [place] [address], [address], 10/17/2024 16:26:23 azithrom ycin 250 mg tablet 2024 [place] [address], [address] [place] [address], [address], 10/17/2024 16:26:19 Airsupra 90 mcg-80 mcg/actu ation HFA aerosol inhaler 2024 [place] [address], [address] [place] [address], [address], 10/06/2024 16:17:26 omeprazo le 40 mg capsule, delayed release 2024 [place] [address], [address] [place] [address], [address], 10/06/2024 16:17:27 Patient TargetsNo targets recorded. Patient Instructions Encounter Date Encounter Id Patient Instructions Last Modified By Organization Details Last Modified Time 10/17/2024 [id number] type 2 diabetes: care instructions [facility] Not available 10/17/2024 16:40:26 11/02/2024 [id number] so we will start from scratch and get an ultrasound for needle aspiration. [email or web address] Not available 11/02/2024 16:33:55 Reason for Referral Umbrella Tipper Referral fo r Mass of thyroid gland FNA inconclusive. 4.1 cm TIRADS 5 nodule on right thyroid lobe. Please call patient to schedule an appointment. Thank you. Referring Physician: Trace Bell, Family Medicine, Encounter Date: 10/06/2024 Results Created Date Observation Date Name Description Value Unit Range Abnormal Flag Note LastModifiedBy Organization Detail LastModifiedTime 10/11/19 25 10/11/2024 LIPID PANEL , STAND ANN MARIE cholesterol, total 210 mg/dL <200 high Not Available [facility] [place] [address] [place], [address], 10/11/2024 21:57:36 10/11/19 25 10/11/2024 LIPID PANEL , STAND ANN MARIE HDL cholesterol 63 mg/dL > or = 50 normal Not Available [facility] [address], [address], 10/11/2024 21:57:36 10/11/19 25 10/11/2024 LIPID PANEL , STAND ANN MARIE triglyceride s 116 mg/dL <150 normal Not Available [employer] [address], [address], 10/11/2024 21:57:36 10/11/19 25 10/11/2024 LIPID PANEL [...] now calcu lated using the Bridget n-Hop renata reid, which is a valid ated novel fritz nelson accur acy than the Fried sona equat ion in the estim ation of LDL-C . Bridget reid SS et al. VIOLETA. 2013; 310(1 9): 2061- 2068 (http ://ed ucati on.Qu estDi agnos tics. com/f aq/FA Q164) Not Available [place] [address] [place], [address], 10/11/2024 21:57:36 10/11/19 25 10/11/2024 LIPID PANEL , STAND ANN MARIE chol/HDLC ratio 3.3 (calc ) <5.0 normal Not Available [place] [address] [place], [address], 10/11/2024 21:57:36 10/11/19 25 10/11/2024 LIPID PANEL , STAND ANN MARIE non HDL cholesterol 147 mg/dL _(yannick c) <130 high For patie nts with diabe isaías plus 1 major ASCVD risk facto r, treat ing to a non-H DL-C goal of <100 mg/dL (LDL- C of <70 mg/dL ) is consi dered a thera pejwi c optio n. Not Available [place] [address] [place], [address], 10/11/2024 21:57:36 10/11/19 25 10/11/2024 COMPR EHENS EL METAB OLIC PANEL glucose 91 mg/dL 65-139 normal Non-f astin g refer ence inter gilda Not Available [place] [address] [place], [address], 10/11/2024 21:57:37 10/11/19 25 10/11/2024 COMPR EHENS EL METAB OLIC PANEL urea nitrogen (BUN) 19 mg/dL 7-25 normal Not Available [place] [address] [place], [address], 10/11/2024 21:57:37 10/11/19 25 10/11/2024 COMPR EHENS EL METAB OLIC PANEL creatinine 0.85 mg/dL 0.50-1 .03 normal Not Available [place] [address] [place], [address], 10/11/2024 21:57:37 10/11/19 25 10/11/2024 COMPR EHENS EL METAB OLIC PANEL eGFR 82 mL/mi n/1.7 3m2 > or = 60 normal Not Available [address], [address], 10/11/2024 21:57:37 10/11/19 25 10/11/2024 COMPR EHENS EL METAB OLIC PANEL BUN/creatini ne ratio SEE NOTE: (calc ) 6-22 Not Repor amador: BUN and Creat inine are withi n refer ence range . Not Available [address], [address], 10/11/2024 21:57:37 10/11/19 25 10/11/2024 COMPR EHENS EL METAB OLIC PANEL sodium 141 mmol/ L 135-14 6 normal Not Available [address], [address], 10/11/2024 21:57:37 10/11/19 25 10/11/2024 COMPR EHENS EL METAB OLIC PANEL potassium 4.3 mmol/ L 3.5-5. 3 normal Not Available [address], [address], 10/11/2024 21:57:37 10/11/19 25 10/11/2024 COMPR EHENS EL METAB OLIC PANEL chloride 102 mmol/ L 98-110 normal Not Available [address], [address], 10/11/2024 21:57:37 10/11/19 25 10/11/2024 COMPR EHENS EL METAB OLIC PANEL carbon dioxide 31 mmol/ L 20-32 normal Not Available [address], [address], 10/11/2024 21:57:37 10/11/19 25 10/11/2024 COMPR EHENS EL METAB OLIC PANEL calcium 9.7 mg/dL 8.6-10 .4 normal Not Available [address], [address], 10/11/2024 21:57:37 10/11/19 25 10/11/2024 COMPR EHENS EL METAB OLIC PANEL protein, total 6.9 g/dL 6.1-8. 1 normal Not Available [address], [address], 10/11/2024 21:57:37 10/11/19 25 10/11/2024 COMPR EHENS EL METAB OLIC PANEL albumin 4.4 g/dL 3.6-5. 1 normal Not Available [address], [address], 10/11/2024 21:57:37 10/11/19 25 10/11/2024 COMPR EHENS EL METAB OLIC PANEL globulin 2.5 g/dL_ (calc ) 1.9-3. 7 normal Not Available [address], [address], 10/11/2024 21:57:37 10/11/19 25 10/11/2024 COMPR EHENS EL METAB OLIC PANEL albumin/glob ulin ratio 1.8 (calc ) 1.0-2. 5 normal Not Available [address], [address], 10/11/2024 21:57:37 10/11/19 25 10/11/2024 COMPR EHENS EL METAB OLIC PANEL bilirubin, total 0.4 mg/dL 0.2-1. 2 normal Not Available [address], [address], 10/11/2024 21:57:37 10/11/19 25 10/11/2024 COMPR EHENS EL METAB OLIC PANEL alkaline phosphatase 64 U/L 37-153 normal Not Available [facility] [employer] [address] [place], [address], 10/11/2024 21:57:37 10/11/19 25 10/11/2024 COMPR EHENS EL METAB OLIC PANEL AST 13 U/L 10-35 normal Not Available [address], [address], 10/11/2024 21:57:37 10/11/19 25 10/11/2024 COMPR EHENS EL METAB OLIC PANEL ALT 17 U/L 6-29 normal Not Available [facility] [address], [address], 10/11/2024 21:57:37 10/11/19 25 10/11/2024 CBC (INCL UDES DIFF/ PLT) white blood cell count 17.8 thous and/u L 3.8-10 .8 high Not Available [facility] [address], [address], 10/11/2024 21:57:38 10/11/19 25 10/11/2024 CBC (INCL UDES DIFF/ PLT) red blood cell count 5.02 orlin on/uL 3.80-5 .10 normal Not Available [facility] [address], [address], 10/11/2024 21:57:38 10/11/19 25 10/11/2024 CBC (INCL UDES DIFF/ PLT) hemoglobin 15.9 g/dL 11.7-1 5.5 high Not Available [facility] [address], [address], 10/11/2024 21:57:38 10/11/19 25 10/11/2024 CBC (INCL UDES DIFF/ PLT) hematocrit 48.6 % 35.0-4 5.0 high Not Available [facility] [address], [address], 10/11/2024 21:57:38 10/11/19 25 10/11/2024 CBC (INCL UDES DIFF/ PLT) MCV 96.8 fL 80.0-1 00.0 normal Not Available [address], [address], 10/11/2024 21:57:38 10/11/19 25 10/11/2024 CBC (INCL UDES DIFF/ PLT) MCH 31.7 pg 27.0-3 3.0 normal Not Available [address], [address], 10/11/2024 21:57:38 10/11/19 25 10/11/2024 CBC (INCL UDES DIFF/ PLT) MCHC 32.7 g/dL 32.0-3 6.0 normal For adult s, a sligh t decre ase in the calcu lated MCHC value (in the range of 30 to 32 g/dL) is most likel y not clini glenys signi adarsh t; teresa er, it shoul d be inter prete d with [place] [facility] [place] with other red cell pauline eters and the patie nt's clini yannick condi tion. Not Available [address], [address], 10/11/2024 21:57:38 10/11/19 25 10/11/2024 CBC (INCL UDES DIFF/ PLT) RDW 12.8 % 11.0-1 5.0 normal Not Available [address], [address], 10/11/2024 21:57:38 10/11/19 25 10/11/2024 CBC (INCL UDES DIFF/ PLT) platelet count 397 thous and/u L 140-40 0 normal Not Available [address], [address], 10/11/2024 21:57:38 10/11/19 25 10/11/2024 CBC (INCL UDES DIFF/ PLT) MPV 9.6 fL 7.5-12 .5 normal Not Available [address], [address], 10/11/2024 21:57:38 10/11/19 25 10/11/2024 CBC (INCL UDES DIFF/ PLT) absolute neutrophils 93128 cells /uL 1500-7 800 high Not Available [facility] [address], [address], 10/11/2024 21:57:38 10/11/19 25 10/11/2024 CBC (INCL UDES DIFF/ PLT) absolute lymphocytes 3026 cells /uL 850-39 00 normal Not Available [facility] [address], [address], 10/11/2024 21:57:38 10/11/19 25 10/11/2024 CBC (INCL UDES DIFF/ PLT) absolute monocytes 1068 cells /uL 200-95 0 high Not Available [address], [address], 10/11/2024 21:57:38 10/11/19 25 10/11/2024 CBC (INCL UDES DIFF/ PLT) absolute eosinophils 0 cells /uL 15-500 low Not Available [address], [address], 10/11/2024 21:57:38 10/11/19 25 10/11/2024 CBC (INCL UDES DIFF/ PLT) absolute basophils 0 cells /uL 0-200 normal Not Available [facility] [address], [address], 10/11/2024 21:57:38 10/11/19 25 10/11/2024 CBC (INCL UDES DIFF/ PLT) neutrophils 77 % normal Not Available [facility] [address], [address], 10/11/2024 21:57:38 10/11/19 25 10/11/2024 CBC (INCL UDES DIFF/ PLT) lymphocytes 17 % normal Not Available [address], [address], 10/11/2024 21:57:38 10/11/19 25 10/11/2024 CBC (INCL UDES DIFF/ PLT) monocytes 6 % normal Not Available [address], [address], 10/11/2024 21:57:38 10/11/19 25 10/11/2024 CBC (INCL UDES DIFF/ PLT) eosinophils 0 % normal Not Available [facility] [address], [address], 10/11/2024 21:57:38 10/11/19 25 10/11/2024 CBC (INCL UDES DIFF/ PLT) basophils 0 % normal Not Available [address], [address], 10/11/2024 21:57:38 10/11/19 25 10/11/2024 CBC (INCL UDES DIFF/ PLT) comment(s) The smear has been manua lly revie wed and the manua l diffe renti al has been repor amador. Revie w of the perip heral smear revea ls adequ ate numbe rs of plate lets. Not Available [address], [address], 10/11/2024 21:57:38 10/11/1910/11/2024 TSH W/REF HARSHAD TO FT4 TSH w/reflex to FT4 1.13 mIU/L normal Refer ence Range > or = 20 Years 0.40- 4.50 Pregn monie Range s First trime ster 0.26- 2.66 Secon d trime ster 0.55- 2.73 Third trime ster 0.43- 2.91 Not Available [address], [address], 10/11/2024 21:57:39 10/11/19 25 10/11/2024 HEMOG LOBIN [...] diabe isaías for child selene. Not Available [facility] [facility] [address], [place], [address], 10/11/2024 21:57:40 11/02/19 25 11/01/2024 MAMMO , scree ed, digit al, bilat eral No observ ation record ed. [address] [place], [address], 11/03/2024 09:23:11 11/02/19 25 11/01/2024 US, gallmaría riggsde r No observ ation record ed. [address] [place], [address], 11/03/2024 09:23:12 11/20/19 25 11/20/2024 US, thyro id No observ ation record ed. [facility] [address], [place], [address], 11/20/2024 14:13:06 11/22/19 25 11/22/2024 CT, abdom en + pelvi s, w/ contr ast No observ ation record ed. [facility] [address], [place], [address], 11/23/2024 10:48:20 11/23/19 25 11/23/2024 NM, hepat obili salvador scan No observ ation record ed. [facility] [address], [place], [address], 11/23/2024 14:03:03 03/02/20 25 03/02/2025 US, thyro id No observ ation record ed. [facility] [address], [place], [address], 03/02/2025 14:43:55 Result Notes None recorded. Problems Name Problem SNOMED Code Status Onset Date Resolution Date Notes Provider Name and Address Organization Details Recorded Time Osteoarth ritis of knee 179518069 Active Not Available [facility] 3 09:18:16 Current tear of medial cartilage AND/OR meniscus of knee Active NAHUM Cabrera [address], [address], [place], [address] , Medium 5 16:07:56 Pain in limb 63471372 Completed 10/06/2024 NAHUM Cabrera [address], [address], [place], [address] , Medium 5 16:08:25 Cigarette smoker 17807460 Active 2022 NAHUM Burk [address], [address], [place], [address] , Medium 3 08:36:06 Transient cerebral ischemia 277435489 Active 2022 NAHUM Burk [address], [place], [address] , Medium 3 08:39:57 Mass of thyroid gland 984270856 Active 2022 NAHUM Burk [address], [place], [address] , [facility] 3 08:44:58 Thyroid nodule 941230975 Active 2022 NAHUM Burk [address], [place], [address] , [email or web address] [facility] 3 08:45:29 Bronchiti s 93744334 Active 2022 ELVIRA Mackey [address], [place], [address] , [facility] 3 14:41:15 Nicotine dependenc e 74988646 Active 2022 ELVIRA Mackey [address], [place], [address] , [facility] 3 14:42:30 Pain of bilateral knee joints 19750068123 4104 Completed 202210/06/2024 NAHUM Cabrera [address], [place], [address] , [facility] 5 16:08:29 Right upper quadrant pain 094972103 Active 2024 NAHUM Cabrera [address], [place], [address] , [facility] 5 16:12:04 Asthma 084440979 Active 2024 NAHUM Cabrera [address], [place], [address] , [facility] 5 16:12:53 Morbid obesity 904544733 Active 2024 NAHUM Cabrera [address], [place], [address] , [email or web address] [facility] 5 16:16:27 Overweigh t 167366090 Active 2024 NAHUM Cabrera [address], [place], [address] , [facility] 16:16:32 Type 2 diabetes mellitus 71033471 Active 2024 NAHUM Cabrera [address], [place], [address] , [facility] 16:31:52 Cholelith iasis without obstructi on 22574565 Active 2024 NAHUM Cabrera [address], [place], [address] , [facility] 09:20:57 Paronychi a of toe of left foot 11567045545 707401 Active 2024 BRANDON Myrick, [place] [facility] 15:56:23 Leukocyto sis 049262054 Active 2024 NAHUM Cabrera [address], [place], [address] , [facility] 16:32:46 Insomnia 594230660 Active 2024 NAHUM Cabrera [address], [place], [address] , [facility] 16:35:45 Notes:Some problems listed i n Documents: #[id number], #[id number], #[id number], #[id number] could not be added to this patient's chart. Please review these documents and add these problems to the patient's chart manually as needed. Problem Notes None recorded. Procedures Surgical History Date Name Laterality Status Provider Name and Address Organization Details Recorded Time Excision of ingrown toenail Right completed Hill Tavarez DPM [address], [place], [address], [facility] 12/25/2024 08:50:30 Imaging Results None recorded. Procedure Notes None recorded. Medical Equipment None Reported. Allergies Allergen ID Allergen Name Allergen Category Reaction Reaction Severity Criticality Documentation Date Start Date Code Code System Note Provider Name and Address Organization Details Recorded Time 80195 iohexol medicatio n Not available Not available Not available 02/26/2023 5956 RxNorm Caroline Martinez RN null, [place] - [facility] [employer] 5 15:49:44 Medications Name Sig Start Date Stop [...] active Not Available Not Available Not Available trazodone 50 mg tablet TAKE 1 TABLET BY MOUTH ONCE DAILY NEEDED active Not Available Not Available No t Available azithromyci n 250 mg tablet TAKE [...] No t Available fluconazole 150 mg tablet TAKE 1 TABLET BY MOUTH ON DAYS 1, 3, AND 7 active Not Available Not Available No t Available benzonatate 200 mg capsule TAKE 1 [...] Available omeprazole 40 mg capsule,del ayed release TAKE 1 CAPSULE BY MOUTH ONCE DAILY IN THE MORNING active Not Available Not Available No t Available aspirin 81 mg tablet,loan yed release TAKE 1 TABLET BY MOUTH ONCE DAILY 10/06 completed Not Available Not Available Not Available tramadol 50 mg tablet TK 1-2 TS PO Q 6 H PRN FOR PAIN 01/16 completed Not Available Not Available Not Available prednisolon e acetate 1 % eye drops,suspe nsion 10/06 completed Not Available Not Available Not Available pantoprazol e 40 mg tablet,laon yed release TAKE 1 TABLET BY MOUTH [...] completed Not Available Not Available Not Available SSD 1 % topical cream APPLY A 1/16 INCH(1.5 MM) THICK LAYER TO ENTIRE BURN AREA BY TOPICAL ROUTE 2 TIMES PER DAY active Not Available Not Available No t Available ondansetron 4 mg disintegrat ing tablet DISSOLVE 1 TABLET IN MOUTH EVERY 8 HOURS NEEDED FOR NAUSEA AND VOMITING active Not Available Not Available No t Available metformin ER 500 mg tablet,exte nded release 24 hr TAKE 1 TABLET BY MOUTH ONCE DAILY DIRECTED active Not Available Not Available No t Available sodium fluoride 1.1 % dental gel APPLY TO TEETH AFTER REGULAR BRUSHING, THEN SPIT 10/06 completed Not Available Not Available Not Available oxycodone 5 mg tablet TAKE 1 TABLET BY MOUTH EVERY 6 HOURS NEEDED FOR PAIN 01/16 completed Not Available Not Available Not Available [...] TAKE 1 TABLET BY MOUTH ONCE DAILY active Not Available Not Available No t Available Trulicity 1.5 mg/0.5 mL subcutaneou s pen injector INJECT 1 SYRINGE SUBCUTANE OUSLY ONCE A WEEK active Not Available Not Available No t Available Trulicity 0.75 mg/0.5 mL subcutaneou s pen injector INJECT 1 SYRINGE SUBCUTANE OUSLY ONCE A WEEK 01/16 completed Not Available Not Available Not Available bupropion HCl 150 mg tablet,12 hr sustained-r elease(smok ing deterrent) TAKE 1 TABLET BY MOUTH TWICE DAILY 10/06 completed Not Available Not Available Not Available ID NOW COVID-19 Test Kit TEST DIRECTED TODAY 10/06 completed Not Available Not Available Not Available Airsupra 90 mcg-80 mcg/actuati on HFA aerosol inhaler INHALE 2 PUFFS TWICE DAILY NEEDED active Not Available Not Available No t Available Vitals Date Recorded Body weight Body mass index (BMI) Body height Body temperature Heart rate Respiratory rate Oxygen saturation Oxygen saturation in Arterial blood by Pulse oximetry Systolic blood pressure Diastolic blood pressure Provider Name and Address Organization Details Last Updated DateTime 5 36123.2 9 g 26.5 kg/m2 165.1 cm 97.2 [degF] 85 /min 20 /min 98 % 98 % 134 mm[Hg] 70 mm[Hg] Caroline Martinez RN [facility] [employer] [facility] 5 15:55:10 Date Recorded Body height Body mass index (BMI) Body weight Body temperature Heart rate Respiratory rate Oxygen saturation Oxygen saturation in Arterial blood by Pulse oximetry Systolic blood pressure Diastolic blood pressure Provider Name and Address Organization Details Last Updated DateTime 5 165.1 cm 26.8 kg/m2 73600.1 2 g 97.3 [degF] 82 /min 20 /min 97 % 97 % 140 mm[Hg] 82 mm[Hg] Caroline Martinez RN [facility] [employer] [facility] 5 16:26:09 Date Recorded Body height Body mass index (BMI) Body weight Body temperature Provider Name and Address Organization Details Last Updated DateTime 11/02/2024 165.1 cm 26.9 kg/m2 17606.25 g 98.1 [degF] Gracie Goodrich RN [facility] [employer] [facility] 11/02/2024 16:24:15 Date Recorded Body height Body mass index (BMI) Body weight Oxygen saturation Oxygen saturation in Arterial blood by Pulse oximetry Body temperature Heart rate Provider Name and Address Organization Details Last Updated DateTime 5 165.1 cm 26.8 kg/m2 69842.3 7 g 95 % 95 % 98.2 [degF] 104 /min BRANDON Myrick [facility] [employer] [facility] 5 15:46:51 Date Recorded Body height Body mass index (BMI) Body weight Body temperature Heart rate Respiratory rate Oxygen saturation Oxygen saturation in Arterial blood by Pulse oximetry Systolic blood pressure Diastolic blood pressure Provider Name and Address Organization Details Last Updated DateTime 5 165.1 cm 26 kg/m2 73679.2 1 g 97.2 [degF] 80 /min 20 /min 98 % 98 % 120 mm[Hg] 80 mm[Hg] Caroline Martinez RN [facility] [employer] [facility] 16:22:41 Social History Question Answer Notes LastModified by Organizat ion Details LastModified Time Tobacco Smoking Status Current Every Day Smoker Not Available [facility] 12/02/2022 09:13:19 Do You Have An Advance Directive? No Information not available 10/06/2024 If You Are , What Was Your Level Of Alcohol Consumption Prior To ? None [id number] Information not available 12/02/2022 What Is Your Level Of Caffeine Consumption? Occasional [id number] Information not available 12/02/2022 In The 14 Days Before Symptom Onset, Have You Had Close Contact With A Laboratory-confi rmed COVID-19 While That Case Was Ill? No [id number] Information not available 12/02/2022 In The 14 Days Before Symptom Onset, Have You Had Close Contact With A Person Who Is Under Investigation For COVID-19 While That Person Was Ill? No [id number] Information not available 12/02/2022 What Type Of Diet Are You Following? REGULAR MIGRATION.[id number] Information not available 12/02/2022 Have There Been Any Changes To Your Family Or Social Situation? No Information not available 10/06/2024 Do You Use Insect Repellent Routinely? No Information not available 10/06/2024 [facility] available 10/06/2024 Do You Have A Medical Power Of Chief Contract Officer? No Information not available 10/06/2024 What Was The Date Of Your Most Recent Tobacco Screening? 12/21/2024 [email or web address] Information not available 12/21/2024 How Many Children Do You Have? 4 Information not available 10/06/2024 What Is Your Current Pack Years? 10-19packyears MIGRATION.11713 [id number] Information not available 12/02/2022 Have You Ever Been Counseled For Unhealthy Alcohol Use? No MIGRATION.11796 73308 Information not available 12/02/2022 Do You Have [...] Information not available 10/06/2024 Do You Use Sunscreen Routinely? No Information not available 10/06/2024 Has Tobacco Cessation Counseling Been Provided? No MIGRATION.04619 [id number] Information not available 12/02/2022 How Many Years Have You Smoked Tobacco? 42 Information not available 10/06/2024 Have You Recently Traveled Abroad? No MIGRATION.00748 82579 Information not available 12/02/2022 Do You Have Any Dietary Restrictions? No MIGRATION.07724 93362 Information not available 12/02/2022 Sex: Unknown Functional Status Question Answer Note LastModified by Organizat ion Details LastModified Time Do you use any illicit or recreational drugs? No MIGRATION.[id number] Information not available 12/02/2022 Do you or have you ever used any other forms of tobacco or nicotine? No MIGRATION.[id number] 026 Information not available 12/02/2022 What is your level of alcohol consumption? Occasional MIGRATION.[id number] 026 Information not available 12/02/2022 Are you currently employed? Yes Information not available 10/06/2024 What is your occupation? [employer] Information not available 10/06/2024 What is your exercise level? Moderate MIGRATION.[id number] 026 Information not available 12/02/2022 Mental Status Question Answer Note LastModified by Organization D etails LastModified Time Do you feel stressed (tense, restless, nervous, or anxious, or unable to sleep at night)? [id number] Information not available 02/26/2023 Family History Relationship Description Onset Age of this Age Resolved Age Notes LastModified by Organization Details LastModified Time Mother Leukemia [id number] Not availa ble 11/02/2024 16:16:12 Mother Diabetes mellitus [id number] Not available 12/02/2022 09:13:53 Son Neoplasm of brain [id number] Not available 10/06 16:16:12 Notes:THYROID PROBLEM: FRANCISCO Nelson Medical History Condition Response DIABETES, TYPE Y [...] quadrivalent, PF 08/20/2023 completed ELVIRA Mackey [address] [facility], [facility] [address], [place], [address], [facility] [employer] 08/20/2023 18:02:23 Tdap 09/18/2022 completed Not Available [facility] 12/02/2022 09:26:20 Influenza, split virus, quadrivalent, PF 09/18/2022 completed Not Available [facility] 09:26:20 Past Encounters Encounter ID Performer Location Encounter Start Date Encounter Closed Date Diagnosis/Indication Diagnosis SNOMED-CT Code Diagnosis ICD10 Code Diagnosis Note [id number] SERA Pfeiffer [facility] [address] [facility] [place] [address] 11/14/2021 00:00:00 11/14/2021 15:43:37 [id number] SERA Pfeiffer [facility] Primary [place] [address] [place] [address] 12/19/2021 00:00:00 12/19/2021 16:49:56 [id number] NAHUM Burk [facility] Primary [place] [address] [facility] [place] [address] 02/26/2022 00:00:00 02/26/2022 16:13:41 [id number] Norma Reynolds MD [facility] [address] [facility] [address] [place] [address] 08/07/2022 00:00:00 08/07/2022 17:58:55 [id number] Norma Reynolds MD [facility] [address] [facility] [address] [place] [address] 09/18/2022 00:00:00 09/18/2022 18:17:18 [id number] NAHUM Burk [address] [place] [address] 02/26/2023 08:10:15 02/26/2023 09:13:56 Cigarette smoker 69757526 F17.210 Encouraged smoking cessation. Smoking cessation counseling and techniques reviewed at length with pt. Literature reviewed. Avoid triggers, support groups. Discussed cessation options (counselin g, medication s, e-cigarett es, patches, alternativ e therapies) . New rx for nicotine 14mg patch daily. Transient cerebral ischemia 773417885 G45.[address] scan/MRI (02/16/23)- No visible drooping or weakness of left side on examinatio n today.Enco uraged pt to actively work on smoking cessation d/t increased riskContin ue daily ASA 81mg and Atorvastat in 40mg daily Thyroid nodule 367994256 E04.1 New finding on inpatient imagingRec ommendatio n is for FNA. Order generated [id number] NAHUM Burk [address] [facility] [place] [address] 03/26/2023 14:19:23 03/26/2023 16:23:18 Transient cerebral ischemia 782042801 G45.9 No recurrence of sx since last visit.Inpa tient CT scan/MRI (02/16/23)- indicates normal aging brainNo visible drooping or weakness of left side on examinatio n today.Enco uraged pt to actively work on smoking cessation d/t increased riskContin ue daily ASA 81mg and Atorvastat in 40mg dailyWill continue to monitor closely Cigarette smoker 6070461 7 F17.210 No improvemen t with 14mg nicotine patchesEnc ouraged smoking cessation. Smoking cessation counseling and techniques reviewed at length with pt. Literature reviewed. Avoid triggers, support groups. Discussed cessation options (counselin g, medication s, e-cigarett es, patches, alternativ e therapies) . New rx for nicotine 14mg patch daily. Thyroid nodule 510051877 E04.1 New finding on inpatient thyroid u/s (02/16/23)R ecommendat ion is for FNA. Order generated last visit. Pt did not receive call to schedule, will have staff f/u and resubmit. [id number] Norma Reynolds MD [facility] Primary Care [address] [place] [address] 06/25/2023 14:32:10 06/25/2023 14:54:12 Bronchitis 33667656 J40 Was in [place] ER for this issues-giv en benzonatat e and inhaler and was d/ccurrent ly a smoker-edu cated and given new medication will refill benzonatat eStill has plenty of the inhaler at home, Nicotine dependence 5629 4008 F17.200 currently smoke 1/2ppdhas tried using the patches without resolution continues use of fake cigarette as distractor Would like to try another optionwill start buproprion [id number] Norma Reynolds MD [facility] Primary Care [address] [place] [address] 08/20/2023 16:55:38 08/23/2023 14:44:09 Nicotine dependence 21735134 F17.200 -currenlty smoking 4 cigs/day-c ontinues use of fake cigarette as needed-carmen l give 3 months of refills Pain of bi lateral knee joints [id number] 28472 M25.561 -pt notes pain to luis armando [...] 1 month Administra tion of influenza vaccine 15890561 Z23 [id number] Dalton Chambers MD [address] [address] 10/06/2024 15:39:54 10/06/2024 16:47:43 Adult health examination 657252906 Z00.00 Health maintenanc e reviewedDi scussed diet and exercisePa tient questions answered Mass of thyroid gland 23 1466837 E04.9 Right uppe r quadrant pain 020333010 R10.11 Bronchitis 05282942 J40 Asthma 030909586 J45.90 9 Screening mammography 24 599615 Z12.31 Overweight 423457280 E66 .3 [id number] Dalton Chambers MD [address] [address] 10/17/2024 16:12:57 10/18/2024 10:40:14 Type 2 diabetes mellitus 26529239 E11.9 Newly diagnosed, A1C 6.5 10/11/24In terested in RVC2Mbfj recheck in 3 month Mass of thyroid gland 23 8339694 E04.9 Patient advised to FU with ENT [id number] Nolan Ashton MD [facility] ENT [place] [address] [place] [address] 11/02/2024 16:15:59 11/03/2024 07:33:16 Thyroid nodule 955020879 E04.1 [id number] Hill Tavarez DPM [facility] Podiatry [facility] [address] [address] 12/21/2024 15:30:29 12/25/2024 10:53:25 Paronychia of toe of left foot [id number] 0019578 L03.888 [id number] Dalton Chambers MD [facility] [address] 01/16/2025 16:08:57 01/16/2025 16:45:16 Type 2 diabetes mellitus 42708342 E11.9 Newly diagnosed, A1C 6.5 10/11/24Mo unjaro desired, will wait until thyroid biopsy to orderWill recheck in 3 month Leukocytosis 744763989 D 72.829 Was 17.6 at last visit Insomnia 393132230 F51.0 1 Not well controlled with melatonin, will trial trazodone. Health Concerns Section Related Observation LastModified by Organization Detai ls LastModified Time None Recorded Concern Status LastModified by Organization Details LastModified Time None Recorded Advance Directives Directive N: Payers Insurance Date Sequence Insurance Name Policy Number Policy Street Covered Member ID Street Member ID Guarantor Name 10/27/2024 1 [facility] [id number] Cara Dunn Boss [id number] Cara Remyla 12/19/2024 1 [facility] [id number] Cara Remyla [id number] Cara Boss 01/13/2025 1 [facility] [id number] Cara Boss [id number] Cara Boss Notes Date Note Type Note Provider Name and Address Organization Details Recorded Time 10/06/2024 text/html Cara Boss is a 54 [...] olonoscopy: 2022, okay per pt Trace Bell, VICE INVESTIGATOR [address] [facility], [facility] [address], [place], [address], [facility] [employer] 10/06/2024 16:45:59 10/17/2024 text/html Cara Boss is [...] 2022, okay per pt NAHUM Cabrera [address], [address], [place], [address], [employer] 10/17/2024 16:40:50 11/02/2024 text/html This patient had a needle biopsy in 2022 which was insufficient for diagnosis. She had a a new ultrasound in February of 2023 and this revealed a 4.1 cm TI-RADS 5 nodule.. Evidently this has never been adequately settled. Nolan Ashton MD [address], [address], [place], [address], [employer] 11/02/2024 16:34:26 12/21/2024 text/html Pt RTC for c/o painful swollen red and inflamed ingrown nail Rt great toenail inside border. Hill Tavarez DPM [address], [address], [place], [address], [employer] 12/25/2024 08:50:36 01/16/2025 text/html Cara Boss is 54 year old female patient here today for a 3 month FU. She has type 2 DM. She has been taking trulicity 1.5 mg and metformin. She did have side effects with metformin.Would like to go to [place], waiting for thyroid biopsy results. Had a biopsy on her thyroid TiRADs 5 nodule in 11/2024, has not had results. Had her gallbladder removed 11/20/24, had post operative infection. Concerns with insomnia, has been taking melatonin with limited effective Trace Bell, NAHUM [address], [facility] [address], [place], [address], [facility] [employer] [facility] 01/16/2025 17:38:26 OBGyn Episode No OBEpisode recorded.
--- OUTSIDE RECORDS SUMMARY | 2025-04-03 13:10 | XMS_ITS | Data Portability ---
Author Organization [facility] Address [address] [place] [address] Care Team Providers Care Department Head College Or [employer] Name Role Phone [employer] [phone] Assessment Encounter Date Assessment Date Assessment LastModified [...] Not available 15:07:57 XR, chest [address] [facility] ([facility] Call Scheduling), [address] [place], [address], 9 23:50:57 Medication Orders Chantix Starting Month Box 0.5 mg (11)-1 mg (42) tablets in dose pack [address] [facility], [address] [place], [address], 1 17:49:57 albuterol sulfate 2.5 mg/3 mL (0.083 %) solution for nebulizati on [address] [facility], [address] [place], [address], 1 17:50:01 albuterol sulfate HFA 90 mcg/actuat ion aerosol inhaler [address] [facility], [facility] [place], [address], 1 17:49:51 triamcinol one acetonide 0.1 % topical cream 2019 020 INTERFACE [facility], [address] [place] [address], [id number], 0 15:43:54 nystatin 100,000 unit/gram topical cream 2019 020 [facility], [address] [place] [address], [id number], 0 15:43:53 permethrin 5 % topical cream 2019 020 INTERFACE [facility], [address] [place] [address], [id number], 0 16:13:14 amoxicilli n 500 mg-potassi um clavulanat e 125 mg tablet 2018 019 [facility], [address] [place] [address], [id number], 0 15:14:07 albuterol sulfate 2.5 mg/3 mL (0.083 %) solution for nebulizati on 2018 019 [facility], [address] [place] [address], [address], 9 14:40:16 promethazi ne 6.25 mg-codeine 10 mg/5 mL syrup 2018 019 [facility], [address] [place] [address], [id number], 0 15:14:18 albuterol sulfate 2.5 mg/3 mL (0.083 %) solution for nebulizati on 2018 019 INTERFACE [facility], [address] [place], [address], 9 14:46:27 Ventolin HFA 90 mcg/actuat ion aerosol inhaler 2018 019 [facility], [address] [place], [address], 0 15:14:22 amoxicilli n 875 mg tablet 2018 019 [email or web address] [facility], [address] [place], [address], 9 14:22:06 Ventolin HFA 90 mcg/actuat ion aerosol inhaler 2018 019 [facility], [facility] [place], [address], 0 15:14:22 Patient TargetsNo targets recorded. Patient Instructions Encounter Date Encounter Id Patient Instructions Last Modified By Organization Details Last Modified Time 08/18/2019 [id number] Dejar el tabaco: Instrucciones de cuidado - [Quitting Tobacco: Care Instructions] [facility] Not available 08/18/2019 14:40:16 12/18/2019 [id number] scabies: care instructions Not available 12/18/2019 16:12:43 04/23/2021 [id number] Quitting Tobacco : Care Instructions [facility] Not available 04/23/2021 17:49:43 aprenda sobre la epoc y c MO prevenir infecciones pulmonares - [learning about COPD and how to prevent lung infections] [facility] Not available 04/23/2021 17:49:43 enfermedad pulmonar obstructiva cr osiris (epoc): instrucciones de cuidado - [chronic obstructive pulmonary disease (COPD): care instructions] [facility] Not available 04/23/2021 17:49:43 Reason for Referral None Reported. Results Created Date Observation Date Name Description Value Unit Range Abnormal Flag Note LastModifiedBy Organization Detail LastModifiedTime 11/11/19 19 11/11/2018 XR, chest No observ ation [email or web address] [address] [place], [address], 02/09/2019 10:53:22 08/19/20 19 08/19/2019 XR, chest , 2 view No observ ation record ed. [email or web address] (Imaging) [address] [place], [address], 08/21/2019 16:09:52 08/19/20 19 08/19/2019 CT, abdom en + pelvi s, w/ contr ast No observ ation record ed. [address] (Imaging) [address] [place], [address], 08/21/2019 16:10:10 Result Notes None recorded. Problems Name Problem SNOMED Code Status Onset Date Resolution Date Notes Provider Name and Address Organization Details Recorded Time Gastroesophag eal reflux disease 725267584 Active 2017 Gerri Fernandez PA-C Attn: Accounting ,[address] [place], [address] , [facility] 8 15:10:04 Allergic disposition 003056849 Active 2017 Gerri Fernandez PA-C Attn: Accounting ,[address] [place], [address] , [facility] - [facility] 8 09:48:53 Vitamin D deficiency 20269895 Active 2017 Gerri Fernandez PA-C Attn: Accounting ,[address] [place], [address] , [facility] - [facility] 8 09:49:18 Influenza 2314862 Active Gerri Fernandez PA-C Attn: Accounting ,[address] [place], [address] , [facility] - [facility] 6 16:22:00 Upper respiratory infection 03115702 Active Gerri Fernandez PA-C Attn: Accounting ,[address] [facility], [place], [place], [address] [place] [address] , [facility] 6 16:22:00 Eruption 083075338 Active Gerri Fernandez PA-C Attn: Accounting ,[address] [facility], [place], [address] [place] [address] , [facility] - [facility] 6 16:22:00 Tobacco dependence syndrome 53220635 Active Gerri Fernandez PA-C Attn: Accounting ,[address] [facility], [place], [address] [place] [address] , [facility] 6 17:48:06 Knee pain Active Gerri Fernandez PA-C Attn: Accounting ,[address] [facility], [place], [address] [place] [address] , [facility] - [facility] 6 17:48:06 Fatigue 07503686 Active Gerri Fernandez PA-C Attn: Accounting ,[address] [facility], [place], [address] [place] [address] , [facility] - [facility] 6 17:48:06 Insomnia 453560701 Active Gerri Fernandez PA-C Attn: Accounting ,[address] [facility], [place], [address] [place] [address] , [facility] - [facility] 6 17:48:06 Raynaud's phenomenon 862635265 Active Gerri Fernandez PA-C Attn: Accounting ,[address] [facility], [place], [address] [place] [address] , [place] - [facility] 6 17:48:06 Problem Notes None recorded. Procedures Surgical History Date Name Laterality Status Provider Name and Address Organization Details Recorded Time 2 Hysterectomy completed Krystin Malik [facility] 09/24/2014 16:09:14 Imaging Results None recorded. Procedure Notes None [...] Not Available No t Available amoxicillin 500 mg-treyu m clavulanate 125 mg tablet Take 1 tablet every 12 hours by oral route after meals for 7 days. 12/17 completed Not Available Not Available Not Available Chantix Starting Month Box 0.5 mg (11)-1 mg (42) tablets in dose pack Take 1 startr pk every day by oral route as directed for 30 days. 2020 active Not Available Not Available Not Avai lable ID NOW COVID-19 Test Kit TEST DIRECTED active Not Available Not Available No t Available Vitals Date Recorded Body height Body mass index (BMI) Body weight Oxygen saturation Oxygen saturation in Arterial blood by Pulse oximetry Heart rate Body temperature Systolic blood pressure Diastolic blood pressure Provider Name and Address Organization Details Last Updated DateTime 9 165.1 cm 23.6 kg/m2 82646.5 5 g 97 % 97 % 70 /min 98.4 [degF] 116 mm[Hg] 60 mm[Hg] Ericka Garsia MA [facility] 9 17:02:21 Date Recorded Body height Body mass index (BMI) Body weight Heart rate Body temperature Oxygen saturation Oxygen saturation in Arterial blood by Pulse oximetry Systolic blood pressure Diastolic blood pressure Provider Name and Address Organization Details Last Updated DateTime 0 165.1 cm 25.1 kg/m2 47110.4 5 g 95 /min 98.1 [degF] 98 % 98 % 102 mm[Hg] 70 mm[Hg] Norma Sanchez MA [facility] 0 15:33:09 Date Recorded Body height Body mass index (BMI) Body weight Body temperature Oxygen saturation Oxygen saturation in Arterial blood by Pulse oximetry Heart rate Systolic blood pressure Diastolic blood pressure Provider Name and Address Organization Details Last Updated DateTime 1 160.02 cm 26.2 kg/m2 23650.9 5 g 98.2 [degF] 98 % 98 % 66 /min 114 mm[Hg] 70 mm[Hg] Nolan Holley [place] - [facility] 1 17:29:27 Date Recorded Body height Body mass index (BMI) Body weight Body temperature Oxygen saturation Oxygen saturation in Arterial blood by Pulse oximetry Heart rate Systolic blood pressure Diastolic blood pressure Provider Name and Address Organization Details Last Updated DateTime 9 165.1 cm 24.3 kg/m2 22445.7 7 g 97.4 [degF] 94 % 94 % 92 /min 112 mm[Hg] 70 mm[Hg] Nolan Holley [place] - [facility] 9 14:29:06 Social History Question Answer Notes LastModified by Organizat ion Details LastModified Time Tobacco Smoking Status Current Every Day Smoker Not Available [facility] 08/06/2020 03:39:31 Do You Have An Advance Directive? No [id number] Information not available 08/06/2020 What Is Your Level Of Caffeine Consumption? Moderate [id number] Information not available 08/06/2020 How Much Tobacco Do You Chew? None [id number] Information not available 08/06/2020 What Type Of Diet Are You Following? REGULAR [id number] Information not available 08/06/2020 Education Less Than 8th Grade [email or web address] Information not available 09/24/2014 Are There Any Guns Present In Your Home? No [id number] Information not available 08/06/2020 Hard Of Hearing Or Deaf In One Or Both Ears? No [email or web address] Information not available 09/24/2014 Legally Blind In One Or Both Eyes? No Information not available 09/24/2014 Live Alone Or With Others? With Others Children eewig Information not available 07/06/2016 Marital Status Single [email or web address] Informati on not available 09/24/2014 What Was The Date Of Your Most Recent Tobacco Screening? 11/11/2018 [id number] Information not available 08/06/2020 How Many Children Do You Have? 4 [id number] Information not available 08/06/2020 Performs Monthly Self-breast Exam? Yes Information not available 09/24/2014 Seat Belts Used Routinely Yes Information not available 09/24/2014 Smoke Alarm In Home Yes [email or web address] Information not available 09/24/2014 At What Age Did You Start Smoking Tobacco? 21 [id number] Information not available 08/06/2020 How Much Tobacco Do You Smoke? 2 PPW [id number] Information not available 08/06/2020 General Stress Level Medium [email or web address] Information not available 09/24/2014 Do You Use Sunscreen Routinely? No [id number] Information not available 08/06/2020 Sex: Unknown Functional Status Question Answer Note LastModified by Organizat ion Details LastModified Time What is your level of alcohol consumption? Occasional [id number] Information not available 08/06/2020 Are you currently employed? 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 Moderate [id number] Information not available 08/06/2020 Mental Status None [...] vector-nr, rS-Ad26, PF, 0.5 mL 1 completed [facility], [place] - [facility] 03/27/2021 12:47:20 Influenza, split virus, quadrivalent, preservative 6 completed Not Available [facility] 10/21/2019 02:42:00 Influenza, split virus, quadrivalent, preservative 7 completed Not Available [facility] 10/21/2019 02:34:51 Past Encounters Encounter ID Performer Location Encounter Start Date Encounter Closed Date Diagnosis/Indication Diagnosis SNOMED-CT Code Diagnosis ICD10 Code Diagnosis [facility] [id number] [facility] [address] [place] [address] 09/24/2014 15:55:35 09/28/2014 12:33:02 Influenza 9250051 Upper resp iratory infection 10137256 [facility] 610208293 [id number] MD John Hankins (Adult Med) [address] [place] [phone] 07/06/2016 14:28:41 07/06/2016 17:48:43 Adult health examination 373526603 Z00.01 45YO females here to establish care. Patient's only complaints are bilateral knee pain Active or passive immunization 484731205 Z23 Tobacco de pendence syndrome 81291688 F17.290 Advised to quit smoking Smoking 1/2ppd x 27 years Knee pain 65161689 M25.5 69 bilateral knee pain - will begin with xrays and then refer to ortho - patient requesting knee injections Fatigue 15119234 R53.83 Advised to drink plenty of water good sleep hygiene Insomnia 139091044 G47.0 0 Discussed good sleep hygiene of going to bed and waking up at the same time Advised no screen time within 2 hours of going to bed Advised to try melatonin OTC Raynaud's phenomenon 266 724708 I73.00 Has pictures on her phone - picture shown is whitened finger tips of digits 1-3 on right hand from PIP to finger tips [id number] [facility] [address] [place] [phone] 09/29/2017 14:49:51 09/29/2017 17:37:40 Gastroesophageal reflux disease without esophagitis 582375902 K21.9 Advised to stay away from spicy and greasy foodsAdvis ed to stay away from fatty foodsDo not eat within 2 hours of going to bedStay sitting up after mealsNo smoking Tobacco de pendence syndrome 73558149 F17.290 Advised to quit smoking Smoking 1/2ppd x 27 years Depressive disorder 7568 9007 F32.9 Active or passive immunization 718641965 Z23 Acute lety rgic reaction 376486620 T78.40XA Right after patient was given flu [...] reaction to any injections in the past [id number] MD John Chairez (Adult Med) [address] [place] [phone] 10/21/2017 13:52:13 10/21/2017 15:33:26 Tobacco dependence syndrome 57540325 F17.290 Advised to quit smoking Smoking 1/2ppd x 27 years Gastroesop hageal reflux disease 009971020 K21.9 Advised to stay away from spicy and greasy foodsAdvis ed to stay away from fatty foodsDo not eat within 2 hours of going to bedStay sitting up after mealsNo smokingPat ient to complete [facility] care applicatio n today Adult heal th examination 816199034 Z00.01 45YO females here to establish care. Patient's only complaints are bilateral knee pain Fatigue 99349446 R53.83 Advised to drink plenty of water good sleep hygiene Screening for disorder 339070265 Z13.9 [id number] MD John Chairez (Adult Med) [address] [place] [phone] 01/12/2018 08:48:05 01/12/2018 10:26:34 Has a sore throat 696630567 J02.9 Strep negative Allergic disposition 609 919667 Z91.09 Due to the patient having a [...] to quit smoking Tobacco de pendence syndrome 78725345 F17.290 Advised to quit smoking Smoking 1/4ppd down from 1/2ppd Vitamin D deficiency 347 25436 E55.9 Never picked up medication - will send to [facility] at this time to initiate weekly Gastroesop hageal reflux disease 770643876 K21.9 Advised to stay away from spicy and greasy foodsAdvis ed to stay away from fatty foodsDo not eat within 2 hours of going to bedStay sitting up after mealsNo smoking Has a GI apponitmen t in 2 months in March but doesn't know if she'll go because the omeprazole is working well [id number] Nadine Burns MD [facility] (Adult Med) [address] [place] [address] 11/11/2018 16:12:29 11/14/2018 09:02:14 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 She can breathe better, less wheezing by auscultati on after nebulizer treatment at this office. Nicotine dependence 5629 4008 F17.200 Advised patient to quit smoking for the good health and financial reasons. Chemical-i nduced asthma 81578326 J68.3 [id number] SERA CASILLAS [facility] (Adult Med) [address] [place] [phone] 12/18/2019 15:12:26 12/19/2019 08:51:53 Pruritic rash 48230328 L28.2 Itchy, painful rash with vesicles x 3 months.Pt has tried OTC antifungal without relief. 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 [id number] MD John Cunningham (Adult Med) [address] [place] [address] 02/05/2020 15:35:22 02/07/2020 11:00:06 Pruritic disorder 072248968 L29.9 [id number] MD John Cunningham (Adult Med) [address] [place] [phone] 04/23/2021 17:05:21 04/28/2021 13:21:59 Chronic obstructive pulmonary disease 71698375 J44.9 Smoker 01957277 F17.200 Advised her to quit smoking, also wants to try chantix. Bloating symptom 8338338 00 R14.0 Will do US at [facility]. Acute exac erbation of chronic obstructive pulmonary disease 557724310 J44.1 Discussed with patient , she understood [...] Member ID Street Member ID Guarantor Name 06/02/2021 SLIDING FEE SCHEDULE - DISCOUNT Cara Boss 04/23/2021 1 *SELF PAY* No ra Boss 04/23/2021 SLIDING FEE SCHEDULE - DISCOUNT Cara Boss 02/07/2020 1 [facility] [id number] Cara Boss [id number] Cara Boss 09/29/2017 1 [facility] - DOS PRIOR TO 2021 (MEDICAID REPLACEMENT - HMO) Cara Boss [id number] Cara Boss 08/18/2019 1 *SELF PAY* No ra Gera 10/21/2017 SLIDING FEE SCHEDULE - DISCOUNT Cara Boss 12/30/2018 SLIDING FEE SCHEDULE - DISCOUNT Cara Gera Notes Date Note Type Note Provider Name [...] symptoms JULIA Peoples NP Attn: Accounting[address] [facility], [place], [address], [facility] 11/11/2018 17:18:13 08/18/2019 text/html Chest congestion and cough foe about one week, a cigarettes smoker, NKDA. Karina Flores MD Attn: Accounting,[address] [facility], [place], [address], [facility] 08/18/2019 14:51:49 12/18/2019 text/html 49 y/o female [...] or dysuria. SERA CASILLAS Attn: Accounting,[address] [place], [address], [facility] 12/18/2019 17:13:54 02/05/2020 text/html Skin rashes , permethrin not working, NKDA, will try antifungal cream and steroid cream as well, she agreed. Karina Flores MD Attn: Accounting,[address] [place], [address], [facility] 02/05/2020 17:05:25 04/23/2021 text/html Office visit, right knee is much better after operation, wants refill inhalers, and chantix to help her to quit smoking. NKDA. also stomach bloated from time to time, no diarrhea or constipation no fever, no weight loss, no N/V. no health insurance. Karina Flores MD Attn: Accounting,[address] [facility], [place], [address], [place] [facility] 04/23/2021 17:49:48 OBGyn Episode No OBEpisode recorded.
--- NOTE | 2025-04-03 13:34 | CY_PTH ---
PATIENT: Cara Boss LOC: [facility] U#:[id number] AGE/SX: 54/F ROOM: RE04/03/[address]: Nolan AshtonMD : 1970 BED: DIS: 04/03/2025 SPEC #: [id number] RECD: 04/03/25 14:29 STATUS: LATRELL REIvana #: [id number] SUJEY: 04/03/25 13:[address]: DaishaNolan DEPT: [facility] Cytology RECD BY: Luiza Ruff MLT, ([facility]) Tissues: A - FNA Thyroid Procedures: Hematoxylin and Eosin Stain Cell Block Fine Needle Aspiration Evaluation Fine Needle Aspiration Pathologist
== END 2025-04-03 13:01 | disposition home or self-care (01) ==
PROVIDERS: PCP Otolaryngology; Visit Provider Otolaryngology
DX: E04.1 Nontoxic single thyroid nodule (principal)
CPT/HCPCS: 10005; 88172; 88173; 88305